=== PATIENT | male | born 1960 | race African-American/Black ===

== ENCOUNTER 2021-07-31 11:13 | Inpatient (IN) | payer MEDICARE, MEDICAID, SELFPAY ==
--- NOTE | ~2021-07-31 | XR_ITS ---
EXAMINATION: XR abdomen obstructive series DATE: 08/03/2021 18:17 INDICATION: Abdominal pain. TECHNIQUE: Upright and supine views of the abdomen on 3 radiographs were obtained. COMPARISON: None. FINDINGS: There are no dilated loops of bowel. There is a small volume of stool in the colon. No free intraperitoneal gas. IMPRESSION: 1. Normal bowel gas pattern. Reviewed, dictated and finalized at location A. ICAL TRIAL COORDINATOR
--- NOTE | ~2021-07-31 | XR_ITS ---
EXAMINATION: XR chest 1V portable DATE: 07/31/2021 13:02 INDICATION: Cough and congestion. TECHNIQUE: A single frontal view of the chest was obtained. COMPARISON: None. FINDINGS: There are mild airspace opacities in the lower lung zones. No pleural effusion or pneumotho rax. The heart size is normal. IMPRESSION: 1. Mild airspace opacities in the lower lung zones, consistent with atelectasis versus pneumonia. Reviewed, dictated and finalized at location B. RUMENT SPECIALIST
--- NOTE | ~2021-07-31 | US_ITS ---
EXAMINATION: US art doppler w harshad VELEZ EXAM DATE: 07/31/2021 18:20 INDICATION: weak pedal pulses . TECHNIQUE: Segmental pressures and plethysmographic and Doppler waveforms of the brachial and lower e xtremity arteries were obtained. There is no prior study for comparison. FINDINGS: Right and left brachial artery pressures of 128 mm Hg and 125 mm Hg, respectively, are concordant (no rmal difference <= 30 mmHg). RIGHT LEG: The ankle-brachial index (DAHLIA) is could not obtain (normal >= 0.9-1). The great toe-brachial index (TBI) is 0.59 (normal >= 0.65). The lower extremity ratios, segmental pressure gradients as follows; Dorsalis pedis: Could not obtain ( mmHg). Posterior tibial: Could not obtain ( mmHg). (Normal gradients <= 20-30 mmHg between adjacent levels on the same leg or the same levels on the two legs). Arterial waveforms are monophasic. LEFT LEG: The ankle-brachial index (DAHLIA) is could not obtain (normal >= 0.9-1). The great toe-brachial index (TBI) is 0.34 (normal >= 0.65). The lower extremity ratios, segmental pressure gradients as follows; Dorsalis pedis: Could not obtain ( mmHg). Posterior tibial: Could not obtain ( mmHg). (Normal gradients <= 20-30 mmHg between adjacent levels on the same leg or the same levels on the two legs). Arterial waveforms are monophasic. IMPRESSION: ABIs could not be obtained, could not get pressure in calf arteries. Monophasic waveform s. Mildly decreased right TBI, moderately decreased left TBI. Could be from significant arterial occl usive disease. Reviewed, dictated and finalized at location G. DOZER/LOADER/COMPACTOR/SCRAPER IMPRESSION: ABIs could not be obtained, could not get pressure in calf arterie s. Monophasic waveforms. Mildly decreased right TBI, moderately decreased left TBI. Could be from significant arterial occlusive disease.
--- NOTE | ~2021-07-31 | CT_ITS ---
EXAMINATION: CT brain wo con DATE: 07/31/2021 13:50 INDICATION: Altered mental status. TECHNIQUE: Computed tomography (CT) of the head was performed without intravenous contrast. The mA wa s adjusted according to patient size. Iterative reconstruction technique was employed. The dose-lengt h product was 908.00 mGy-cm. COMPARISON: None FINDINGS: There is motion artifact. There is no intracranial hemorrhage, acute infarction, or abnorma l intracranial mass lesion. The ventricles are normal in size. The orbits are normal. The mastoid air cells are normal. There is extensive dental disease. There is mild mucosal thickening in left maxill haven sinus. IMPRESSION: 1. Normal brain. 2. Extensive dental disease. Reviewed, dictated and finalized at location B. NET ADMIN
[2021-07-31 11:10] VITALS: BP 130/77; PULSE 107; RESP 24; TEMP 36.9; O2SAT 98
--- NOTE | 2021-07-31 11:43 | ECG_ITS ---
Measurements Intervals [place] Rate: 106 P: CO: 0 QRS: -42 QRSD: 80 T: 192 QT: 383 QTc: 510 Interpretive Statements SINUS TACHYCARDIA LEFT AXIS DEVIATION DELAYED PRECORDIAL R/S TRANSITION LEFT VENTRICULAR HYPERTROPHY AND ST-T CHANGE T WAVE ABNORMALITY IN ANTEROLATERAL LEADS- CONSIDER ISCHEMIA BASELINE ARTIFACT- I, II, III, AVR, AVL, AVF, V1-V6 ABNORMAL ECG Electronically Signed On 07-31-2021 12:46:53 ELECTROPHYSIOLOGY TECHNICIAN by Luis Mina D.O.
[2021-07-31 11:50] LABS: Basophils Percent Auto 0.4 % (0.2-1.2); Eosinophils Absolute Auto 0.3 K/mm3 (0-0.3); Eosinophils Percent Auto 4.2 % (0-4.4); Hematocrit 37.7 % (42.0-52.0); Hemoglobin 11.2 g/dL (14.0-18.0); Immature Granulocyte Absolute 0.19 K/mm3 (0.00-0.031); Immature Granulocyte Percent A 2.7 % (0-0.5); Lymphocytes Absolute Auto 1.02 K/mm3 (0.9-3.2); Lymphocytes Percent Auto 14.6 % (18.3-44.2); Mean Corpuscular HGB Conc 29.7 g/dl (32-36); Mean Corpuscular Hemoglobin 28.6 pg (26-34); Mean Corpuscular Volume 96.4 fl (80-100); Mean Platelet Volume 10.9 fl (7.4-10.4); Monocytes Absolute Auto 0.3 K/mm3 (0.1-0.6); Monocytes Percent Auto 3.7 % (2.6-8.5); Neutrophils Absolute Auto 5.2 K/mm3 (1.3-6.7); Neutrophils Percent Auto 74.4 % (45.5-73.1); Platelet Count Result 154 k/mm3 (150-375); Red Blood Count 3.91 M/mm3 (4.6-6.20); Red Cell Distribution Width 15.9 % (11.5-14.5)
[2021-07-31 12:05] LABS: Alanine Aminotransferase 27 U/L (4-50); Albumin Level 4.2 g/dL (3.5-5.1); Alkaline Phosphatase 134 U/L (38-126); Anion Gap 19 mmol/L (8-16); Aspartate Amino Transferase 68 U/L (17-59); Bilirubin,Total 1.3 mg/dL (0.2-1.3); Blood Urea Nitrogen 46 mg/dL (9-20); Calcium 9.7 mg/dL (8.4-10.2); Carbon Dioxide 26 mmol/L (22-30); Chloride 98 mmol/L (98-107); Estimated CRCL calculation 11 ml/min; Estimated Glomerular Filt Rate 6; Glucose 86 mg/dL (65-110); Potassium 4.4 mmol/L (3.4-5.0); Sodium 143 mmol/L (137-145)
[2021-07-31 12:07] LABS: Ovalocytes 1+ (NORMAL); Platelet Estimate Adequate (Adequate)
--- NOTE | 2021-07-31 12:18 | PC.NURSE ---
Pt has not been to this facility and is usually seen at [facility] for all needs. Request sent for pt records. [facility] called for demographic information and recent labwork. Pt was seen there yesterday for a fall. Had been found by unknown person lying on the floor for undetermined amount of time. Had missed approx 6 dialysis treatments. Usually goes Tuesday, Tuesday, Tuesday. Labwork yesterday at [facility] as follows from CONSULTING SALES MANAGER and readback to confirm. Pts home phone number [phone]. Cr 17.25 K 7.0 Na 147 BUN 115 Anion Gap 7.0 Troponin 0.300 BNP 4840
--- NOTE | 2021-07-31 12:19 | PC.NURSE ---
medical office secretary faxed record release form to [facility] at [phone]
--- NOTE | 2021-07-31 12:26 | ED.AMS ---
HPI - Altered Mental Status General Chief Complaint: Altered Mental Status Stated Complaint: AMS Time Seen by Provider: 07/31/21 11:50 Source: patient, RN notes reviewed and old records reviewed Mode of arrival: ambulatory Limitations: clinical condition History of Present Illness HPI narrative: 61-year-old male presents the emergency room for evaluation from dialysis. Patient had been evaluated in [place] and was discharged from the hospital and taken by cab to dialysis. At dialysis they felt the patient was still altered so the patient was sent in by ambulance to [facility]. Patient has no medical records here at [facility] so we are seeking records from [facility]. Patient denies any complaints but is very somnolent. Related Data Home Medications Medication Instructions Recorded Confirmed acetaminophen-codeine tablet 07/31/21 albuterol sulfate 2 inh INHALATION Q6H 07/31/21 07/31/21 atorvastatin 20 mg PO DAILY 07/31/21 07/31/21 baclofen 10 mg PO BID 07/31/21 07/31/21 cetirizine 10 mg PO DAILY 07/31/21 07/31/21 folic acid 1 mg PO DAILY 07/31/21 07/31/21 [id number] [Creon] 1 cap PO TID 07/31/21 07/31/21 loperamide [Imodium] 2 mg PO PRN PRN 07/31/21 07/31/21 metoprolol tartrate 50 mg PO BID 07/31/21 07/31/21 prednisone 20 mg PO DAILY 07/31/21 07/31/21 sevelamer HCl 800 mg PO TID 07/31/21 07/31/21 Allergies Allergy/AdvReac Type Severity Reaction Status Date / Time lisinopril Allergy Unknown Verified 07/31/21 16:44 Review of Systems Review of Systems: ROS unobtainable: Yes other (Patient responds and states I am listening but does not answer very many ) PMFSH Past Medical History Medical History (Updated 07/31/21 @ 16:00 by Isela Perales NP) Chronic pancreatitis End stage renal disease on dialysis Hyperlipidemia Hypertension Surgical History Surgical History (Updated 07/31/21 @ 16:00 by Isela Perales NP) H/O abdominal surgery Possible mesh to umbilical area Family History Family History (Updated 07/31/21 @ 16:04 by Isela Perales NP) Unknown Family history unknown Social History Social History (Updated 07/31/21 @ 16:05 by Isela Perales NP) Social History: The patient is unable to answer questions. I do not have a contact number where I can speak to somebody concerning the patient's history. The patient has listed his own cell phone number which I called and there was no answer. I did request for patient's records from [facility]. Exam Narrative: APPEARANCE: Well appearing, no pain in distress, well-nourished. HEAD: normocephalic, atraumatic. EYES: PERRLA/EOMI, conjunctivae clear. NOSE: Normal no drainage NECK: Supple. No adenopathy, no masses. RESPIRATORY: Airway patent, respirations nonlabored. CARDIOVASCULAR: Regular rate and rhythm without murmurs rubs or gallops. ABDOMINAL: Soft, nontender, nondistended, normal bowel sounds MUSCULOSKELETAL: Chronic wound at right lower extremity NEURO: Alert. Cranial nerves II through XII intact. SKIN: Chronic wound on her right calf PSYCHIATRIC: Normal affect/mood. Course Course Emergency Course: Patient did have dialysis today. Patient did test positive for COVID. Discussed with the hospitalist and patient is being admitted. No antibiotics since we feel this is due to viral COVID. Patient was updated on the plan for admission. All patient's labs reviewed. Patient was stable at time admission. Vital Signs Vital signs: Vital Signs Temperature 98.4 F 07/31/21 11:10 Pulse Rate 107 H 07/31/21 11:10 Respiratory Rate 24 H 07/31/21 11:10 Blood Pressure 130/77 07/31/21 11:10 Pulse Oximetry 98 07/31/21 11:10 Temperature 98.8 F 07/31/21 17:07 Pulse Rate 94 07/31/21 17:07 Respiratory Rate 19 07/31/21 17:07 Blood Pressure 128/72 07/31/21 17:07 Pulse Oximetry 100 07/31/21 17:07 MDM - Altered Mental Status Differential Diagnosis Differential diagnosis: Lik
[2021-07-31 13:19] LABS: SARS-CoV-2 RNA PCR Positive
[2021-07-31 13:28] LABS: Alveolar/Arterial O2 Gradient 38.9 mmHg; Base Excess ABG 3.9 mEq/l (+/-2.0); Fractional Inspired Oxygen 21 %; Oxygen Content ABG 14.7 %vol (16.0-22.0); Oxygen Saturation ABG 95.2 % (95.0-100.0); Oxyhemoglobin 91.6 % THb (90.0-100.0); PCO2 ABG 35.4 mmHg (35.0-45.0); PO2 ABG 68.4 mmHg (80.0-100.0); PO2 FiO2 Ratio Arterial Blood 3.26 %; Total Hemoglobin 11.4 g/dL (12.0-18.0)
[2021-07-31 13:31] LABS: Device ROOM AIR; Modified Allen's Test Pass; Site Drawn RIGHT RADIAL; pH ABG 7.501 (7.350-7.450)
[2021-07-31 13:34] LABS: INR 1.9; Prothrombin Time 21.1 Seconds (11.1-14.7)
[2021-07-31 13:35] LABS: Partial Thromboplastin Time 38.4 SECONDS (22.3-36.8)
--- NOTE | 2021-07-31 14:02 | PM.IMHP ---
H&P: HPI History of Present Illness Date/Time: 07/31/21 14:02 this is a 61-year-old male patient who came to the emergency room to be evaluated for for altered mental status changes. The patient had recently been evaluated [facility] was discharged from the hospital and take by cab to dialysis. When the patient was received at dialysis was felt that the patient was still altered and they brought him to [facility] via ambulance. We have no current records here the patient is not able to answer any questions. The 2 numbers listed in the patient's chart is the patient's cell phone and in [facility] number. I do not have any contacts listed to be able to discuss patient's past medical history and surgeries. The patient is not able to answer questions for me. Patient is just mumbling. Head CT was read as normal brain extensive dental disease. Chest x-ray was read as mild airspace opacities in the lower lung zones consistent with atelectasis versus pneumonia. Patient is found to be positive for COVID. The patient is being admitted to observation status on 07/31/2021. Chief Complaint: Confusion Review of Systems Review of Systems: All systems reviewed & are unremarkable except as noted in HPI and below Constitutional: Constitutional: Reports as per HPI and Reports no additional constitutional complaints Eyes: Eyes: Reports as per HPI and Reports no additional eye complaints ENT: Reports system reviewed and no additional complaints, except as documented and Reports Normal hearing present Cardiovascular: Cardiovascular: Reports no additional cardiovascular complaints Respiratory: Respiratory: Reports no additional respiratory complaints and Reports no additional respiratory complaints Gastrointestinal: Gastrointestinal: Reports as per HPI and Reports no additional gastrointestinal complaints Musculoskeletal: Musculoskeletal: Reports no additional musculoskeletal complaints Integumentary/Breasts: Skin/Breast: Reports system reviewed and no additional complaints, except as docu and Reports as per HPI Neurologic: Reports system reviewed and no additional complaints, except as documented, Reports as per HPI and Reports Normal hearing present Psychiatric: Psychiatric: Reports no additional psychiatric complaints and Reports as per HPI Endocrine: Endocrine: Reports no additional endocrine complaints Hematologic/Lymphatic: Hematologic/Lymphatic: Reports no additional hematologic/lymphatic complaints Allergic/Immunologic: Allergic/Immunologic: Reports no additional allergic/immunologic complaints [facility] Past Medical History Medical History (Updated 07/31/21 @ 16:00 by Isela Perales NP) Chronic pancreatitis End stage renal disease on dialysis Hyperlipidemia Hypertension Surgical History Surgical History (Updated 07/31/21 @ 16:00 by Isela Peralse NP) H/O abdominal surgery Possible mesh to umbilical area Family History Family History (Updated 07/31/21 @ 16:04 by Isela Perales NP) Unknown Family history unknown Social History Social History (Updated 07/31/21 @ 16:05 by Isela Perales NP) Social History: The patient is unable to answer questions. I do not have a contact number where I can speak to somebody concerning the patient's history. The patient has listed his own cell phone number which I called and there was no answer. I did request for patient's records from [facility]. Meds Home Medications and Allergies Home Medications Medication Instructions Recorded Confirmed Type acetaminophen-codeine tablet 07/31/21 History albuterol sulfate 2 INHALATION 07/31/21 History atorvastatin 20 mg PO DAILY 07/31/21 History baclofen 10 mg PO BID 07/31/21 History cetirizine 10 mg PO DAILY 07/31/21 History folic acid 1 mg PO DAILY 07/31/21 History [id number] [Creon] 1 cap PO TID 07/31/21 History loperamide [Imodium] 2 mg PO PRN 07/31/21 History metoprolol t
--- NOTE | 2021-07-31 15:49 | PC.NURSE ---
Pt is refusing straight cath for urine at this time. States he does not produce much.
[2021-07-31] MEDS: ALBUTEROL SULFATE (*SP) AEROSOL 1 PUFF 2 PUFF INHALATION (16:15)
--- NOTE | 2021-07-31 16:15 | PHAR ---
DIALYSIS PATIENT GFR 6 SPOKE WITH HATTIE FORBES TO USE PER BUOY TENDER
--- NOTE | 2021-07-31 16:20 | PM.CNNEP ---
Assessment and Plan Assessment and plan (1) End stage renal disease on dialysis: Code(s): N18.6 - End stage renal disease; Z99.2 - Dependence on renal dialysis Status: Chronic Assessment and Plan: plan next HD treatment on Tuesday continue // dialysis schedule follow electrolytes, volume status, and clearance (2) Altered mental status: Qualifiers: Altered mental status type: disorientation Qualified Code(s): R41.0 - Disorientation, unspecified Code(s): R41.82 - Altered mental status, unspecified Status: Acute Assessment and Plan: extent and duration unknown related to COVID-19 infection(?) head CT unrevealing further imaging needed (ie MRI)?? (3) COVID-19 virus infection: Code(s): U07.1 - COVID-19 Status: Acute Assessment and Plan: despite positivity, no hypoxic and in no respiratory distress started on remdesivir and steroids -- needed at this time? follow respiratory statis (4) Hypertension: Code(s): I10 - Essential (primary) hypertension Status: Chronic Assessment and Plan: reasonable control at this time follow trend of hemodynamics Will continue to follow. History of Present Illness Reason for Consult Consult date: 07/31/21 Reason for consult: end stage renal disease Chief Complaint Chief complaint: Covid Pneumonia History of Present Illness Narrative: Most of the information I have obtained is from review of the electronic record although even this information is quite limited but the patient is unable to provide me with much history of the events that led to his presentation to the emergency room. The patient is a 61-year-old male with a past medical history as outlined below who presented for further evaluation of altered mental status. Reportedly, the patient was evaluated at [facility] not too long ago and was subsequently sent to dialysis for his treatment today as apparently he was felt to be stable for this. The patient received his dialysis treatment today as scheduled but the nursing staff at his dialysis center felt that his mentation was still not back to baseline even after his dialysis treatment so he was sent to [facility] Emergency room for further evaluation. Evaluation in the emergency room demonstrated the patient to be hemodynamically stable with routine blood tests that were consistent with his known history of end-stage renal disease. CT scan of the head did not demonstrate any acute pathology initial S x-ray was suggestive of atelectasis versus pneumonia. Rapid COVID-19 testing was positive. Given his altered mental status and recent COVID-19 diagnosis, he was admitted the hospital for further evaluation therapy. Renal consultation was requested due to his end-stage renal disease. The patient has no records in the [facility] system but I was able to call his dialysis center to get some information. He currently receives dialysis on a Tuesday, Tuesday, Tuesday dialysis schedule at [facility] under the care of Dr. Efe Preciado. His baseline mental status is usually alert oriented x3 so his current mental status both on presentation to the dialysis center as well as to the emergency room is clearly a significant change than his baseline. As already mentioned, he did receive his full dialysis treatment today prior to his transfer to the emergency room. Currently, the patient does not appear to be in acute distress but whenever I ask him a question, he just mumbles a response that I am unable to understand. Review of Systems Review of Systems: Unable to assess. PMFSH Past Medical History Medical History (Updated 07/31/21 @ 20:22 by Skylar Pinon MD) Chronic pancreatitis End stage renal disease on dialysis Hyperlipidemia Hypertension Surgical History Surgical History (Updated 07/31/21 @ 16:00 by Isela Perales NP) H/O abd
[2021-07-31 17:07] VITALS: BP 128/72; PULSE 94; RESP 19; TEMP 37.1; O2SAT 100
[2021-07-31] MEDS: REMDESIVIR 200 MG/NS 250 ML 200 MG/250 ML BAG 250 MG IVPB (18:02)
[2021-07-31 20:00] VITALS: PULSE 94; RESP 19; O2SAT 100
[2021-07-31] MEDS: HEPARIN SODIUM 5,000 UNITS/ML VIAL 5000 UNITS SUB-Q (21:34)
[2021-07-31] MEDS: METOPROLOL TARTRATE 50 MG TAB PO (21:34)
[2021-07-31 22:00] VITALS: BP 120/71; PULSE 92; RESP 18; TEMP 36.6; O2SAT 95
--- NOTE | 2021-08-01 07:07 | ADMGEN ---
This patient, Christiano Lehman, was admitted to [facility] Surg Room 325-01. Patient/family oriented to hospital policies and general routines including ID bracelet, bed and alarms, visiting hours, pain management, procedures, bathroom and other care routines, personal items, smoking policy, room service/diet, and visiting hours. Information on how to activate the Rapid Response Team has been discussed. Patient/Family are encouraged to report perceived risks to care and to ask questions if they do not understand what they are told or what they should do.
[2021-08-01 07:22] LABS: Basophils Percent Auto 0.6 % (0.2-1.2); Eosinophils Percent Auto 0.2 % (0-4.4); Hematocrit 39.3 % (42.0-52.0); Hemoglobin 11.6 g/dL (14.0-18.0); Immature Granulocyte Absolute 0.18 K/mm3 (0.00-0.031); Immature Granulocyte Percent A 2.7 % (0-0.5); Lymphocytes Absolute Auto 0.64 K/mm3 (0.9-3.2); Lymphocytes Percent Auto 9.7 % (18.3-44.2); Mean Corpuscular HGB Conc 29.5 g/dl (32-36); Mean Corpuscular Hemoglobin 28.6 pg (26-34); Mean Corpuscular Volume 96.8 fl (80-100); Mean Platelet Volume 11.3 fl (7.4-10.4); Monocytes Absolute Auto 0.1 K/mm3 (0.1-0.6); Monocytes Percent Auto 1.8 % (2.6-8.5); Neutrophils Absolute Auto 5.6 K/mm3 (1.3-6.7); Platelet Count Result 150 k/mm3 (150-375); Red Blood Count 4.06 M/mm3 (4.6-6.20); Red Cell Distribution Width 15.3 % (11.5-14.5); White Blood Count 6.6 K/mm3 (4.5-10.0)
[2021-08-01 07:26] LABS: Lactic Acid Reflex 1.5 mmol/L (0.7-2.1)
[2021-08-01 07:34] LABS: INR 1.7; Prothrombin Time 19.5 Seconds (11.1-14.7)
[2021-08-01 08:00] VITALS: BP 128/82; PULSE 80; PULSE 97; RESP 20; TEMP 37.1; O2SAT 97
[2021-08-01 08:02] LABS: Alanine Aminotransferase 24 U/L (4-50); Albumin Level 4.2 g/dL (3.5-5.1); Alkaline Phosphatase 119 U/L (38-126); Anion Gap 23 mmol/L (8-16); Aspartate Amino Transferase 45 U/L (17-59); Blood Urea Nitrogen 63 mg/dL (9-20); CRP 13.7 mg/dL (<1.0); Calcium 9.8 mg/dL (8.4-10.2); Carbon Dioxide 23 mmol/L (22-30); Chloride 99 mmol/L (98-107); Estimated CRCL calculation 9 ml/min; Estimated Glomerular Filt Rate 6; Glucose 123 mg/dL (65-110); Lactate Dehydrogenase 660 U/L (313-618); Magnesium 2.3 mg/dL (1.6-2.3); Potassium 5.4 mmol/L (3.4-5.0); Sodium 145 mmol/L (137-145)
--- NOTE | 2021-08-01 08:25 | PC.NURSE ---
MD Pinon called this morning r.t pt labs, awaiting call back.
[2021-08-01 08:33] LABS: Thyroid Stimulating Hormone Reflex 0.383 uIU/mL (0.465-4.68)
[2021-08-01] MEDS: LORATADINE 10 MG TABLET PO (09:36)
[2021-08-01] MEDS: SEVELAMER CARBONATE 800 MG TABLET PO ×3 (09:36→16:51)
[2021-08-01 09:37] VITALS: PULSE 80
[2021-08-01] MEDS: ATORVASTATIN 20 MG TABLET PO (09:37)
[2021-08-01] MEDS: LIPASE/AMYLASE/PROTEASE 12,000 UNITS CAP 2 CAP PO ×3 (09:37→16:51)
[2021-08-01] MEDS: HEPARIN SODIUM 5,000 UNITS/ML VIAL 5000 UNITS SUB-Q ×2 (09:37→20:22)
[2021-08-01] MEDS: METOPROLOL TARTRATE 50 MG TAB PO ×2 (09:37→16:51)
[2021-08-01] MEDS: FOLIC ACID 1 MG TABLET PO (09:37)
[2021-08-01] MEDS: LOPERAMIDE HCL 2 MG CAPSULE PO (09:42)
--- NOTE | 2021-08-01 09:57 | PC.NURSE ---
Labs report to MD Steen, MD Steen to review. Pt Cr increase to 11.2 from 8.5, K increased to 5.4 from 4.4. Awaiting further instruction.
[2021-08-01 10:05] LABS: Free T4 Free Thyroxine Reflex 1.44 ng/dL (0.78-2.19)
[2021-08-01 11:12] LABS: Ferritin > 2000.00 ng/mL (11.1-264)
--- NOTE | 2021-08-01 11:12 | PC.NURSE ---
MD Steen reordering K level, will continue to monitor K level. No order to dialysis today. Md Sandy updated.
--- NOTE | 2021-08-01 11:17 | PM.PNNEP ---
Progress Note: A&P Assessment and Plan (1) End stage renal disease on dialysis: Code(s): N18.6 - End stage renal disease; Z99.2 - Dependence on renal dialysis Status: Chronic Assessment and Plan: plan next HD treatment on Tuesday volume status looks okay. Potassium slightly high. We will recheck this afternoon (2) Altered mental status: Qualifiers: Altered mental status type: disorientation Qualified Code(s): R41.0 - Disorientation, unspecified Code(s): R41.82 - Altered mental status, unspecified Status: Acute Assessment and Plan: this seems baseline right now.?? (3) COVID-19 virus infection: Code(s): U07.1 - COVID-19 Status: Acute Assessment and Plan: despite positivity, no hypoxic and in no respiratory distress started on remdesivir and steroids -- needed at this time? Hopefully he can be discharged since he is not hypoxic and he can go back to outpatient dialysis. (4) Hypertension: Code(s): I10 - Essential (primary) hypertension Status: Chronic Assessment and Plan: Systolic in the 120s Will continue to follow. Subjective Date/time seen: 08/01/21 11:17 Interval history: Patient is feeling okay today. He is surprised he has COVID. He has no cough or shortness of breath Review of Systems Cardiovascular: Cardiovascular: Reports no additional cardiovascular complaints Respiratory: Respiratory: Reports no additional respiratory complaints Gastrointestinal: Gastrointestinal: Reports no additional gastrointestinal complaints Genitourinary: Genitourinary: Reports no additional male genitourinary complaints Exam Narrative: WDWN in NAD skin no rash head ncat lungs clear cor reg no rub abd BS+ nontender and soft ext no edema. Objective Data Vital Signs Vital Signs: Vital Signs - 24 hr 07/31/21 17:07 07/31/21 20:00 07/31/21 22:00 Temperature 37.1 C 36.6 C Pulse Rate 94 94 92 Respiratory Rate 19 19 18 Blood Pressure 128/72 120/71 Pulse Oximetry 100 100 95 08/01/21 08:00 08/01/21 09:37 Temperature 37.1 C Pulse Rate 80 80 Respiratory Rate 20 Blood Pressure 128/82 Pulse Oximetry 97 Intake/Output Intake/Output: Intake & Output 07/29/21 07/30/21 07/31/21 08/01/21 23:59 23:59 23:59 23:59 Intake Total 360 Balance 360 Meds/Results Medications: Active Medications Generic Name Dose Route Start Last Admin Trade Name Daniella PRN Reason Stop Dose Admin Albuterol 2 puff 07/31/21 16:09 07/31/21 16:15 Albuterol Sulfate (*Sp) Aerosol 1 Puff INHALATION 2 puff Q6HRT PRN Administration Shortness Of Breath Lipase/Protease/Amylase 2 cap 08/01/21 09:00 08/01/21 09:37 Lipase/Amylase/Protease 12,000 Units Cap PO 2 cap TID ARIES Administration Atorvastatin Calcium 20 mg 08/01/21 09:00 08/01/21 09:37 Atorvastatin 20 Mg Tablet PO 20 mg DAILY ARIES Administration Dexamethasone Sodium Phosphate 6 mg 07/31/21 16:30 08/01/21 09:37 Dexamethasone Sod Phos Inj 10 Mg/Ml 1 Ml Vial IV PUSH 08/09/21 09:01 6 mg DAILY ARIES Administration Folic Acid 1 mg 08/01/21 09:00 08/01/21 09:37 Folic Acid 1 Mg Tablet PO 1 mg DAILY ARIES Administration Heparin Sodium (Porcine) 5,000 units 07/31/21 21:00 08/01/21 09:37 Heparin Sodium 5,000 Units/Ml Vial SUB-Q 5,000 units Q12HR ARIES Administration Hydralazine HCl 10 mg 07/31/21 15:58 Hydralazine Hcl 20 Mg/Ml Vial IV PUSH Q8H PRN Blood Pressure - High Remdesivir 100 mg in 250 mls @ 250 mls/hr 08/01/21 22:00 IVPB 08/04/21 22:59 Q24H ARIES Loperamide HCl 2 mg 07/31/21 19:51 08/01/21 09:42 Loperamide Hcl 2 Mg Capsule PO 2 mg PRN PRN Administration Diarrhea Loratadine 10 mg 08/01/21 09:00 08/01/21 09:36 Loratadine 10 Mg Tablet PO 10 mg DAILY ARIES Administration Metoprolol Tartrate 50 mg 07/31/21 20:00 08/01/21 09:37 Metoprolol Ta
--- NOTE | 2021-08-01 11:24 | PC.NURSE ---
Reported ferritin >2000 to Md Steen, NNO
--- NOTE | 2021-08-01 11:26 | PC.NURSE ---
Pt informed urine sample needed for UA with C&S, awaiting void for sample.
--- NOTE | 2021-08-01 11:30 | PM.IMPN ---
Progress Note: A&P Assessment and Plan (1) 2019 novel coronavirus-infected pneumonia (NCIP): Code(s): U07.1 - COVID-19; J12.82 - Pneumonia due to coronavirus disease 2019 Status: Acute Assessment and Plan: 08/01 Day 2 remdesivir and Decadron. Given his dramatic improvement and risk due to ESRD, the remdesivir was discontinued. (2) Altered mental status: Qualifiers: Altered mental status type: disorientation Qualified Code(s): R41.0 - Disorientation, unspecified Code(s): R41.82 - Altered mental status, unspecified Status: Acute Assessment and Plan: Possibly due to COVID-19 08/01 Resolved (3) End stage renal disease on dialysis: Code(s): N18.6 - End stage renal disease; Z99.2 - Dependence on renal dialysis Status: Chronic Assessment and Plan: HD per nephrology service (4) Hypertension: Qualifiers: Hypertension type: unspecified Qualified Code(s): I10 - Essential (primary) hypertension Code(s): I10 - Essential (primary) hypertension Status: Chronic Assessment and Plan: P.r.n. hydralazine (5) Hyperlipidemia: Qualifiers: Hyperlipidemia type: unspecified Qualified Code(s): E78.5 - Hyperlipidemia, unspecified Code(s): E78.5 - Hyperlipidemia, unspecified Status: Chronic Assessment and Plan: Continue with home medication. (6) Chronic pancreatitis: Qualifiers: Pancreatitis type: unspecified pancreatitis type Qualified Code(s): K86.1 - Other chronic pancreatitis Code(s): K86.1 - Other chronic pancreatitis Status: Chronic Assessment and Plan: Continue Creon Subjective Date/time seen: 08/01/21 11:30 Interval history: Admitted with confusion and COVID-19 pneumonia after completing 4 hour dialysis treatment on 07/31. 08/01 visit: denied shortness of breath or chest pain or nausea. Appetite good. Denied GI or changes. Denied abnormal bleeding. Review of Systems Review of Systems: All systems reviewed & are unremarkable except as noted in HPI and below Exam Narrative: HEENT: PERRL, sclerae nonicteric, pharyngeal mucosa pink and intact NECK: No JVD, adenopathy, or thyromegaly CHEST: COARSE BS. Normal effort. HEART: NL S1/S2, regular, no murmur ABDOMEN: BS+, soft, nontender, no mass, no bruits EXTREMITIES: No cyanosis, edema, or clubbing NEUROLOGIC: CN intact and symmetric to inspection. MUSCULOSKELETAL: Tone and strength symmetric. PSYCH: Alert. Oriented to person, place, and time. Objective Data Vital Signs Vital Signs: Vital Signs - 24 hr 07/31/21 17:07 07/31/21 20:00 07/31/21 22:00 Temperature 98.8 F 97.8 F Pulse Rate 94 94 92 Respiratory Rate 19 19 18 Blood Pressure 128/72 120/71 Pulse Oximetry 100 100 95 08/01/21 08:00 08/01/21 09:37 Temperature 98.7 F Pulse Rate 80 80 Respiratory Rate 20 Blood Pressure 128/82 Pulse Oximetry 97 Intake/Output Intake/Output: Intake & Output 07/29/21 07/30/21 07/31/21 08/01/21 23:59 23:59 23:59 23:59 Intake Total 360 Balance 360 Meds/Results Medications: Active Medications Generic Name Dose Route Start Last Admin Trade Name Freq PRN Reason Stop Dose Admin Albuterol 2 puff 07/31/21 16:09 07/31/21 16:15 Albuterol Sulfate (*Sp) Aerosol 1 Puff INHALATION 2 puff Q6HRT PRN Administration Shortness Of Breath Lipase/Protease/Amylase 2 cap 08/01/21 09:00 08/01/21 09:37 Lipase/Amylase/Protease 12,000 Units Cap PO 2 cap TID ARIES Administration Atorvastatin Calcium 20 mg 08/01/21 09:00 08/01/21 09:37 Atorvastatin 20 Mg Tablet PO 20 mg DAILY ARIES Administration Dexamethasone Sodium Phosphate 6 mg 07/31/21 16:30 08/01/21 09:37 Dexamethasone Sod Phos Inj 10 Mg/Ml 1 Ml Vial IV PUSH 08/09/21 09:01 6 mg DAILY ARIES Administration Folic Acid 1 mg 08/01/21 09:00 08/01/21 09:37 Folic Acid 1 Mg Tablet PO 1 mg DAILY [facility]
[2021-08-01 12:00] VITALS: BP 113/72; PULSE 92; RESP 18; TEMP 36.7; O2SAT 98
[2021-08-01 12:01] LABS: Total Triiodothyronine (T3) 0.56 NG/ML (0.97-1.69)
[2021-08-01 16:00] VITALS: BP 150/81; PULSE 77; RESP 18; TEMP 36.8; O2SAT 99
[2021-08-01 16:40] LABS: Anion Gap 19 mmol/L (8-16); Blood Urea Nitrogen 77 mg/dL (9-20); Calcium 9.8 mg/dL (8.4-10.2); Carbon Dioxide 26 mmol/L (22-30); Chloride 94 mmol/L (98-107); Estimated CRCL calculation 9 ml/min; Estimated Glomerular Filt Rate 6; Glucose 194 mg/dL (65-110); Potassium 4.9 mmol/L (3.4-5.0); Sodium 139 mmol/L (137-145)
[2021-08-01 16:51] VITALS: PULSE 74
[2021-08-01 17:12] LABS: Hepatitis B Surface Antigen Negative (Negative)
[2021-08-01 17:29] LABS: Hepatitis B Surface Anti Res Negative
--- NOTE | 2021-08-01 18:58 | PC.NURSE ---
Pt unable to urinate, pt state he is auric x 1 yr. Pt refused straight catheter to attempt UA sample. Md Sandy informed.
[2021-08-01 20:00] VITALS: BP 117/81; PULSE 58; RESP 20; TEMP 36.1; O2SAT 98
[2021-08-02] VITALS (21 sets, daily range): BP systolic 94–157; BP diastolic 43–89; PULSE 54–90; RESP 16–18; TEMP 36.2–36.9; O2SAT 94–99
[2021-08-02] MEDS: ALBUTEROL SULFATE (*SP) AEROSOL 1 PUFF 2 PUFF INHALATION (00:19)
[2021-08-02] MEDS: LORATADINE 10 MG TABLET PO (08:14)
[2021-08-02] MEDS: LOPERAMIDE HCL 2 MG CAPSULE 4 MG PO ×2 (08:14→16:02)
[2021-08-02] MEDS: LIPASE/AMYLASE/PROTEASE 12,000 UNITS CAP 2 CAP PO ×2 (08:14→16:02)
[2021-08-02] MEDS: SEVELAMER CARBONATE 800 MG TABLET PO ×2 (08:14→16:02)
[2021-08-02] MEDS: METOPROLOL TARTRATE 50 MG TAB PO ×2 (08:14→16:03)
[2021-08-02] MEDS: FOLIC ACID 1 MG TABLET PO (08:14)
[2021-08-02] MEDS: ATORVASTATIN 20 MG TABLET PO (08:14)
[2021-08-02] MEDS: HEPARIN SODIUM 5,000 UNITS/ML VIAL 5000 UNITS SUB-Q ×2 (08:15→20:24)
--- NOTE | 2021-08-02 09:46 | PM.PNNEP ---
Progress Note: A&P Assessment and Plan (1) End stage renal disease on dialysis: Code(s): N18.6 - End stage renal disease; Z99.2 - Dependence on renal dialysis Status: Chronic Assessment and Plan: plan next HD treatment today then get him back on Tuesday schedule. volume status looks okay. Potassium back to normal yesterday. (2) Altered mental status: Qualifiers: Altered mental status type: disorientation Qualified Code(s): R41.0 - Disorientation, unspecified Code(s): R41.82 - Altered mental status, unspecified Status: Acute Assessment and Plan: resolved (3) COVID-19 virus infection: Code(s): U07.1 - COVID-19 Status: Acute Assessment and Plan: despite positivity, no hypoxic and in no respiratory distress started on remdesivir and steroids will do dialysis today. Then he goes back on Tuesday to a COVID positive [facility] (4) Hypertension: Qualifiers: Hypertension type: unspecified Qualified Code(s): I10 - Essential (primary) hypertension Code(s): I10 - Essential (primary) hypertension Status: Chronic Assessment and Plan: Systolic in the 120s to 150s Will continue to follow. Subjective Date/time seen: 08/02/21 09:46 Interval history: Patient is feeling okay today. No chest pain or shortness of breath. Exam Narrative: WDWN in NAD skin no rash Or subcu nodules head ncat lungs clear cor reg no rub or gallop abd BS+ nontender and soft ext no edema. Objective Data Vital Signs Vital Signs: Vital Signs - 24 hr 08/01/21 12:00 08/01/21 16:00 08/01/21 16:51 Temperature 36.7 C 36.8 C Pulse Rate 92 77 74 Respiratory Rate 18 18 Blood Pressure 113/72 150/81 H Pulse Oximetry 98 99 08/01/21 20:00 08/02/21 00:00 08/02/21 04:00 Temperature 36.1 C L 36.2 C L 36.5 C Pulse Rate 58 L 72 77 Respiratory Rate 20 16 18 Blood Pressure 117/81 131/73 149/89 H Pulse Oximetry 98 99 97 08/02/21 08:00 08/02/21 08:14 Temperature 36.3 C L Pulse Rate 78 78 Respiratory Rate 16 Blood Pressure 157/89 H Pulse Oximetry 96 Intake/Output Intake/Output: Intake & Output 07/30/21 07/31/21 08/01/21 08/02/21 23:59 23:59 23:59 23:59 Intake Total 2080 260 Output Total 0 Balance 2080 260 Meds/Results Medications: Active Medications Generic Name Dose Route Start Last Admin Trade Name Freq PRN Reason Stop Dose Admin Albuterol 2 puff 07/31/21 16:09 08/02/21 00:19 Albuterol Sulfate (*Sp) Aerosol 1 Puff INHALATION 2 puff Q6HRT PRN Administration Shortness Of Breath Lipase/Protease/Amylase 2 cap 08/01/21 09:00 08/02/21 08:14 Lipase/Amylase/Protease 12,000 Units Cap PO 2 cap TID ARIES Administration Atorvastatin Calcium 20 mg 08/01/21 09:00 08/02/21 08:14 Atorvastatin 20 Mg Tablet PO 20 mg DAILY ARIES Administration Dexamethasone Sodium Phosphate 6 mg 07/31/21 16:30 08/02/21 08:14 Dexamethasone Sod Phos Inj 10 Mg/Ml 1 Ml Vial IV PUSH 08/09/21 09:01 6 mg DAILY ARIES Administration Folic Acid 1 mg 08/01/21 09:00 08/02/21 08:14 Folic Acid 1 Mg Tablet PO 1 mg DAILY ARIES Administration Heparin Sodium (Porcine) 5,000 units 07/31/21 21:00 08/02/21 08:15 Heparin Sodium 5,000 Units/Ml Vial SUB-Q 5,000 units Q12HR ARIES Administration Hydralazine HCl 10 mg 07/31/21 15:58 Hydralazine Hcl 20 Mg/Ml Vial IV PUSH Q8H PRN Blood Pressure - High Loperamide HCl 4 mg 08/01/21 16:58 08/02/21 08:14 Loperamide Hcl 2 Mg Capsule PO 4 mg PRN PRN Administration Diarrhea Loratadine 10 mg 08/01/21 09:00 08/02/21 08:14 Loratadine 10 Mg Tablet PO 10 mg DAILY ARIES Administration Metoprolol Tartrate 50 mg 07/31/21 20:00 08/02/21 08:14 Metoprolol Tartrate 50 Mg Tab PO 50 mg BID ARIES Administration Multi-Ingredient Lotion 1 each 08/01/21 09:00 0
--- NOTE | 2021-08-02 10:18 | PM.IMPN ---
Progress Note: A&P Assessment and Plan (1) 2019 novel coronavirus-infected pneumonia (NCIP): Code(s): U07.1 - COVID-19; J12.82 - Pneumonia due to coronavirus disease 2019 Status: Acute Assessment and Plan: Continue dexamethasone (2) Altered mental status: Qualifiers: Altered mental status type: disorientation Qualified Code(s): R41.0 - Disorientation, unspecified Code(s): R41.82 - Altered mental status, unspecified Status: Acute Assessment and Plan: Resolved (3) End stage renal disease on dialysis: Code(s): N18.6 - End stage renal disease; Z99.2 - Dependence on renal dialysis Status: Chronic Assessment and Plan: Once to go home after dialysis August 03 (4) Hypertension: Qualifiers: Hypertension type: unspecified Qualified Code(s): I10 - Essential (primary) hypertension Code(s): I10 - Essential (primary) hypertension Status: Chronic Assessment and Plan: 08/02 reviewed and controlled with current regimen (5) Hyperlipidemia: Qualifiers: Hyperlipidemia type: unspecified Qualified Code(s): E78.5 - Hyperlipidemia, unspecified Code(s): E78.5 - Hyperlipidemia, unspecified Status: Chronic Assessment and Plan: Continue with home medication. (6) Chronic pancreatitis: Qualifiers: Pancreatitis type: unspecified pancreatitis type Qualified Code(s): K86.1 - Other chronic pancreatitis Code(s): K86.1 - Other chronic pancreatitis Status: Chronic Assessment and Plan: Continue Creon for pancreatic insufficiency Subjective Date/time seen: 08/02/21 10:18 Interval history: Admitted with confusion and COVID-19 pneumonia after completing 4 hour dialysis treatment on 07/31. 08/02 visit: Denied shortness of breath or chest pain or nausea. Appetite good. Denied GI or changes. Denied abnormal bleeding. Wants to go home after dialysis 08/03. Review of Systems Review of Systems: All systems reviewed & are unremarkable except as noted in HPI and below Exam Narrative: HEENT: PERRL, sclerae nonicteric, pharyngeal mucosa pink and intact NECK: No JVD, adenopathy, or thyromegaly CHEST: COARSE BS. Normal effort. HEART: NL S1/S2, regular, no murmur ABDOMEN: BS+, soft, nontender, no mass, no bruits EXTREMITIES: No cyanosis, edema, or clubbing NEUROLOGIC: CN intact and symmetric to inspection. MUSCULOSKELETAL: Tone and strength symmetric. PSYCH: Alert. Oriented to person, place, and time. Objective Data Vital Signs Vital Signs: Vital Signs - 24 hr 08/01/21 12:00 08/01/21 16:00 08/01/21 16:51 Temperature 98.0 F 98.3 F Pulse Rate 92 77 74 Respiratory Rate 18 18 Blood Pressure 113/72 150/81 H Pulse Oximetry 98 99 08/01/21 20:00 08/02/21 00:00 08/02/21 04:00 Temperature 96.9 F L 97.2 F L 97.7 F Pulse Rate 58 L 72 77 Respiratory Rate 20 16 18 Blood Pressure 117/81 131/73 149/89 H Pulse Oximetry 98 99 97 08/02/21 08:00 08/02/21 08:14 Temperature 97.3 F L Pulse Rate 78 78 Respiratory Rate 16 Blood Pressure 157/89 H Pulse Oximetry 96 Intake/Output Intake/Output: Intake & Output 07/30/21 07/31/21 08/01/21 08/02/21 23:59 23:59 23:59 23:59 Intake Total 2080 740 Output Total 0 Balance 2080 740 Meds/Results Medications: Active Medications Generic Name Dose Route Start Last Admin Trade Name Freq PRN Reason Stop Dose Admin Albuterol 2 puff 07/31/21 16:09 08/02/21 00:19 Albuterol Sulfate (*Sp) Aerosol 1 Puff INHALATION 2 puff Q6HRT PRN Administration Shortness Of Breath Lipase/Protease/Amylase 2 cap 08/01/21 09:00 08/02/21 08:14 Lipase/Amylase/Protease 12,000 Units Cap PO 2 cap TID ARIES Administration Atorvastatin Calcium 20 mg 08/01/21 09:00 08/02/21 08:14 Atorvastatin 20 Mg Tablet PO 20 mg DAILY ARIES Administration Dexamethasone Sodium Phosphate 6 mg 07/31/21 16:30 08/02/21 08:14 De
--- NOTE | 2021-08-02 10:29 | PC.NURSE ---
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
[2021-08-02 10:45] LABS: Alanine Aminotransferase 22 U/L (4-50); Albumin Level 3.9 g/dL (3.5-5.1); Anion Gap 22 mmol/L (8-16); Blood Urea Nitrogen 90 mg/dL (9-20); Calcium 9.5 mg/dL (8.4-10.2); Carbon Dioxide 26 mmol/L (22-30); Chloride 90 mmol/L (98-107); Estimated CRCL calculation 8 ml/min; Estimated Glomerular Filt Rate 6; Glucose 187 mg/dL (65-110); Phosphorus 6.8 mg/dL (2.5-4.5); Potassium 4.3 mmol/L (3.4-5.0); Sodium 138 mmol/L (137-145)
[2021-08-02 12:06] LABS: INR 1.3; Prothrombin Time 15.9 Seconds (11.1-14.7)
--- NOTE | 2021-08-02 17:00 | PC.NURSE ---
Dialysis performed this shift, tolerated well 2 L removed.
[2021-08-02] MEDS: ACETAMINOPHEN 325 MG TABLET 650 MG PO (18:33)
[2021-08-02] MEDS: PROCHLORPERAZINE MALEATE 5 MG TABLET 10 MG PO (18:33)
[2021-08-03] VITALS (14 sets, daily range): BP systolic 116–159; BP diastolic 65–90; PULSE 67–91; RESP 16–20; TEMP 36.1–36.6; O2SAT 93–100
[2021-08-03 06:47] LABS: Hematocrit 33.1 % (42.0-52.0); Immature Platelet Fraction Pct 5.7 % (0.9-11.2); Mean Corpuscular HGB Conc 30.2 g/dl (32-36); Mean Corpuscular Hemoglobin 28.3 pg (26-34); Mean Corpuscular Volume 93.8 fl (80-100); Mean Platelet Volume 12.1 fl (7.4-10.4); Platelet Count Result 105 k/mm3 (150-375); Red Blood Count 3.53 M/mm3 (4.6-6.20); Red Cell Distribution Width 14.9 % (11.5-14.5); White Blood Count 5.7 K/mm3 (4.5-10.0)
[2021-08-03 07:02] LABS: Alanine Aminotransferase 21 U/L (4-50); Estimated CRCL calculation 11 ml/min; Estimated Glomerular Filt Rate 8
[2021-08-03 07:05] LABS: Albumin Level 3.7 g/dL (3.5-5.1); Anion Gap 18 mmol/L (8-16); Blood Urea Nitrogen 70 mg/dL (9-20); Calcium 8.9 mg/dL (8.4-10.2); Carbon Dioxide 24 mmol/L (22-30); Chloride 92 mmol/L (98-107); Estimated CRCL calculation 11 ml/min; Estimated Glomerular Filt Rate 8; Glucose 250 mg/dL (65-110); Phosphorus 6.8 mg/dL (2.5-4.5); Potassium 4.1 mmol/L (3.4-5.0); Sodium 134 mmol/L (137-145)
[2021-08-03 07:24] LABS: INR 1.2; Prothrombin Time 14.9 Seconds (11.1-14.7)
[2021-08-03] MEDS: HEPARIN SODIUM 5,000 UNITS/ML VIAL 5000 UNITS SUB-Q (09:41)
[2021-08-03] MEDS: METOPROLOL TARTRATE 50 MG TAB PO ×2 (09:42→17:47)
[2021-08-03] MEDS: LIPASE/AMYLASE/PROTEASE 12,000 UNITS CAP 2 CAP PO ×3 (09:42→17:47)
[2021-08-03] MEDS: SEVELAMER CARBONATE 800 MG TABLET PO ×3 (09:42→17:48)
[2021-08-03] MEDS: FOLIC ACID 1 MG TABLET PO (09:42)
[2021-08-03] MEDS: LORATADINE 10 MG TABLET PO (09:42)
[2021-08-03] MEDS: ATORVASTATIN 20 MG TABLET PO (09:42)
[2021-08-03] MEDS: LOPERAMIDE HCL 2 MG CAPSULE 4 MG PO (10:00)
[2021-08-03] MEDS: PROCHLORPERAZINE MALEATE 5 MG TABLET 10 MG PO ×2 (10:05→17:47)
--- NOTE | 2021-08-03 14:12 | PM.PNNEP ---
Progress Note: A&P Assessment and Plan (1) End stage renal disease on dialysis: Code(s): N18.6 - End stage renal disease; Z99.2 - Dependence on renal dialysis Status: Chronic Assessment and Plan: plan next HD treatment tomorrow whether here or at his outpatient clinic. volume status looks okay. Potassium is okay today okay for discharge whenever everybody else's ready. (2) Altered mental status: Qualifiers: Altered mental status type: disorientation Qualified Code(s): R41.0 - Disorientation, unspecified Code(s): R41.82 - Altered mental status, unspecified Status: Acute Assessment and Plan: resolved (3) COVID-19 virus infection: Code(s): U07.1 - COVID-19 Status: Acute Assessment and Plan: despite positivity, no hypoxic and in no respiratory distress started on remdesivir and steroids will do dialysis today. Then he goes back on Tuesday to a COVID positive [facility] unit (4) Hypertension: Qualifiers: Hypertension type: unspecified Qualified Code(s): I10 - Essential (primary) hypertension Code(s): I10 - Essential (primary) hypertension Status: Chronic Assessment and Plan: Systolic in the 120s to 150s Subjective Date/time seen: 08/03/21 14:12 Interval history: Patient is feeling okay today. No chest pain or shortness of breath. he has been a bit dizzy the last several days. Exam Narrative: WDWN in NAD skin no rash Or subcu nodules head ncat lungs clear bilaterally cor reg no rub or gallop abd BS+ nontender and soft ext no edema or cyanosis Objective Data Vital Signs Vital Signs: Vital Signs - 24 hr 08/02/21 16:00 08/02/21 16:03 08/02/21 18:50 Temperature 36.9 C 36.4 C Pulse Rate 90 82 77 Respiratory Rate 18 16 Blood Pressure 114/66 131/73 Pulse Oximetry 95 94 08/02/21 20:00 08/03/21 00:00 08/03/21 04:00 Temperature 36.6 C 36.3 C L Pulse Rate 77 78 73 Respiratory Rate 16 20 18 Blood Pressure 159/87 H 121/78 Pulse Oximetry 94 99 96 08/03/21 08:00 08/03/21 09:39 08/03/21 09:42 Temperature 36.1 C L Pulse Rate 67 74 78 Respiratory Rate 18 18 Blood Pressure 138/73 116/65 Pulse Oximetry 99 96 08/03/21 09:45 08/03/21 12:00 Temperature 36.5 C Pulse Rate 72 Respiratory Rate 18 18 Blood Pressure 139/83 Pulse Oximetry 96 100 Intake/Output Intake/Output: Intake & Output 07/31/21 08/01/21 08/02/21 08/03/21 23:59 23:59 23:59 23:59 Intake Total 2080 2460 690 Output Total 2200 Balance 2080 260 690 Meds/Results Medications: Active Medications Generic Name Dose Route Start Last Admin Trade Name Freq PRN Reason Stop Dose Admin Acetaminophen 650 mg 08/02/21 18:19 08/02/21 18:33 Acetaminophen 325 Mg Tablet PO 650 mg Q6H PRN Administration Mild Pain (1-3) or Fever Albuterol 2 puff 07/31/21 16:09 08/02/21 00:19 Albuterol Sulfate (*Sp) Aerosol 1 Puff INHALATION 2 puff Q6HRT PRN Administration Shortness Of Breath Lipase/Protease/Amylase 2 cap 08/01/21 09:00 08/03/21 12:24 Lipase/Amylase/Protease 12,000 Units Cap PO 2 cap TID ARIES Administration Atorvastatin Calcium 20 mg 08/01/21 09:00 08/03/21 09:42 Atorvastatin 20 Mg Tablet PO 20 mg DAILY ARIES Administration Dexamethasone Sodium Phosphate 6 mg 07/31/21 16:30 08/03/21 09:42 Dexamethasone Sod Phos Inj 10 Mg/Ml 1 Ml Vial IV PUSH 08/09/21 09:01 6 mg DAILY ARIES Administration Folic Acid 1 mg 08/01/21 09:00 08/03/21 09:42 Folic Acid 1 Mg Tablet PO 1 mg DAILY ARIES Administration Heparin Sodium (Porcine) 5,000 units 07/31/21 21:00 08/03/21 09:41 Heparin Sodium 5,000 Units/Ml Vial SUB-Q 5,000 units Q12HR ARIES Administration Hydralazine HCl 10 mg 07/31/21 15:58 Hydralazine Hcl 20 Mg/Ml Vial IV PUSH Q8H PRN Blood Pressure - High Loperamide HCl 4 mg 08/01/21 16:58
--- NOTE | 2021-08-03 15:17 | PM.DS ---
DS: Admitting Diagnosis Discharge Date 08/03/2021 Admitting Diagnosis altered mental status DS: Discharge Diagnosis Discharge Diagnosis (1) 2019 novel coronavirus-infected pneumonia (NCIP): Code(s): U07.1 - COVID-19; J12.82 - Pneumonia due to coronavirus disease 2019 Status: Acute Assessment and Plan: Positive COVID PCR test on 07/31/21. Treated with dexamethasone. Maintained adequate oxygenation on room air with no supplemental oxygen requirements (2) Altered mental status: Qualifiers: Altered mental status type: disorientation Qualified Code(s): R41.0 - Disorientation, unspecified Code(s): R41.82 - Altered mental status, unspecified Status: Acute Assessment and Plan: Resolved. [place] to be secondary to uremia vs confusion from acute illness with COVID-19. Patient was A&O x4 on my encounter (3) End stage renal disease on dialysis: Code(s): N18.6 - End stage renal disease; Z99.2 - Dependence on renal dialysis Status: Chronic Assessment and Plan: Maintained on hemodialysis schedule Tuesday, , Tuesday. he was last dialyzed at this facility on 08/02. Given his COVID positive status, he is being switched to Tuesday, Tuesday, Tuesday and his next dialysis will be 08/05/2021 (4) Hypertension: Qualifiers: Hypertension type: unspecified Qualified Code(s): I10 - Essential (primary) hypertension Code(s): I10 - Essential (primary) hypertension Status: Chronic Assessment and Plan: Blood pressures reviewed and were well controlled. Continue metoprolol tartrate (5) Hyperlipidemia: Qualifiers: Hyperlipidemia type: unspecified Qualified Code(s): E78.5 - Hyperlipidemia, unspecified Code(s): E78.5 - Hyperlipidemia, unspecified Status: Chronic Assessment and Plan: Continue atorvastatin (6) Chronic pancreatitis: Qualifiers: Pancreatitis type: unspecified pancreatitis type Qualified Code(s): K86.1 - Other chronic pancreatitis Code(s): K86.1 - Other chronic pancreatitis Status: Chronic Assessment and Plan: Continue Creon for pancreatic insufficiency (7) Elevated fasting glucose: Code(s): R73.01 - Impaired fasting glucose Status: Acute Assessment and Plan: Likely secondary to IV steroids and expect resolution with discontinuation of dexamethasone. Follow-up as an outpatient for further monitoring. DS: Summary Hospital Course Hospital Course: Date of admission: 07/31/2021 Date of discharge: 08/03/2021 Christiano Lehman is a 61-year-old male with a history of ESRD on hemodialysis, hypertension, hyperlipidemia, and chronic pancreatitis who presented to the emergency department on 07/31/2021 from dialysis due to concerns for altered mental status. On presentation to the emergency department, he was mildly tachycardic and tachypneic with additional vital signs stable, H&H slightly decreased, BUN and creatinine elevated with additional electrolytes stable, CXR showed mild airspace opacities of the lower lung zones and head CT showed normal brain. He was found to be positive for COVID-19. He was admitted to the hospitalist service for further evaluation and management and was seen in consultation by nephrology for management of dialysis. His mental status improved following dialysis on my 1st encounter with the patient he was A&O x4. He was back to his usual state of health. Given his overall improvement, he was determined to no longer require inpatient care and was felt to be stable for discharge. He was concerned about going home as he was not sure if his heat had been shut off or if he could find keys to get into his apartment. I relayed these concerns to a client care representative who spoke with the patient to assist with these concerns. Together they were able to determine that his he was still on and he did have a reliable way to g
--- NOTE | 2021-08-03 19:51 | PC.NURSE ---
spoke with Dr. Bright about this patient several times. orders for obstructive series and orthostatic BPs to further assess new onset dizziness and abdominal pain. called [facility] with results and patient was clear to DC still. Patient then stated he could not get into his home this late due to his landlord. Called Kaila to let him know and was ordered to change DC time to tomorrow morning.
[2021-08-04] VITALS: BP 136/53; PULSE 77; RESP 17; TEMP 36.4; O2SAT 100
--- NOTE | 2021-08-04 01:14 | PC.NURSE ---
Spoke with day shift nurse and patient. Patient states that he would not be able to get into his house this late at night and stated he could not be d/c at this time. Day shift nurse called day shift hospitalist to withdraw d/c orders at this time and reschedule d/c for the AM
[2021-08-04 04:00] VITALS: BP 146/80; PULSE 72; RESP 16; TEMP 36.1; O2SAT 100
[2021-08-04 07:52] LABS: Alanine Aminotransferase 19 U/L (4-50); Estimated CRCL calculation 8 ml/min; Estimated Glomerular Filt Rate 7
[2021-08-04 07:56] LABS: INR 1.2; Prothrombin Time 14.8 Seconds (11.1-14.7)
[2021-08-04 08:00] VITALS: BP 148/79; PULSE 73; RESP 18; TEMP 36.3; O2SAT 100
[2021-08-04] MEDS: FOLIC ACID 1 MG TABLET PO (09:43)
[2021-08-04] MEDS: SEVELAMER CARBONATE 800 MG TABLET PO (09:43)
[2021-08-04 09:44] VITALS: PULSE 73
[2021-08-04] MEDS: METOPROLOL TARTRATE 50 MG TAB PO (09:44)
[2021-08-04] MEDS: LORATADINE 10 MG TABLET PO (09:44)
[2021-08-04] MEDS: LIPASE/AMYLASE/PROTEASE 12,000 UNITS CAP 2 CAP PO (09:44)
[2021-08-04] MEDS: HEPARIN SODIUM 5,000 UNITS/ML VIAL 5000 UNITS SUB-Q (09:45)
[2021-08-04] MEDS: LOPERAMIDE HCL 2 MG CAPSULE 4 MG PO (09:52)
[2021-08-04 19:14] LABS: Hepatitis B Core Ab Total Nonreactive (Nonreactive)
--- NOTE | 2021-09-05 10:11 | PC.NURSE ---
Left message with patient r/t medications that were left at discharge. Left nurses station phone number to notify when ready to p/u.
== END 2021-08-04 12:00 | disposition home or self-care (01) | DRG 177 ==
LOC: ANHED 14:08 → ANH3MEDSUR 15:34
PROVIDERS: Emergency Medicine; Internal Medicine Nephrology; Nurse Practitioner; Admitting Provider Internal Medicine; Emergency Provider Emergency Medicine; PCP Family Medicine; Visit Provider Physician Assistant
DX: U07.1 COVID-19 (principal); J12.82 Pneumonia due to coronavirus disease 2019; N18.6 End stage renal disease; I12.0 Hypertensive chronic kidney disease with stage 5 chronic kidney disease or end stage renal disease; K86.1 Other chronic pancreatitis; R41.82 Altered mental status, unspecified; E78.5 Hyperlipidemia, unspecified; R73.01 Impaired fasting glucose; T38.0X5A Adverse effect of glucocorticoids and synthetic analogues, initial encounter; Z99.2 Dependence on renal dialysis
CPT/HCPCS: 36415; 36600; 70450; 71045; 74019; 80048; 80053; 80069; 82565; 82728; 82805; 83605; 83615; 83735; 84439; 84443; 84460; 84480; 85025; 85027; 85055; 85610; 85730; 86140; 86704; 86706; 87040; 87340; 93005; 93923; 94640; 96372; 96374; 96375; 96376; 99285; A9270; C9803; G0257; G0378; J1100; J1644; J7030; U0003; U0005

== ENCOUNTER 2023-07-02 07:30 | Inpatient (IN) | payer MEDICARE, MEDICAID, SELFPAY ==
[2023-07-02] VITALS (17 sets, daily range): BP systolic 89–134; BP diastolic 47–80; PULSE 65–82; RESP 13–20; TEMP 36–36.9; O2SAT 93–100; BMI 28.8
--- NOTE | ~2023-07-02 | XR_ITS ---
EXAMINATION: XR chest 1V portable DATE: 07/05/2023 19:34 INDICATION: Shortness of breath. TECHNIQUE: A single frontal view of the chest was obtained. COMPARISON: Chest single view 07/02/2023 FINDINGS: There are small pleural effusions. There is a diffuse interstitial pattern in the lungs, co nsistent with mild pulmonary edema. No pneumothorax. Cardiomegaly is noted. IMPRESSION: 1. Mild pulmonary edema. 2. Small pleural effusions. 3. Cardiomegaly. Reviewed, dictated and finalized at location E. BOLTING COAL MINER
--- NOTE | ~2023-07-02 | XR_ITS ---
XR chest 1V portable 07/02/2023 08:21 Indication: Shortness of breath Procedure: AP portable chest Comparison: 07/31/2021 Findings: Borderline heart size. Small pleural effusions. No focal pneumonia, edema, pneumothorax. No acute osseous abnormality. Impression: 1: Small pleural effusions. Reviewed, dictated and finalized at location A. OGY MANAGER Impression: 1: Small pleural effusions.
--- NOTE | ~2023-07-02 | US_ITS ---
EXAMINATION: US abdomen complete DATE: 07/03/2023 17:56 INDICATION: GIB, ? cirrhosis TECHNIQUE: Multiple grayscale and Doppler ultrasound images of the abdomen were obtained. COMPARISON: None available. FINDINGS: Pancreas not visualized. The liver is enlarged, with increased echogenicity. Suggestion of surface nodularity. Normal hepatopetal flow in the main portal vein. Multiple gallstones. Mild gallbl adder wall thickening. The common bile duct measures 6 mm. There was no sonographic Eaton sign. The visualized portions of the aorta and inferior vena cava are normal. The right kidney measures 10.2 x 4.3 x 6.0 cm. The left kidney measures 9.4 x 5.2 x 5.3 cm. The kidne ys demonstrate normal parenchymal echogenicity. Note, the left kidney visualization was somewhat limi estefania. 5.2 cm left renal cyst There is no hydronephrosis. The spleen is normal in appearance and measur es 11.9 cm. Small volume ascites. IMPRESSION: Hepatomegaly. Possible cirrhotic change. Echogenic liver, most commonly due to steatosis but also can be seen with hepatitis and fibrosis. Cholelithiasis. Gallbladder wall thickening, a nonspecific find ing in the setting of chronic liver disease. Ascites. Reviewed, dictated and finalized at location K. TEST CHECKER IMPRESSION: Hepatomegaly. Possible cirrhotic change. Echogenic liver, most commonly due to steatosis but also can be seen with hepatitis and fibrosis. Cholelithiasis. Gal lbladder wall thickening, a nonspecific finding in the setting of chronic liver disease. Ascites.
--- NOTE | 2023-07-02 07:30 | PC.NURSE ---
Patient walked to bathroom without difficulty with walker.
--- NOTE | 2023-07-02 07:42 | ECG_ITS ---
Measurements Intervals [place] Rate: 71 P: 33 IL: 242 QRS: -40 QRSD: 94 T: 26 QT: 407 QTc: 443 Interpretive Statements SINUS RHYTHM WITH FIRST DEGREE AV BLOCK WITH OCCASIONAL VENTRICULAR PREMATURE COMPLEXES MARKED LEFT AXIS DEVIATION [QRS AXIS < -30] LOW QRS VOLTAGE IN PRECORDIAL LEADS [QRS DEFLECTION < 1.0 mV IN CHEST LEADS] NONSPECIFIC T-WAVE ABNORMALITY ABNORMAL ECG COMPARED TO ECG 07/31/2021 11:56:06 HEART RATE IS REDUCED AND LATERAL T-WAVE ABNORMALITY IS IMPROVED Electronically Signed On 07-02-2023 12:40:12 SOLUTION MIXER by Puneet Gar M.D.
--- NOTE | 2023-07-02 07:45 | ED.SOB ---
HPI - SOB/Dyspnea General Chief Complaint: Shortness of Breath/Dyspnea Stated Complaint: SOB History of Present Illness HPI Narrative: 63-year-old male with history of end-stage kidney disease on dialysis on Tuesdays and Saturdays presented to the emergency department for evaluation of dizziness and SOB. Patient states when he woke up this morning he was having some dizziness so he called EMS. He was hoping EMS would take him to dialysis and he would then be evaluated for his dizziness workup after dialysis. EMS brought the patient to [facility]. Upon arrival to the emergency department patient is well-appearing and denies any chest pain or shortness of breath. Patient was able to ambulate with his walker at baseline and had no complaint of dizziness. Patient did have dialysis on patient reports he did have a fall on and did hit his head but patient was evaluated at [facility] and did have a CT head and CT abdomen pelvis Patient has a remote history of a GI bleed. Related Data Home Medications Medication Instructions Recorded Confirmed albuterol sulfate 90 mcg/actuation 2 inh inhalation Q6H 07/31/21 07/02/23 breath activated powder inhaler atorvastatin 20 mg tablet 20 mg PO DAILY 07/31/21 07/02/23 baclofen 10 mg tablet 10 mg PO BID 07/31/21 07/02/23 cetirizine 10 mg tablet 10 mg PO DAILY 07/31/21 07/02/23 kdppxw-[id number] 1 cap PO TID 07/31/21 07/02/23 24,000-76,000-120,000 unit capsule,delayed rel (Creon) loperamide 2 mg capsule 2 mg PO PRN PRN Diarrhea 07/31/21 07/02/23 metoprolol tartrate 50 mg tablet 25 mg PO BID 07/31/21 07/02/23 sevelamer HCl 800 mg tablet 800 mg PO TID 07/31/21 07/02/23 allopurinol 300 mg tablet 300 mg PO DAILY 07/02/23 07/02/23 aspirin 81 mg tablet,delayed 81 mg PO DAILY 07/02/23 07/02/23 release hydrocodone 5 mg-acetaminophen 325 1 tablet PO QID PRN pain 07/02/23 07/02/23 mg tablet Allergies Allergy/AdvReac Type Severity Reaction Status Date / Time lisinopril Allergy Unknown Verified 07/02/23 07:52 Review of Systems Review of Systems: All systems reviewed & are unremarkable except as noted in HPI and below PMFSH Past Medical History Medical History (Updated 07/02/23 @ 15:41 by Gaurav Zavala MD) Chronic anemia Chronic pancreatitis End stage renal disease on dialysis Hyperlipidemia Hypertension Surgical History Surgical History History of umbilical hernia repair Family History Family History Unknown Family history unknown Social History Social History (Updated 07/02/23 @ 13:[address] PA-C) Social History: Surrogate medical decision maker: Zurdo Lehman, christal. Code status: Full code. Smoking status: Never smoker Second hand tobacco smoke exposure: No Alcohol intake: never Substance use: never Lack of Transportation: YES Lack of Food: Sometimes True Current Housing: I Have Housing Concerned About Future Housing: YES Difficulty Paying Gas/Electric Bills: YES Difficulty Paying for Meds: YES Currently Unemployed: No Education: High School Diploma/GED Difficulty w/ Childcare or Family Care: No Spiritual care concerns: No Exam Narrative: APPEARANCE: Well appearing, no pain, no distress, well-nourished. HEAD: normocephalic, atraumatic. EYES: PERRLA/EOMI, conjunctivae clear. NOSE: Normal no drainage EARS:TMS clear with good light reflex. THROAT: Pharynx clear, no exudate. NECK: Supple. No adenopathy, no masses. RESPIRATORY: Airway patent, respirations nonlabored. Clear to auscultation bilaterally, no rales, rhonchi, wheezing. CARDIOVASCULAR: Regular rate and rhythm without murmurs rubs or gallops. ABDOMINAL: Soft, abdominal distension MUSCULOSKELETAL: Moves all extremities. Strength/ROM intact, No edema, No calf tenderness. NEURO: A
[2023-07-02 08:20] LABS: Basophils Percent Auto 0.3 % (0.2-1.2); Eosinophils Percent Auto 0.2 % (0-4.4); Hemoglobin 7.6 g/dL (14.0-18.0); Immature Granulocyte Absolute 0.01 K/mm3 (0.00-0.031); Immature Granulocyte Percent A 0.2 % (0-0.5); Lymphocytes Absolute Auto 1.69 K/mm3 (0.9-3.2); Lymphocytes Percent Auto 27.5 % (18.3-44.2); Mean Corpuscular HGB Conc 31.7 g/dl (32-36); Mean Corpuscular Hemoglobin 29.5 pg (26-34); Mean Platelet Volume 10.7 fl (7.4-10.4); Monocytes Absolute Auto 0.4 K/mm3 (0.1-0.6); Monocytes Percent Auto 6.5 % (2.6-8.5); Neutrophils Percent Auto 65.3 % (45.5-73.1); Platelet Count Result 163 k/mm3 (150-375); Red Blood Count 2.58 M/mm3 (4.6-6.20); Red Cell Distribution Width 15.4 % (11.5-14.5); White Blood Count 6.1 K/mm3 (4.5-10.0)
--- NOTE | 2023-07-02 08:25 | PC.NURSE ---
vascular access called to attain labs and iv
[2023-07-02 08:46] LABS: Influenza A QL RT-PCR Negative (Negative); Influenza B QL RT-PCR Negative (Negative); RSV RNA, RT-PCR Negative (Negative); SARS-CoV-2 RNA PCR Negative (Negative)
--- NOTE | 2023-07-02 09:37 | PC.NURSE ---
Patient refusing all other lab draws or IV sticks. Vascular access did evaluate without success.
--- NOTE | 2023-07-02 09:58 | PC.NURSE ---
Patient refusing all blood draws from staff or physican. patient declines any other assistance.
--- NOTE | 2023-07-02 09:58 | PC.NURSE ---
Patient now agrees to allow phlebotomy attempt to obtain one blood tube. patient states I just need my scheduled dialysis.
[2023-07-02 11:33] LABS: Alanine Aminotransferase 10 U/L (6-50); Albumin Level 2.3 g/dL (3.5-5.1); Alkaline Phosphatase 86 U/L (38-126); Anion Gap 7 mmol/L (8-16); Aspartate Amino Transferase 23 U/L (17-59); Bilirubin,Total 0.5 mg/dL (0.2-1.3); Blood Urea Nitrogen 39 mg/dL (9-20); Calcium 7.4 mg/dL (8.4-10.2); Carbon Dioxide 29 mmol/L (22-30); Chloride 93 mmol/L (98-107); Estimated CRCL calculation 19 ml/min; Estimated Glomerular Filt Rate 18; Glucose 74 mg/dL (65-110); Potassium 3.5 mmol/L (3.4-5.0); Sodium 129 mmol/L (137-145)
[2023-07-02] MEDS: PANTOPRAZOLE SODIUM IV 40 MG VIAL IV PUSH ×2 (11:39→20:30)
--- NOTE | 2023-07-02 13:24 | PM.IMHP ---
H&P: HPI History of Present Illness Date/Time: 07/02/23 13:25 Chief Complaint: Dizziness. Narrative: This is a 63-year-old with end-stage renal disease on hemodialysis, chronic pancreatitis, hypertension, hyperlipidemia, peripheral vascular disease, cirrhosis, and chronic pain syndrome who presented to the emergency department via EMS for evaluation of dizziness. The patient provides the following history. This morning when he got up he was feeling dizzy and a bit short of breath with exertion so he called 911. He thought perhaps his symptoms were due to the fact that he needed dialysis today and requested to be brought to his dialysis center however he was directed to the emergency department. While in the ED he started to have epigastric pain which he describes as burning and cramping in nature associated with nausea and the sudden urge to have a bowel movement. He passed 2 large, dark tarry stools which were noted to be Hemoccult positive. With further questioning he endorses a history of GERD and remote history of peptic ulcers. He goes on to say that he believes he has been diagnosed with cirrhosis though he has no known history of esophageal varices. He rarely will have a cup of coffee and denies significant caffeine and alcohol use. No NSAID use. He has not had chest pain or pleuritic pain. No syncope or near syncope. He does mention that he had a fall several days ago for which he was evaluated at [facility] where he had a negative CT of the abdomen and pelvis and brain. Hemoglobin on arrival to the ED was 7.6 and he was transfused 1 unit packed red blood cells prior to me seeing the patient. The remainder of his labs were significant for a sodium of 129, potassium 3.5, chloride 93, BUN 39, creatinine 4.20, total protein 5.0, albumin 2.3. He is being admitted in this setting for close monitoring and GI consultation. Review of Systems Review of Systems: Twelve systems were reviewed. The patient has both of his legs wrapped in Dago bandages. He adamantly refuses to allow staff to remove the bandages stating that he sees a corporate specialist once a week for a wound on his right leg. He had previously been told he had vascular disease in his legs but not significant enough to require intervention. He ambulates with a walker and denies claudication. No paresthesias, skin color, or temperature changes of the distal extremities. He reports chills but has not had a fever. No cold or flu symptoms. Endorses nausea but no vomiting. Except as documented, all other systems were reviewed and are negative. [facility] Past Medical History Medical History (Updated 07/02/23 @ 21:[address] PA-C) Chronic anemia Chronic pancreatitis End stage renal disease on dialysis Hyperlipidemia Hypertension Peripheral vascular disease Surgical History Surgical History History of umbilical hernia repair Family History Family History Unknown Family history unknown Social History Social History (Updated 07/02/23 @ 21:[address] PA-C) Social History: Surrogate medical decision maker: Zurdo Lehman (son) or Robert Nails (nephew). Code status: Full code. 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 Spiritual care concerns: No Meds Home Medications and Allergies Home Medications Medication Instructio
--- NOTE | 2023-07-02 14:39 | ADMGEN ---
This patient, Christiano Lehman, was admitted to IMU Room 204-01. Patient/family oriented to hospital policies and general routines including ID bracelet, bed and alarms, visiting hours, pain management, procedures, bathroom and other care routines, personal items, smoking policy, room service/diet, and visiting hours. Information on how to activate the Rapid Response Team has been discussed. Patient/Family are encouraged to report perceived risks to care and to ask questions if they do not understand what they are told or what they should do.
[2023-07-02] MEDS: TUBING, BLOOD PLUM PUMP TUBING 1 EACH XX (16:26)
[2023-07-02] MEDS: SODIUM CHLORIDE 0.9% IV 250 ML 30 ML IV CONT (16:41)
--- NOTE | 2023-07-02 17:23 | PC.NURSE ---
pt verbalizes he has a wound on the right lower leg that he sees a wound doctor for. Pt refusing to let staff unwrap and assess at this time, stating we don't do it right
[2023-07-02] MEDS: LIPASE/AMYLASE/PROTEASE 12,000 UNITS CAP 2 CAP PO (18:07)
[2023-07-02] MEDS: SEVELAMER CARBONATE 800 MG TABLET PO (18:07)
[2023-07-02] MEDS: HYDROcodone/acetaminophen (*CRX) 5-325 MG TABLET 1 TAB PO (18:08)
[2023-07-02 20:10] LABS: Hematocrit 29.1 % (42.0-52.0); Hemoglobin 9.2 g/dL (14.0-18.0)
[2023-07-02] MEDS: METOPROLOL TARTRATE 25 MG TABLET PO (20:29)
[2023-07-02] MEDS: HYDROmorphone HCL INJ (*CRX) 1 MG/ML SYR 0.5 MG IV PUSH (21:20)
[2023-07-03] VITALS (25 sets, daily range): BP systolic 79–118; BP diastolic 46–78; PULSE 57–93; RESP 13–20; TEMP 35.9–36.7; O2SAT 94–100
[2023-07-03 04:33] LABS: Immature Platelet Fraction Pct 4.5 % (0.9-11.2); Mean Corpuscular HGB Conc 31.2 g/dl (32-36); Mean Corpuscular Hemoglobin 28.9 pg (26-34); Mean Corpuscular Volume 92.7 fl (80-100); Mean Platelet Volume 10.8 fl (7.4-10.4); Platelet Count Result 116 k/mm3 (150-375); Red Blood Count 2.18 M/mm3 (4.6-6.20); Red Cell Distribution Width 15.9 % (11.5-14.5); White Blood Count 5.3 K/mm3 (4.5-10.0)
[2023-07-03 04:47] LABS: Hematocrit 20.2 % (42.0-52.0); Hemoglobin 6.3 g/dL (14.0-18.0)
[2023-07-03 04:49] LABS: Anion Gap 8 mmol/L (8-16); Blood Urea Nitrogen 49 mg/dL (9-20); Calcium 7.3 mg/dL (8.4-10.2); Carbon Dioxide 23 mmol/L (22-30); Chloride 96 mmol/L (98-107); Estimated CRCL calculation 16 ml/min; Estimated Glomerular Filt Rate 15; Glucose 68 mg/dL (65-110); Magnesium 1.7 mg/dL (1.6-2.3); Phosphorus 2.6 mg/dL (2.5-4.5); Potassium 3.6 mmol/L (3.4-5.0); Sodium 127 mmol/L (137-145)
[2023-07-03] MEDS: SODIUM CHLORIDE 0.9% IV 250 ML 999 ML IV CONT (05:02)
[2023-07-03] MEDS: SODIUM CHLORIDE 0.9% IV 250 ML 999 ML (05:15)
[2023-07-03] MEDS: TUBING, BLOOD PLUM PUMP TUBING 1 EACH XX ×2 (05:30→09:43)
[2023-07-03] MEDS: SODIUM CHLORIDE 0.9% IV 250 ML 30 ML IV CONT (05:30)
[2023-07-03] MEDS: PANTOPRAZOLE SODIUM IV 40 MG VIAL IV PUSH ×2 (08:22→21:00)
[2023-07-03] MEDS: SEVELAMER CARBONATE 800 MG TABLET PO ×3 (08:22→17:37)
[2023-07-03] MEDS: LIPASE/AMYLASE/PROTEASE 12,000 UNITS CAP 2 CAP PO ×3 (08:22→17:37)
[2023-07-03] MEDS: METOPROLOL TARTRATE 25 MG TABLET PO (08:30)
[2023-07-03] MEDS: LORATADINE 10 MG TABLET PO (08:30)
[2023-07-03] MEDS: ATORVASTATIN 20 MG TABLET PO (08:30)
--- NOTE | 2023-07-03 10:08 | PM.IMPN ---
Progress Note: A&P Assessment and Plan (1) Melena: Code(s): K92.1 - Melena Status: Acute Assessment and Plan: PPI, IV fluid, NPO GI consulted, pending s/p 2 units pRBC, repeat hgb pending (2) Acute on chronic anemia: Code(s): D64.9 - Anemia, unspecified Status: Acute Assessment and Plan: Appears to have acute on chronic anemia, likely due to above. Trend hemoglobin and hematocrit and transfuse if indicated. (3) Hyponatremia: Code(s): E87.1 - Hypo-osmolality and hyponatremia Status: Acute Assessment and Plan: Worsening, nephrology consulted (4) End stage renal disease on dialysis: Code(s): N18.6 - End stage renal disease; Z99.2 - Dependence on renal dialysis Status: Chronic Assessment and Plan: Dialysis days are Tuesday, , and Tuesday. Reportedly not unusual for him to miss Tuesday due to ride issues. Dr. Pinon consulted for dialysis. (5) Hypertension: Qualifiers: Hypertension type: unspecified Qualified Code(s): I10 - Essential (primary) hypertension Code(s): I10 - Essential (primary) hypertension Status: Chronic Assessment and Plan: Blood pressures were reviewed 07/03 Antihypertensives will be reviewed and resumed as appropriate. Plan DVT prophylaxis with SCDs GI prophylaxis with PPI Code status full code Subjective Date/time seen: 07/03/23 10:08 Interval history: 63-year-old with end-stage renal disease on hemodialysis, chronic pancreatitis, hypertension, hyperlipidemia, peripheral vascular disease, cirrhosis, and chronic pain syndrome who presented to the emergency department via EMS for evaluation of dizziness and being treated for GI bleed. No overnight events noted. No chest pain or shortness of breath. No nausea, vomiting or diarrhea. No fevers or chills. Review of Systems Review of Systems: 12 point review of systems was assessed and was negative except as noted in the HPI Exam Narrative: General: No acute distress, alert and oriented per baseline HEENT: Atraumatic, normocephalic, mucous membranes moist CV: Regular rate and rhythm, S1, S2 Lungs: Clear to auscultation bilaterally, no rales or crackles noted, no wheezes, good air entry Abdomen: Soft, nontender, nondistended Extremities: Normal to inspection Skin: No rashes noted, no lesions or wounds seen Psych: Euthymic, normal affect Objective Data Vital Signs Vital Signs: Vital Signs - 24 hr 07/02/23 11:03 07/02/23 13:07 07/02/23 14:06 Temperature Pulse Rate 74 70 78 Respiratory Rate 15 20 20 Blood Pressure 113/60 116/64 112/61 Pulse Oximetry 100 100 100 Oxygen Delivery 07/02/23 14:15 07/02/23 16:40 07/02/23 16:00 Temperature 98.3 F 96.8 F L Pulse Rate 74 72 65 Respiratory Rate 16 16 20 Blood Pressure 112/61 118/64 134/62 Pulse Oximetry 99 98 Oxygen Delivery 07/02/23 16:56 07/02/23 15:30 07/02/23 16:00 Temperature 97.6 F Pulse Rate 77 69 Respiratory Rate 15 Blood Pressure 130/80 Pulse Oximetry 93 95 Oxygen Delivery Room Air 07/02/23 18:00 07/02/23 17:56 07/02/23 18:56 Temperature 98.4 F 98.3 F Pulse Rate 78 74 73 Respiratory Rate 13 18 Blood Pressure 114/68 120/60 Pulse Oximetry 95 93 Oxygen Delivery 07/02/23 20:29 07/02/23 20:00 07/02/23 20:00 Temperature 96.8 F L Pulse Rate 79 72 78 Respiratory Rate 20 Blood Pressure 89/47 L Pulse Oximetry 98 Oxygen Delivery 07/03/23 00:00 07/02/23 22:00 07/03/23 00:00 Temperature 96.7 F L Pulse Rate 73 82 69 Respiratory Rate 20 Blood Pressure 106/58 L Pulse Oximetry Oxygen Delivery 07/03/23 02:00 07/03/23 04:00 07/03/23 04:00 Temperature Pulse Rate 70 60 64 Respiratory Rate 18 Blood Pressure Pulse Oximetry 98 Oxygen Delivery Room Air 07/03/23 04:00 07/03/23 05:42 07/03/23 05:47 Temperature 96.7 F L 96.8 F L
--- NOTE | 2023-07-03 11:50 | WPDGICN ---
Assessment and Plan Assessment and plan (1) Melena: Code(s): K92.1 - Melena Status: Acute Assessment and Plan: iv protonix bid getting blood transfusion EGD in am to assess if ulcer, esophagitis, portal HTN ( ? cirrhosis), etc (2) Acute on chronic blood loss anemia: Code(s): D62 - Acute posthemorrhagic anemia Status: Acute Assessment and Plan: monitor for more signs of bleeding (3) Peripheral vascular disease: Code(s): I73.9 - Peripheral vascular disease, unspecified Status: Acute (4) Hyponatremia: Code(s): E87.1 - Hypo-osmolality and hyponatremia Status: Acute Assessment and Plan: monitor (5) End stage renal disease on dialysis: Code(s): N18.6 - End stage renal disease; Z99.2 - Dependence on renal dialysis Status: Chronic Assessment and Plan: by nephrology on dialysis (6) Cirrhosis: Code(s): K74.60 - Unspecified cirrhosis of liver Status: Acute Assessment and Plan: no documentation will get liver ultrasound and also hepatitis panel more recommendations based on findings GI Consult Note Consult date/time: 07/03/23 11:50 Reason for consult: melena, acute on chronic anemia HPI: Christiano Lehman is a 63 year old male ?end-stage renal disease on hemodialysis, chronic pancreatitis, hypertension, peripheral vascular disease, cirrhosis, and chronic pain syndrome on narcotics who presented to the emergency department via EMS for evaluation of dizziness, he became lightheaded and called 911, he thought his symptoms were due to the fact that he needed dialysis and requested to be brought to his dialysis center however he was taken to the emergency department. He also had epigastric pain, burning and cramping in nature associated with nausea and then noted dark tarry stools x2 which were noted to be Hemoccult positive. He says that in his 20's had ulcer , remember having EGD but many years ago, currently not using ppi. He says that was with cirrhosis but no previous records. He had a fall several days ago for which he was evaluated at [facility] where he had a negative CT of the abdomen and pelvis and brain. Hemoglobin 7.6 then 6.3 and receiving blood transfusion. He had colonoscopy years ago.? Review of Systems Constitutional: Constitutional: Denies chills Eyes: Eyes: Denies blurry vision ENT: Reports Normal hearing present Cardiovascular: Cardiovascular: Denies chest pain Respiratory: Respiratory: Denies cough Gastrointestinal: Gastrointestinal: Reports melena Genitourinary: Comments: on dialysis Musculoskeletal: Comments: chronic pain syndrome on narcotics prn Integumentary/Breasts: Comments: chronic wound in Rt leg Neurologic: Denies confusion Psychiatric: Psychiatric: Denies behavioral changes PMFSH Past Medical History Medical History (Updated 07/03/23 @ 11:57 by Hayden Kendrick MD) Acute on chronic blood loss anemia Chronic anemia Chronic pancreatitis Cirrhosis End stage renal disease on dialysis Hyperlipidemia Hypertension Peripheral vascular disease Surgical History Surgical History History of umbilical hernia repair Family History Family History Unknown Family history unknown Social History Social History (Updated 07/02/23 @ 21:[address] PA-C) Social History: Surrogate medical decision maker: Zurdo Lehman (son) or Robert Nails (nephew). Code status: Full code. Smoking status: Never smoker Second hand tobacco smoke exposure: No Alcohol intake: never Substance use: never Lack of Transportation: YES Lack of Food: Sometimes True Current Housing: I Have Housing Concerned About Future Housing: YES Difficulty Paying Gas/Electric Bills: YES Difficulty Paying for Meds: YES Cu
[2023-07-03] MEDS: HYDROmorphone HCL INJ (*CRX) 1 MG/ML SYR 0.5 MG IV PUSH ×3 (13:18→23:06)
--- NOTE | 2023-07-03 13:18 | PM.CNNEP ---
Assessment and Plan Assessment and plan (1) End stage renal disease: Code(s): N18.6 - End stage renal disease Status: Chronic Assessment and Plan: plan next HD treatment tomorrow resume/transition back to T/T/S dialysis schedule next week follow electrolytes, volume status, and clearance (2) Melena: Code(s): K92.1 - Melena Status: Acute Assessment and Plan: as evidenced in ER IV PPI PRBC transfusion per protocol GI following noted plan for EGD tomorrow (3) Hyponatremia: Code(s): E87.1 - Hypo-osmolality and hyponatremia Status: Acute Assessment and Plan: presumably related to ESRD should correct with dialysis follow trend (4) Anemia: Code(s): D64.9 - Anemia, unspecified Status: Chronic Assessment and Plan: partly related to ESRD Epogen with HHD follow trend of H/H (5) Hypertension: Qualifiers: Hypertension type: unspecified Qualified Code(s): I10 - Essential (primary) hypertension Code(s): I10 - Essential (primary) hypertension Status: Chronic Assessment and Plan: reasonable control at this time follow trend of hemodynamics I will continue follow the patient with you while he remains hospitalized and make further recommendations as needed. Thank you for allowing me to participate in the care of this patient. History of Present Illness Reason for Consult Consult date: 07/04/23 Reason for consult: end stage renal disease Chief Complaint Chief complaint: Upper GI Bleed, Chronic Kidney Disease, Anemia History of Present Illness Narrative: A great majority of the history that I have obtained is from review of the electronic medical record as well as discussion with the physician/nurses involved in the patient's care as the patient was quite sleepy/lethargic at the time of my visit. The patient is a 63-year-old male with a past medical history as outlined below who presented to [facility] yesterday via EMS for further evaluation of dizziness. On the morning of admission, when he woke up, he felt somewhat dizzy and a bit short of breath. His shortness of breath seem to be worse with exertional activities. Due to these symptoms he called 911. Initially, he thought the symptoms were due the fact that he was due for dialysis on the day of admission and he requested to be brought to outpatient dialysis center but EMS brought here to [facility] For further assessment. Upon arrival to the emergency room, he was found to be hemodynamically stable but he had sudden onset of epigastric pain that he described as a burning/ cramping sensation associated with nausea. While he was in the emergency room, he had 2 large dark tarry bowel movements which were noted be Hemoccult positive. He gave no other symptoms other than the abdominal pain in association with the dizziness and denied chest pain, syncope, palpitations, or diarrhea. He does report that he was seen at [facility] emergency room after he sustained a fall several days ago and imaging studies which include a CT scan of his abdomen pelvis and brain were all apparently negative/within normal limits. Routine blood test in the emergency room here demonstrated hemoglobin of 7.6 and his electrolytes were consistent with his known history of end-stage renal disease with a sodium level mildly depressed at 129. He was typed and crossed and transfused with 1 unit of packed red blood cells and subsequently admitted to the hospital for further evaluation therapy of a suspected GI bleed. Since his admission, he tolerated the packed red blood cell transfusion but his labs done early this morning showed the persistence of his anemia so another packed red blood cell transfusion was ordered. As mentioned above, at the time my visit, he is somewhat sleepy and lethargic and frequently falls as
[2023-07-03] MEDS: PROMETHAZINE HCL 25 MG/ML AMPUL 12.5 MG IV PUSH (13:54)
[2023-07-03 16:26] LABS: Hematocrit 24.5 % (42.0-52.0); Hemoglobin 7.8 g/dL (14.0-18.0)
--- NOTE | 2023-07-03 18:52 | PC.NURSE ---
Pt requesting PRN IV dilaudid and PRN IV Phenergan to be given together. Discussed with pharmacy regarding the [id number] interaction of increased risk of LEAD BUSINESS ANALYST depression and increased risk of respiratory depression. Discussed with Dr. Moss who states they are ok to give together because they are both low doses.
--- NOTE | 2023-07-03 23:26 | PC.NURSE ---
patient bp 87/53 notified Maria E HERNANDEZ new order obtain hgb stat.
[2023-07-03 23:59] LABS: Hemoglobin 7.3 g/dL (14.0-18.0)
[2023-07-04] VITALS (34 sets, daily range): BP systolic 91–157; BP diastolic 47–87; PULSE 57–82; RESP 14–21; TEMP 35.7–37.1; O2SAT 96–100
[2023-07-04] MEDS: TUBING, BLOOD PLUM PUMP TUBING 1 EACH XX (01:30)
[2023-07-04] MEDS: SODIUM CHLORIDE 0.9% IV 250 ML 30 ML IV CONT (01:43)
--- NOTE | 2023-07-04 05:35 | PC.NURSE ---
This patient, Christiano Lehman, was transferred to [ [id number]] on 07/04/23 at 0535. Personal belongings sent with patient. Report given to [ Yash MENESES]. Appropriate documentation sent with patient.
[2023-07-04] MEDS: LORATADINE 10 MG TABLET PO (08:30)
[2023-07-04 08:32] LABS: Hepatitis B Surface Antigen Negative (Negative)
[2023-07-04 08:37] LABS: HAV RESULT Negative (Negative); Hepatitis B Core IgM Result Negative (Negative)
[2023-07-04 08:45] LABS: Hepatitis B Surface Antigen Negative (Negative)
[2023-07-04 08:49] LABS: Hepatitis C Virus Antibody Negative (Negative)
[2023-07-04 08:50] LABS: Basophils Percent Auto 0.6 % (0.2-1.2); Eosinophils Percent Auto 0.4 % (0-4.4); Hematocrit 25.9 % (42.0-52.0); Hemoglobin 8.7 g/dL (14.0-18.0); Immature Granulocyte Absolute 0.01 K/mm3 (0.00-0.031); Immature Granulocyte Percent A 0.2 % (0-0.5); Immature Platelet Fraction Pct 3.9 % (0.9-11.2); Lymphocytes Absolute Auto 1.28 K/mm3 (0.9-3.2); Lymphocytes Percent Auto 24.6 % (18.3-44.2); Mean Corpuscular HGB Conc 33.6 g/dl (32-36); Mean Corpuscular Hemoglobin 29.9 pg (26-34); Mean Platelet Volume 10.6 fl (7.4-10.4); Monocytes Absolute Auto 0.4 K/mm3 (0.1-0.6); Monocytes Percent Auto 7.7 % (2.6-8.5); Neutrophils Absolute Auto 3.5 K/mm3 (1.3-6.7); Neutrophils Percent Auto 66.5 % (45.5-73.1); Platelet Count Result 97 k/mm3 (150-375); Red Blood Count 2.91 M/mm3 (4.6-6.20); Red Cell Distribution Width 15.6 % (11.5-14.5); White Blood Count 5.2 K/mm3 (4.5-10.0)
[2023-07-04 08:59] LABS: Alanine Aminotransferase 11 U/L (6-50); Albumin Level 2.3 g/dL (3.5-5.1); Alkaline Phosphatase 87 U/L (38-126); Anion Gap 4 mmol/L (8-16); Aspartate Amino Transferase 22 U/L (17-59); Bilirubin,Total 0.7 mg/dL (0.2-1.3); Blood Urea Nitrogen 55 mg/dL (9-20); Calcium 7.8 mg/dL (8.4-10.2); Carbon Dioxide 26 mmol/L (22-30); Chloride 96 mmol/L (98-107); Estimated CRCL calculation 13 ml/min; Estimated Glomerular Filt Rate 12; Glucose 100 mg/dL (65-110); Potassium 3.7 mmol/L (3.4-5.0); Sodium 126 mmol/L (137-145)
[2023-07-04 09:03] LABS: Hepatitis B Surface Anti Res Negative
[2023-07-04] MEDS: HYDROmorphone HCL INJ (*CRX) 1 MG/ML SYR 0.5 MG IV PUSH ×2 (09:30→20:35)
--- NOTE | 2023-07-04 09:43 | PM.PNNEP ---
Progress Note: A&P Assessment and Plan (1) End stage renal disease: Code(s): N18.6 - End stage renal disease Status: Chronic Assessment and Plan: HD today resume/transition back to T/T/S dialysis schedule next week follow electrolytes, volume status, and clearance (2) Melena: Code(s): K92.1 - Melena Status: Acute Assessment and Plan: as evidenced in ER IV PPI PRBC transfusion per protocol GI following noted plan for EGD today (3) Hyponatremia: Code(s): E87.1 - Hypo-osmolality and hyponatremia Status: Acute Assessment and Plan: presumably related to ESRD should correct with dialysis follow trend (4) Anemia: Code(s): D64.9 - Anemia, unspecified Status: Chronic Assessment and Plan: partly related to ESRD Epogen with HHD follow trend of H/H (5) Hypertension: Qualifiers: Hypertension type: unspecified Qualified Code(s): I10 - Essential (primary) hypertension Code(s): I10 - Essential (primary) hypertension Status: Chronic Assessment and Plan: reasonable control at this time follow trend of hemodynamics Will continue to follow. Subjective Date/time seen: 07/04/23 09:43 Interval history: Follow-up for end stage renal disease on hemodialysis. Tolerating dialysis treatment at the time if my visit (seen on HD at 9:30AM); H/H stable if not improved in the last 24 hours; no apparent distress noted; no issues/events overnight or earlier this AM. Exam Narrative: General: WD/WN male in NAD Heart: normal S1 and S2; no rub Lungs: clear to auscultation Abdomen: soft, nontender, nondistended, positive bowel sounds Extremities: no cyanosis or clubbing; no edema Skin: warm and dry Objective Data Vital Signs Vital Signs: Vital Signs Temp Pulse Resp BP Pulse Ox 07/04/23 09:30 74 157/87 H 07/04/23 09:10 69 137/71 07/04/23 08:50 67 136/77 07/04/23 08:20 97.7 F 64 16 128/69 07/04/23 08:30 64 129/74 07/04/23 04:15 97.7 F 64 16 97/52 L 98 07/04/23 05:09 64 07/04/23 04:00 57 L 07/04/23 04:10 98.8 F 62 16 98/56 L 98 07/04/23 04:08 98.0 F 57 L 19 91/56 L 07/04/23 03:10 98 F 64 18 118/67 98 07/04/23 02:10 96.3 F L 59 L 18 98/51 L 98 07/04/23 02:09 96.6 F L 59 L 14 98/51 L 98 07/04/23 01:57 61 07/04/23 01:54 96.7 F L 61 16 94/54 L 99 07/03/23 23:55 58 L 07/03/23 23:34 98.0 F 58 L 17 87/53 L 100 07/03/23 22:00 58 L 07/03/23 20:00 60 07/03/23 20:32 64 07/03/23 19:32 97.5 F L 59 L 94/55 L 07/03/23 18:00 59 L 07/03/23 16:00 57 L 07/03/23 14:00 60 07/03/23 16:00 97.8 F 60 16 97/58 L 100 07/03/23 12:00 69 07/03/23 12:00 97.8 F 63 20 113/66 96 Intake/Output Intake/Output: Intake & Output 07/01/23 07/02/23 07/03/23 07/04/23 23:59 23:59 23:59 23:59 Intake Total 1250 2320 360 Output Total 0 5 0 Balance 1250 2315 360 Meds/Results Medications: Active Medications Generic Name Dose Route Start Last Admin Trade Name Freq PRN Reason Stop Dose Admin Acetaminophen 650 mg 07/02/23 14:07 Acetaminophen 325 Mg Tablet PO Q6H PRN Mild Pain (1-3) or Fever Hydrocodone Bitart/Acetaminophen 1 tab 07/02/23 17:08 07/02/23 18:08 Hydrocodone/Acetaminophen (*Crx) 5-325 Mg Tablet PO 1 tab QID PRN Administration MODERATE PAIN 4-6 Albuterol 2 puff 07/03/23 15:01 Albuterol Sulfate (*Sp) Aerosol 1 Puff INHALATION Q6H PRN Shortness Of Breath Or Wheezing Lipase/Protease/Amylase 2 cap 07/02/23 17:00 07/03/23 17:37 Lipase/Amylase/Protease 12,000 Units Cap PO 2 cap TIDWM ARIES Administration Atorvastatin Calcium 20 mg 07/03/23 09:00 07/03/23 08:30 Atorvastatin 20 Mg Tablet PO 20 mg DAILY ARIES Administration Epoetin [id number] 10,000 units 07/04
--- NOTE | 2023-07-04 10:20 | PM.IMPN ---
Progress Note: A&P Assessment and Plan (1) Melena: Code(s): K92.1 - Melena Status: Acute Assessment and Plan: PPI, IV fluid, NPO GI consulted, EGD 07/04 showed erosive gastritis, rec PPI daily s/p 2 units pRBC 07/03, repeat hgb stable at 7-9 (2) Acute on chronic anemia: Code(s): D64.9 - Anemia, unspecified Status: Acute Assessment and Plan: Appears to have acute on chronic anemia, likely due to above. Trend hemoglobin and hematocrit and transfuse if indicated, stable, monitor (3) Hyponatremia: Code(s): E87.1 - Hypo-osmolality and hyponatremia Status: Acute Assessment and Plan: Worsening, nephrology consulted (4) End stage renal disease on dialysis: Code(s): N18.6 - End stage renal disease; Z99.2 - Dependence on renal dialysis Status: Chronic Assessment and Plan: Dialysis days are Tuesday, , and Tuesday. Reportedly not unusual for him to miss Tuesday due to ride issues. Dr. Pinon consulted for dialysis. (5) Hypertension: Qualifiers: Hypertension type: unspecified Qualified Code(s): I10 - Essential (primary) hypertension Code(s): I10 - Essential (primary) hypertension Status: Chronic Assessment and Plan: Blood pressures were reviewed 07/04 Antihypertensives will be reviewed and resumed as appropriate. Plan DVT prophylaxis with SCDs GI prophylaxis with PPI Code status full code Subjective Date/time seen: 07/04/23 10:20 Interval history: 63-year-old with end-stage renal disease on hemodialysis, chronic pancreatitis, hypertension, hyperlipidemia, peripheral vascular disease, cirrhosis, and chronic pain syndrome who presented to the emergency department via EMS for evaluation of dizziness and being treated for GI bleed. No overnight events noted. No chest pain or shortness of breath. No nausea, vomiting or diarrhea. No fevers or chills. EGD and HD today. Review of Systems Review of Systems: 12 point review of systems was assessed and was negative except as noted in the HPI Exam Narrative: General: No acute distress, alert and oriented per baseline HEENT: Atraumatic, normocephalic, mucous membranes moist CV: Regular rate and rhythm, S1, S2 Lungs: Clear to auscultation bilaterally, no rales or crackles noted, no wheezes, good air entry Abdomen: Soft, nontender, nondistended Extremities: Normal to inspection Skin: No rashes noted, no lesions or wounds seen Psych: Euthymic, normal affect Objective Data Vital Signs Vital Signs: Vital Signs - 24 hr 07/03/23 11:19 07/03/23 11:00 07/03/23 12:00 Temperature 97.9 F 97.6 F 97.8 F Pulse Rate 65 78 63 Respiratory Rate 18 13 20 Blood Pressure 99/58 L 110/78 113/66 Pulse Oximetry 100 94 96 07/03/23 12:00 07/03/23 16:00 07/03/23 14:00 Temperature 97.8 F Pulse Rate 69 60 60 Respiratory Rate 16 Blood Pressure 97/58 L Pulse Oximetry 100 07/03/23 16:00 07/03/23 18:00 07/03/23 19:32 Temperature 97.5 F L Pulse Rate 57 L 59 L 59 L Respiratory Rate Blood Pressure 94/55 L Pulse Oximetry 07/03/23 20:32 07/03/23 20:00 07/03/23 22:00 Temperature Pulse Rate 64 60 58 L Respiratory Rate Blood Pressure Pulse Oximetry 07/03/23 23:34 07/03/23 23:55 07/04/23 01:54 Temperature 98.0 F 96.7 F L Pulse Rate 58 L 58 L 61 Respiratory Rate 17 16 Blood Pressure 87/53 L 94/54 L Pulse Oximetry 100 99 07/04/23 01:57 07/04/23 02:09 07/04/23 02:10 Temperature 96.6 F L 96.3 F L Pulse Rate 61 59 L 59 L Respiratory Rate 14 18 Blood Pressure 98/51 L 98/51 L Pulse Oximetry 98 98 07/04/23 03:10 07/04/23 04:08 07/04/23 04:10 Temperature 98 F 98.0 F 98.8 F Pulse Rate 64 57 L 62 Respiratory Rate 18 19 16 Blood Pressure 118/67 91/56 L 98/56 L Pulse Oximetry 98 98 07/04/23 04:00 07/04/23 05:09 07/04/23 04:15 Temperature 97.7 F Pulse Rate 57 L 64 6
[2023-07-04] MEDS: SODIUM CHLORIDE 0.9% IV 1,000 ML 999 ML IV CONT (10:47)
[2023-07-04] MEDS: EPOETIN ALFA-EPBX 10,000 UNITS/ML VIAL 10000 UNITS IV PUSH (10:47)
--- NOTE | 2023-07-04 13:58 | WPDANESEPPF ---
Anes - Initial Pre Proc Eval Procedure: Operation Date: 07/04/23 15:30 Proposed Procedures p Esophagogastroduodenoscopy - Hayden Kendrick MD Date/Time: 07/04/23 13:58 Surgeon: Cabrera Sykes MD Pre Op Diagnosis: Upper GI Bleed, Chronic Kidney Disease, Anemia Patient Data Age: 63 Gender: M Height: 1.78 m Weight: 94.5 kg Last Vital Signs Temp 36.3 C L 07/04/23 12:15 Pulse 61 07/04/23 12:15 Resp 15 07/04/23 12:15 BP 98/53 L 07/04/23 12:15 Pulse Ox 98 07/04/23 04:15 O2 Del Method Room Air 07/03/23 08:00 Allergies Allergy/AdvReac Type Severity Reaction Status Date / Time lisinopril Allergy Unknown Verified 07/02/23 07:52 Home Medications Medication Instructions Recorded Confirmed Type albuterol sulfate 90 mcg/actuation 2 inh inhalation Q6H 07/31/21 07/02/23 History breath activated powder inhaler atorvastatin 20 mg tablet 20 mg PO DAILY 07/31/21 07/02/23 History baclofen 10 mg tablet 10 mg PO BID 07/31/21 07/02/23 History cetirizine 10 mg tablet 10 mg PO DAILY 07/31/21 07/02/23 History saqpki-[id number] 1 cap PO TID 07/31/21 07/02/23 History 24,000-76,000-120,000 unit capsule,delayed rel (Creon) loperamide 2 mg capsule 2 mg PO PRN PRN Diarrhea 07/31/21 07/02/23 History metoprolol tartrate 50 mg tablet 25 mg PO BID 07/31/21 07/02/23 History sevelamer HCl 800 mg tablet 800 mg PO TID 07/31/21 07/02/23 History allopurinol 300 mg tablet 300 mg PO DAILY 07/02/23 07/02/23 History aspirin 81 mg tablet,delayed 81 mg PO DAILY 07/02/23 07/02/23 History release hydrocodone 5 mg-acetaminophen 325 1 tablet PO QID PRN pain 07/02/23 07/02/23 History mg tablet Laboratory Tests 07/02/23 07/03/23 07/03/23 11:58 03:54 03:54 WBC RBC Hgb Hct MCV MCH MCHC RDW Plt Count MPV Immature Gran % (Auto) Neut % (Auto) Lymph % (Auto) [place] % (Auto) Eos % (Auto) Baso % (Auto) Lymph # (Auto) [place] # (Auto) Eos # (Auto) Baso # (Auto) Abs Immat Gran (auto) Absolute Neuts (auto) Absolute Nucleated RBC Nucleated RBC % % Immature Plt Fraction Sodium Potassium Chloride Carbon Dioxide Anion Gap BUN Creatinine Estim Creat Clear Calc Estimated GFR Glucose Calcium Total Bilirubin AST ALT Alkaline Phosphatase Total Protein Albumin Hepatitis A IgM Ab Negative (Negative) Hep Bs Antigen Negative Negative (Negative) (Negative) Hep Bs Antibody Negative Hep B Core IgM Ab Negative (Negative) Hepatitis C Ab Screen Negative (Negative) Blood Type A Negative Antibody Screen Negative Crossmatch See Detail 07/03/23 07/03/23 07/04/23 15:30 23:43 08:42 WBC 5.2 K/mm3 (4.5-10.0) RBC 2.91 L M/mm3 (4.6-6.20) Hgb 7.8 L g/dL 7.3 L g/dL 8.7 L g/dL (14.0-18.0) (14.0-18.0) (14.0-18.0) Hct 24.5 L % 23.0 L % 25.9 L % (42.0-52.0) (42.0-52.0) (42.0-52.0) MCV 89.0 fl (80-100) MCH 29.9 pg (26-34) MCHC 33.6 g/dl (32-36) RDW 15.6 H % (11.5-14.5) Plt Count 97 L k/mm3 (150-375) MPV 10.6 H fl (7.4-10.4) Immature Gran % (Auto) 0.2 % (0-0.5) Neut % (Auto) 66.5 % (45.5-73.1) Lymph % (Auto) 24.6 % (18.3-44.2) [place] % (Auto) 7.7 % (2.6-8.5) Eos % (Auto) 0.4 % (0-4.4) Baso % (Auto) 0.6 % (0.2-1.2) Lymph # (Auto) 1
[2023-07-04] MEDS: SODIUM CHLORIDE 0.9% IV 500 ML 10 ML IV CONT (14:25)
[2023-07-04] MEDS: HYDROcodone/acetaminophen (*CRX) 5-325 MG TABLET 1 TAB PO (16:15)
[2023-07-04] MEDS: LIPASE/AMYLASE/PROTEASE 12,000 UNITS CAP 2 CAP PO (16:15)
[2023-07-04] MEDS: SEVELAMER CARBONATE 800 MG TABLET PO (16:15)
[2023-07-04 18:33] LABS: Hematocrit 29.5 % (42.0-52.0); Hemoglobin 9.9 g/dL (14.0-18.0)
[2023-07-04] MEDS: METOPROLOL TARTRATE 25 MG TABLET PO (20:33)
[2023-07-04] MEDS: BENZONATATE 100 MG CAPSULE PO (20:33)
[2023-07-04] MEDS: PANTOPRAZOLE 40 MG TABLET PO (20:33)
[2023-07-05] VITALS (23 sets, daily range): BP systolic 98–143; BP diastolic 51–86; PULSE 58–99; RESP 12–20; TEMP 36.2–37.1; O2SAT 92–100
[2023-07-05] MEDS: HYDROmorphone HCL INJ (*CRX) 1 MG/ML SYR 0.5 MG IV PUSH ×5 (01:25→21:19)
[2023-07-05 06:40] LABS: Basophils Percent Auto 1.2 % (0.2-1.2); Hematocrit 26.4 % (42.0-52.0); Hemoglobin 8.5 g/dL (14.0-18.0); Immature Granulocyte Absolute 0.01 K/mm3 (0.00-0.031); Immature Granulocyte Percent A 0.3 % (0-0.5); Immature Platelet Fraction Pct 5.4 % (0.9-11.2); Lymphocytes Percent Auto 24.5 % (18.3-44.2); Mean Corpuscular HGB Conc 32.2 g/dl (32-36); Mean Corpuscular Volume 93.3 fl (80-100); Mean Platelet Volume 11.2 fl (7.4-10.4); Monocytes Absolute Auto 0.3 K/mm3 (0.1-0.6); Monocytes Percent Auto 8.9 % (2.6-8.5); Neutrophils Absolute Auto 2.1 K/mm3 (1.3-6.7); Neutrophils Percent Auto 65.1 % (45.5-73.1); Platelet Count Result 71 k/mm3 (150-375); Red Blood Count 2.83 M/mm3 (4.6-6.20); White Blood Count 3.3 K/mm3 (4.5-10.0)
[2023-07-05 06:51] LABS: Alanine Aminotransferase 12 U/L (6-50); Albumin Level 2.3 g/dL (3.5-5.1); Alkaline Phosphatase 86 U/L (38-126); Anion Gap 7 mmol/L (8-16); Aspartate Amino Transferase 19 U/L (17-59); Bilirubin,Total 0.5 mg/dL (0.2-1.3); Blood Urea Nitrogen 31 mg/dL (9-20); Carbon Dioxide 27 mmol/L (22-30); Chloride 100 mmol/L (98-107); Estimated CRCL calculation 20 ml/min; Estimated Glomerular Filt Rate 20; Glucose 98 mg/dL (65-110); Potassium 3.7 mmol/L (3.4-5.0); Sodium 134 mmol/L (137-145)
--- NOTE | 2023-07-05 08:45 | PM.IMPN ---
Progress Note: A&P Assessment and Plan (1) Melena: Code(s): K92.1 - Melena Status: Acute Assessment and Plan: PPI, GI consulted, EGD 07/04 showed erosive gastritis, rec PPI daily s/p 2 units pRBC 07/03, repeat hgb initially 9.9, down to 8.5 today, cont to monitor Platelets dropped from 116 to 71, moderate severity, likely 2/2 transfusion and dilutional effect, monitor, LFTs stable colonoscopy planned 07/06 (2) Acute on chronic anemia: Code(s): D64.9 - Anemia, unspecified Status: Acute Assessment and Plan: Appears to have acute on chronic anemia of chronic disease, defer to nephrology for possible epogen shelter outpatient, acute management per GI, stable Trend hemoglobin and hematocrit and transfuse if indicated (3) Hyponatremia: Code(s): E87.1 - Hypo-osmolality and hyponatremia Status: Acute Assessment and Plan: almost normalized today (4) End stage renal disease on dialysis: Code(s): N18.6 - End stage renal disease; Z99.2 - Dependence on renal dialysis Status: Chronic Assessment and Plan: Dialysis days are Tuesday, , and Tuesday. Reportedly not unusual for him to miss Tuesday due to ride issues. Dr. Pinon consulted for dialysis. (5) Hypertension: Qualifiers: Hypertension type: unspecified Qualified Code(s): I10 - Essential (primary) hypertension Code(s): I10 - Essential (primary) hypertension Status: Chronic Assessment and Plan: Blood pressures were reviewed 07/05 Antihypertensives will be reviewed and resumed as appropriate. Plan DVT prophylaxis with SCDs GI prophylaxis with PPI Code status full code Subjective Date/time seen: 07/05/23 08:45 Interval history: 63-year-old with end-stage renal disease on hemodialysis, chronic pancreatitis, hypertension, hyperlipidemia, peripheral vascular disease, cirrhosis, and chronic pain syndrome who presented to the emergency department via EMS for evaluation of dizziness and being treated for GI bleed. No overnight events noted. No chest pain or shortness of breath. No nausea, vomiting or diarrhea. No fevers or chills. EGD and HD today 07/04. Colonoscopy planned 07/05. Still having BRBPR and maroon BMs mixed with melena. Review of Systems Review of Systems: 12 point review of systems was assessed and was negative except as noted in the HPI Exam Narrative: General: No acute distress, alert and oriented per baseline HEENT: Atraumatic, normocephalic, mucous membranes moist CV: Regular rate and rhythm, S1, S2 Lungs: Coarse BS throughout, no wheeze, scattered crackles and rhonchi noted Abdomen: Soft, nontender, nondistended Extremities: Normal to inspection Skin: No rashes noted, no lesions or wounds seen Psych: Euthymic, normal affect Objective Data Vital Signs Vital Signs: Vital Signs - 24 hr 07/04/23 08:50 07/04/23 09:10 07/04/23 09:30 Temperature Pulse Rate 67 69 74 Respiratory Rate Blood Pressure 136/77 137/71 157/87 H Pulse Oximetry Oxygen Delivery 07/04/23 09:50 07/04/23 10:30 07/04/23 10:10 Temperature Pulse Rate 66 64 65 Respiratory Rate Blood Pressure 134/69 106/62 100/58 L Pulse Oximetry Oxygen Delivery 07/04/23 10:50 07/04/23 11:10 07/04/23 11:30 Temperature Pulse Rate 64 61 64 Respiratory Rate Blood Pressure 102/57 L 117/57 L 103/54 L Pulse Oximetry Oxygen Delivery 07/04/23 11:50 07/04/23 12:01 07/04/23 12:15 Temperature 97.3 F L Pulse Rate 61 61 61 Respiratory Rate 15 Blood Pressure 93/47 L 93/47 L 98/53 L Pulse Oximetry Oxygen Delivery 07/04/23 12:00 07/04/23 13:45 07/04/23 15:15 Temperature 96.3 F L Pulse Rate 62 72 73 Respiratory Rate 18 20 Blood Pressure 136/68 93/48 L Pulse Oximetry 100 96 Oxygen Delivery Room Air Room Air 07/04/23 15:25 07/04/23 15:34 07/04/23 16:00 Temperature Pu
--- NOTE | 2023-07-05 09:42 | PCPTNOTE ---
Attempted PT evaluation, pt in dialysis. Will follow.
--- NOTE | 2023-07-05 10:55 | PM.PNNEP ---
Progress Note: A&P Assessment and Plan (1) End stage renal disease: Code(s): N18.6 - End stage renal disease Status: Chronic Assessment and Plan: short HD treatment today resume T/T/S dialysis schedule today follow electrolytes, volume status, and clearance (2) Melena: Code(s): K92.1 - Melena Status: Acute Assessment and Plan: as evidenced in ER IV PPI PRBC transfusion per protocol GI following s/p EGD (on 07/04) - esophagitis and erosive gastritis noted noted plans for colonoscopy later today (3) Hyponatremia: Code(s): E87.1 - Hypo-osmolality and hyponatremia Status: Acute Assessment and Plan: presumably related to ESRD better following dialysis treatment follow trend (4) Anemia: Code(s): D64.9 - Anemia, unspecified Status: Chronic Assessment and Plan: partly related to ESRD Epogen with HHD follow trend of H/H (5) Hypertension: Qualifiers: Hypertension type: unspecified Qualified Code(s): I10 - Essential (primary) hypertension Code(s): I10 - Essential (primary) hypertension Status: Chronic Assessment and Plan: reasonable control at this time follow trend of hemodynamics Will continue to follow. Subjective Date/time seen: 07/05/23 10:55 Interval history: Follow-up for end stage renal disease on hemodialysis. Tolerating dialysis treatment at the time of my visit (seen on HD at 10:45AM); no apparent distress noted; still reports BRBPR so colonoscopy planned for later today; no apparent distress. Exam Narrative: General: WD/WN male in NAD Heart: normal S1 and S2; no rub Lungs: clear to auscultation Abdomen: soft, nontender, nondistended, positive bowel sounds Extremities: no cyanosis or clubbing; no edema Skin: warm and intact Objective Data Vital Signs Vital Signs: Vital Signs Temp Pulse Resp BP Pulse Ox O2 Del Method 07/05/23 10:45 79 135/73 07/05/23 10:30 75 129/67 07/05/23 10:15 80 143/70 H 07/05/23 10:00 75 122/64 07/05/23 09:45 75 132/68 07/05/23 09:30 75 117/63 07/05/23 10:26 97.5 F L 75 18 139/63 07/05/23 06:11 97.1 F L 69 18 104/67 92 07/05/23 04:00 58 L 07/05/23 00:00 67 07/04/23 22:06 97.8 F 65 20 95/53 L 100 07/04/23 20:00 78 07/04/23 20:33 82 07/04/23 16:00 97.4 F L 82 17 116/63 100 07/04/23 16:00 72 07/04/23 15:34 73 17 133/68 100 Room Air 07/04/23 15:25 72 21 H 100/54 L 98 Room Air 07/04/23 15:15 73 20 93/48 L 96 Room Air 07/04/23 13:45 96.3 F L 72 18 136/68 100 Room Air Intake/Output Intake/Output: Intake & Output 07/02/23 07/03/23 07/04/23 07/05/23 23:59 23:59 23:59 23:59 Intake Total 1250 2320 720 450 Output Total 0 5 3000 Balance 1250 2315 -2280 450 Meds/Results Medications: Active Medications Generic Name Dose Route Start Last Admin Trade Name Freq PRN Reason Stop Dose Admin Acetaminophen 650 mg 07/02/23 14:07 Acetaminophen 325 Mg Tablet PO Q6H PRN Mild Pain (1-3) or Fever Hydrocodone Bitart/Acetaminophen 1 tab 07/02/23 17:08 07/04/23 16:15 Hydrocodone/Acetaminophen (*Crx) 5-325 Mg Tablet PO 1 tab QID PRN Administration MODERATE PAIN 4-6 Albuterol 2 puff 07/03/23 15:01 Albuterol Sulfate (*Sp) Aerosol 1 Puff INHALATION Q6H PRN Shortness Of Breath Or Wheezing Lipase/Protease/Amylase 2 cap 07/02/23 17:00 07/05/23 11:40 Lipase/Amylase/Protease 12,000 Units Cap PO Not Given TIDWM ARIES Atorvastatin Calcium 20 mg 07/03/23 09:00 07/04/23 17:46 Atorvastatin 20 Mg Tablet PO Not Given DAILY ARIES Benzonatate 100 mg 07/04/23 18:35 07/04/23 20:33 Benzonatate 100 Mg Capsule PO 100 mg Q6HR PRN Administration Cough Hydromorphone HCl 0.5 mg 07/02/23 20:04 07/05/23 09:18 Hydromorp
[2023-07-05] MEDS: METOPROLOL TARTRATE 25 MG TABLET PO ×2 (13:56→21:19)
[2023-07-05] MEDS: ATORVASTATIN 20 MG TABLET PO (13:56)
[2023-07-05] MEDS: LORATADINE 10 MG TABLET PO (13:56)
[2023-07-05] MEDS: LIPASE/AMYLASE/PROTEASE 12,000 UNITS CAP 2 CAP PO ×2 (13:56→16:53)
[2023-07-05] MEDS: SEVELAMER CARBONATE 800 MG TABLET PO ×2 (13:56→16:53)
[2023-07-05] MEDS: EUCERIN CREAM 120 GM JAR 1 APPLIC TOPICAL (13:57)
[2023-07-05] MEDS: PANTOPRAZOLE 40 MG TABLET PO ×2 (13:57→21:19)
[2023-07-05] MEDS: BENZONATATE 100 MG CAPSULE PO ×2 (14:00→21:25)
--- NOTE | 2023-07-05 14:13 | P.PNAN_ITS ---
Anes - Prog Note Post-Op Date/Time: 07/05/23 14:13 Cardiovascular status: normal Respiratory status: normal Airway patency: baseline Mental status: baseline Post-Op hydration status: normal Vital Signs: Last Vital Signs Temp 97.4 F L 07/05/23 12:17 Pulse 64 07/05/23 13:56 Resp 18 07/05/23 12:17 BP 113/57 L 07/05/23 12:17 Pulse Ox 92 07/05/23 06:11 O2 Del Method Room Air 07/04/23 15:34 Pain Score (VAS): 0/10 I/O: Intake & Output 07/04/23 07/05/23 07/05/23 23:59 07:59 15:59 Intake Total 360 450 Output Total 1000 Balance 360 450 -1000 Laboratory Tests 07/05/23 06:05 07/05/23 06:05 07/04/23 07/05/23 18:26 06:05 WBC 3.3 L RBC 2.83 L Hgb 9.9 L 8.5 L Hct 29.5 L 26.4 L MCV 93.3 MCH 30.0 MCHC 32.2 RDW 16.0 H Plt Count 71 L MPV 11.2 H Immature Gran % (Auto) 0.3 Neut % (Auto) 65.1 Lymph % (Auto) 24.5 [place] % (Auto) 8.9 H Eos % (Auto) 0.0 Baso % (Auto) 1.2 Lymph # (Auto) 0.80 L [place] # (Auto) 0.3 Eos # (Auto) 0.0 Baso # (Auto) 0.0 Abs Immat Gran (auto) 0.01 Absolute Neuts (auto) 2.1 Absolute Nucleated RBC 0.0 Nucleated RBC % 0.0 % Immature Plt Fraction 5.4 Sodium 134 L Potassium 3.7 Chloride 100 Carbon Dioxide 27 Anion Gap 7 L BUN 31 H D Creatinine 3.70 H Estim Creat Clear Calc 20 Estimated GFR 20 L Glucose 98 Calcium 8.0 L Total Bilirubin 0.5 AST 19 ALT 12 Alkaline Phosphatase 86 Total Protein 5.0 L Albumin 2.3 L Post-procedural complaints: none Patient Feedback: Patient satisfied with anesthetic care.
--- NOTE | 2023-07-05 14:52 | PCOTNOTE ---
Attempted to see pt. for occupational therapy evaluation. Pt. refused to participate at this time. Nursing aware. Following.
--- NOTE | 2023-07-05 15:27 | WPDGIPROGNO ---
Progress Note: A&P Assessment and Plan (1) Acute on chronic blood loss anemia: Code(s): D62 - Acute posthemorrhagic anemia Status: Acute Assessment and Plan: h/h stable no signs of bleeding egd c/w gastritis, no varices on ppi daily (2) Cirrhosis: Code(s): K74.60 - Unspecified cirrhosis of liver Status: Acute Assessment and Plan: hepatitis panel negative ultrasound reviewed will need liver ultrasound every 6 months for hcc screening and he can follow-up in office (3) End stage renal disease: Code(s): N18.6 - End stage renal disease Status: Chronic Assessment and Plan: on dialysis (4) Peripheral vascular disease: Code(s): I73.9 - Peripheral vascular disease, unspecified Status: Acute (5) Gastritis: Code(s): K29.70 - Gastritis, unspecified, without bleeding Status: Acute Subjective Date/time seen: 07/05/23 15:27 Interval history: egd yesterday without bleeding, had erosive gastritis, no varices. c/o diffuse pain as usual Review of Systems Review of Systems: All systems reviewed & are unremarkable except as noted in HPI and below Exam Narrative: General: Chronically ill-appearing gentleman, no acute distress HEENT: PERRL, EOMI. Sclera anicteric. Neck: Supple. Respiratory: Lungs are clear to auscultation bilaterally. Cardiovascular: Regular rate and rhythm with S1-S2. Gastrointestinal: Abdomen is soft and nondistended with positive bowel sounds. no rebound tenderness. Skin: Warm and dry. Extremities: No cyanosis or clubbing. Lower extremities +1 edema Neurological: Alert and oriented. Cranial nerves 2-12 are grossly intact. No gross focal deficits to casual conversation. Psychiatric: Appropriate mood and affect. Objective Data Vital Signs Vital Signs: Vital Signs - 24 hr 07/04/23 15:34 07/04/23 16:00 07/04/23 16:00 Temperature 97.4 F L Pulse Rate 73 72 82 Respiratory Rate 17 17 Blood Pressure 133/68 116/63 Pulse Oximetry 100 100 Oxygen Delivery Room Air 07/04/23 20:33 07/04/23 20:00 07/04/23 22:06 Temperature 97.8 F Pulse Rate 82 78 65 Respiratory Rate 20 Blood Pressure 95/53 L Pulse Oximetry 100 Oxygen Delivery 07/05/23 00:00 07/05/23 04:00 07/05/23 06:11 Temperature 97.1 F L Pulse Rate 67 58 L 69 Respiratory Rate 18 Blood Pressure 104/67 Pulse Oximetry 92 Oxygen Delivery 07/05/23 08:00 07/05/23 10:26 07/05/23 09:30 Temperature 97.5 F L Pulse Rate 59 L 75 75 Respiratory Rate 18 Blood Pressure 139/63 117/63 Pulse Oximetry Oxygen Delivery 07/05/23 09:45 07/05/23 10:00 07/05/23 10:15 Temperature Pulse Rate 75 75 80 Respiratory Rate Blood Pressure 132/68 122/64 143/70 H Pulse Oximetry Oxygen Delivery 07/05/23 10:30 07/05/23 10:45 07/05/23 12:17 Temperature 97.4 F L Pulse Rate 75 79 67 Respiratory Rate 18 Blood Pressure 129/67 135/73 113/57 L Pulse Oximetry Oxygen Delivery 07/05/23 11:00 07/05/23 11:15 07/05/23 11:30 Temperature Pulse Rate 76 73 75 Respiratory Rate Blood Pressure 128/59 L 106/51 L 119/65 Pulse Oximetry Oxygen Delivery 07/05/23 11:45 07/05/23 12:00 07/05/23 12:09 Temperature Pulse Rate 65 62 64 Respiratory Rate Blood Pressure 98/52 L 115/57 L 111/60 Pulse Oximetry Oxygen Delivery 07/05/23 13:56 Temperature Pulse Rate 64 Respiratory Rate Blood Pressure Pulse Oximetry Oxygen Delivery Intake/Output Intake/Output: Intake & Output 07/02/23 07/03/23 07/04/23 07/05/23 23:59 23:59 23:59 23:59 Intake Total 1250 2320 720 450 Output Total 0 5 3000 1000 Balance 1250 2315 -2280 -550 Meds/Results Medications: Active Medications Generic Name Dose Route Start Last Admin Trade Name Freq PRN Reason Stop Dose Admin Acetaminophen 650 mg 07/02/23 14:07 Acetaminophen 325 Mg Tablet PO Q6H PRN Mild Pain (1-3) or Fever
[2023-07-05] MEDS: BISACODYL 5 MG TABLET EC 20 MG PO (18:08)
[2023-07-05] MEDS: polyethylene glycoL 3350 238 GM BOTTLE PO (18:08)
[2023-07-05 21:53] LABS: Hematocrit 28.1 % (42.0-52.0); Hemoglobin 8.8 g/dL (14.0-18.0); Mean Corpuscular HGB Conc 31.3 g/dl (32-36); Mean Corpuscular Hemoglobin 29.8 pg (26-34); Mean Corpuscular Volume 95.3 fl (80-100); Mean Platelet Volume 10.8 fl (7.4-10.4); Platelet Count Result 73 k/mm3 (150-375); Red Blood Count 2.95 M/mm3 (4.6-6.20); Red Cell Distribution Width 16.1 % (11.5-14.5)
[2023-07-05] MEDS: ONDANSETRON INJ 4 MG/2 ML VIAL IV PUSH (23:58)
[2023-07-06] VITALS (13 sets, daily range): BP systolic 66–139; BP diastolic 38–73; PULSE 61–97; RESP 14–20; TEMP 36.2–36.6; O2SAT 95–100
--- NOTE | 2023-07-06 02:04 | PC.NURSE ---
pt encouraged frequently by this RN and the PCT to drink bowel prep. Pt told PCT the drink will make him throw up if he drinks all of it. Pt given zofran and encouraged to drink until stools are clear. Pt verbalizes understanding but displays low motivation to finish bowel prep drink.
[2023-07-06] MEDS: HYDROmorphone HCL INJ (*CRX) 1 MG/ML SYR 0.5 MG IV PUSH ×2 (02:43→09:09)
--- NOTE | 2023-07-06 02:44 | PC.NURSE ---
mag citrate administered. pt educated that if his stool is not clear the doctor will not be able to perform colonoscopy. pt states i guess I'll drink it , however pt continues to try to sleep. Pt encouraged another time to drink the mag citrate, but left the cup at bedside per patient's request
[2023-07-06] MEDS: MAGNESIUM CITRATE 300 ML BTL 150 ML PO (03:45)
[2023-07-06 06:29] LABS: Basophils Percent Auto 0.7 % (0.2-1.2); Eosinophils Percent Auto 0.2 % (0-4.4); Hematocrit 29.3 % (42.0-52.0); Hemoglobin 9.1 g/dL (14.0-18.0); Immature Granulocyte Absolute 0.01 K/mm3 (0.00-0.031); Immature Granulocyte Percent A 0.2 % (0-0.5); Immature Platelet Fraction Pct 7.5 % (0.9-11.2); Lymphocytes Absolute Auto 1.26 K/mm3 (0.9-3.2); Lymphocytes Percent Auto 27.8 % (18.3-44.2); Mean Corpuscular HGB Conc 31.1 g/dl (32-36); Mean Corpuscular Hemoglobin 29.6 pg (26-34); Mean Corpuscular Volume 95.4 fl (80-100); Mean Platelet Volume 11.6 fl (7.4-10.4); Monocytes Absolute Auto 0.4 K/mm3 (0.1-0.6); Neutrophils Absolute Auto 2.8 K/mm3 (1.3-6.7); Neutrophils Percent Auto 62.1 % (45.5-73.1); Platelet Count Result 78 k/mm3 (150-375); Red Blood Count 3.07 M/mm3 (4.6-6.20); Red Cell Distribution Width 16.1 % (11.5-14.5); White Blood Count 4.5 K/mm3 (4.5-10.0)
[2023-07-06 06:32] LABS: Alanine Aminotransferase 12 U/L (6-50); Albumin Level 2.5 g/dL (3.5-5.1); Alkaline Phosphatase 101 U/L (38-126); Anion Gap 5 mmol/L (8-16); Aspartate Amino Transferase 19 U/L (17-59); Bilirubin,Total 0.6 mg/dL (0.2-1.3); Blood Urea Nitrogen 21 mg/dL (9-20); Carbon Dioxide 31 mmol/L (22-30); Chloride 100 mmol/L (98-107); Estimated CRCL calculation 23 ml/min; Estimated Glomerular Filt Rate 24; Glucose 80 mg/dL (65-110); Potassium 4.3 mmol/L (3.4-5.0); Sodium 136 mmol/L (137-145)
[2023-07-06] MEDS: MAGNESIUM CITRATE 300 ML BTL PO (07:30)
[2023-07-06] MEDS: BENZONATATE 100 MG CAPSULE PO ×2 (09:09→19:12)
[2023-07-06] MEDS: PANTOPRAZOLE 40 MG TABLET PO ×2 (09:11→20:28)
[2023-07-06] MEDS: METOPROLOL TARTRATE 25 MG TABLET PO ×2 (09:11→20:28)
--- NOTE | 2023-07-06 13:32 | WPDANESEPPF ---
Anes - Initial Pre Proc Eval Procedure: Operation Date: 07/06/23 15:30 Proposed Procedures p Colonoscopy - Hayden Kendrick MD Date/Time: 07/06/23 13:32 Surgeon: Cabrera Sykes MD Pre Op Diagnosis: Upper GI Bleed, Chronic Kidney Disease, Anemia Patient Data Age: 63 Gender: M Height: 1.78 m Weight: 90.9 kg Last Vital Signs Temp 36.6 C 07/06/23 07:55 Pulse 76 07/06/23 07:55 Resp 14 07/06/23 07:55 BP 130/71 07/06/23 07:55 Pulse Ox 100 07/06/23 07:55 O2 Del Method Room Air 07/05/23 20:00 Allergies Allergy/AdvReac Type Severity Reaction Status Date / Time lisinopril Allergy Unknown Verified 07/04/23 14:20 Home Medications Medication Instructions Recorded Confirmed Type albuterol sulfate 90 mcg/actuation 2 inh inhalation Q6H 07/31/21 07/02/23 History breath activated powder inhaler atorvastatin 20 mg tablet 20 mg PO DAILY 07/31/21 07/02/23 History baclofen 10 mg tablet 10 mg PO BID 07/31/21 07/02/23 History cetirizine 10 mg tablet 10 mg PO DAILY 07/31/21 07/02/23 History ggjbsu-popniyur-trtqglu 1 cap PO TID 07/31/21 07/02/23 History 24,000-76,000-120,000 unit capsule,delayed rel (Creon) loperamide 2 mg capsule 2 mg PO PRN PRN Diarrhea 07/31/21 07/02/23 History metoprolol tartrate 50 mg tablet 25 mg PO BID 07/31/21 07/02/23 History sevelamer HCl 800 mg tablet 800 mg PO TID 07/31/21 07/02/23 History allopurinol 300 mg tablet 300 mg PO DAILY 07/02/23 07/02/23 History aspirin 81 mg tablet,delayed 81 mg PO DAILY 07/02/23 07/02/23 History release hydrocodone 5 mg-acetaminophen 325 1 tablet PO QID PRN pain 07/02/23 07/02/23 History mg tablet Laboratory Tests 07/05/23 07/06/23 07/06/23 21:37 05:24 05:25 WBC 4.0 L K/mm3 4.5 K/mm3 (4.5-10.0) (4.5-10.0) RBC 2.95 L M/mm3 3.07 L M/mm3 (4.6-6.20) (4.6-6.20) Hgb 8.8 L g/dL 9.1 L g/dL (14.0-18.0) (14.0-18.0) Hct 28.1 L % 29.3 L % (42.0-52.0) (42.0-52.0) MCV 95.3 fl 95.4 fl (80-100) (80-100) MCH 29.8 pg 29.6 pg (26-34) (26-34) MCHC 31.3 L g/dl 31.1 L g/dl (32-36) (32-36) RDW 16.1 H % 16.1 H % (11.5-14.5) (11.5-14.5) Plt Count 73 L k/mm3 78 L k/mm3 (150-375) (150-375) MPV 10.8 H fl 11.6 H fl (7.4-10.4) (7.4-10.4) Immature Gran % (Auto) 0.2 % (0-0.5) Neut % (Auto) 62.1 % (45.5-73.1) Lymph % (Auto) 27.8 % (18.3-44.2) [place] % (Auto) 9.0 H % (2.6-8.5) Eos % (Auto) 0.2 % (0-4.4) Baso % (Auto) 0.7 % (0.2-1.2) Lymph # (Auto) 1.26 K/mm3 (0.9-3.2) [place] # (Auto) 0.4 K/mm3 (0.1-0.6) Eos # (Auto) 0.0 K/mm3 (0-0.3) Baso # (Auto) 0.0 K/mm3 (0.0-0.1) Abs Immat Gran (auto) 0.01 K/mm3 (0.00-0.031) Absolute Neuts (auto) 2.8 K/mm3 (1.3-6.7) Absolute Nucleated RBC 0.0 K/mm3 (0.0-0.012) Nucleated RBC % 0.0 % (0.0-0.2) % Immature Plt Fraction 5.0 % 7.5 % (0.9-11.2) (0.9-11.2) Sodium 136 L mmol/L (137-145) Potassium 4.3 mmol/L (3.4-5.0) Chloride 100 mmol/L (98-107) Carbon Dioxide 31 H mmol/L (22-30) Anion Gap 5 L mmol/L (8-16) BUN 21 H D mg/dL (9-20) Creatinine 3.20 H mg/dL (0.7-1.3) Estim Creat Clear Calc 23 ml/min Estimated GFR 24 L (59 - ) Glucose 80 mg/dL (65-110) Calcium 8.0 L mg/dL (8.4-10.2) Total Bilirubin 0.6 mg/dL (0.2-1.3) AST 19 U/L (17-59) ALT 12 U/L (6-50) Alkaline Phosphatase 101 U/L (38-126) Total Protein 6.0 L g/dL (6.3-8.2) Albumin 2.5 L g/dL (3.5-5.1) Patient hx anesthesia problems: none Family hx anesthesia problems: none Results Review: All pre-operative results and documents have been reviewed as part of the pre-operat
[2023-07-06] MEDS: SODIUM CHLORIDE 0.9% IV 500 ML 10 ML IV CONT (14:15)
--- NOTE | 2023-07-06 14:40 | PM.PNNEP ---
Progress Note: A&P Assessment and Plan (1) End stage renal disease: Code(s): N18.6 - End stage renal disease Status: Chronic Assessment and Plan: HD tomorrow continue T/T/S dialysis schedule while hospitalized follow electrolytes, volume status, and clearance (2) Melena: Code(s): K92.1 - Melena Status: Acute Assessment and Plan: as evidenced in ER IV PPI PRBC transfusion per protocol GI following s/p EGD (on 07/04) - esophagitis and erosive gastritis noted s/p colonoscopy (on 07/05) - no acute findings (3) Hyponatremia: Code(s): E87.1 - Hypo-osmolality and hyponatremia Status: Acute Assessment and Plan: presumably related to ESRD better following dialysis treatment follow trend (4) Anemia: Code(s): D64.9 - Anemia, unspecified Status: Chronic Assessment and Plan: partly related to ESRD Epogen with HD follow trend of H/H (5) Hypertension: Qualifiers: Hypertension type: unspecified Qualified Code(s): I10 - Essential (primary) hypertension Code(s): I10 - Essential (primary) hypertension Status: Chronic Assessment and Plan: reasonable control at this time follow trend of hemodynamics Will continue to follow. Subjective Date/time seen: 07/06/23 14:40 Interval history: Follow-up for end stage renal disease on hemodialysis. Tolerated short dialysis treatment yesterday to get him back on his outpatient dialysis schedule; s/p colonoscopy earlier this afternoon and tolerated the procedure; no other acute complaints voiced. Exam Narrative: General: WD/WN male in NAD Heart: normal S1 and S2; no rub Lungs: clear to auscultation Abdomen: soft, nontender, nondistended, positive bowel sounds Extremities: no cyanosis or clubbing; no edema Skin: no rash Objective Data Vital Signs Vital Signs: Vital Signs Temp Pulse Resp BP Pulse Ox O2 Del Method 07/06/23 14:37 61 20 84/45 L 95 Room Air 07/06/23 14:35 63 20 66/38 L 98 Room Air 07/06/23 13:56 97.2 F L 70 20 139/73 100 Room Air 07/06/23 07:55 97.9 F 76 14 130/71 100 07/06/23 04:00 62 07/05/23 20:00 Room Air 07/05/23 20:00 71 07/06/23 00:00 64 07/05/23 21:46 97.6 F 99 20 133/86 100 07/05/23 21:19 87 Intake/Output Intake/Output: Intake & Output 07/03/23 07/04/23 07/05/23 07/06/23 23:59 23:59 23:59 23:59 Intake Total 2320 720 750 0 Output Total 5 3000 1000 Balance 2315 -2280 -250 0 Meds/Results Medications: Active Medications Generic Name Dose Route Start Last Admin Trade Name Freq PRN Reason Stop Dose Admin Acetaminophen 650 mg 07/02/23 14:07 Acetaminophen 325 Mg Tablet PO Q6H PRN Mild Pain (1-3) or Fever Hydrocodone Bitart/Acetaminophen 1 tab 07/02/23 17:08 07/06/23 16:19 Hydrocodone/Acetaminophen (*Crx) 5-325 Mg Tablet PO 1 tab QID PRN Administration MODERATE PAIN 4-6 Albuterol 2 puff 07/03/23 15:01 Albuterol Sulfate (*Sp) Aerosol 1 Puff INHALATION Q6H PRN Shortness Of Breath Or Wheezing Lipase/Protease/Amylase 2 cap 07/02/23 17:00 07/06/23 16:20 Lipase/Amylase/Protease 12,000 Units Cap PO 2 cap TIDWM ARIES Administration Atorvastatin Calcium 20 mg 07/03/23 09:00 07/06/23 16:27 Atorvastatin 20 Mg Tablet PO 20 mg DAILY ARIES Administration Benzonatate 100 mg 07/04/23 18:35 07/06/23 09:09 Benzonatate 100 Mg Capsule PO 100 mg Q6HR PRN Administration Cough Albumin Human 50 mls @ 999 mls/hr 07/04/23 06:14 Albutein IVPB 08/03/23 06:13 Q10M PRN HYPOTENSION Loratadine 10 mg 07/03/23 09:00 07/06/23 16:27 Loratadine 10 Mg Tablet PO 10 mg QAM ARIES Administration Metoprolol Tartrate 25 mg 07/02/23 21:00 07/06/23 09:11 Metoprolol Tartrate 25 Mg Tablet PO 25 mg Q12HR ARIES Administration Multi-In
[2023-07-06] MEDS: SEVELAMER CARBONATE 800 MG TABLET PO (16:18)
[2023-07-06] MEDS: HYDROcodone/acetaminophen (*CRX) 5-325 MG TABLET 1 TAB PO (16:19)
[2023-07-06] MEDS: LIPASE/AMYLASE/PROTEASE 12,000 UNITS CAP 2 CAP PO (16:20)
[2023-07-06] MEDS: ATORVASTATIN 20 MG TABLET PO (16:27)
[2023-07-06] MEDS: LORATADINE 10 MG TABLET PO (16:27)
--- NOTE | 2023-07-06 18:32 | PM.IMPN ---
Progress Note: A&P Assessment and Plan (1) Melena: Code(s): K92.1 - Melena Status: Acute Assessment and Plan: Patient passed 2 large, dark tarry stools in the ED that were hemoccult positive. PPI started. Hgb dropped to 6.6 and he has since received 4U PRBC. Last unit given in the early childhood coordinator hours of 07/04. Hgb climbed to 8-9 range and stable. GI consulted and EGD 07/04 showed mild esophagitis and moderate erosive gastritis. No ulcers Colonoscopy 07/06 was normal. Consider SB AVM or other SB lesions. Order SB series. (2) Acute on chronic anemia: Code(s): D64.9 - Anemia, unspecified Status: Acute Assessment and Plan: Appears to have acute on chronic anemia with chronic disease from ESRD As above. Defer to nephrology for possible epogen Follow HH (3) Hyponatremia: Code(s): E87.1 - Hypo-osmolality and hyponatremia Status: Acute Assessment and Plan: Na was low and dropped to 126. Na better with HD Continue to follow (4) End stage renal disease on dialysis: Code(s): N18.6 - End stage renal disease; Z99.2 - Dependence on renal dialysis Status: Chronic Assessment and Plan: Dialysis days are Tuesday, , and Tuesday. Reportedly not unusual for him to miss Tuesday due to ride issues. Dr. Pinon consulted for dialysis. Plan HD tomorrow. (5) Hypertension: Qualifiers: Hypertension type: unspecified Qualified Code(s): I10 - Essential (primary) hypertension Code(s): I10 - Essential (primary) hypertension Status: Chronic Assessment and Plan: Patient's blood pressure was reviewed on 07/06 Blood pressure dropped during the colonoscopy. Will continue to monitor Okay to stop tele Plan DVT prophylaxis with SCDs GI prophylaxis with PPI Code status full code Subjective Date/time seen: 07/06/23 18:32 Interval history: 63-year-old with end-stage renal disease on hemodialysis, chronic pancreatitis, hypertension, hyperlipidemia, peripheral vascular disease, cirrhosis, and chronic pain syndrome who presented to the emergency department via EMS for evaluation of dizziness and anemia Patient was down for his colonoscopy earlier today. He is back and toelrated the procedure well. Complains of back pain but mostly chronic. Eating normally. Due for HD tomorrow. Exam Narrative: AF 97.9 104/67 78 20 97% ra Gen - NARD Chest - bibasilar crackles o/w clear CV - RRR S1/S2. Tele showing PACs Abd - Soft, NT/ND, Positive BS Ext - No pedal edema. Thrill and bruit LUE Psych - Nml mood and affect Skin - Warm and dry. Right LE wound is VICKI wrapped. Objective Data Vital Signs Vital Signs: Vital Signs - 24 hr 07/05/23 21:19 07/05/23 21:46 07/06/23 00:00 Temperature 97.6 F Pulse Rate 87 99 64 Respiratory Rate 20 Blood Pressure 133/86 Pulse Oximetry 100 Oxygen Delivery 07/05/23 20:00 07/05/23 20:00 07/06/23 04:00 Temperature Pulse Rate 71 62 Respiratory Rate Blood Pressure Pulse Oximetry Oxygen Delivery Room Air 07/06/23 07:55 07/06/23 13:56 07/06/23 14:35 Temperature 97.9 F 97.2 F L Pulse Rate 76 70 63 Respiratory Rate 14 20 20 Blood Pressure 130/71 139/73 66/38 L Pulse Oximetry 100 100 98 Oxygen Delivery Room Air Room Air 07/06/23 14:37 07/06/23 14:45 07/06/23 14:55 Temperature Pulse Rate 61 62 62 Respiratory Rate 20 17 20 Blood Pressure 84/45 L 73/72 L 86/48 L Pulse Oximetry 95 100 100 Oxygen Delivery Room Air Room Air Room Air 07/06/23 15:01 07/06/23 08:00 07/06/23 12:00 Temperature Pulse Rate 68 75 97 Respiratory Rate 20 Blood Pressure 104/67 Pulse Oximetry 97 Oxygen Delivery Room Air 07/06/23 16:00 07/06/23 16:00 Temperature 97.9 F Pulse Rate 68 78 Respiratory Rate 20 Blood Pressure 104/67 Pulse Oximetry 97 Oxygen Delivery Intake/Output Intake/Output: Intake & Output
[2023-07-06] MEDS: oxyCODONE/ACETAMINOPHEN (*CRX) 5-325 MG TABLET 1 TABLET PO (20:28)
[2023-07-07] VITALS (20 sets, daily range): BP systolic 109–138; BP diastolic 57–70; PULSE 62–78; RESP 16–18; TEMP 36.1–37.5; O2SAT 93–100
[2023-07-07] MEDS: oxyCODONE/ACETAMINOPHEN (*CRX) 5-325 MG TABLET 1 TABLET PO (06:17)
[2023-07-07] MEDS: BENZONATATE 100 MG CAPSULE PO ×2 (06:18→13:21)
[2023-07-07 06:32] LABS: Basophils Percent Auto 0.6 % (0.2-1.2); Eosinophils Absolute Auto 0.1 K/mm3 (0-0.3); Eosinophils Percent Auto 1.4 % (0-4.4); Hematocrit 26.5 % (42.0-52.0); Hemoglobin 8.1 g/dL (14.0-18.0); Immature Granulocyte Absolute 0.01 K/mm3 (0.00-0.031); Immature Granulocyte Percent A 0.3 % (0-0.5); Immature Platelet Fraction Pct 7.3 % (0.9-11.2); Lymphocytes Absolute Auto 1.02 K/mm3 (0.9-3.2); Lymphocytes Percent Auto 29.1 % (18.3-44.2); Mean Corpuscular HGB Conc 30.6 g/dl (32-36); Mean Corpuscular Hemoglobin 30.2 pg (26-34); Mean Corpuscular Volume 98.9 fl (80-100); Mean Platelet Volume 11.3 fl (7.4-10.4); Monocytes Absolute Auto 0.5 K/mm3 (0.1-0.6); Monocytes Percent Auto 13.4 % (2.6-8.5); Neutrophils Absolute Auto 1.9 K/mm3 (1.3-6.7); Neutrophils Percent Auto 55.2 % (45.5-73.1); Platelet Count Result 70 k/mm3 (150-375); Red Blood Count 2.68 M/mm3 (4.6-6.20); Red Cell Distribution Width 15.8 % (11.5-14.5); White Blood Count 3.5 K/mm3 (4.5-10.0)
[2023-07-07 06:46] LABS: Alanine Aminotransferase 12 U/L (6-50); Albumin Level 2.3 g/dL (3.5-5.1); Alkaline Phosphatase 91 U/L (38-126); Anion Gap 8 mmol/L (8-16); Aspartate Amino Transferase 19 U/L (17-59); Bilirubin,Total 0.5 mg/dL (0.2-1.3); Blood Urea Nitrogen 25 mg/dL (9-20); Calcium 7.9 mg/dL (8.4-10.2); Carbon Dioxide 24 mmol/L (22-30); Chloride 102 mmol/L (98-107); Estimated CRCL calculation 21 ml/min; Estimated Glomerular Filt Rate 19; Glucose 104 mg/dL (65-110); Potassium 3.9 mmol/L (3.4-5.0); Sodium 134 mmol/L (137-145)
--- NOTE | 2023-07-07 07:29 | WPDANESPN ---
Anes - Prog Note Post-Op Date/Time: 07/07/23 07:29 Cardiovascular status: normal Respiratory status: normal Airway patency: baseline Mental status: baseline Post-Op hydration status: normal Vital Signs: Last Vital Signs Temp 97.0 F L 07/07/23 05:09 Pulse 68 07/07/23 05:09 Resp 16 07/07/23 05:09 BP 116/60 07/07/23 05:09 Pulse Ox 100 07/07/23 05:09 O2 Del Method Room Air 07/06/23 20:00 Pain Score (VAS): 0 I/O: Intake & Output 07/06/23 07/06/23 07/07/23 15:59 23:59 07:59 Intake Total 0 600 Output Total 0 Balance 0 600 0 Laboratory Tests 07/07/23 05:32 07/07/23 05:32 WBC Pending RBC Pending Hgb Pending Hct Pending MCV Pending MCH Pending MCHC Pending RDW Pending Plt Count Pending MPV Pending Immature Gran % (Auto) Pending Neut % (Auto) Pending Lymph % (Auto) Pending [place] % (Auto) Pending Eos % (Auto) Pending Baso % (Auto) Pending Lymph # (Auto) Pending [place] # (Auto) Pending Eos # (Auto) Pending Baso # (Auto) Pending Abs Immat Gran (auto) Pending Absolute Neuts (auto) Pending Absolute Nucleated RBC Pending Nucleated RBC % Pending Sodium 134 L Potassium 3.9 Chloride 102 Carbon Dioxide 24 Anion Gap 8 BUN 25 H Creatinine 4.00 H Estim Creat Clear Calc 21 Estimated GFR 19 L Glucose 104 Calcium 7.9 L Total Bilirubin 0.5 AST 19 ALT 12 Alkaline Phosphatase 91 Total Protein 6.0 L Albumin 2.3 L Post-procedural complaints: none Patient Feedback: Patient satisfied with anesthetic care.
[2023-07-07] MEDS: ATORVASTATIN 20 MG TABLET PO (08:35)
[2023-07-07] MEDS: LORATADINE 10 MG TABLET PO (08:35)
[2023-07-07] MEDS: PANTOPRAZOLE 40 MG TABLET PO (08:35)
[2023-07-07] MEDS: LIPASE/AMYLASE/PROTEASE 12,000 UNITS CAP 2 CAP PO ×2 (08:35→17:37)
[2023-07-07] MEDS: EUCERIN CREAM 120 GM JAR 1 APPLIC TOPICAL (08:35)
[2023-07-07] MEDS: SEVELAMER CARBONATE 800 MG TABLET PO ×2 (08:35→17:37)
[2023-07-07] MEDS: METOPROLOL TARTRATE 25 MG TABLET PO (08:35)
--- NOTE | 2023-07-07 10:39 | PCOTNOTE ---
The patient treatment was not able to be completed. Patient out of room for HD. Will plan to continue treatment per plan of care.
[2023-07-07] MEDS: EPOETIN ALFA-EPBX 10,000 UNITS/ML VIAL 10000 UNITS IV PUSH (12:32)
--- NOTE | 2023-07-07 14:03 | PM.PNNEP ---
Progress Note: A&P Assessment and Plan (1) End stage renal disease: Code(s): N18.6 - End stage renal disease Status: Chronic Assessment and Plan: HD under way hopefully the patient will allow us to finish his dialysis. continue T/T/S dialysis schedule while hospitalized Volume status looks pretty good. (2) Melena: Code(s): K92.1 - Melena Status: Acute Assessment and Plan: as evidenced in ER IV PPI PRBC transfusion per protocol GI following s/p EGD (on 07/04) - esophagitis and erosive gastritis noted s/p colonoscopy (on 07/05) - no acute findings (3) Hyponatremia: Code(s): E87.1 - Hypo-osmolality and hyponatremia Status: Acute Assessment and Plan: presumably related to ESRD , a result of water drinking. better following dialysis treatment Sodium is better today. (4) Anemia: Code(s): D64.9 - Anemia, unspecified Status: Chronic Assessment and Plan: partly related to ESRD Epogen with HD Hemoglobin 8.1. This bounces around between 8 and 9. (5) Hypertension: Qualifiers: Hypertension type: unspecified Qualified Code(s): I10 - Essential (primary) hypertension Code(s): I10 - Essential (primary) hypertension Status: Chronic Assessment and Plan: reasonable control at this time Systolic well controlled today Subjective Date/time seen: 07/07/23 14:03 Interval history: patient is on dialysis and tolerating it well. He was seen at 1:10 p.m.. He is very eager to come off dialysis early. He wants his food. He also has a cough and wants is Tessalon Perles. He only has about 30minutes left. His bed cannot get out of the room because of the neighboring bed of the patient also on dialysis. I tried to talk with the patient to see if he would allow us to just finished his treatment in get him back to his room. He is going to mold over for a little bit but is still eager to come off. Exam Narrative: General: WD/WN male in NAD Heart: normal S1 and S2; no rub or gallop Lungs: clear bilaterally Abdomen: soft, nontender, nondistended, positive bowel sounds Extremities: no cyanosis or clubbing; no edema Skin: no rash Or subcu not Objective Data Vital Signs Vital Signs: Vital Signs - 24 hr 07/06/23 14:35 07/06/23 14:37 07/06/23 14:45 Temperature Pulse Rate 63 61 62 Respiratory Rate 20 20 17 Blood Pressure 66/38 L 84/45 L 73/72 L Pulse Oximetry 98 95 100 Oxygen Delivery Room Air Room Air Room Air 07/06/23 14:55 07/06/23 15:01 07/06/23 16:00 Temperature 97.9 F Pulse Rate 62 68 68 Respiratory Rate 20 20 20 Blood Pressure 86/48 L 104/67 104/67 Pulse Oximetry 100 97 97 Oxygen Delivery Room Air Room Air 07/06/23 16:00 07/06/23 20:30 07/06/23 20:00 Temperature 97.5 F L Pulse Rate 78 64 Respiratory Rate 16 Blood Pressure 114/56 L Pulse Oximetry 97 Oxygen Delivery Room Air 07/07/23 05:09 07/07/23 08:35 07/07/23 09:59 Temperature 97.0 F L 97.9 F Pulse Rate 68 68 73 Respiratory Rate 16 16 Blood Pressure 116/60 124/64 Pulse Oximetry 100 Oxygen Delivery 07/07/23 10:11 07/07/23 08:00 07/07/23 10:17 Temperature Pulse Rate 67 69 Respiratory Rate Blood Pressure 128/67 113/57 L Pulse Oximetry Oxygen Delivery Room Air 07/07/23 10:30 07/07/23 10:45 07/07/23 11:00 Temperature Pulse Rate 65 65 64 Respiratory Rate Blood Pressure 133/57 L 112/61 122/57 L Pulse Oximetry Oxygen Delivery 07/07/23 11:15 07/07/23 11:30 07/07/23 11:45 Temperature Pulse Rate 64 63 64 Respiratory Rate Blood Pressure 115/59 L 119/65 119/62 Pulse Oximetry Oxygen Delivery 07/07/23 12:00 07/07/23 12:15 07/07/23 12:30 Temperature Pulse Rate 62 67 64 Respiratory Rate Blood Pressure 116/61 121/61 117/57 L Pulse Oximetry Oxygen Delivery 07/07/23 12:45 Temp
--- NOTE | 2023-07-07 14:34 | PM.DS ---
DS: Admitting Diagnosis Discharge Date 07/07/23 Admitting Diagnosis Dizziness DS: Discharge Diagnosis Discharge Diagnosis (1) Melena: Code(s): K92.1 - Melena Status: Acute (2) Acute on chronic anemia: Code(s): D64.9 - Anemia, unspecified Status: Acute (3) Hyponatremia: Code(s): E87.1 - Hypo-osmolality and hyponatremia Status: Acute (4) End stage renal disease on dialysis: Code(s): N18.6 - End stage renal disease; Z99.2 - Dependence on renal dialysis Status: Chronic (5) Hypertension: Qualifiers: Hypertension type: unspecified Qualified Code(s): I10 - Essential (primary) hypertension Code(s): I10 - Essential (primary) hypertension Status: Chronic DS: Summary Hospital Course Reason for hospitalization: 63-year-old with end-stage renal disease on hemodialysis, chronic pancreatitis, hypertension, hyperlipidemia, peripheral vascular disease, cirrhosis, and chronic pain syndrome who presented to the emergency department via EMS for evaluation of dizziness and anemia. Please see H&P for details. Hospital Course: Patient presents with dizziness and while in ED, passed 2 large, dark tarry stools that was hemoccult positive. PPI started. Hgb dropped to 6.6 and he has since received 4U PRBC. Last unit given in the power supply engineer hours of 07/04. Hgb climbed to 8-9 range and stable. GI was consulted and EGD 07/04 showed mild esophagitis and moderate erosive gastritis. No ulcers. Colonoscopy 07/06 was normal. Appears to have acute on chronic anemia with chronic disease from ESRD. Na was low and dropped to 126. Na better with HD. Patient has end stage renal disease on dialysis Tuesday, , and Tuesday schedule. Nephrology consulted and appreciate their input. Reportedly it is not unusual for patient to miss Tuesday due to ride issues. He had clinical improvement. He was able to be discharged to SNF on 07/07/23. Status at Discharge Cognitive/behavioral status at discharge: stable Time Spent with Patient Time attestation: Total time spent providing and/or coordinating discharge services: 35 minutes Time spent: Greater than 30 minutes Exam Narrative: AF 97.9 120/60 64 16 100% ra Gen - NARD Chest - distant, clear BS CV - RRR S1/S2 Abd - Soft, NT/ND, Positive BS Ext - No pedal edema. Thrill and bruit LUE. LUE edema noted Psych - Nml mood and affect Skin - Warm and dry. Right LE wound is VICKI wrapped. DS: Data Data Completed and Pending Completed studies during hospitalization: Pending at discharge 07/04/23 15:08 Surgical [PTH] Routine Labs on day of discharge: Labs from last 24 hours 07/07/23 05:32 WBC 3.5 L RBC 2.68 L Hgb 8.1 L Hct 26.5 L MCV 98.9 MCH 30.2 MCHC 30.6 L RDW 15.8 H Plt Count 70 L MPV 11.3 H Immature Gran % (Auto) 0.3 Neut % (Auto) 55.2 Lymph % (Auto) 29.1 [place] % (Auto) 13.4 H Eos % (Auto) 1.4 Baso % (Auto) 0.6 Lymph # (Auto) 1.02 [place] # (Auto) 0.5 Eos # (Auto) 0.1 Baso # (Auto) 0.0 Abs Immat Gran (auto) 0.01 Absolute Neuts (auto) 1.9 Absolute Nucleated RBC 0.0 Nucleated RBC % 0.0 % Immature Plt Fraction 7.3 Sodium 134 L Potassium 3.9 Chloride 102 Carbon Dioxide 24 Anion Gap 8 BUN 25 H Creatinine 4.00 H Estim Creat Clear Calc 21 Estimated GFR 19 L Glucose 104 Calcium 7.9 L Total Bilirubin 0.5 AST 19 ALT 12 Alkaline Phosphatase 91 Total Protein 6.0 L Albumin 2.3 L Discharge Plan Discharge Attending physician on discharge: Blade Bright Consulting providers: Hayden Kendrick; Skylar Pinon Discharging Clinician: Blade Bright Anticipated Discharge Date/Time: 07/07/23 14:46 Patient Disposition: SNF Activity: as tolerated Diet: renal Discharge Instructions: Please check glucose before meals and before bed. Record for the doctor's review. Check blood pressure 1 to 2 times
--- NOTE | 2023-07-07 14:46 | PCPTNOTE ---
The patient treatment was not able to be completed at this time due to patient eating lunch. Will plan to continue treatment per plan of care.
--- NOTE | 2023-07-07 16:06 | PC.NURSE ---
pt adamantly refusing bed and chair alarms. pt was educated about fall precautions and the reason why they are in place for him. pt states that he knows about the risk of falls and if he wants to fall he has the right to do so.
[2023-07-07 16:49] LABS: SARS-CoV-2 RNA PCR Negative (Negative)
== END 2023-07-07 18:36 | DRG 377 ==
LOC: ANHED 08:05 → ANHIMU 13:39 → ANH3MEDSUR 07-04 05:37
PROVIDERS: Internal Medicine; Internal Medicine Gastroenterology; Internal Medicine Nephrology; Physician Assistant; Student in an Organized Health Care Education/Training Program; Admitting Provider Hospitalist; Emergency Provider Emergency Medicine; PCP Family Medicine; Visit Provider Hospitalist
PROC: 0DJ08ZZ Inspection of Upper Intestinal Tract, Via Natural or Artificial Opening Endoscopic (ICD-10-PCS; CPT 43235; principal; 2023-07-04 15:30)
PROC: 0DJD8ZZ Inspection of Lower Intestinal Tract, Via Natural or Artificial Opening Endoscopic (ICD-10-PCS; CPT 45378; principal; 2023-07-06 15:30)
DX: K92.2 Gastrointestinal hemorrhage, unspecified (principal); N18.6 End stage renal disease; D62 Acute posthemorrhagic anemia; I12.0 Hypertensive chronic kidney disease with stage 5 chronic kidney disease or end stage renal disease; K86.1 Other chronic pancreatitis; E87.1 Hypo-osmolality and hyponatremia; K29.70 Gastritis, unspecified, without bleeding; K20.90 Esophagitis, unspecified without bleeding; K44.9 Diaphragmatic hernia without obstruction or gangrene; D63.1 Anemia in chronic kidney disease; E78.5 Hyperlipidemia, unspecified; I73.9 Peripheral vascular disease, unspecified; K74.60 Unspecified cirrhosis of liver; G89.4 Chronic pain syndrome; Z99.2 Dependence on renal dialysis; Z87.11 Personal history of peptic ulcer disease; Z20.822 Contact with and (suspected) exposure to COVID-19
CPT/HCPCS: 36415; 36430; 71045; 76700; 80048; 80053; 80074; 83735; 84100; 85014; 85018; 85025; 85027; 85055; 86706; 86850; 86900; 86901; 86923; 87340; 87635; 87637; 88305; 93005; 96361; 96374; 97161; 97165; 97530; 97535; 99285; A9270; C9113; G0257; G0378; J1170; J2371; J2405; J2550; J2704; J7030; J7040; J7050; P9016; P9047; Q5105

== ENCOUNTER 2023-07-09 14:46 | Emergency (ER) | payer MEDICARE, MEDICAID, SELFPAY ==
--- NOTE | ~2023-07-09 | XR_ITS ---
XR chest 1V portable 07/09/2023 20:47 Indication: End-stage renal disease. Procedure: AP portable chest Comparison: 07/05/2023 Findings: Cardiomegaly. Pulmonary edema. Small right pleural effusion. No pneumothorax. Impression: 1: Cardiomegaly with pulmonary edema. Reviewed, dictated and finalized at location A. FLIGHT REFUELING OPERATOR Impression: 1: Cardiomegaly with pulmonary edema.
[2023-07-09 14:49] VITALS: BP 138/71; PULSE 88; RESP 16; TEMP 37.5; O2SAT 100
[2023-07-09 20:04] VITALS: BP 126/73; PULSE 82; RESP 16; O2SAT 100
--- NOTE | 2023-07-09 20:26 | ECG_ITS ---
Measurements Intervals [place] Rate: 81 P: 39 [place]: 224 QRS: -37 QRSD: 81 T: 1 QT: 347 QTc: 405 Interpretive Statements SINUS RHYTHM WITH FIRST DEGREE AV BLOCK WITH FREQUENT ECTOPIC PREMATURE COMPLEXES MARKED LEFT AXIS DEVIATION [QRS AXIS < -30] PATTERN CONSISTENT WITH PULMONARY DISEASE COMPARED TO ECG 07/02/2023 08:03:56 NO SIGNIFICANT CHANGES Electronically Signed On 07-10-2023 17:00:42 DOCUMENTATION SPECIALIST by Danielle Rao M.D.
[2023-07-09 21:18] LABS: Hematocrit 29.4 % (42.0-52.0); Hemoglobin 9.1 g/dL (14.0-18.0); Immature Platelet Fraction Pct 4.2 % (0.9-11.2); Mean Corpuscular Hemoglobin 29.9 pg (26-34); Mean Corpuscular Volume 96.7 fl (80-100); Mean Platelet Volume 10.4 fl (7.4-10.4); Platelet Count Result 71 k/mm3 (150-375); Red Blood Count 3.04 M/mm3 (4.6-6.20); Red Cell Distribution Width 15.9 % (11.5-14.5)
[2023-07-09 21:31] LABS: Alanine Aminotransferase 12 U/L (6-50); Albumin Level 2.4 g/dL (3.5-5.1); Alkaline Phosphatase 89 U/L (38-126); Anion Gap 6 mmol/L (8-16); Aspartate Amino Transferase 20 U/L (17-59); Bilirubin,Total 0.9 mg/dL (0.2-1.3); Blood Urea Nitrogen 30 mg/dL (9-20); Calcium 8.4 mg/dL (8.4-10.2); Carbon Dioxide 26 mmol/L (22-30); Chloride 99 mmol/L (98-107); Estimated Glomerular Filt Rate 17; Glucose 83 mg/dL (65-110); Potassium 4.6 mmol/L (3.4-5.0); Sodium 131 mmol/L (137-145)
[2023-07-09 21:32] LABS: Band Neutrophils Percent 12 % (0-6); Hypochromasia 1+ (NORMAL); Lymphocytes Absolute Manual 0.65 K/mm3 (1.1-4.5); Monocytes Absolute Manual 0.39 K/mm3 (0.1-0.90); Monocytes Percent Manual 3 % (3-9); Neutrophils Absolute Manual 11.96 K/mm3 (1.3-6.7); Neutrophils Percent Manual 80 % (46-73); Platelet Estimate Decreased (Adequate); Schistocytes None Seen (NORMAL); Total Cells Counted 100
[2023-07-09 21:33] LABS: Anisocytosis 2+ (NORMAL)
--- NOTE | 2023-07-09 21:33 | ED.GENADULT ---
HPI - General Adult General Chief complaint: Unspecified Stated complaint: missed dialysis Time Seen by Provider: 07/09/23 20:26 Source: patient Mode of arrival: EMS Limitations: other (poor historian) History of Present Illness HPI narrative: This is a 63-year-old male that presents to the emergency department as he was not able to get transport to dialysis. His facility sent him here to receive dialysis. He does report a non-productive cough which has been chronic for him. Also reports some mild shortness of breath. Denies fevers or chest pain. Related Data Home Medications Medication Instructions Recorded Confirmed albuterol sulfate 90 mcg/actuation 2 inh inhalation Q6H 07/31/21 07/02/23 breath activated powder inhaler atorvastatin 20 mg tablet 20 mg PO DAILY 07/31/21 07/02/23 cetirizine 10 mg tablet 10 mg PO DAILY 07/31/21 07/02/23 [id number]-[id number] 1 cap PO TID 07/31/21 07/02/23 24,000-76,000-120,000 unit capsule,delayed rel (Creon) loperamide 2 mg capsule 2 mg PO PRN PRN Diarrhea 07/31/21 07/02/23 metoprolol tartrate 50 mg tablet 25 mg PO BID 07/31/21 07/02/23 sevelamer HCl 800 mg tablet 800 mg PO TID 07/31/21 07/02/23 allopurinol 300 mg tablet 300 mg PO DAILY 07/02/23 07/02/23 aspirin 81 mg tablet,delayed 81 mg PO DAILY 07/02/23 07/02/23 release Allergies Allergy/AdvReac Type Severity Reaction Status Date / Time lisinopril Allergy Unknown Verified 07/06/23 13:54 Review of Systems Review of Systems: CONSTITUTIONAL: Denies fever ENT: Reports rhinorrhea, congestion CARDIOVASCULAR: Denies chest pain RESPIRATORY: Reports cough and dyspnea. All systems reviewed & are unremarkable except as noted in HPI and below PMFSH Past Medical History Medical History (Updated 07/09/23 @ 23:12 by Carleen Sheriff PA-C) Acute on chronic blood loss anemia Chronic anemia Chronic pancreatitis Cirrhosis End stage renal disease on dialysis Gastritis Hyperlipidemia Hypertension Peripheral vascular disease Surgical History Surgical History History of umbilical hernia repair Family History Family History Unknown Family history unknown Social History Social History Social History: Surrogate medical decision maker: Zurdo Lehman (son) or Robert Nails (nephew). Code status: Full code. 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 Spiritual care concerns: No Exam Narrative: GENERAL: Chronically ill-appearing, well-nourished, and in no acute distress. HEAD: Normocephalic, atraumatic. EYES: EOMI. ENT: Nares clear, no rhinorrhea or epistaxis. Mucous membranes moist. Oropharynx without tonsillar hypertrophy exudate or other lesions. Bilateral TMs pearly reed non-bulging NECK: Supple. No adenopathy or masses. CHEST: No respiratory distress. Rales at the lung bases. No wheezes or rhonchi HEART: Regular rate and rhythm. No murmur heard. Normal peripheral pulses. EXTREMITIES: Normal range of motion. No edema. SKIN: Warm, dry, no rash. NEURO: No focal deficits. Alert and oriented x3. PSYCH: Normal mood and affect Course Course Emergency Course: patient updated on his workup and agrees with plan of care Consultations Consultation #1: Spoke with Dr. Steen about patient and workup. We
--- NOTE | 2023-07-09 21:54 | PC.NURSE ---
THIS RN ASSUMED CARE OF PATIENT. THIS RN TOOK PATIENT REPORT FROM GIDEON BUTLER.
[2023-07-09 23:00] VITALS: PULSE 72; PULSE 73; RESP 19
[2023-07-09 23:05] LABS: Influenza A QL RT-PCR Negative (Negative); Influenza B QL RT-PCR Negative (Negative); RSV RNA, RT-PCR Negative (Negative); SARS-CoV-2 RNA PCR Negative (Negative)
--- NOTE | 2023-07-10 00:03 | PC.NURSE ---
THIS RN ATTEMPTED X2 TO CALL [facility] TO GIVE REPORT ON PT BEING SENT BACK TO FACILITY. [facility] DID NOT ANSWER.
== END 2023-07-10 02:31 ==
PROVIDERS: Emergency Provider Physician Assistant; PCP Family Medicine
DX: I12.0 Hypertensive chronic kidney disease with stage 5 chronic kidney disease or end stage renal disease (principal); N18.6 End stage renal disease; Z99.2 Dependence on renal dialysis; E78.5 Hyperlipidemia, unspecified; D64.9 Anemia, unspecified
CPT/HCPCS: 36415; 71045; 80053; 85025; 85055; 87637; 93005; 99284

== ENCOUNTER 2023-07-10 19:53 | Inpatient (IN) | payer MEDICARE, MEDICAID, SELFPAY ==
[2023-07-10] VITALS (12 sets, daily range): BP systolic 87–105; BP diastolic 49–64; PULSE 72–82; RESP 22–33; TEMP 38.1–39.5; O2SAT 84–100
--- NOTE | ~2023-07-10 | XR_ITS ---
XR chest 1V portable 07/10/2023 21:20 Indication: Cough Procedure: AP portable chest Comparison: 07/31/2021 Findings: Cardiomegaly with interstitial edema. Small pleural effusions. No pneumothorax. No acute os seous abnormality. Impression: 1: Cardiomegaly with interstitial edema. Reviewed, dictated and finalized at location A. T BOSS Impression: 1: Cardiomegaly with interstitial edema.
--- NOTE | 2023-07-10 20:09 | ECG_ITS ---
Measurements Intervals [place] Rate: 80 P: 102 [place]: 220 QRS: -40 QRSD: 87 T: 32 QT: 327 QTc: 379 Interpretive Statements SINUS RHYTHM WITH FIRST DEGREE AV BLOCK MARKED LEFT AXIS DEVIATION [QRS AXIS < -30] NONSPECIFIC T-WAVE CHANGES COMPARED TO ECG 07/09/2023 21:07:22 NO SIGNIFICANT CHANGES Electronically Signed On 07-11-2023 13:42:02 NEWSPAPER COLUMNIST by Danielle Rao M.D.
[2023-07-10 20:25] LABS: Basophils Percent Auto 0.2 % (0.2-1.2); Hematocrit 25.1 % (42.0-52.0); Hemoglobin 7.8 g/dL (14.0-18.0); Immature Granulocyte Absolute 0.04 K/mm3 (0.00-0.031); Immature Granulocyte Percent A 0.3 % (0-0.5); Immature Platelet Fraction Pct 3.5 % (0.9-11.2); Lymphocytes Absolute Auto 0.68 K/mm3 (0.9-3.2); Lymphocytes Percent Auto 5.4 % (18.3-44.2); Mean Corpuscular HGB Conc 31.1 g/dl (32-36); Mean Corpuscular Hemoglobin 29.4 pg (26-34); Mean Corpuscular Volume 94.7 fl (80-100); Mean Platelet Volume 10.6 fl (7.4-10.4); Monocytes Absolute Auto 0.6 K/mm3 (0.1-0.6); Monocytes Percent Auto 4.4 % (2.6-8.5); Neutrophils Absolute Auto 11.3 K/mm3 (1.3-6.7); Neutrophils Percent Auto 89.7 % (45.5-73.1); Platelet Count Result 88 k/mm3 (150-375); Red Blood Count 2.65 M/mm3 (4.6-6.20); Red Cell Distribution Width 15.8 % (11.5-14.5); White Blood Count 12.7 K/mm3 (4.5-10.0)
[2023-07-10] MEDS: ALBUTEROL SULFATE NEB 2.5 MG/3 ML INH INHALATION (20:31)
[2023-07-10] MEDS: IPRATROPIUM BR 0.02% INH SOLN 0.5 MG/2.5 ML VIAL INHALATION (20:31)
[2023-07-10 20:34] LABS: Alanine Aminotransferase 13 U/L (6-50); Albumin Level 2.1 g/dL (3.5-5.1); Alkaline Phosphatase 91 U/L (38-126); Anion Gap 6 mmol/L (8-16); Aspartate Amino Transferase 17 U/L (17-59); Bilirubin,Total 0.7 mg/dL (0.2-1.3); Blood Urea Nitrogen 37 mg/dL (9-20); Calcium 8.3 mg/dL (8.4-10.2); Carbon Dioxide 29 mmol/L (22-30); Chloride 98 mmol/L (98-107); Estimated Glomerular Filt Rate 13; Glucose 94 mg/dL (65-110); Potassium 4.7 mmol/L (3.4-5.0); Sodium 133 mmol/L (137-145)
--- NOTE | 2023-07-10 20:35 | ECG_ITS ---
Measurements Intervals [place] Rate: 81 P: 59 [place]: 162 QRS: 66 QRSD: 114 T: 69 QT: 349 QTc: 407 Interpretive Statements SINUS RHYTHM MODERATE INTRAVENTRICULAR CONDUCTION DELAY [110+ ms QRS DURATION] MODERATE ST DEPRESSION [0.05+ mV ST DEPRESSION] COMPARED TO ECG 07/10/2023 20:15:10 INTRAVENTRICULAR CONDUCTION DELAY NOW PRESENT ST (T WAVE) DEVIATION NOW PRESENT Electronically Signed On 07-11-2023 13:42:15 HEALTH CLINICIAN by Danielle Rao M.D.
[2023-07-10 20:59] LABS: Influenza A QL RT-PCR Negative (Negative); Influenza B QL RT-PCR Negative (Negative); RSV RNA, RT-PCR Negative (Negative); SARS-CoV-2 RNA PCR Negative (Negative)
--- NOTE | 2023-07-10 21:00 | ED.GENADULT ---
HPI - General Adult General Chief complaint: Unspecified Stated complaint: altered mental status Time Seen by Provider: 07/10/23 20:05 History of Present Illness HPI narrative: patient is a 63-year-old male who presents ER with increased weakness from his [facility]. Patient tachypneic and febrile. Patient was seen here yesterday due to concerns for being volume overloaded and need for dialysis. Patient is awake and gives a thumbs up however he does not answer any questions. Related Data Home Medications Medication Instructions Recorded Confirmed albuterol sulfate 90 mcg/actuation 2 inh inhalation Q6H 07/31/21 07/02/23 breath activated powder inhaler atorvastatin 20 mg tablet 20 mg PO DAILY 07/31/21 07/02/23 cetirizine 10 mg tablet 10 mg PO DAILY 07/31/21 07/02/23 [id number]-[id number] 1 cap PO TID 07/31/21 07/02/23 24,000-76,000-120,000 unit capsule,delayed rel (Creon) loperamide 2 mg capsule 2 mg PO PRN PRN Diarrhea 07/31/21 07/02/23 metoprolol tartrate 50 mg tablet 25 mg PO BID 07/31/21 07/02/23 sevelamer HCl 800 mg tablet 800 mg PO TID 07/31/21 07/02/23 allopurinol 300 mg tablet 300 mg PO DAILY 07/02/23 07/02/23 aspirin 81 mg tablet,delayed 81 mg PO DAILY 07/02/23 07/02/23 release Allergies Allergy/AdvReac Type Severity Reaction Status Date / Time lisinopril Allergy Unknown Verified 07/10/23 20:18 Review of Systems Review of Systems: ROS unobtainable: Yes unobtainable due to medical condition [facility] Past Medical History Medical History (Updated 07/10/23 @ 22:25 by Fran Caal MD) Acute on chronic blood loss anemia Chronic anemia Chronic pancreatitis Cirrhosis End stage renal disease on dialysis Gastritis Hyperlipidemia Hypertension Peripheral vascular disease Surgical History Surgical History History of umbilical hernia repair Family History Family History Unknown Family history unknown Social History Social History Social History: Surrogate medical decision maker: Zurdo Lehman (son) or Robert Nails (nephew). Code status: Full code. 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 Spiritual care concerns: No Exam Narrative: GENERAL: Chronically ill-appearing, well-nourished, and in no acute distress. HEAD: Normocephalic, atraumatic. ENT: Mucous membranes moist. NECK: Supple. CHEST: Coarse rales bilaterally with increased respiratory rate. HEART: Regular rate and rhythm. Normal peripheral pulses. ABDOMEN: Soft, nontender, nondistended, normal active bowel sounds. EXTREMITIES: Normal range of motion. 2+ edema in arms and 3+ legs. SKIN: Warm, dry, no rash. NEURO: awake and alert to self. No facial droop. Moves all extremities. Course Course Emergency Course: Nephrology consulted and will see patient. Recommends Lasix 80 mg b.i.d. to help combat fluid overload. Potassium 4.7. Patient will be started on IV antibiotics due to concern for underlying pneumonia given elevated temperature. Patient hypoxic down into the mid 80s while at rest. Mainly associated with sleeping. Supplemental O2 placed. Vital Signs Vital signs: Vital Signs Temperature 103.1 F H 07/10/23 19:55 Pulse Rate 82 07/10/23 19:55 Respiratory Rate 32 H 07/10/23 1
[2023-07-10] MEDS: ACETAMINOPHEN 325 MG TABLET 650 MG PO (21:07)
[2023-07-10] MEDS: FUROSEMIDE INJ 100 MG/10 ML VIAL 80 MG IV PUSH (21:58)
--- NOTE | 2023-07-10 23:19 | PC.NURSE ---
Pt A&Ox3, follows commands, but still hesitant to answer this RNs questions.
[2023-07-10] MEDS: AZITHROMYCIN 500 MG/NS 250 ML 500 MG/250 ML BAG 250 MG IVPB (23:41)
[2023-07-11] VITALS (22 sets, daily range): BP systolic 104–126; BP diastolic 56–71; PULSE 60–88; RESP 18–25; TEMP 36.1–36.6; O2SAT 92–100; BMI 21.8
--- NOTE | 2023-07-11 00:49 | ADMGEN ---
This patient, Christiano Lehman, was admitted to IMU Room 206-02. Patient/family oriented to hospital policies and general routines including ID bracelet, bed and alarms, visiting hours, pain management, procedures, bathroom and other care routines, personal items, smoking policy, room service/diet, and visiting hours. Information on how to activate the Rapid Response Team has been discussed. Patient/Family are encouraged to report perceived risks to care and to ask questions if they do not understand what they are told or what they should do.
--- NOTE | 2023-07-11 02:51 | PCRCNOTE ---
Patient wanted to sleep, refused 0200 updraft treatment. Treatments to resume at 0800.
--- NOTE | 2023-07-11 04:51 | PM.IMHP ---
H&P: HPI History of Present Illness Date/Time: 07/11/23 02:50 Chief Complaint: Altered mental status Narrative: 63-year-old male with a past medical history of end-stage renal disease on hemodialysis, chronic pancreatitis, peripheral vascular disease, cirrhosis, gout, hyperlipidemia and essential hypertension who presented to the ER via EMS from a [facility] due to altered mental status. The patient had missed dialysis on the and when they re set up appointment for dialysis again the patient again miss dialysis on the . shelter staff noted patient is usually alert oriented x 2-3 and was only alert oriented to self. At the time my evaluation patient was alert oriented to person place and time but seemed recalcitrant to provide any information. And a initial arrival to the ER patient had a low-grade temperature but spiked fever up to 103.2 file in the ER. He denies any significant respiratory symptoms. He denies any nausea vomiting, ear pain, dysphagia, or upper respiratory symptoms. His viral panel was negative. The patient had informed nursing staff that he is having no GI symptoms. He told me that he has diarrhea nightly. He does have history of chronic pancreatitis and is on Creon. Patient has not had a bowel movement since admission the hospital. He reports that he is an uric. Blood cultures were obtained in the ER and are pending. Patient was started on empiric antibiotic therapy with Rocephin and azithromycin since he had some mild hypoxia in the ER. His white count was mildly elevated in the ER. He denies any dental abscesses or pain. No other source of infection has been identified. Review of Systems Review of Systems: Review of systems was attempted but was limited due to lack of patient cooperation. [facility] Past Medical History Medical History (Updated 07/11/23 @ 05:13 by Michelle Maddox DO) Chronic anemia Chronic pancreatitis Cirrhosis End stage renal disease on dialysis Esophagitis with gastritis (07/04/23) Gastritis Hyperlipidemia Hypertension Peripheral vascular disease Surgical History Surgical History (Updated 07/11/23 @ 05:02 by Michelle Maddox DO) History of esophagogastroduodenoscopy (EGD) 07/04/2023: Hiatal hernia, unspecified esophagitis, gastritis History of umbilical hernia repair Presence of surgically created AV shunt for hemodialysis Left upper arm Family History Family History Unknown Family history unknown Social History Social History Social History: Surrogate medical decision maker: Zurdo Lehman (son) or Robert Jaqui (nephew). Code status: Full code. 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 Spiritual care concerns: No Meds Home Medications and Allergies Home Medications Medication Instructions Recorded Confirmed Type albuterol sulfate 90 mcg/actuation 2 inh inhalation Q6H 07/31/21 07/11/23 History breath activated powder inhaler atorvastatin 20 mg tablet 20 mg PO DAILY 07/31/21 07/11/23 History cetirizine 10 mg tablet 10 mg PO DAILY 07/31/21 07/11/23 History rzozrd-dbhbwkig-wcynxml 1 cap PO TID 07/31/21 07/11/23 History 24,000-76,000-120,000 unit capsule,delayed rel (Creon) loperamide 2 mg capsule 2 mg PO PRN PRN Diarrhea 07/31/21 07/11/23 Hi
[2023-07-11 04:59] LABS: Basophils Percent Auto 0.2 % (0.2-1.2); Hematocrit 22.5 % (42.0-52.0); Immature Granulocyte Absolute 0.06 K/mm3 (0.00-0.031); Immature Granulocyte Percent A 0.5 % (0-0.5); Immature Platelet Fraction Pct 4.9 % (0.9-11.2); Lymphocytes Absolute Auto 1.46 K/mm3 (0.9-3.2); Lymphocytes Percent Auto 13.2 % (18.3-44.2); Mean Corpuscular HGB Conc 30.7 g/dl (32-36); Mean Corpuscular Hemoglobin 29.5 pg (26-34); Mean Corpuscular Volume 96.2 fl (80-100); Mean Platelet Volume 11.1 fl (7.4-10.4); Monocytes Absolute Auto 0.7 K/mm3 (0.1-0.6); Monocytes Percent Auto 6.2 % (2.6-8.5); Neutrophils Absolute Auto 8.8 K/mm3 (1.3-6.7); Neutrophils Percent Auto 79.9 % (45.5-73.1); Platelet Count Result 69 k/mm3 (150-375); Red Blood Count 2.34 M/mm3 (4.6-6.20); Red Cell Distribution Width 15.9 % (11.5-14.5); White Blood Count 11.1 K/mm3 (4.5-10.0)
[2023-07-11 05:11] LABS: Hemoglobin 6.9 g/dL (14.0-18.0)
[2023-07-11 05:15] LABS: Alanine Aminotransferase 12 U/L (6-50); Albumin Level 1.9 g/dL (3.5-5.1); Alkaline Phosphatase 79 U/L (38-126); Anion Gap 6 mmol/L (8-16); Aspartate Amino Transferase 15 U/L (17-59); Bilirubin,Total 0.4 mg/dL (0.2-1.3); Blood Urea Nitrogen 38 mg/dL (9-20); Calcium 8.2 mg/dL (8.4-10.2); Carbon Dioxide 27 mmol/L (22-30); Chloride 99 mmol/L (98-107); Estimated CRCL calculation 12 ml/min; Estimated Glomerular Filt Rate 12; Glucose 110 mg/dL (65-110); Magnesium 1.7 mg/dL (1.6-2.3); Phosphorus 3.7 mg/dL (2.5-4.5); Potassium 4.3 mmol/L (3.4-5.0); Sodium 132 mmol/L (137-145)
[2023-07-11 05:28] LABS: Anisocytosis 1+ (NORMAL); Platelet Estimate Decreased (Adequate)
[2023-07-11 05:29] LABS: Schistocytes None Seen (NORMAL)
--- NOTE | 2023-07-11 07:03 | PM.CNNEP ---
Assessment and Plan Assessment and plan (1) End stage renal disease on dialysis: Code(s): N18.6 - End stage renal disease; Z99.2 - Dependence on renal dialysis Status: Chronic Assessment and Plan: the patient has end-stage renal disease. This is most likely due to hypertension. He dialyzes at [facility] on Tuesdays and Saturdays under Dr. Preciado. he frequently misses Saturdays because of transportation issues. He did miss his dialysis on Tuesday. He looks comfortable. He is on 2L of oxygen without any shortness of breath. He still does have a cough. His potassium is okay. His blood pressure is actually on the soft side. So removing fluid might be difficult. I think we could probably hold off on dialysis unless he needs a blood transfusion. (2) Chronic anemia: Code(s): D64.9 - Anemia, unspecified Status: Acute Assessment and Plan: The patient has anemia. His hemoglobin was in the 8-9 region last admission. It was 7.8 last night and is down to 6.9 now. I will repeat the hemoglobin to see if the repeat is still below 7. I asked the night nurse to have the day nurse call me with this lab. (3) Hyperlipidemia: Qualifiers: Hyperlipidemia type: unspecified Qualified Code(s): E78.5 - Hyperlipidemia, unspecified Code(s): E78.5 - Hyperlipidemia, unspecified Status: Chronic Assessment and Plan: the patient is on atorvastatin (4) Chronic pancreatitis: Qualifiers: Pancreatitis type: unspecified pancreatitis type Qualified Code(s): K86.1 - Other chronic pancreatitis Code(s): K86.1 - Other chronic pancreatitis Status: Chronic (5) Hypertension: Qualifiers: Hypertension type: unspecified Qualified Code(s): I10 - Essential (primary) hypertension Code(s): I10 - Essential (primary) hypertension Status: Chronic Assessment and Plan: the patients blood pressure is a bit low. He is on a small dose of metoprolol. Will hold this for now. System would not let me hold it so I discontinued this. History of Present Illness Reason for Consult Consult date: 07/11/23 Chief Complaint Chief complaint: Pneumonia,CHF Exacerbation,Hypoxia,ESRD History of Present Illness Narrative: Christiano is a very pleasant 63-year-old gentleman has multiple medical problems including end-stage renal disease on dialysis 3 times a week, chronic pancreatitis, peripheral vascular disease, hypertension, hyperlipidemia, cirrhosis, chronic pancreatitis, esophagitis with gastritis, anemia of chronic kidney disease, and renal osteodystrophy. The patient was recently in the hospital with dark tarry stools. He received 4units of red cells and his hemoglobin stabilized in the 8-9 range. EGD showed mild esophagitis and moderate erosive gastritis. He received dialysis while he was here and had his last treatment on before he went home. Patient did have a cough at the time. The chest x-ray at the time did show mild pulmonary edema. Fluid was removed in dialysis although he did sign off early from dialysis on . The patient still had a cough over the weekend. The patient felt fine other than that. I asked him why he came to the emergency room and he said I did not even know I was coming . Apparently the patient seemed to be weak and he had a fever. So the retirement sent him over. Right now the patient is complains of having a cough. He is not short of breath. He has not had any black or bloody stools that he knows. Hemoglobin last night was in the highsevens and now is in the high 6s. Review of Systems Constitutional: Constitutional: Reports no additional constitutional complaints Eyes: Eyes: Reports no additional eye complaints ENT: Reports system reviewed and no additional complaints, except as documented Cardiovascular: Cardiovascular: Reports no additional cardiovascular com
[2023-07-11] MEDS: IPRATROPIUM BR 0.02% INH SOLN 0.5 MG/2.5 ML VIAL INHALATION ×3 (07:32→22:02)
[2023-07-11] MEDS: ALBUTEROL SULFATE NEB 2.5 MG/3 ML INH INHALATION ×3 (07:32→22:02)
[2023-07-11 07:39] LABS: Hematocrit 26.7 % (42.0-52.0); Hemoglobin 8.2 g/dL (14.0-18.0)
[2023-07-11] MEDS: LIPASE/AMYLASE/PROTEASE 12,000 UNITS CAP 2 CAP PO ×3 (09:31→17:55)
[2023-07-11] MEDS: ASPIRIN 81 MG ENTERIC TABLET PO (09:32)
[2023-07-11] MEDS: SEVELAMER CARBONATE 800 MG TABLET PO ×3 (09:32→17:55)
[2023-07-11] MEDS: allopurinoL 100 MG TABLET PO (09:32)
[2023-07-11] MEDS: FUROSEMIDE INJ 40 MG/4 ML VIAL 80 MG IV PUSH (09:33)
[2023-07-11] MEDS: LORATADINE 10 MG TABLET PO (09:33)
[2023-07-11] MEDS: ATORVASTATIN 20 MG TABLET PO (09:33)
[2023-07-11] MEDS: EUCERIN CREAM 120 GM JAR 1 APPLIC TOPICAL (09:34)
--- NOTE | 2023-07-11 14:23 | PM.IMPN ---
Progress Note: A&P Assessment and Plan (1) Sepsis: Qualifiers: Acute respiratory failure type: with hypoxia Sepsis acute organ dysfunction status: with acute organ dysfunction Sepsis type: sepsis due to unspecified organism Severe sepsis acute organ dysfunction type: acute respiratory failure Severe sepsis shock status: without septic shock Qualified Code(s): A41.9 - Sepsis, unspecified organism; R65.20 - Severe sepsis without septic shock; J96.01 - Acute respiratory failure with hypoxia Code(s): A41.9 - Sepsis, unspecified organism Status: Acute Assessment and Plan: Patient presents with altered mental status and found to have sepsis with fever, altered mental status, tachycardia, leukocytosis and tachypnea on presentation. CXR showing bilateral lower lung opacities but appears more consistent with fluid overload specially given the history of missed dialysis treatment and fluid overload. COVID-19, RSV and influenza PCR negative. Does not make urine so doubt urinary source. Patient with cirrhosis but only small amount of ascites on prior imaging. Source of sepsis is not quite clear but consider PNA and/or bacteremia. Blood cultures have been obtained and are pending. Patient been placed on empiric antibiotic therapy with Rocephin and azithromycin. Patient does report diarrhea but is report of symptoms is variable. If patient does have some diarrhea we could send it for testing. A (2) Pneumonia: Qualifiers: Laterality: bilateral Lung location: lower lobe of lung Pneumonia type: due to unspecified organism Qualified Code(s): J18.9 - Pneumonia, unspecified organism Code(s): J18.9 - Pneumonia, unspecified organism Status: Acute Assessment and Plan: As above (3) Hypoxia: Code(s): R09.02 - Hypoxemia Status: Acute Assessment and Plan: Patient with acute hypoxic respiratory failure likely due to volume overload however consider pneumonia. Will wean oxygen as tolerated. HD to control fluid status (4) Fluid overload: Qualifiers: Hypervolemia type: other Qualified Code(s): E87.79 - Other fluid overload Code(s): E87.70 - Fluid overload, unspecified Status: Acute Assessment and Plan: Related to missing HD. HD to control fluid status. (5) Acute on chronic anemia: Code(s): D64.9 - Anemia, unspecified Status: Acute Assessment and Plan: Appears to have acute on chronic anemia with chronic disease from ESRD Patient passed 2 large, dark tarry stools that were hemoccult positive last admission. Hgb dropped to 6.6 and he has since received 4U PRBC. GI consulted and EGD 07/04 showed mild esophagitis and moderate erosive gastritis. No ulcers. Colonoscopy 07/06 was normal. Hgb climbed to 8-9 range and stable prior to discharge Patient returns for AMS and Hgb noted to be 6.9 but 8.2 on repeat without transfusion. Could be related to dilution. Monitor and transfuse as needed. (6) End stage renal disease on dialysis: Code(s): N18.6 - End stage renal disease; Z99.2 - Dependence on renal dialysis Status: Chronic Assessment and Plan: Dialysis days are Tuesday, , and Tuesday. Reportedly not unusual for him to miss Tuesday due to ride issues. Nephrology consulted for dialysis. Plan HD tomorrow. (7) Chronic pancreatitis: Qualifiers: Pancreatitis type: unspecified pancreatitis type Qualified Code(s): K86.1 - Other chronic pancreatitis Code(s): K86.1 - Other chronic pancreatitis Status: Chronic Assessment and Plan: Stable. Continue Creon Plan DVT prophylaxis - SCDs Code status - full Subjective Date/time seen: 07/11/23 14:23 Interval history: 63-year-old with end-stage renal disease on hemodialysis, chronic pancreatitis, hypertension, hyperlipidemia, peripheral vascular disease, cirrhosis, and chronic pain s
[2023-07-11] MEDS: HYDROcodone/acetaminophen (*CRX) 5-325 MG TABLET 1 TAB PO (15:55)
[2023-07-11] MEDS: PANTOPRAZOLE 40 MG TABLET PO (21:05)
[2023-07-11] MEDS: AZITHROMYCIN 250 MG TABLET 500 MG PO (21:05)
[2023-07-11] MEDS: cefTRIAXone 1 GM VIAL IM (21:45)
[2023-07-12] VITALS (38 sets, daily range): BP systolic 105–152; BP diastolic 51–76; PULSE 49–111; RESP 2–24; TEMP 36.1–37.2; O2SAT 95–100
[2023-07-12] MEDS: ALBUTEROL SULFATE NEB 2.5 MG/3 ML INH INHALATION ×3 (03:40→19:42)
[2023-07-12] MEDS: IPRATROPIUM BR 0.02% INH SOLN 0.5 MG/2.5 ML VIAL INHALATION ×3 (03:41→19:42)
[2023-07-12 06:22] LABS: Hematocrit 26.6 % (42.0-52.0); Hemoglobin 7.9 g/dL (14.0-18.0); Immature Platelet Fraction Pct 6.9 % (0.9-11.2); Mean Corpuscular HGB Conc 29.7 g/dl (32-36); Mean Corpuscular Hemoglobin 29.6 pg (26-34); Mean Corpuscular Volume 99.6 fl (80-100); Mean Platelet Volume 11.5 fl (7.4-10.4); Platelet Count Result 66 k/mm3 (150-375); Red Blood Count 2.67 M/mm3 (4.6-6.20); Red Cell Distribution Width 15.5 % (11.5-14.5); White Blood Count 8.1 K/mm3 (4.5-10.0)
[2023-07-12 06:28] LABS: Albumin Level 2.2 g/dL (3.5-5.1); Anion Gap 6 mmol/L (8-16); Blood Urea Nitrogen 46 mg/dL (9-20); Carbon Dioxide 25 mmol/L (22-30); Chloride 99 mmol/L (98-107); Estimated CRCL calculation 10 ml/min; Estimated Glomerular Filt Rate 10; Glucose 75 mg/dL (65-110); Magnesium 1.9 mg/dL (1.6-2.3); Phosphorus 3.6 mg/dL (2.5-4.5); Potassium 4.4 mmol/L (3.4-5.0); Sodium 130 mmol/L (137-145)
[2023-07-12] MEDS: EPOETIN ALFA-EPBX 10,000 UNITS/ML VIAL 10000 UNITS IV PUSH (11:00)
[2023-07-12] MEDS: allopurinoL 100 MG TABLET PO (13:02)
[2023-07-12] MEDS: LORATADINE 10 MG TABLET PO (13:03)
[2023-07-12] MEDS: CEFDINIR 300 MG CAPSULE PO (13:03)
[2023-07-12] MEDS: ASPIRIN 81 MG ENTERIC TABLET PO (13:03)
[2023-07-12] MEDS: LIPASE/AMYLASE/PROTEASE 12,000 UNITS CAP 2 CAP PO ×2 (13:03→17:40)
[2023-07-12] MEDS: ATORVASTATIN 20 MG TABLET PO (13:03)
[2023-07-12] MEDS: SEVELAMER CARBONATE 800 MG TABLET PO ×2 (13:03→17:40)
[2023-07-12] MEDS: AZITHROMYCIN 250 MG TABLET PO (13:03)
[2023-07-12] MEDS: FUROSEMIDE 40 MG TABLET 80 MG PO ×2 (13:04→17:40)
--- NOTE | 2023-07-12 13:41 | PM.PNNEP ---
Progress Note: A&P Assessment and Plan (1) End stage renal disease on dialysis: Code(s): N18.6 - End stage renal disease; Z99.2 - Dependence on renal dialysis Status: Chronic Assessment and Plan: the patient has end-stage renal disease. This is most likely due to hypertension. He dialyzes at [facility] on Tuesdays and Saturdays under Dr. Preciado. he frequently misses Saturdays because of transportation issues. He did miss his dialysis on Tuesday. He will get dialysis later today. (2) Chronic anemia: Code(s): D64.9 - Anemia, unspecified Status: Acute Assessment and Plan: The patient has anemia. His hemoglobin was in the 8-9 region last admission. It was 7.8 on admission then dropped down to 6.9 yesterday and on repeat it was above 8. Now it is 7.9 again. No need for blood transfusions. He will get EPO with dialysis. (3) Hyperlipidemia: Qualifiers: Hyperlipidemia type: unspecified Qualified Code(s): E78.5 - Hyperlipidemia, unspecified Code(s): E78.5 - Hyperlipidemia, unspecified Status: Chronic Assessment and Plan: the patient is on atorvastatin (4) Chronic pancreatitis: Qualifiers: Pancreatitis type: unspecified pancreatitis type Qualified Code(s): K86.1 - Other chronic pancreatitis Code(s): K86.1 - Other chronic pancreatitis Status: Chronic (5) Hypertension: Qualifiers: Hypertension type: unspecified Qualified Code(s): I10 - Essential (primary) hypertension Code(s): I10 - Essential (primary) hypertension Status: Chronic Assessment and Plan: the patients blood pressure is doing well today. (6) Cough: Code(s): R05.9 - Cough, unspecified Status: Acute Assessment and Plan: The patient has some fluid on his chest x-ray. Will try to take fluid off today and see if that makes it better. Consider dry ultrafiltration tomorrow if needed. Subjective Date/time seen: 07/12/23 13:41 Interval history: Patient feels okay today. Still coughing. Review of Systems Cardiovascular: Cardiovascular: Reports no additional cardiovascular complaints Respiratory: Respiratory: Reports no additional respiratory complaints Gastrointestinal: Gastrointestinal: Reports no additional gastrointestinal complaints Genitourinary: Genitourinary: Reports no additional male genitourinary complaints Exam Narrative: WDWN in NAD skin no rash head ncat lungs clear cor reg no rub or gallop abd BS+ nontender and soft ext 1+ bilateral edema. Objective Data Vital Signs Vital Signs: Vital Signs - 24 hr 07/11/23 14:00 07/11/23 16:00 07/11/23 16:00 Temperature Pulse Rate 80 88 88 Respiratory Rate 20 Blood Pressure Pulse Oximetry 99 Oxygen Delivery Room Air Oxygen Flow Rate Fraction of Inspired Oxygen 28 07/11/23 16:00 07/11/23 20:25 07/11/23 22:05 Temperature 97 F L 97 F L Pulse Rate 80 75 73 Respiratory Rate 18 18 20 Blood Pressure 108/66 124/71 Pulse Oximetry 97 98 Oxygen Delivery Oxygen Flow Rate Fraction of Inspired Oxygen 07/11/23 22:04 07/11/23 20:00 07/11/23 20:00 Temperature Pulse Rate 67 67 Respiratory Rate 20 Blood Pressure Pulse Oximetry 98 98 Oxygen Delivery Room Air Nasal Cannula Oxygen Flow Rate 2 Fraction of Inspired Oxygen 07/11/23 22:00 07/11/23 23:38 07/12/23 00:00 Temperature 97 F L Pulse Rate 62 75 83 Respiratory Rate 18 Blood Pressure 122/68 Pulse Oximetry 98 Oxygen Delivery Oxygen Flow Rate Fraction of Inspired Oxygen 07/12/23 00:00 07/12/23 02:00 07/12/23 03:41 Temperature Pulse Rate 83 68 71 Respiratory Rate 18 20 Blood Pressure Pulse Oximetry 96 Oxygen Delivery Nasal Cannula Oxygen Flow Rate 2 Fraction of Inspired Oxygen 07/11/23 22:18 07/12/23 03:55 07/12/23 04:13 Temperature 97 F L Pulse Rat
--- NOTE | 2023-07-12 15:28 | PM.IMPN ---
Progress Note: A&P Assessment and Plan (1) Sepsis: Qualifiers: Sepsis type: sepsis due to unspecified organism Sepsis acute organ dysfunction status: with acute organ dysfunction Severe sepsis acute organ dysfunction type: acute respiratory failure Acute respiratory failure type: with hypoxia Severe sepsis shock status: without septic shock Qualified Code(s): A41.9 - Sepsis, unspecified organism; R65.20 - Severe sepsis without septic shock; J96.01 - Acute respiratory failure with hypoxia Code(s): A41.9 - Sepsis, unspecified organism Status: Acute Assessment and Plan: Patient presents with altered mental status and found to have sepsis with fever to 103.1, altered mental status, tachycardia, leukocytosis and tachypnea on presentation. CXR showing bilateral lower lung opacities but appears more consistent with fluid overload specially given the history of missed dialysis treatment and fluid overload. COVID-19, RSV and influenza PCR negative. Does not make urine so doubt urinary source. Patient with cirrhosis but only small amount of ascites on prior imaging. Source of sepsis is not quite clear but consider PNA and/or bacteremia and/or viral syndrome. BCx NGTD Patient been placed on empiric antibiotic therapy with Rocephin and azithromycin. Patient does report diarrhea but nothing documented. Continue current abx. (2) Pneumonia: Qualifiers: Laterality: bilateral Lung location: lower lobe of lung Pneumonia type: due to unspecified organism Qualified Code(s): J18.9 - Pneumonia, unspecified organism Code(s): J18.9 - Pneumonia, unspecified organism Status: Acute Assessment and Plan: As above (3) Hypoxia: Code(s): R09.02 - Hypoxemia Status: Acute Assessment and Plan: Patient with acute hypoxic respiratory failure likely due to volume overload however consider pneumonia. Will wean oxygen as tolerated. HD to control fluid status (4) Fluid overload: Qualifiers: Hypervolemia type: other Qualified Code(s): E87.79 - Other fluid overload Code(s): E87.70 - Fluid overload, unspecified Status: Acute Assessment and Plan: Related to missing HD. HD to control fluid status. Discussed with nephrology. Plan for HD again tomorrow and can be discharged after dialysis tomorrow (5) Acute on chronic anemia: Code(s): D64.9 - Anemia, unspecified Status: Acute Assessment and Plan: Appears to have acute on chronic anemia with chronic disease from ESRD Patient passed 2 large, dark tarry stools that were hemoccult positive last admission. Hgb dropped to 6.6 and he received 4U PRBC. GI consulted and EGD 07/04 showed mild esophagitis and moderate erosive gastritis. No ulcers. Colonoscopy 07/06 was normal. Hgb climbed to 8-9 range and stable prior to discharge Patient returns for AMS and Hgb noted to be 6.9 but 8.2 on repeat without transfusion. Could be related to dilution. Monitor and transfuse as needed. (6) End stage renal disease on dialysis: Code(s): N18.6 - End stage renal disease; Z99.2 - Dependence on renal dialysis Status: Chronic Assessment and Plan: Dialysis days are Tuesday, , and Tuesday. Reportedly not unusual for him to miss Tuesday due to ride issues. Nephrology consulted for dialysis. HD today with plans for extra treatment tomorrow then back on his schedule (7) Chronic pancreatitis: Qualifiers: Pancreatitis type: unspecified pancreatitis type Qualified Code(s): K86.1 - Other chronic pancreatitis Code(s): K86.1 - Other chronic pancreatitis Status: Chronic Assessment and Plan: Stable. Continue Creon Plan DVT prophylaxis - SCDs Code status - full Subjective Date/time seen: 07/12/23 15:28 Interval history: 63-year-old with ESRD on hemodialysis, chronic pancreatitis, HTN, peripheral vascular disease,
[2023-07-12] MEDS: EUCERIN CREAM 120 GM JAR 1 APPLIC TOPICAL (16:00)
[2023-07-12] MEDS: guaiFENesin 12 HR 600 MG TABCR PO ×2 (17:40→20:17)
[2023-07-12] MEDS: HYDROcodone/acetaminophen (*CRX) 5-325 MG TABLET 1 TAB PO ×2 (17:51→20:17)
--- NOTE | 2023-07-12 19:26 | ADMGEN ---
This patient, Christiano Lehman, was admitted to Medical Room 253-01. Patient/family oriented to hospital policies and general routines including ID bracelet, bed and alarms, visiting hours, pain management, procedures, bathroom and other care routines, personal items, smoking policy, room service/diet, and visiting hours. Information on how to activate the Rapid Response Team has been discussed. Patient/Family are encouraged to report perceived risks to care and to ask questions if they do not understand what they are told or what they should do.
--- NOTE | 2023-07-12 19:30 | PC.NURSE ---
Patient is noncompliant and refuses bed alarm, nursing staff notified. Patient educated on fall risk precautions.
[2023-07-12] MEDS: PANTOPRAZOLE 40 MG TABLET PO (20:18)
[2023-07-13] VITALS (27 sets, daily range): BP systolic 118–155; BP diastolic 52–83; PULSE 79–96; RESP 16–20; TEMP 36.2–37.1; O2SAT 90–100
[2023-07-13] MEDS: IPRATROPIUM BR 0.02% INH SOLN 0.5 MG/2.5 ML VIAL INHALATION ×4 (02:29→20:18)
[2023-07-13] MEDS: ALBUTEROL SULFATE NEB 2.5 MG/3 ML INH INHALATION ×4 (02:29→20:18)
--- NOTE | 2023-07-13 09:23 | PCPTNOTE ---
Attempted PT evaluation, Pt is off the unit for dialysis. Will follow
--- NOTE | 2023-07-13 09:51 | PM.PNNEP ---
Progress Note: A&P Assessment and Plan (1) End stage renal disease on dialysis: Code(s): N18.6 - End stage renal disease; Z99.2 - Dependence on renal dialysis Status: Chronic Assessment and Plan: the patient has end-stage renal disease. This is most likely due to hypertension. He dialyzes at [facility] on Tuesdays and Saturdays under Dr. Preciado. he frequently misses Saturdays because of transportation issues. He did miss his dialysis on Tuesday. He will get dialysis later today. (2) Chronic anemia: Code(s): D64.9 - Anemia, unspecified Status: Acute Assessment and Plan: The patient has anemia. His hemoglobin was in the 8-9 region last admission. It was 7.8 on admission then dropped down to 6.9 yesterday and on repeat it was above 8. Now it is 7.9 again. No need for blood transfusions. He will get EPO with dialysis. (3) Hyperlipidemia: Qualifiers: Hyperlipidemia type: unspecified Qualified Code(s): E78.5 - Hyperlipidemia, unspecified Code(s): E78.5 - Hyperlipidemia, unspecified Status: Chronic Assessment and Plan: the patient is on atorvastatin (4) Chronic pancreatitis: Qualifiers: Pancreatitis type: unspecified pancreatitis type Qualified Code(s): K86.1 - Other chronic pancreatitis Code(s): K86.1 - Other chronic pancreatitis Status: Chronic (5) Hypertension: Qualifiers: Hypertension type: unspecified Qualified Code(s): I10 - Essential (primary) hypertension Code(s): I10 - Essential (primary) hypertension Status: Chronic Assessment and Plan: the patients blood pressure is doing well today. (6) Cough: Code(s): R05.9 - Cough, unspecified Status: Acute Assessment and Plan: The patient has some fluid on his chest x-ray. Will try to take fluid off today and see if that makes it better. Consider dry ultrafiltration tomorrow if needed. Subjective Date/time seen: 07/13/23 09:51 Interval history: patient is on the machine and tolerating it well. bp is good. he doesn't want to go home. he was seen at 10am, We discussed that it would be better for the patient to be on a Tuesday schedule so he would not have problems with transportation on Saturdays. He seems reluctant to do that. I did call [facility] and talk to them about how we have removed lots of fluid and they will need to adjust his dry weight down words. In addition the patient would benefit from a Tuesday schedule. Exam Narrative: WDWN in NAD skin no rash head ncat lungs clear cor reg no rub or gallop abd BS+ nontender and soft ext 1+ bilateral edema. Objective Data Vital Signs Vital Signs: Vital Signs - 24 hr 07/12/23 10:00 07/12/23 10:15 07/12/23 10:30 Temperature Pulse Rate 79 75 75 Respiratory Rate Blood Pressure 138/71 121/68 117/65 Pulse Oximetry Oxygen Delivery Oxygen Flow Rate Fraction of Inspired Oxygen 07/12/23 11:15 07/12/23 10:45 07/12/23 11:00 Temperature Pulse Rate 75 74 75 Respiratory Rate Blood Pressure 120/68 115/59 L 125/68 Pulse Oximetry Oxygen Delivery Oxygen Flow Rate Fraction of Inspired Oxygen 07/12/23 11:30 07/12/23 11:45 07/12/23 12:00 Temperature Pulse Rate 74 81 91 Respiratory Rate Blood Pressure 114/70 123/70 121/64 Pulse Oximetry Oxygen Delivery Oxygen Flow Rate Fraction of Inspired Oxygen 07/12/23 13:50 07/12/23 12:00 07/12/23 14:09 Temperature 97.7 F Pulse Rate 70 95 75 Respiratory Rate 18 20 18 Blood Pressure 121/57 L Pulse Oximetry 100 Oxygen Delivery Oxygen Flow Rate Fraction of Inspired Oxygen 07/12/23 12:15 07/12/23 12:38 07/12/23 12:24 Temperature 98.0 F Pulse Rate 80 82 81 Respiratory Rate 16 Blood Pressure 121/60 120/65 125/64 Pulse Oximetry Oxygen Delivery
[2023-07-13 10:13] LABS: Albumin Level 2.2 g/dL (3.5-5.1); Anion Gap 5 mmol/L (8-16); Blood Urea Nitrogen 26 mg/dL (9-20); Calcium 7.8 mg/dL (8.4-10.2); Carbon Dioxide 31 mmol/L (22-30); Chloride 99 mmol/L (98-107); Estimated CRCL calculation 14 ml/min; Estimated Glomerular Filt Rate 16; Glucose 84 mg/dL (65-110); Phosphorus 2.6 mg/dL (2.5-4.5); Sodium 135 mmol/L (137-145)
[2023-07-13] MEDS: CEFDINIR 300 MG CAPSULE PO (11:16)
[2023-07-13] MEDS: ATORVASTATIN 20 MG TABLET PO (11:16)
[2023-07-13] MEDS: AZITHROMYCIN 250 MG TABLET PO (11:16)
[2023-07-13] MEDS: FUROSEMIDE 40 MG TABLET 80 MG PO ×2 (11:16→17:07)
[2023-07-13] MEDS: allopurinoL 100 MG TABLET PO (11:17)
[2023-07-13] MEDS: ASPIRIN 81 MG ENTERIC TABLET PO (11:17)
[2023-07-13] MEDS: LORATADINE 10 MG TABLET PO (11:17)
[2023-07-13] MEDS: guaiFENesin 12 HR 600 MG TABCR PO ×2 (11:17→20:42)
--- NOTE | 2023-07-13 12:12 | PM.DS ---
DS: Admitting Diagnosis Discharge Date 07/13/23 Admitting Diagnosis ams DS: Discharge Diagnosis Discharge Diagnosis (1) Sepsis: Qualifiers: Sepsis type: sepsis due to unspecified organism Sepsis acute organ dysfunction status: with acute organ dysfunction Severe sepsis acute organ dysfunction type: acute respiratory failure Acute respiratory failure type: with hypoxia Severe sepsis shock status: without septic shock Qualified Code(s): A41.9 - Sepsis, unspecified organism; R65.20 - Severe sepsis without septic shock; J96.01 - Acute respiratory failure with hypoxia Code(s): A41.9 - Sepsis, unspecified organism Status: Acute Assessment and Plan: Patient presents with altered mental status and found to have sepsis with fever to 103.1, altered mental status, tachycardia, leukocytosis and tachypnea on presentation. CXR showing bilateral lower lung opacities but appears more consistent with fluid overload specially given the history of missed dialysis treatment and fluid overload. COVID-19, RSV and influenza PCR negative. Does not make urine so doubt urinary source. Patient with cirrhosis but only small amount of ascites on prior imaging. Source of sepsis is not quite clear but consider PNA and/or bacteremia and/or viral syndrome. BCx NGTD Patient been placed on empiric antibiotic therapy with Rocephin and azithromycin. Patient does report diarrhea but nothing documented. Continue current abx. (2) Pneumonia: Qualifiers: Laterality: bilateral Lung location: lower lobe of lung Pneumonia type: due to unspecified organism Qualified Code(s): J18.9 - Pneumonia, unspecified organism Code(s): J18.9 - Pneumonia, unspecified organism Status: Acute Assessment and Plan: As above (3) Hypoxia: Code(s): R09.02 - Hypoxemia Status: Acute Assessment and Plan: Patient with acute hypoxic respiratory failure likely due to volume overload however consider pneumonia. Will wean oxygen as tolerated. HD to control fluid status (4) Fluid overload: Qualifiers: Hypervolemia type: other Qualified Code(s): E87.79 - Other fluid overload Code(s): E87.70 - Fluid overload, unspecified Status: Acute Assessment and Plan: Related to missing HD. HD to control fluid status. Discussed with nephrology. Plan for HD again tomorrow and can be discharged after dialysis tomorrow (5) Acute on chronic anemia: Code(s): D64.9 - Anemia, unspecified Status: Acute Assessment and Plan: Appears to have acute on chronic anemia with chronic disease from ESRD Patient passed 2 large, dark tarry stools that were hemoccult positive last admission. Hgb dropped to 6.6 and he received 4U PRBC. GI consulted and EGD 07/04 showed mild esophagitis and moderate erosive gastritis. No ulcers. Colonoscopy 07/06 was normal. Hgb climbed to 8-9 range and stable prior to discharge Patient returns for AMS and Hgb noted to be 6.9 but 8.2 on repeat without transfusion. Could be related to dilution. Monitor and transfuse as needed. (6) End stage renal disease on dialysis: Code(s): N18.6 - End stage renal disease; Z99.2 - Dependence on renal dialysis Status: Chronic Assessment and Plan: Dialysis days are Tuesday, , and Tuesday. Reportedly not unusual for him to miss Tuesday due to ride issues. Nephrology consulted for dialysis. HD today with plans for extra treatment tomorrow then back on his schedule (7) Chronic pancreatitis: Qualifiers: Pancreatitis type: unspecified pancreatitis type Qualified Code(s): K86.1 - Other chronic pancreatitis Code(s): K86.1 - Other chronic pancreatitis Status: Chronic Assessment and Plan: Stable. Continue Creon Plan DVT prophylaxis - SCDs Code status - full DS: Summary Hospital Course Hospital Course: 63-year-old with ESRD on hemod
[2023-07-13] MEDS: SEVELAMER CARBONATE 800 MG TABLET PO ×2 (14:04→17:08)
[2023-07-13] MEDS: LIPASE/AMYLASE/PROTEASE 12,000 UNITS CAP 2 CAP PO ×2 (14:04→17:09)
[2023-07-13] MEDS: HYDROcodone/acetaminophen (*CRX) 5-325 MG TABLET 1 TAB PO (14:11)
[2023-07-13] MEDS: EUCERIN CREAM 120 GM JAR 1 APPLIC TOPICAL (17:09)
[2023-07-13] MEDS: PANTOPRAZOLE 40 MG TABLET PO (20:42)
[2023-07-14] VITALS (21 sets, daily range): BP systolic 121–162; BP diastolic 61–84; PULSE 73–94; RESP 16–20; TEMP 36.5–37.3; O2SAT 99–100
[2023-07-14] MEDS: HYDROcodone/acetaminophen (*CRX) 5-325 MG TABLET 1 TAB PO (02:04)
[2023-07-14] MEDS: ALBUTEROL SULFATE NEB 2.5 MG/3 ML INH INHALATION ×3 (02:56→14:05)
[2023-07-14] MEDS: IPRATROPIUM BR 0.02% INH SOLN 0.5 MG/2.5 ML VIAL INHALATION ×3 (02:56→14:05)
[2023-07-14] MEDS: CEFDINIR 300 MG CAPSULE PO (08:18)
[2023-07-14] MEDS: LIPASE/AMYLASE/PROTEASE 12,000 UNITS CAP 2 CAP PO ×2 (08:18→12:23)
[2023-07-14] MEDS: SEVELAMER CARBONATE 800 MG TABLET PO ×2 (08:18→12:23)
[2023-07-14] MEDS: AZITHROMYCIN 250 MG TABLET PO (08:19)
[2023-07-14] MEDS: guaiFENesin 12 HR 600 MG TABCR PO (08:19)
[2023-07-14] MEDS: LORATADINE 10 MG TABLET PO (08:20)
[2023-07-14] MEDS: ATORVASTATIN 20 MG TABLET PO (08:20)
[2023-07-14] MEDS: allopurinoL 100 MG TABLET PO (08:21)
[2023-07-14] MEDS: EUCERIN CREAM 120 GM JAR 1 APPLIC TOPICAL (08:22)
--- NOTE | 2023-07-14 08:45 | PC.NURSE ---
To Dialysis via bed. Report called to Christiano MENESEScore winding operator RN.
[2023-07-14 09:17] LABS: Basophils Percent Auto 0.5 % (0.2-1.2); Eosinophils Absolute Auto 0.2 K/mm3 (0-0.3); Eosinophils Percent Auto 2.3 % (0-4.4); Hematocrit 25.8 % (42.0-52.0); Immature Granulocyte Absolute 0.06 K/mm3 (0.00-0.031); Immature Granulocyte Percent A 0.9 % (0-0.5); Immature Platelet Fraction Pct 4.1 % (0.9-11.2); Lymphocytes Absolute Auto 1.12 K/mm3 (0.9-3.2); Lymphocytes Percent Auto 16.8 % (18.3-44.2); Mean Corpuscular Hemoglobin 29.4 pg (26-34); Mean Corpuscular Volume 94.9 fl (80-100); Mean Platelet Volume 11.1 fl (7.4-10.4); Monocytes Absolute Auto 0.3 K/mm3 (0.1-0.6); Monocytes Percent Auto 5.1 % (2.6-8.5); Neutrophils Percent Auto 74.4 % (45.5-73.1); Platelet Count Result 81 k/mm3 (150-375); Red Blood Count 2.72 M/mm3 (4.6-6.20); Red Cell Distribution Width 14.9 % (11.5-14.5); White Blood Count 6.7 K/mm3 (4.5-10.0)
[2023-07-14 09:36] LABS: Alanine Aminotransferase 13 U/L (6-50); Albumin Level 2.2 g/dL (3.5-5.1); Alkaline Phosphatase 94 U/L (38-126); Anion Gap 8 mmol/L (8-16); Aspartate Amino Transferase 17 U/L (17-59); Bilirubin,Total 0.6 mg/dL (0.2-1.3); Blood Urea Nitrogen 21 mg/dL (9-20); Calcium 7.8 mg/dL (8.4-10.2); Carbon Dioxide 31 mmol/L (22-30); Chloride 97 mmol/L (98-107); Estimated CRCL calculation 21 ml/min; Estimated Glomerular Filt Rate 19; Glucose 87 mg/dL (65-110); Potassium 4.4 mmol/L (3.4-5.0); Sodium 136 mmol/L (137-145)
--- NOTE | 2023-07-14 09:38 | PM.PNNEP ---
Progress Note: A&P Assessment and Plan (1) End stage renal disease on dialysis: Code(s): N18.6 - End stage renal disease; Z99.2 - Dependence on renal dialysis Status: Chronic Assessment and Plan: the patient has end-stage renal disease. This is most likely due to hypertension. He dialyzes at [facility] on Tuesdays and Saturdays under Dr. Preciado. Dialysis underway. Next treatment is Tuesday He is trying to arrange for transportation on Tuesday. (2) Chronic anemia: Code(s): D64.9 - Anemia, unspecified Status: Acute Assessment and Plan: The patient has anemia. Hemoglobin 8 today. On Epogen (3) Hyperlipidemia: Qualifiers: Hyperlipidemia type: unspecified Qualified Code(s): E78.5 - Hyperlipidemia, unspecified Code(s): E78.5 - Hyperlipidemia, unspecified Status: Chronic Assessment and Plan: the patient is on atorvastatin (4) Chronic pancreatitis: Qualifiers: Pancreatitis type: unspecified pancreatitis type Qualified Code(s): K86.1 - Other chronic pancreatitis Code(s): K86.1 - Other chronic pancreatitis Status: Chronic (5) Hypertension: Qualifiers: Hypertension type: unspecified Qualified Code(s): I10 - Essential (primary) hypertension Code(s): I10 - Essential (primary) hypertension Status: Chronic Assessment and Plan: the patients blood pressure is doing well today. (6) Cough: Code(s): R05.9 - Cough, unspecified Status: Acute Assessment and Plan: He is getting antibiotic We are removing fluid Is a lifetime nonsmoker Subjective Date/time seen: 07/14/23 09:38 Interval history: Patient is on dialysis and tolerating it well Going for 4L On UF profile 2 to help with cramping. seen at 10:45am Exam Narrative: WDWN in NAD skin no rash head ncat lungs mildly coarse intermittently. Clears with coughing cor reg no rub or gallop abd BS+ nontender and soft ext 1+ bilateral edema. Objective Data Vital Signs Vital Signs: Vital Signs - 24 hr 07/13/23 09:45 07/13/23 10:00 07/13/23 10:15 Temperature Pulse Rate 92 87 90 Respiratory Rate Blood Pressure 148/82 H 140/75 149/77 H Pulse Oximetry Oxygen Delivery 07/13/23 10:30 07/13/23 10:45 07/13/23 11:00 Temperature Pulse Rate 83 86 87 Respiratory Rate Blood Pressure 132/70 155/83 H 123/67 Pulse Oximetry Oxygen Delivery 07/13/23 11:15 07/13/23 11:30 07/13/23 11:45 Temperature Pulse Rate 87 96 82 Respiratory Rate Blood Pressure 139/52 L 146/81 H 133/71 Pulse Oximetry Oxygen Delivery 07/13/23 12:00 07/13/23 12:44 07/13/23 12:15 Temperature 98.0 F Pulse Rate 80 89 83 Respiratory Rate 18 Blood Pressure 135/65 136/70 141/76 H Pulse Oximetry Oxygen Delivery 07/13/23 12:32 07/13/23 14:28 07/13/23 14:19 Temperature Pulse Rate 80 84 Respiratory Rate 20 Blood Pressure 137/69 Pulse Oximetry Oxygen Delivery Room Air 07/13/23 14:43 07/13/23 16:00 07/13/23 20:19 Temperature 97.5 F L Pulse Rate 86 88 Respiratory Rate 20 16 Blood Pressure 143/75 H Pulse Oximetry 100 95 Oxygen Delivery Room Air 07/13/23 20:19 07/13/23 20:34 07/13/23 20:44 Temperature 98.4 F Pulse Rate 85 89 87 Respiratory Rate 18 18 16 Blood Pressure 141/75 H Pulse Oximetry 100 Oxygen Delivery 07/13/23 20:00 07/14/23 03:00 07/14/23 03:08 Temperature Pulse Rate 83 81 Respiratory Rate Blood Pressure Pulse Oximetry Oxygen Delivery Room Air 07/14/23 06:19 07/14/23 08:29 07/14/23 09:04 Temperature 98.3 F Pulse Rate 90 75 Respiratory Rate 18 18 Blood Pressure 121/64 137/78 Pulse Oximetry 100 100 Oxygen Delivery Room Air 07/14/23 08:53 07/14/23 09:20 Temperature 98 F Pulse Rate 85 81 Respiratory Rate 20 Blood Pressure 162/84 H 149/79 H Puls
[2023-07-14] MEDS: EPOETIN ALFA-EPBX 10,000 UNITS/ML VIAL 10000 UNITS IV PUSH (11:01)
[2023-07-14] MEDS: ASPIRIN 81 MG ENTERIC TABLET PO (12:23)
[2023-07-14] MEDS: FUROSEMIDE 40 MG TABLET 80 MG PO (12:23)
== END 2023-07-14 16:10 | DRG 871 ==
LOC: ANHED 22:25 → ANHIMU 23:29 → ANH2MED 07-12 18:30
PROVIDERS: Internal Medicine; Internal Medicine Nephrology; Admitting Provider Internal Medicine; Emergency Provider Emergency Medicine; PCP Family Medicine; Visit Provider Student in an Organized Health Care Education/Training Program
DX: A41.9 Sepsis, unspecified organism (principal); J18.9 Pneumonia, unspecified organism; N18.6 End stage renal disease; K86.1 Other chronic pancreatitis; I12.0 Hypertensive chronic kidney disease with stage 5 chronic kidney disease or end stage renal disease; R65.20 Severe sepsis without septic shock; I73.9 Peripheral vascular disease, unspecified; D64.9 Anemia, unspecified; K74.60 Unspecified cirrhosis of liver; E78.5 Hyperlipidemia, unspecified; E87.70 Fluid overload, unspecified; Z20.822 Contact with and (suspected) exposure to COVID-19; Z99.2 Dependence on renal dialysis; Z79.82 Long term (current) use of aspirin
CPT/HCPCS: 36415; 71045; 80053; 80069; 83605; 83735; 84100; 85014; 85018; 85025; 85027; 85055; 87040; 87637; 93005; 94640; 96365; 96367; 96375; 97161; 97165; 99284; 99285; A9270; G0257; G0378; J0456; J0696; J1940; J7030; P9047; Q5105

== ENCOUNTER 2023-07-24 17:54 | Inpatient (IN) | payer MEDICARE, MEDICAID, SELFPAY ==
--- NOTE | ~2023-07-24 | XR_ITS ---
EXAMINATION: XR chest 1V portable DATE: 07/25/2023 13:52 INDICATION: Fluid overload. TECHNIQUE: A single frontal view of the chest was obtained. COMPARISON: Chest single view 07/10/2023, CT abdomen and pelvis 07/24/2023 FINDINGS: The patient is rotated to his left. There are moderate-sized right and small left pleural e ffusions. There are airspace opacities at the lung bases, likely atelectasis. No pneumothorax. The he art size is normal. IMPRESSION: 1. Moderate-sized right and small left pleural effusions. Reviewed, dictated and finalized at location A. ISION INSTRUMENT MAKER
--- NOTE | ~2023-07-24 | CT_ITS ---
EXAMINATION: CT brain wo con DATE: 07/25/2023 14:02 INDICATION: Altered mental status. TECHNIQUE: Computed tomography (CT) of the head was performed without intravenous contrast. The mA wa s adjusted according to patient size. Iterative reconstruction technique was employed. The dose-lengt h product was 681.00 mGy-cm. COMPARISON: Head CT 07/31/21 FINDINGS: There is a hypodense right temporal occipital subdural hematoma with maximum thickness of 5 mm. There is no acute ischemic infarct or abnormal mass lesion. The ventricles are normal in size. T here is mucosal thickening in the paranasal sinuses. The mastoid air cells are normal. The orbits are normal. IMPRESSION: 1. Chronic small right temporal occipital subdural hematoma. Reviewed, dictated and finalized at location A. ER THINNER
--- NOTE | ~2023-07-24 | CT_ITS ---
EXAMINATION: CT abdomen pelvis wo con DATE: 07/24/2023 19:09 INDICATION: Diffuse abdominal pain TECHNIQUE: Computed tomography (CT) of the abdomen and pelvis was performed without intravenous contr ast. The dose-length product (DLP) was 1133.86 mGy-cm. Automated exposure control and iterative recon struction technique were employed. COMPARISON: None FINDINGS: There are small pleural effusions. There are dependent airspace opacities of the lungs. 3D Technologist ecomastia is noted. Stones are present in the nondistended gallbladder. There is a 7 mm cyst of the l iver. There are punctate calcifications throughout the pancreas, consistent with chronic pancreatitis . There is a small volume of ascites. There is severe atrophy of the kidneys. There is a 4.7 cm cyst of the left kidney. No pathologically enlarged abdominal or pelvic lymph nodes are identified. There is no free intraperitoneal gas. There is mild fluid distention of the stomach. Diffuse anasarca is no estefania. There is moderate lumbar spondylosis. IMPRESSION: 1. Cholelithiasis without evidence of cholecystitis. 2. Findings consistent with chronic pancreatitis. 3. Small pleural effusions with dependent airspace opacities of the lungs, atelectasis versus pneumon ia. 4. Small volume of ascites. 5. Diffuse anasarca. Reviewed, dictated and finalized at location F. STRIAL HEALTH AND SAFETY PROFESSOR IMPRESSION: 1. Cholelithiasis without evidence of cholecystitis. 2. Findings consistent with chronic pancreatitis. 3. Small pleural effusions with dependent airspace opacities of the lungs, atel ectasis versus pneumonia. 4. Small volume of ascites. 5. Diffuse anasarca.
--- NOTE | ~2023-07-24 | US_ITS ---
EXAMINATION: US paracentesis abd w/image DATE: 07/27/2023 15:11 INDICATION: Ascites. TECHNIQUE: The procedure and its risks, benefits, and alternatives were discussed with the patient. P otential risks discussed included bleeding and infection. The skin was prepped and draped in sterile fashion. 1% lidocaine was used for local anesthesia. Under ultrasound guidance, a 5 Fr catheter with trochar was advanced into the ascites in the right abdomen. Fluid was aspirated. The catheter was rem asha, and a dressing was applied. There were no immediate complications. FINDINGS: Ultrasound images demonstrate ascites and the catheter within the fluid. IMPRESSION: 1. Successful ultrasound-guided paracentesis yielding 200 mL of yellow fluid. Reviewed, dictated and finalized at location A. OR GRAPHIC DESIGNER
[2023-07-24 17:51] VITALS: BP 123/58; PULSE 88; RESP 14; TEMP 36.7; O2SAT 100
--- NOTE | 2023-07-24 18:12 | ED.ABDPAIN ---
HPI - Abdominal Pain General Chief Complaint: Abdominal Pain Stated Complaint: abd pain Time Seen by Provider: 07/24/23 18:08 Source: patient and other ( [facility] documentation reviewed) Mode of arrival: EMS Limitations: no limitations History of Present Illness HPI narrative: this is a 63-year-old male presents with epigastric abdominal pain radiating to his back. He also had 1 episode of blood-streaked emesis. His pain started this morning. Is noted that he waited for EMS transport until 12 noon. He states he has had this pain before and feels very similar to his pancreatitis. He undergoes dialysis on Tuesday/ says Saturdays. He did undergo a full run of dialysis yesterday without complication early termination of the session. He does not make any urine. he denies any previous complications with his pancreatitis just abscess or fistula. He denies a history of a cholecystectomy. He has had subjective fevers. He has no appetite. Last oral intake was yesterday morning. He does have a Hx of GIB and has continued to have dark stools, though also takes iron supplementation. Related Data Home Medications Medication Instructions Recorded Confirmed albuterol sulfate 90 mcg/actuation 2 inh inhalation Q6H 07/31/21 07/11/23 breath activated powder inhaler atorvastatin 20 mg tablet 20 mg PO DAILY 07/31/21 07/11/23 cetirizine 10 mg tablet 10 mg PO DAILY 07/31/21 07/11/23 [id number]-[id number] 1 cap PO TID 07/31/21 07/11/23 24,000-76,000-120,000 unit capsule,delayed rel (Creon) loperamide 2 mg capsule 2 mg PO PRN PRN Diarrhea 07/31/21 07/11/23 sevelamer HCl 800 mg tablet 800 mg PO TID 07/31/21 07/11/23 aspirin 81 mg tablet,delayed 81 mg PO DAILY 07/02/23 07/11/23 release bisacodyl 10 mg rectal suppository 10 mg RECTAL DAILY PRN Constipation 07/11/23 07/11/23 hydrocodone 5 mg-acetaminophen 325 1 tablet PO QID PRN Pain (Scale 07/11/23 07/11/23 mg tablet Score 4-6) magnesium citrate (Citroma oral 200 ml PO DAILY PRN Constipation 07/11/23 07/11/23 solution) Allergies Allergy/AdvReac Type Severity Reaction Status Date / Time lisinopril Allergy Unknown Verified 07/24/23 18:57 [facility] Past Medical History Medical History (Updated 07/25/23 @ 01:22 by Lynette Dietrich MD) Chronic anemia Chronic pain syndrome Chronic pancreatitis Cirrhosis End stage renal disease on dialysis Esophagitis with gastritis (07/04/23) Gastritis Hyperlipidemia Hypertension Peptic ulcer with perforation Peripheral vascular disease Surgical History Surgical History History of esophagogastroduodenoscopy (EGD) 07/04/2023: Hiatal hernia, unspecified esophagitis, gastritis History of umbilical hernia repair Presence of surgically created AV shunt for hemodialysis Left upper arm Family History Family History Unknown Family history unknown Social History Social History (Updated 07/24/23 @ 18:21 by Lynette Dietrich MD) Social History: Surrogate medical decision maker: Zurdo Lehman (son) or Robert Nails (nephew). Code status: Full code. Smoking status: Never smoker Second hand tobacco smoke exposure: No Alcohol intake: never Substance use: never Substance use type: does not use Do You Feel Safe in your Home?: Yes Lack of Transportation: YES Lack of Food: Sometimes True Current Housing: I Do Not Have Housing Concerned About Future Housing: YES Difficulty Paying Gas/Electric Bills: YES Difficulty Paying for Meds: YES Currently Unemployed: No Education: High School Diploma/GED Difficulty w/ Childcare or Family Care: No Living arrangements: [facility] Additional living arrangements comments: Sridevi Trujillo [facility], [address], [place] since 07/14/2023 Additional occupation/education comments: 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
[2023-07-24 18:46] LABS: Basophils Percent Auto 0.4 % (0.2-1.2); Hematocrit 23.7 % (42.0-52.0); Immature Granulocyte Absolute 0.03 K/mm3 (0.00-0.031); Immature Granulocyte Percent A 0.4 % (0-0.5); Lymphocytes Absolute Auto 1.29 K/mm3 (0.9-3.2); Lymphocytes Percent Auto 15.6 % (18.3-44.2); Mean Corpuscular HGB Conc 29.5 g/dl (32-36); Mean Corpuscular Hemoglobin 28.9 pg (26-34); Mean Corpuscular Volume 97.9 fl (80-100); Mean Platelet Volume 10.7 fl (7.4-10.4); Monocytes Absolute Auto 0.4 K/mm3 (0.1-0.6); Monocytes Percent Auto 4.5 % (2.6-8.5); Neutrophils Absolute Auto 6.6 K/mm3 (1.3-6.7); Neutrophils Percent Auto 79.1 % (45.5-73.1); Platelet Count Result 134 k/mm3 (150-375); Red Blood Count 2.42 M/mm3 (4.6-6.20); Red Cell Distribution Width 14.8 % (11.5-14.5); White Blood Count 8.3 K/mm3 (4.5-10.0)
[2023-07-24 18:56] LABS: Alanine Aminotransferase 10 U/L (6-50); Albumin Level 2.1 g/dL (3.5-5.1); Alkaline Phosphatase 62 U/L (38-126); Aspartate Amino Transferase 18 U/L (17-59); Bilirubin,Total 0.7 mg/dL (0.2-1.3); Blood Urea Nitrogen 26 mg/dL (9-20); Calcium 7.6 mg/dL (8.4-10.2); Carbon Dioxide > 40 mmol/L (22-30); Chloride 92 mmol/L (98-107); Estimated CRCL calculation 22 ml/min; Estimated Glomerular Filt Rate 23; Glucose 96 mg/dL (65-110); Lipase 27 U/L (23-300); Potassium 4.7 mmol/L (3.4-5.0); Sodium 136 mmol/L (137-145)
[2023-07-24] MEDS: SODIUM CHLORIDE 0.9% IV 500 ML 999 ML IV CONT (18:58)
--- NOTE | 2023-07-24 19:04 | PC.NURSE ---
Patient's IV infiltrated. Provider aware.
[2023-07-24] MEDS: ONDANSETRON INJ 4 MG/2 ML VIAL IV PUSH (20:33)
[2023-07-24] MEDS: HYDROmorphone HCL INJ (*CRX) 1 MG/ML SYR 0.5 MG IV PUSH (20:35)
--- NOTE | 2023-07-24 21:14 | PC.NURSE ---
This Rn took over care of pt at 1900. At this time pts IV was infiltrated. Lara MENESES attempted to find new IV access with ultrasound. Pt now has 22g in right hand. Provider made aware that this RN and two other RNs attempted and were unsuccessful to get access with a 20g IV needed for blood transfusion.
[2023-07-24 21:39] VITALS: BP 94/53; PULSE 91; RESP 15; O2SAT 97
--- NOTE | 2023-07-24 22:25 | PC.NURSE ---
20g IV placed in right AC by cheryl MENESES using ultrasound. Unable to collect type and screen from IV, phlebotomy called.
[2023-07-24 22:40] VITALS: BP 96/54; PULSE 88; RESP 15; O2SAT 96
[2023-07-24 23:56] VITALS: BMI 29.7
[2023-07-25] VITALS (11 sets, daily range): BP systolic 88–125; BP diastolic 54–75; PULSE 76–114; RESP 16–21; TEMP 36.2–36.6; O2SAT 94–100
--- NOTE | 2023-07-25 00:07 | ADMGEN ---
This patient, Christiano Lehman, was admitted to Medical Room 342-01. Patient/family oriented to hospital policies and general routines including ID bracelet, bed and alarms, visiting hours, pain management, procedures, bathroom and other care routines, personal items, smoking policy, room service/diet, and visiting hours. Information on how to activate the Rapid Response Team has been discussed. Patient/Family are encouraged to report perceived risks to care and to ask questions if they do not understand what they are told or what they should do.
[2023-07-25] MEDS: SODIUM CHLORIDE 0.9% IV 250 ML 30 ML IV CONT (02:51)
--- NOTE | 2023-07-25 06:50 | PC.NURSE ---
Lead Etl Developer spoke with patient about housing. Patient currently resides at [facility]. He would like to eventually go back home so answered admission screening as having housing concerns
--- NOTE | 2023-07-25 06:53 | PC.NURSE ---
Patient has chronic diarrhea and concerns for GI bleed., not c diff
[2023-07-25] MEDS: LORazepam INJ (*CRX) 2 MG/ML VIAL IV PUSH (07:32)
[2023-07-25 08:23] LABS: Alveolar/Arterial O2 Gradient 171.1 mmHg; Base Excess ABG 10.9 mEq/l (+/-2.0); Carboxyhemoglobin 0.6 % THb (0-2.0); Fractional Inspired Oxygen 36 %; HCO3 ABG 35.8 mEq/l (22.0-26.0); Methemoglobin ABG 0.1 %THb (0-1.5); Oxygen Content ABG 5.6 %vol (16.0-22.0); PCO2 ABG 50.6 mmHg (35.0-45.0); PO2 FiO2 Ratio Arterial Blood 0.75 %; Reduced Hemoglobin 49.5 %THb (0-5.0); Total Hemoglobin 7.9 g/dL (12.0-18.0); pH ABG 7.467 (7.350-7.450)
[2023-07-25 08:24] LABS: PO2 ABG < 27.0 mmHg (80.0-100.0)
[2023-07-25 08:25] LABS: Oxygen Saturation ABG 52.7 % (95.0-100.0)
[2023-07-25 08:27] LABS: Oxyhemoglobin 49.8 % THb (90.0-100.0); Site Drawn RIGHT BRACHIAL
--- NOTE | 2023-07-25 08:29 | PCRCNOTE ---
ATTEMPTED AGBS 3 TIMES ONE LIMB AVAILABLE DO TO DIALYSIS SHUNT OBTAINED VENOUS GAS
[2023-07-25 08:53] LABS: Alveolar/Arterial O2 Gradient 68.8 mmHg; Base Excess ABG 9.5 mEq/l (+/-2.0); Fractional Inspired Oxygen 36 %; HCO3 ABG 32.4 mEq/l (22.0-26.0); Oxygen Content ABG 11.6 %vol (16.0-22.0); Oxygen Saturation ABG 99.1 % (95.0-100.0); Oxyhemoglobin 97.4 % THb (90.0-100.0); PO2 FiO2 Ratio Arterial Blood 4.03 %; Total Hemoglobin 8.2 g/dL (12.0-18.0)
[2023-07-25 08:56] LABS: Device NASAL CANNULA; Modified Allen's Test Pass; Site Drawn RIGHT RADIAL
[2023-07-25 09:01] LABS: Hematocrit 23.7 % (42.0-52.0); Hemoglobin 7.2 g/dL (14.0-18.0); Mean Corpuscular HGB Conc 30.4 g/dl (32-36); Mean Corpuscular Hemoglobin 29.3 pg (26-34); Mean Corpuscular Volume 96.3 fl (80-100); Mean Platelet Volume 10.8 fl (7.4-10.4); Platelet Count Result 125 k/mm3 (150-375); Red Blood Count 2.46 M/mm3 (4.6-6.20); Red Cell Distribution Width 14.6 % (11.5-14.5); White Blood Count 9.5 K/mm3 (4.5-10.0)
[2023-07-25 09:17] LABS: Anion Gap 5 mmol/L (8-16); Blood Urea Nitrogen 44 mg/dL (9-20); Calcium 7.6 mg/dL (8.4-10.2); Carbon Dioxide 37 mmol/L (22-30); Chloride 94 mmol/L (98-107); Estimated CRCL calculation 19 ml/min; Estimated Glomerular Filt Rate 19; Glucose 86 mg/dL (65-110); Potassium 4.1 mmol/L (3.4-5.0); Sodium 136 mmol/L (137-145)
[2023-07-25] MEDS: PANTOPRAZOLE SODIUM IV 40 MG VIAL IV PUSH ×2 (10:31→21:30)
[2023-07-25] MEDS: ONDANSETRON INJ 4 MG/2 ML VIAL IV PUSH (11:08)
[2023-07-25 11:42] LABS: IFOB Positive Control Positive; Immunochemical Fecal Occult Bl Positive (N)
--- NOTE | 2023-07-25 12:57 | PM.IMHP ---
H&P: HPI History of Present Illness Date/Time: 07/25/23 12:57 Chief Complaint: Abdominal pain Vomiting Altered mental status Narrative: 63-year-old male with complex past medical history of end-stage renal disease on dialysis, chronic pancreatitis, liver cirrhosis, presented to the ER yesterday with ongoing abdominal pain, along with vomiting. Received Ativan earlier this morning before I saw him. Unable to obtain any history from the patient. He has been having dark stools Review of Systems Review of Systems: [facility] Past Medical History Medical History Chronic anemia Chronic pain syndrome Chronic pancreatitis Cirrhosis End stage renal disease on dialysis Esophagitis with gastritis (07/04/23) Gastritis Hyperlipidemia Hypertension Peptic ulcer with perforation Peripheral vascular disease Surgical History Surgical History History of esophagogastroduodenoscopy (EGD) 07/04/2023: Hiatal hernia, unspecified esophagitis, gastritis History of umbilical hernia repair Presence of surgically created AV shunt for hemodialysis Left upper arm Family History Family History Unknown Family history unknown Social History Social History Social History: Surrogate medical decision maker: Zurdo Lehman (son) or Robert Nails (nephew). Code status: Full code. Smoking status: Never smoker Second hand tobacco smoke exposure: No Alcohol intake: never Substance use: never Substance use type: does not use Do You Feel Safe in your Home?: Yes Lack of Transportation: YES Lack of Food: Sometimes True Current Housing: I Do Not Have Housing Concerned About Future Housing: YES Difficulty Paying Gas/Electric Bills: YES Difficulty Paying for Meds: YES Currently Unemployed: No Education: High School Diploma/GED Difficulty w/ Childcare or Family Care: No Living arrangements: pen[facility]iary Additional living arrangements comments: [facility] [place], [address], [place] since 07/14/2023 Additional occupation/education comments: [employer] for 25 years, 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 Spiritual care concerns: No Meds Home Medications and Allergies Home Medications Medication Instructions Recorded Confirmed Type atorvastatin 20 mg tablet 20 mg PO DAILY 07/31/21 07/25/23 History cetirizine 10 mg tablet 10 mg PO DAILY 07/31/21 07/25/23 History loperamide 2 mg capsule 2 mg PO PRN PRN Diarrhea 07/31/21 07/25/23 History sevelamer HCl 800 mg tablet 800 mg PO TID 07/31/21 07/25/23 History aspirin 81 mg tablet,delayed 81 mg PO DAILY 07/02/23 07/25/23 History release pantoprazole 40 mg tablet,delayed 40 mg PO HS #30 tabs 07/04/23 07/25/23 Rx release (Protonix) lanolin alcohols-mineral 1 applic topical DAILY #113 grams 07/07/23 07/25/23 Rx oil-w.petrolatum-ceresin topical cream (Minerin Creme topical) bisacodyl 10 mg rectal suppository 10 mg RECTAL DAILY PRN Constipation 07/11/23 07/25/23 History hydrocodone 5 mg-acetaminophen 325 1 tablet PO QID PRN Pain (Scale 07/11/23 07/25/23 History mg tablet Score 4-6) magnesium citrate (Citroma oral 200 ml PO DAILY PRN Constipation 07/11/23 07/25/23 History solution) allopurinol 100 mg tablet 100 mg PO DAILY@0800 1 month #30 07/13/23 07/25/23 Rx tabs furosemide 40 mg tablet 80 mg PO BID 1 month #120 tabs 07/13/23 07/25/23 Rx albuterol sulfate 90 mcg/actuation 1 - 2 puff inhalation Q6H PRN 07/25/23 07/25/23 History aerosol inhaler Shortness Of Breath mwufgs-zaoagftu-bocxqts 1 cap PO TID 07/25/23 07/25/23 History 24,000-76,000-120,000 unit capsule,delayed rel (Creon) Allergies Allergy/AdvReac Type Severity Reaction Status Date / Time lisinopril Allergy Unknown Verified 07/24/23 18
[2023-07-25] MEDS: metroNIDAZOLE 500 MG/ISO 100ML 500 MG/100 ML BAG 100 MG IVPB ×2 (13:02→21:30)
[2023-07-25 13:04] LABS: Ammonia < 9 umol/L (9-30)
[2023-07-25] MEDS: HALOPERIDOL LACTATE 5 MG/ML VIAL IM (13:16)
[2023-07-25 13:18] LABS: INR 1.6; Partial Thromboplastin Time 31.5 SECONDS (22.3-36.8); Prothrombin Time 19.6 Seconds (11.1-14.7)
--- NOTE | 2023-07-25 15:00 | WPDGICN ---
Assessment and Plan Assessment and plan (1) Chronic pancreatitis: Qualifiers: Pancreatitis type: unspecified pancreatitis type Qualified Code(s): K86.1 - Other chronic pancreatitis Code(s): K86.1 - Other chronic pancreatitis Status: Chronic Assessment and Plan: here with abdominal pain but he has known chronic pain syndrome continue with pancreatic enzymes and resume diet as tolerated CT scan with anasarca and small size ascites, started on abx but I do not think he has sbp recent egd with some gastritis, continue also with ppi no need to repeat scopes (2) Chronic anemia: Code(s): D64.9 - Anemia, unspecified Status: Acute Assessment and Plan: h/h low but at baseline just completed egd and colonoscopy partially explained by esrd, cirrhosis and other comorbidities (3) Gastritis: Code(s): K29.70 - Gastritis, unspecified, without bleeding Status: Acute Assessment and Plan: on ppi (4) End stage renal disease on dialysis: Code(s): N18.6 - End stage renal disease; Z99.2 - Dependence on renal dialysis Status: Chronic Assessment and Plan: on dialysis (5) Cirrhosis: Code(s): K74.60 - Unspecified cirrhosis of liver Status: Acute Assessment and Plan: hepatitis panel negative liver and pancreatic enzymes normal CT scan reviewed (6) Fecal occult blood test positive: Code(s): R19.5 - Other fecal abnormalities Status: Acute Assessment and Plan: just had colonoscopy GI Consult Note Consult date/time: 07/25/23 15:00 Reason for consult: abdominal pain, cirrhosis, pancreatitis, chronic anemia. HPI: Christiano Lehman is a 63 year old male with history of?end-stage renal disease on hemodialysis, chronic pancreatitis, hypertension, peripheral vascular disease, cirrhosis (hepatitis negative), and chronic pain syndrome on narcotics with recent hospitalization last month when he presented with dizziness and chronic anemia, EGD showed erosive gastritis without bleeding, no varices, colonoscopy unremarkable. This time came to ER after more abdominal pain radiating to his back, report also of diarrhea but he is poor historian, noted that he had altered mental status. CT scan reviewed, ?Cholelithiasis without evidence of cholecystitis. Findings consistent with chronic pancreatitis. Small pleural effusions with dependent airspace opacities of the lungs, atelectasis versus pneumonia. Small volume of ascites. Diffuse anasarca. Review of Systems Constitutional: Constitutional: Denies chills Eyes: Eyes: Denies blurry vision ENT: Reports Normal hearing present Cardiovascular: Cardiovascular: Denies chest pain Respiratory: Respiratory: Denies cough Gastrointestinal: Gastrointestinal: Reports abdominal pain Genitourinary: Comments: on dialysis Musculoskeletal: Musculoskeletal: Denies arthralgias Integumentary/Breasts: Skin/Breast: Reports dry skin Neurologic: Denies Abnormal speech present [facility] Past Medical History Medical History Chronic anemia Chronic pain syndrome Chronic pancreatitis Cirrhosis End stage renal disease on dialysis Esophagitis with gastritis (07/04/23) Gastritis Hyperlipidemia Hypertension Peptic ulcer with perforation Peripheral vascular disease Surgical History Surgical History History of esophagogastroduodenoscopy (EGD) 07/04/2023: Hiatal hernia, unspecified esophagitis, gastritis History of umbilical hernia repair Presence of surgically created AV shunt for hemodialysis Left upper arm Family History Family History Unknown Family history unknown Social History Social History Social History: Surrogate medical decision maker: Zurdo Dominik (son) or Robert Diallo
--- NOTE | 2023-07-25 16:05 | PM.CNNEP ---
Assessment and Plan Assessment and plan (1) End stage renal disease: Code(s): N18.6 - End stage renal disease Status: Chronic Assessment and Plan: plan next HD treatment tomorrow resume/transition back to T/T/S dialysis schedule next week follow electrolytes, volume status, and clearance (2) Chronic pancreatitis: Qualifiers: Pancreatitis type: unspecified pancreatitis type Qualified Code(s): K86.1 - Other chronic pancreatitis Code(s): K86.1 - Other chronic pancreatitis Status: Chronic Assessment and Plan: admitted with abdominal pain but he has known chronic pain syndrome follow pancreatic enzymes and resume diet as tolerated CT scan with anasarca and small size ascites recent EGD with some gastritis - on PPI therapy (3) Altered mental status: Qualifiers: Altered mental status type: disorientation Qualified Code(s): R41.0 - Disorientation, unspecified Code(s): R41.82 - Altered mental status, unspecified Status: Acute Assessment and Plan: suspect to medications follow trend of mentation (4) Anemia: Code(s): D64.9 - Anemia, unspecified Status: Chronic Assessment and Plan: chronically low partly related to ESRD still guaiac positive s/p EGD and colonoscopy on last hospitalization Epogen with HD follow trend of H/H GI consulted as well (5) Hypertension: Qualifiers: Hypertension type: unspecified Qualified Code(s): I10 - Essential (primary) hypertension Code(s): I10 - Essential (primary) hypertension Status: Chronic Assessment and Plan: reasonable control at this time follow trend of hemodynamics I will continue follow the patient with you while he remains hospitalized and make further recommendations as needed. Thank you for allowing me to participate in the care of this patient. History of Present Illness Reason for Consult Consult date: 07/25/23 Reason for consult: end stage renal disease Chief Complaint Chief complaint: ESRD on Hemodialysis; Anemia Requiring Blood Trans History of Present Illness Narrative: A great majority of the history that I have obtained is from review of the electronic medical record as well as discussion with the physician/nurses involved in the patient's care and my recollection on previous admissions here at [facility] as the patient is a poor historian. The patient is a 63-year-old male with a past medical history as outlined below who presented to [facility] Emergency room with complaints of abdominal pain. The patient describes the abdominal pain is epigastric in location with radiation to his back. This was associated with an episode of blood-streaked vomiting. His pain started earlier on the morning of admission but did not seek attention for this issue until the early afternoon. He reports that this pain is similar to previous abdominal pain that he has had before that was associated with pancreatitis. With his previous bouts of pancreatitis, he reports no significant complications from it. He endorses subjective fevers and poor appetite but no chills,rigors, chest pain, shortness of breath or diarrhea. Workup and evaluation emergency room demonstrated the patient be hemodynamically stable but in mild distress secondary to his abdominal pain. Routine blood test demonstrated labs consistent with his known history of end-stage renal disease in association with chronic anemia. He was recently hospitalized here at [facility] with a upper GI bleed with subsequent GI evaluation including EGD and colonoscopy as well as packed red blood cell transfusion. His lipase was within normal limits as well. His CT scan imaging demonstrated evidence of chronic pancreatitis without any other acute intra-abdominal pathology. 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
[2023-07-25] MEDS: OLANZapine 10 MG INJ VIAL 5 MG IM (17:06)
--- NOTE | 2023-07-25 18:39 | PC.NURSE ---
Patient refusing to wear monitoring analyst, pulling off monitor and stickers, will not be compliant with staff in anyway.
[2023-07-25] MEDS: LORazepam INJ (*CRX) 2 MG/ML VIAL 1 MG IV PUSH (19:13)
[2023-07-25] MEDS: HYDROcodone/acetaminophen (*CRX) 5-325 MG TABLET 1 TAB PO (19:14)
[2023-07-25] MEDS: LIPASE/AMYLASE/PROTEASE 12,000 UNITS CAP 2 CAP PO (19:14)
[2023-07-25] MEDS: SALINE LOCK FLUSH 10 ML IV PUSH (22:31)
[2023-07-26] VITALS (29 sets, daily range): BP systolic 80–129; BP diastolic 25–76; PULSE 68–107; RESP 16–21; TEMP 36.1–37.1; O2SAT 92–100
[2023-07-26] MEDS: HYDROcodone/acetaminophen (*CRX) 5-325 MG TABLET 1 TAB PO ×2 (04:50→17:45)
[2023-07-26 05:04] LABS: Basophils Percent Auto 0.2 % (0.2-1.2); Eosinophils Percent Auto 0.1 % (0-4.4); Immature Granulocyte Absolute 0.03 K/mm3 (0.00-0.031); Immature Granulocyte Percent A 0.3 % (0-0.5); Lymphocytes Absolute Auto 2.65 K/mm3 (0.9-3.2); Lymphocytes Percent Auto 29.4 % (18.3-44.2); Mean Corpuscular HGB Conc 30.7 g/dl (32-36); Mean Corpuscular Hemoglobin 29.3 pg (26-34); Mean Corpuscular Volume 95.7 fl (80-100); Mean Platelet Volume 10.5 fl (7.4-10.4); Monocytes Absolute Auto 0.4 K/mm3 (0.1-0.6); Monocytes Percent Auto 3.9 % (2.6-8.5); Neutrophils Percent Auto 66.1 % (45.5-73.1); Platelet Count Result 114 k/mm3 (150-375); Red Blood Count 1.84 M/mm3 (4.6-6.20); Red Cell Distribution Width 14.9 % (11.5-14.5)
[2023-07-26 05:06] LABS: Hematocrit 17.6 % (42.0-52.0); Hemoglobin 5.4 g/dL (14.0-18.0)
[2023-07-26 05:13] LABS: Alanine Aminotransferase 12 U/L (6-50); Albumin Level 1.9 g/dL (3.5-5.1); Alkaline Phosphatase 64 U/L (38-126); Anion Gap 5 mmol/L (8-16); Aspartate Amino Transferase 25 U/L (17-59); Bilirubin,Total 0.5 mg/dL (0.2-1.3); Blood Urea Nitrogen 60 mg/dL (9-20); Calcium 8.1 mg/dL (8.4-10.2); Carbon Dioxide 34 mmol/L (22-30); Chloride 97 mmol/L (98-107); Estimated CRCL calculation 17 ml/min; Estimated Glomerular Filt Rate 17; Glucose 67 mg/dL (65-110); Magnesium 1.7 mg/dL (1.6-2.3); Potassium 3.7 mmol/L (3.4-5.0); Sodium 136 mmol/L (137-145)
[2023-07-26] MEDS: metroNIDAZOLE 500 MG/ISO 100ML 500 MG/100 ML BAG 100 MG IVPB ×2 (06:00→21:14)
[2023-07-26] MEDS: SALINE LOCK FLUSH 10 ML IV PUSH ×3 (06:29→21:14)
[2023-07-26] MEDS: SODIUM CHLORIDE 0.9% IV 250 ML 30 ML IV CONT (09:35)
[2023-07-26 11:19] LABS: Device NASAL CANNULA
[2023-07-26] MEDS: SEVELAMER CARBONATE 800 MG TABLET PO ×2 (12:03→17:41)
[2023-07-26] MEDS: PANTOPRAZOLE SODIUM IV 40 MG VIAL IV PUSH ×2 (12:04→21:12)
[2023-07-26] MEDS: LIPASE/AMYLASE/PROTEASE 12,000 UNITS CAP 2 CAP PO ×2 (12:04→17:41)
[2023-07-26] MEDS: ATORVASTATIN 20 MG TABLET PO (12:04)
--- NOTE | 2023-07-26 13:24 | PM.IMPN ---
Progress Note: A&P Assessment and Plan (1) Fecal occult blood test positive: Code(s): R19.5 - Other fecal abnormalities Status: Acute (2) Altered mental status: Qualifiers: Altered mental status type: disorientation Qualified Code(s): R41.0 - Disorientation, unspecified Code(s): R41.82 - Altered mental status, unspecified Status: Acute (3) End stage renal disease on dialysis: Code(s): N18.6 - End stage renal disease; Z99.2 - Dependence on renal dialysis Status: Chronic (4) Chronic anemia: Code(s): D64.9 - Anemia, unspecified Status: Acute (5) Melena: Code(s): K92.1 - Melena Status: Acute Plan 63-year-old male with complex past medical history of end-stage renal disease on dialysis, chronic pancreatitis, liver cirrhosis, presented to the ER yesterday with ongoing abdominal pain, along with vomiting. 1. Abdominal pain: Admit to telemetry medicine CT abdomen consistent with cholelithiasis without evidence of cholecystitis, chronic pancreatitis, diffuse anasarca, small amount of ascites likely pancreatitis keep npo continue iv fluids continue to monitor lipase levels 2. Altered mental status: CT abdomen 1. Cholelithiasis without evidence of cholecystitis. 2. Findings consistent with chronic pancreatitis. 3. Small pleural effusions with dependent airspace opacities of the lungs, atelectasis versus pneumonia. 4. Small volume of ascites. 5. Diffuse anasarca GI on board CT head Chronic small right temporal occipital subdural hematoma. will consult neurology 3. ESRD on hemodialysis: Renal consult for dialysis needs 4. Rectal bleeding GI consulted, pt is npo for possible scope today Transfused 2 units today and 1 unit today Subjective Date/time seen: 07/26/23 13:24 Interval history: Pt having ongoing rectal bleeding FOBT is positive hb is 5 today Pt received one unit of blood yesterday crossmatched 2 more units Review of Systems Review of Systems: Rectal bleeding, labs are abnl Exam Const: Other: Lethargic HENMT: Mouth: Yes dry mucous membranes Eyes: Other: No scleral icterus Neck: Neck: supple Resp: Other: Decreased breath sounds bilaterally, currently on nasal cannula Cardio: Rate: regular rate GI: Inspection: distended Other: Diffuse tenderness present, decreased bowel sounds Skin: General skin exam: wounds noted Wounds: wounds noted Neuro: Other: Lethargic, unable to assess Psych: Other: Lethargic Objective Data Vital Signs Vital Signs: Vital Signs - 24 hr 07/25/23 16:00 07/25/23 20:00 07/25/23 22:00 Temperature 36.4 C Pulse Rate 114 H 76 Respiratory Rate 21 H Blood Pressure 125/61 Pulse Oximetry 100 Oxygen Delivery Room Air 07/26/23 00:46 07/26/23 04:00 07/26/23 06:00 Temperature 36.1 C L Pulse Rate 92 83 97 Respiratory Rate 21 H Blood Pressure 95/67 L Pulse Oximetry 100 Oxygen Delivery 07/26/23 09:46 07/26/23 08:00 07/26/23 10:05 Temperature 36.8 C 36.7 C Pulse Rate 107 H 76 Respiratory Rate 16 17 Blood Pressure 110/76 105/33 L Pulse Oximetry 93 93 Oxygen Delivery Room Air 07/26/23 08:00 07/26/23 10:05 07/26/23 11:05 Temperature 36.7 C 36.7 C Pulse Rate 85 76 82 Respiratory Rate 16 17 Blood Pressure 95/66 L 80/54 L Pulse Oximetry 93 94 Oxygen Delivery 07/26/23 12:05 07/26/23 12:22 Temperature 36.7 C Pulse Rate 92 Respiratory Rate 18 Blood Pressure 80/33 L 94/63 L Pulse Oximetry 97 Oxygen Delivery Intake/Output Intake/Output: Intake & Output 07/23/23 07/24/23 07/25/23 07/26/23 23:59 23:59 23:59 23:59 Intake Total 500 980 0 Balance 500 980 0 Meds/Results Medications: Active Medications Generic Name Dose Route Start Last Admin Trade Name Freq PRN Reason Stop Dose Admin Acetaminophen 650 mg 07/24/23 21:49 Acetaminophen 325 Mg Tablet PO
[2023-07-26] MEDS: ALBUMIN HUMAN 25% 25 GM/100 ML 100 ML IVPB (13:33)
--- NOTE | 2023-07-26 14:29 | WPDGIPROGNO ---
Progress Note: A&P Assessment and Plan (1) Melena: Code(s): K92.1 - Melena Status: Acute Assessment and Plan: hgb dropped more and noted melena received blood transfusion had recent colonoscopy without findings, will repeat EGD (recently had erosive gastritis) (2) Acute on chronic anemia: Code(s): D64.9 - Anemia, unspecified Status: Acute Assessment and Plan: multifactorial probably ugib on iv protonix (3) End stage renal disease: Code(s): N18.6 - End stage renal disease Status: Chronic Assessment and Plan: on dialysis (4) Cirrhosis: Code(s): K74.60 - Unspecified cirrhosis of liver Status: Acute (5) Encephalopathy: Code(s): G93.40 - Encephalopathy, unspecified Status: Acute Subjective Date/time seen: 07/26/23 14:29 Interval history: he got more confused yesterday and required sitter, now alert and he is getting dialysis. Also noted dark liquid stool and he has rectal device in place Review of Systems Review of Systems: All systems reviewed & are unremarkable except as noted in HPI and below Exam Const: Other: awake, alert, chronically ill appearing now on dialysis HENMT: Mouth: Yes dry mucous membranes Eyes: Other: No scleral icterus Neck: Neck: supple Resp: Auscultation: no wheezes Other: Decreased breath sounds bilaterally Cardio: Rate: regular rate GI: GI Palp: Yes Soft to palpation Auscultation: normal bowel sounds Other: Diffuse tenderness dark stool in rectal device Skin: Wounds: wounds noted Neuro: Speech: normal speech Motor exam (neuro): 5/5 motor strength present throughout Extrem: General: normal to inspection Psych: Attitude: not belligerent Objective Data Vital Signs Vital Signs: Vital Signs - 24 hr 07/25/23 16:00 07/25/23 20:00 07/25/23 22:00 Temperature 97.6 F Pulse Rate 114 H 76 Respiratory Rate 21 H Blood Pressure 125/61 Pulse Oximetry 100 Oxygen Delivery Room Air 07/26/23 00:46 07/26/23 04:00 07/26/23 06:00 Temperature 97.0 F L Pulse Rate 92 83 97 Respiratory Rate 21 H Blood Pressure 95/67 L Pulse Oximetry 100 Oxygen Delivery 07/26/23 09:46 07/26/23 08:00 07/26/23 10:05 Temperature 98.2 F 98.1 F Pulse Rate 107 H 76 Respiratory Rate 16 17 Blood Pressure 110/76 105/33 L Pulse Oximetry 93 93 Oxygen Delivery Room Air 07/26/23 08:00 07/26/23 10:05 07/26/23 11:05 Temperature 98.1 F 98.1 F Pulse Rate 85 76 82 Respiratory Rate 16 17 Blood Pressure 95/66 L 80/54 L Pulse Oximetry 93 94 Oxygen Delivery 07/26/23 12:05 07/26/23 12:22 07/26/23 13:30 Temperature 98.1 F 97.2 F L Pulse Rate 92 89 Respiratory Rate 18 20 Blood Pressure 80/33 L 94/63 L 126/47 L Pulse Oximetry 97 Oxygen Delivery 07/26/23 13:24 07/26/23 13:11 07/26/23 14:00 Temperature 97.2 F L Pulse Rate 90 95 87 Respiratory Rate 20 Blood Pressure 124/35 L 127/43 L 103/47 L Pulse Oximetry Oxygen Delivery 07/26/23 13:30 07/26/23 13:45 07/26/23 14:15 Temperature Pulse Rate 89 93 89 Respiratory Rate Blood Pressure 126/47 L 119/51 L 108/40 L Pulse Oximetry Oxygen Delivery Intake/Output Intake/Output: Intake & Output 07/23/23 07/24/23 07/25/23 07/26/23 23:59 23:59 23:59 23:59 Intake Total 500 980 590 Balance 500 980 590 Meds/Results Medications: Active Medications Generic Name Dose Route Start Last Admin Trade Name Freq PRN Reason Stop Dose Admin Acetaminophen 650 mg 07/24/23 21:49 Acetaminophen 325 Mg Tablet PO Q4H PRN Mild Pain (1-3) or Fever Hydrocodone Bitart/Acetaminophen 1 tab 07/25/23 18:51 07/26/23 04:50 Hydrocodone/Acetaminophen (*Crx) 5-325 Mg Tablet PO 1 tab QID PRN Administration Pain (Scale Score 4-6) Albuterol 2.5 mg 07/25/23 09:37 Albuterol Sulfate Neb 2.5 Mg/3 Ml Inh INHALATION Q6HRT PRN Shortness Of
[2023-07-26 15:03] LABS: Hematocrit 21.6 % (42.0-52.0)
[2023-07-26 15:07] LABS: Hemoglobin 6.7 g/dL (14.0-18.0)
[2023-07-26] MEDS: EPOETIN ALFA 20,000 UNITS/ML VIAL 20000 UNITS IV PUSH (15:58)
--- NOTE | 2023-07-26 16:10 | PM.PNNEP ---
Progress Note: A&P Assessment and Plan (1) End stage renal disease: Code(s): N18.6 - End stage renal disease Status: Chronic Assessment and Plan: plan next HD treatment tomorrow resume/transition back to T/T/S dialysis schedule next week follow electrolytes, volume status, and clearance (2) Chronic pancreatitis: Qualifiers: Pancreatitis type: unspecified pancreatitis type Qualified Code(s): K86.1 - Other chronic pancreatitis Code(s): K86.1 - Other chronic pancreatitis Status: Chronic Assessment and Plan: admitted with abdominal pain but he has known chronic pain syndrome follow pancreatic enzymes and resume diet as tolerated CT scan with anasarca and small size ascites recent EGD with some gastritis - on PPI therapy (3) Altered mental status: Qualifiers: Altered mental status type: disorientation Qualified Code(s): R41.0 - Disorientation, unspecified Code(s): R41.82 - Altered mental status, unspecified Status: Acute Assessment and Plan: worse earlier today but better now suspect to medications(?) follow trend of mentation (4) Anemia: Code(s): D64.9 - Anemia, unspecified Status: Chronic Assessment and Plan: chronically low but worse this AM PRBC transfusion per protocol partly related to ESRD still guaiac positive s/p EGD and colonoscopy on last hospitalization Epogen with HD follow trend of H/H GI following - noted plans for repeat EGD (5) Hypertension: Qualifiers: Hypertension type: unspecified Qualified Code(s): I10 - Essential (primary) hypertension Code(s): I10 - Essential (primary) hypertension Status: Chronic Assessment and Plan: reasonable control at this time -- a bit soft follow trend of hemodynamics Will continue to follow Subjective Date/time seen: 07/26/23 16:10 Interval history: Folllow-up for end stage renal disease on hemodialysis. Tolerating dialysis treatment at the time of my visit (seen on HD at 4:00pm); requesting to end dialysis session but did not give a specific reason; PRBc transfusion earlier today as well as with dialysis due to low H/H; no apparent distress noted. Exam Narrative: General: somewhat chronic ill-appearing male in NAD Heart: normal S1 and S2; no rub Lungs: clear to auscultation Abdomen: soft, nontender, nondistended, positive bowel sounds Extremities: no cyanosis or clubbing; no edema Skin: warm and dry Objective Data Vital Signs Vital Signs: Vital Signs Temp Pulse Resp BP Pulse Ox O2 Del Method 07/26/23 16:10 91 129/48 L 07/26/23 16:00 92 117/25 L 07/26/23 15:45 68 92/49 L 07/26/23 15:49 98.1 F 91 20 108/50 L 07/26/23 15:30 94 96/32 L 07/26/23 15:24 94 117/46 L 07/26/23 15:24 98.1 F 94 20 117/46 L 07/26/23 15:15 94 123/52 L 07/26/23 15:09 93 110/39 L 07/26/23 15:00 98.5 F 92 20 90/38 L 07/26/23 15:00 92 90/38 L 07/26/23 14:45 91 101/45 L 07/26/23 14:30 83 103/37 L 07/26/23 14:00 87 103/47 L 07/26/23 13:11 97.2 F L 95 20 127/43 L 07/26/23 13:24 90 124/35 L 07/26/23 13:30 97.2 F L 89 20 126/47 L 07/26/23 12:22 94/63 L 07/26/23 12:05 98.1 F 92 18 80/33 L 97 07/26/23 11:05 98.1 F 82 17 80/54 L 94 07/26/23 10:05 98.1 F 76 16 95/66 L 93 07/26/23 08:00 85 07/26/23 10:05 98.1 F 76 17 105/33 L 93 07/26/23 08:00 Room Air 07/26/23 09:46 98.2 F 107 H 16 110/76 93 07/26/23 06:00 97.0 F L 97 21 H 95/67 L 100 07/26/23 04:00 83 Intake/Output Intake/Output: Intake & Output 07/24/23 07/25/23 07/26/23 07/27/23 23:59 23:59 23:59 23:59 Intake Total 735 009 2603 Output Total 1270 Balance 500 980 60 Meds/Results Medications: Active Medications Generic Name Dose Route
--- NOTE | 2023-07-26 16:10 | P.PNNP_ITS ---
Progress Note: A&P Assessment and Plan (1) End stage renal disease: Code(s): N18.6 - End stage renal disease Status: Chronic Assessment and Plan: * plan next HD treatment tomorrow * resume/transition back to T/T/S dialysis schedule next week * follow electrolytes, volume status, and clearance (2) Chronic pancreatitis: Qualifiers: Pancreatitis type: unspecified pancreatitis type Qualified Code(s): K86.1 - Other chronic pancreatitis Code(s): K86.1 - Other chronic pancreatitis Status: Chronic Assessment and Plan: * admitted with abdominal pain * but he has known chronic pain syndrome * follow pancreatic enzymes and resume diet as tolerated * CT scan with anasarca and small size ascites * recent EGD with some gastritis - on PPI therapy (3) Altered mental status: Qualifiers: Altered mental status type: disorientation Qualified Code(s): R41.0 - Disorientation, unspecified Code(s): R41.82 - Altered mental status, unspecified Status: Acute Assessment and Plan: * worse earlier today but better now * suspect to medications(?) * follow trend of mentation (4) Anemia: Code(s): D64.9 - Anemia, unspecified Status: Chronic Assessment and Plan: * chronically low but worse this AM * PRBC transfusion per protocol * partly related to ESRD * still guaiac positive * s/p EGD and colonoscopy on last hospitalization * Epogen with HD * follow trend of H/H * GI following - noted plans for repeat EGD (5) Hypertension: Qualifiers: Hypertension type: unspecified Qualified Code(s): I10 - Essential (primary) hypertension Code(s): I10 - Essential (primary) hypertension Status: Chronic Assessment and Plan: * reasonable control at this time -- a bit soft * follow trend of hemodynamics Will continue to follow Subjective Date/time seen: 07/26/23 16:10 Interval history: Folllow-up for end stage renal disease on hemodialysis. Tolerating dialysis treatment at the time of my visit (seen on HD at 4:00pm); requesting to end dialysis session but did not give a specific reason; PRBc transfusion earlier today as well as with dialysis due to low H/H; no apparent distress noted. Exam Narrative: General: somewhat chronic ill-appearing male in NAD Heart: normal S1 and S2; no rub Lungs: clear to auscultation Abdomen: soft, nontender, nondistended, positive bowel sounds Extremities: no cyanosis or clubbing; no edema Skin: warm and dry Objective Data Vital Signs Vital Signs: Vital Signs Temp Pulse Resp BP Pulse Ox O2 Del Method 07/26/23 16:10 91 129/48 L 07/26/23 16:00 92 117/25 L 07/26/23 15:45 68 92/49 L 07/26/23 15:49 98.1 F 91 20 108/50 L 07/26/23 15:30 94 96/32 L 07/26/23 15:24 94 117/46 L 07/26/23 15:24 98.1 F 94 20 117/46 L 07/26/23 15:15 94 123/52 L 07/26/23 15:09 93 110/39 L 07/26/23 15:00 98.5 F 92 20 90/38 L 07/26/23 15:00 92 90/38 L 07/26/23 14:45 91 101/45 L 07/26/23 14:30 83 103/37 L 07/26/23 14:00 87 103/47 L 07/26/23 13:11 97.2 F L 95 20 127/43 L 07/26/23 13:24 90 124/35 L 07/26/23 13:30 97.2 F
[2023-07-27] VITALS (12 sets, daily range): BP systolic 90–144; BP diastolic 42–92; PULSE 61–88; RESP 16–24; TEMP 36.2–36.6; O2SAT 90–100
[2023-07-27] MEDS: HYDROcodone/acetaminophen (*CRX) 5-325 MG TABLET 1 TAB PO ×2 (04:22→18:03)
[2023-07-27] MEDS: metroNIDAZOLE 500 MG/ISO 100ML 500 MG/100 ML BAG 100 MG IVPB ×3 (05:40→22:37)
[2023-07-27] MEDS: SALINE LOCK FLUSH 10 ML IV PUSH ×3 (05:40→21:37)
[2023-07-27 05:46] LABS: Basophils Percent Auto 0.8 % (0.2-1.2); Eosinophils Absolute Auto 0.1 K/mm3 (0-0.3); Eosinophils Percent Auto 1.8 % (0-4.4); Immature Granulocyte Absolute 0.02 K/mm3 (0.00-0.031); Immature Granulocyte Percent A 0.4 % (0-0.5); Immature Platelet Fraction Pct 3.1 % (0.9-11.2); Lymphocytes Absolute Auto 1.57 K/mm3 (0.9-3.2); Lymphocytes Percent Auto 31.2 % (18.3-44.2); Mean Corpuscular HGB Conc 31.3 g/dl (32-36); Mean Corpuscular Hemoglobin 28.6 pg (26-34); Mean Corpuscular Volume 91.2 fl (80-100); Mean Platelet Volume 10.5 fl (7.4-10.4); Monocytes Absolute Auto 0.3 K/mm3 (0.1-0.6); Monocytes Percent Auto 6.8 % (2.6-8.5); Platelet Count Result 80 k/mm3 (150-375); Red Blood Count 2.17 M/mm3 (4.6-6.20); Red Cell Distribution Width 17.6 % (11.5-14.5)
[2023-07-27 06:15] LABS: Alanine Aminotransferase 10 U/L (6-50); Albumin Level 1.9 g/dL (3.5-5.1); Alkaline Phosphatase 62 U/L (38-126); Anion Gap 2 mmol/L (8-16); Aspartate Amino Transferase 22 U/L (17-59); Bilirubin,Total 0.5 mg/dL (0.2-1.3); Blood Urea Nitrogen 29 mg/dL (9-20); Calcium 7.9 mg/dL (8.4-10.2); Carbon Dioxide 33 mmol/L (22-30); Chloride 103 mmol/L (98-107); Estimated CRCL calculation 22 ml/min; Estimated Glomerular Filt Rate 23; Glucose 72 mg/dL (65-110); Potassium 3.3 mmol/L (3.4-5.0); Sodium 138 mmol/L (137-145)
[2023-07-27 06:21] LABS: Hematocrit 19.8 % (42.0-52.0); Hemoglobin 6.2 g/dL (14.0-18.0); Platelet Estimate Decreased (Adequate)
[2023-07-27 06:22] LABS: Anisocytosis 1+ (NORMAL); Schistocytes None Seen (NORMAL)
[2023-07-27] MEDS: SODIUM CHLORIDE 0.9% IV 500 ML 10 ML IV CONT (07:41)
--- NOTE | 2023-07-27 08:14 | WPDANESEPPF ---
Anes - Initial Pre Proc Eval Procedure: Operation Date: 07/27/23 08:30 Proposed Procedures p Esophagogastroduodenoscopy - Hayden Kendrick MD Date/Time: 07/27/23 08:14 Surgeon: Michelle Maddox DO Pre Op Diagnosis: ESRD on Hemodialysis; Anemia Requiring Blood Trans Patient Data Age: 63 Gender: M Height: 1.7 m Weight: 86.2 kg Last Vital Signs Temp 97.8 F 07/27/23 07:43 Pulse 86 07/27/23 07:43 Resp 18 07/27/23 07:43 BP 117/58 L 07/27/23 07:43 Pulse Ox 99 07/27/23 07:43 O2 Del Method Room Air 07/27/23 07:43 O2 Flow Rate 2 07/25/23 09:35 Allergies Allergy/AdvReac Type Severity Reaction Status Date / Time lisinopril Allergy Unknown Verified 07/27/23 07:42 Home Medications Medication Instructions Recorded Confirmed Type atorvastatin 20 mg tablet 20 mg PO DAILY 07/31/21 07/25/23 History cetirizine 10 mg tablet 10 mg PO DAILY 07/31/21 07/25/23 History loperamide 2 mg capsule 2 mg PO PRN PRN Diarrhea 07/31/21 07/25/23 History sevelamer HCl 800 mg tablet 800 mg PO TID 07/31/21 07/25/23 History aspirin 81 mg tablet,delayed 81 mg PO DAILY 07/02/23 07/25/23 History release pantoprazole 40 mg tablet,delayed 40 mg PO HS #30 tabs 07/04/23 07/25/23 Rx release (Protonix) lanolin alcohols-mineral 1 applic topical DAILY #113 grams 07/07/23 07/25/23 Rx oil-w.petrolatum-ceresin topical cream (Minerin Creme topical) bisacodyl 10 mg rectal suppository 10 mg RECTAL DAILY PRN Constipation 07/11/23 07/25/23 History hydrocodone 5 mg-acetaminophen 325 1 tablet PO QID PRN Pain (Scale 07/11/23 07/25/23 History mg tablet Score 4-6) magnesium citrate (Citroma oral 200 ml PO DAILY PRN Constipation 07/11/23 07/25/23 History solution) allopurinol 100 mg tablet 100 mg PO DAILY@0800 1 month #30 12/27/23 01/08/24 Rx tabs furosemide 40 mg tablet 80 mg PO BID 1 month #120 tabs 07/13/23 07/25/23 Rx albuterol sulfate 90 mcg/actuation 1 - 2 puff inhalation Q6H PRN 07/25/23 07/25/23 History aerosol inhaler Shortness Of Breath ogirvq-oqobejxe-gumorkw 1 cap PO TID 07/25/23 07/25/23 History 24,000-76,000-120,000 unit capsule,delayed rel (Creon) Laboratory Tests 07/25/23 07/25/23 07/26/23 01:00 08:13 13:43 WBC RBC Hgb 6.7 L* g/dL (14.0-18.0) Hct 21.6 L % (42.0-52.0) MCV MCH MCHC RDW Plt Count MPV Immature Gran % (Auto) Neut % (Auto) Lymph % (Auto) [place] % (Auto) Eos % (Auto) Baso % (Auto) Lymph # (Auto) [place] # (Auto) Eos # (Auto) Baso # (Auto) Abs Immat Gran (auto) Absolute Neuts (auto) Absolute Nucleated RBC Nucleated RBC % Platelet Estimate % Immature Plt Fraction Anisocytosis Schistocytes O2 Delivery Device Nasal cannula O2 Liters/Min 4.0 LPM Sodium Potassium Chloride Carbon Dioxide Anion Gap BUN Creatinine Estim Creat Clear Calc Estimated GFR Glucose Calcium Total Bilirubin AST ALT Alkaline Phosphatase Total Protein Albumin Blood Type A Negative Antibody Screen Negative Crossmatch See Detail 07/27/23 05:39 WBC 5.0 K/mm3 (4.5-10.0) RBC 2.17 L M/mm3 (4.6-6.20) Hgb 6.2 L* g/dL (14.0-18.0) Hct 19.8 L* % (42.0-52.0) MCV 91.2 fl (80-100) MCH 28.6 pg (26-34) MCHC 31.3 L g/dl (32-36) RDW 17.6 H % (11.5-14.5) Plt Count 80 L k/mm3 (150-375) MPV 10.5 H fl (7.4-10.4) Immature Gran % (Auto) 0.4 %
[2023-07-27] MEDS: BENZOCAINE (*SP) 60 ML SPRAY CAN (HURRICAINE) 1 SPRAY MUCOUS MEM (08:50)
--- NOTE | 2023-07-27 09:54 | PCPTNOTE ---
Attempted to see for therapy initial evaluation, pt refused d/t fecal tube placement. Will continue to follow.
[2023-07-27] MEDS: PANTOPRAZOLE SODIUM IV 40 MG VIAL IV PUSH ×2 (10:04→21:37)
[2023-07-27] MEDS: LIPASE/AMYLASE/PROTEASE 12,000 UNITS CAP 2 CAP PO ×3 (10:04→17:42)
[2023-07-27] MEDS: ATORVASTATIN 20 MG TABLET PO (10:04)
[2023-07-27] MEDS: SEVELAMER CARBONATE 800 MG TABLET PO ×3 (10:04→17:42)
[2023-07-27] MEDS: SODIUM CHLORIDE 0.9% IV 250 ML 30 ML IV CONT (10:09)
[2023-07-27] MEDS: SUCRALFATE SUSP 100 MG/ML 10 ML UDC 1000 MG PO ×3 (12:42→21:37)
--- NOTE | 2023-07-27 12:56 | PM.PNNEP ---
Progress Note: A&P Assessment and Plan (1) End stage renal disease: Code(s): N18.6 - End stage renal disease Status: Chronic Assessment and Plan: HD tomorrow continue T/T/S dialysis schedule follow electrolytes, volume status, and clearance (2) Anemia: Code(s): D64.9 - Anemia, unspecified Status: Chronic Assessment and Plan: chronically low but worse in the last few days PRBC transfusion per protocol partly related to ESRD still guaiac positive s/p EGD and colonoscopy on last hospitalization s/p repeat EGD earlier today - noted reflux esophagitis and gastric/duodenal ulcers but no active bleeding Epogen with HD follow trend of H/H GI following (3) Encephalopathy: Code(s): G93.40 - Encephalopathy, unspecified Status: Acute Assessment and Plan: resolved mentation seems back to baseline (4) Abdominal pain: Code(s): R10.9 - Unspecified abdominal pain Status: Acute Assessment and Plan: doing better due to chronic pancreatitis(?) however, EGD finding partly to blame as well (5) Chronic pancreatitis: Qualifiers: Pancreatitis type: unspecified pancreatitis type Qualified Code(s): K86.1 - Other chronic pancreatitis Code(s): K86.1 - Other chronic pancreatitis Status: Chronic Assessment and Plan: admitted with abdominal pain but he has known chronic pain syndrome follow pancreatic enzymes and resume diet as tolerated CT scan with anasarca and small size ascites (6) Hyponatremia: Code(s): E87.1 - Hypo-osmolality and hyponatremia Status: Acute Assessment and Plan: resolving presumably related to ESRD better following dialysis treatment follow trend (7) Hypertension: Qualifiers: Hypertension type: unspecified Qualified Code(s): I10 - Essential (primary) hypertension Code(s): I10 - Essential (primary) hypertension Status: Chronic Assessment and Plan: reasonable control at this time -- a bit soft follow trend of hemodynamics Will continue to follow Subjective Date/time seen: 07/27/23 12:56 Interval history: Folllow-up for end stage renal disease on hemodialysis. Tolerated dialysis treatment yesterday without issue or problems; s/p EGD earlier today with findings noted; no apparent distress voiced at the time of my visit. Exam Narrative: General: somewhat chronic ill-appearing male in NAD Heart: normal S1 and S2; no rub Lungs: clear to auscultation Abdomen: soft, nontender, nondistended, positive bowel sounds Extremities: no cyanosis or clubbing; no edema Skin: warm and intact Objective Data Vital Signs Vital Signs: Vital Signs Temp Pulse Resp BP Pulse Ox O2 Del Method 07/27/23 12:55 97.4 F L 66 17 144/72 H 92 07/27/23 11:55 97.2 F L 71 16 118/42 L 91 07/27/23 10:55 97.5 F L 64 17 130/77 91 07/27/23 10:38 97.4 F L 61 18 136/42 L 90 07/27/23 09:24 81 20 113/57 L 100 Room Air 07/27/23 09:14 82 24 H 136/80 100 Room Air 07/27/23 09:04 81 22 H 111/92 H 100 Room Air 07/27/23 06:00 97.2 F L 81 16 117/80 95 07/27/23 07:43 97.8 F 86 18 117/58 L 99 Room Air 07/26/23 20:00 Room Air 07/26/23 21:03 98.1 F 91 20 102/54 L 98 07/26/23 15:49 91 108/50 L 07/26/23 16:16 98.1 F 95 20 127/38 L 07/26/23 16:11 91 129/48 L 07/26/23 16:00 92 117/25 L 07/26/23 15:45 68 92/49 L 07/26/23 15:49 98.1 F 91 20 108/50 L 07/26/23 15:30 94 96/32 L 07/26/23 15:24 94 117/46 L 07/26/23 15:24 98.1 F 94 20 117/46 L 07/26/23 15:15 94 123/52 L 07/26/23 15:09 93 110/39 L 07/26/23 15:00 98.5 F 92 20 90/38 L 07/26/23 15:00 92 90/38 L 07/26/23 14:45 91 101/45 L Intake/Output Intake/Output: Intake & Output 07/24/23 07/25/23 07/26/23
--- NOTE | 2023-07-27 12:56 | P.PNNP_ITS ---
Progress Note: A&P Assessment and Plan (1) End stage renal disease: Code(s): N18.6 - End stage renal disease Status: Chronic Assessment and Plan: * HD tomorrow * continue T/T/S dialysis schedule * follow electrolytes, volume status, and clearance (2) Anemia: Code(s): D64.9 - Anemia, unspecified Status: Chronic Assessment and Plan: * chronically low but worse in the last few days * PRBC transfusion per protocol * partly related to ESRD * still guaiac positive * s/p EGD and colonoscopy on last hospitalization * s/p repeat EGD earlier today - noted reflux esophagitis and gastric/duodenal ulcers but no active bleeding * Epogen with HD * follow trend of H/H * GI following (3) Encephalopathy: Code(s): G93.40 - Encephalopathy, unspecified Status: Acute Assessment and Plan: * resolved * mentation seems back to baseline (4) Abdominal pain: Code(s): R10.9 - Unspecified abdominal pain Status: Acute Assessment and Plan: * doing better * due to chronic pancreatitis(?) * however, EGD finding partly to blame as well (5) Chronic pancreatitis: Qualifiers: Pancreatitis type: unspecified pancreatitis type Qualified Code(s): K86.1 - Other chronic pancreatitis Code(s): K86.1 - Other chronic pancreatitis Status: Chronic Assessment and Plan: * admitted with abdominal pain * but he has known chronic pain syndrome * follow pancreatic enzymes and resume diet as tolerated * CT scan with anasarca and small size ascites (6) Hyponatremia: Code(s): E87.1 - Hypo-osmolality and hyponatremia Status: Acute Assessment and Plan: * resolving * presumably related to ESRD * better following dialysis treatment * follow trend (7) Hypertension: Qualifiers: Hypertension type: unspecified Qualified Code(s): I10 - Essential (primary) hypertension Code(s): I10 - Essential (primary) hypertension Status: Chronic Assessment and Plan: * reasonable control at this time -- a bit soft * follow trend of hemodynamics Will continue to follow Subjective Date/time seen: 07/27/23 12:56 Interval history: Folllow-up for end stage renal disease on hemodialysis. Tolerated dialysis treatment yesterday without issue or problems; s/p EGD earlier today with findings noted; no apparent distress voiced at the time of my visit. Exam Narrative: General: somewhat chronic ill-appearing male in NAD Heart: normal S1 and S2; no rub Lungs: clear to auscultation Abdomen: soft, nontender, nondistended, positive bowel sounds Extremities: no cyanosis or clubbing; no edema Skin: warm and intact Objective Data Vital Signs Vital Signs: Vital Signs Temp Pulse Resp BP Pulse Ox O2 Del Method 07/27/23 12:55 97.4 F L 66 17 144/72 H 92 07/27/23 11:55 97.2 F L 71 16 118/42 L 91 07/27/23 10:55 97.5 F L 64 17 130/77 91 07/27/23 10:38 97.4 F L 61 18 136/42 L 90 07/27/23 09:24 81 20 113/57 L 100 Room Air 07/27/23 09:14 82 24 H 136/80 100 Room Air 07/27/23 09:04 81 22 H 111/92 H 100 Room Air 07/27/23 06:00 97.2 F L 81 16 117/80 95 07/27/23 07:43 97.8 F 86 18 117/58 L 99 Room Air
--- NOTE | 2023-07-27 14:42 | PM.IMPN ---
Progress Note: A&P Assessment and Plan (1) Fecal occult blood test positive: Code(s): R19.5 - Other fecal abnormalities Status: Acute (2) Altered mental status: Qualifiers: Altered mental status type: disorientation Qualified Code(s): R41.0 - Disorientation, unspecified Code(s): R41.82 - Altered mental status, unspecified Status: Acute (3) End stage renal disease on dialysis: Code(s): N18.6 - End stage renal disease; Z99.2 - Dependence on renal dialysis Status: Chronic (4) Chronic anemia: Code(s): D64.9 - Anemia, unspecified Status: Acute (5) Melena: Code(s): K92.1 - Melena Status: Acute Plan 63-year-old male with complex past medical history of end-stage renal disease on dialysis, chronic pancreatitis, liver cirrhosis, presented to the ER yesterday with ongoing abdominal pain, along with vomiting. 1. Abdominal pain: Admit to telemetry medicine CT abdomen consistent with cholelithiasis without evidence of cholecystitis, chronic pancreatitis, diffuse anasarca, small amount of ascites likely pancreatitis keep npo continue iv fluids continue to monitor lipase levels 2. Altered mental status: CT abdomen 1. Cholelithiasis without evidence of cholecystitis. 2. Findings consistent with chronic pancreatitis. 3. Small pleural effusions with dependent airspace opacities of the lungs, atelectasis versus pneumonia. 4. Small volume of ascites. 5. Diffuse anasarca GI on board CT head Chronic small right temporal occipital subdural hematoma. will consult neurology 3. ESRD on hemodialysis: Renal consult for dialysis needs watch creat levels 4. Rectal bleeding GI consulted, pt is npo for possible scope today Transfused 2 units today and 1 unit today further transfusion today await post tranfusion hb/ hct SP EGD showing ulcers and gastritis 5. Ascites Sp paracentesis continue to watch in hospital Subjective Date/time seen: 07/27/23 14:42 Interval history: Pt having ongoing rectal bleeding FOBT is positive hb is 6 today Pt received total of 3 units Pt needing further blood transfusion today Sp EGD found ulcers Sp paracentesis Continue to monitor in hospital Review of Systems Review of Systems: Unwell tired Exam Const: Other: Lethargic HENMT: Mouth: Yes dry mucous membranes Eyes: Other: No scleral icterus Neck: Neck: supple Resp: Other: Decreased breath sounds bilaterally, currently on nasal cannula Cardio: Rate: regular rate GI: Inspection: distended Other: Diffuse tenderness present, decreased bowel sounds Skin: General skin exam: wounds noted Wounds: wounds noted Neuro: Other: Lethargic, unable to assess Psych: Other: Lethargic Objective Data Vital Signs Vital Signs: Vital Signs - 24 hr 07/26/23 14:45 07/26/23 15:00 07/26/23 15:00 Temperature 36.9 C Pulse Rate 91 92 92 Respiratory Rate 20 Blood Pressure 101/45 L 90/38 L 90/38 L Pulse Oximetry Oxygen Delivery 07/26/23 15:09 07/26/23 15:15 07/26/23 15:24 Temperature 36.7 C Pulse Rate 93 94 94 Respiratory Rate 20 Blood Pressure 110/39 L 123/52 L 117/46 L Pulse Oximetry Oxygen Delivery 07/26/23 15:24 07/26/23 15:30 07/26/23 15:49 Temperature 36.7 C Pulse Rate 94 94 91 Respiratory Rate 20 Blood Pressure 117/46 L 96/32 L 108/50 L Pulse Oximetry Oxygen Delivery 07/26/23 15:45 07/26/23 16:00 07/26/23 16:11 Temperature Pulse Rate 68 92 91 Respiratory Rate Blood Pressure 92/49 L 117/25 L 129/48 L Pulse Oximetry Oxygen Delivery 07/26/23 16:16 07/26/23 15:49 07/26/23 21:03 Temperature 36.7 C 36.7 C Pulse Rate 95 91 91 Respiratory Rate 20 20 Blood Pressure 127/38 L 108/50 L 102/54 L Pulse Oximetry 98 Oxygen Delivery 07/26/23 20:00 07/27/23 07:43 07/27/23 06:00 Temperature 36.6 C 36.2 C L Pulse Rate 86 81 Respi
[2023-07-27] MEDS: POTASSIUM CHLORIDE 20 MEQ PACKET (FOR LIQUID) PO (17:42)
[2023-07-27 18:02] LABS: Hematocrit 27.5 % (42.0-52.0); Hemoglobin 8.5 g/dL (14.0-18.0)
[2023-07-27] MEDS: BENZONATATE 100 MG CAPSULE PO (18:03)
--- NOTE | 2023-07-27 18:05 | PC.NURSE ---
Pt refusing dressing change. States that it is only changed every other day. Says it can be changed in the morning.
[2023-07-28] VITALS (21 sets, daily range): BP systolic 92–141; BP diastolic 44–74; PULSE 61–85; RESP 16–21; TEMP 36.4–37.6; O2SAT 100
[2023-07-28] MEDS: ALBUTEROL SULFATE NEB 2.5 MG/3 ML INH INHALATION (04:48)
[2023-07-28] MEDS: SUCRALFATE SUSP 100 MG/ML 10 ML UDC 1000 MG PO ×3 (05:41→20:35)
[2023-07-28] MEDS: HYDROcodone/acetaminophen (*CRX) 5-325 MG TABLET 1 TAB PO ×3 (05:41→20:35)
[2023-07-28] MEDS: metroNIDAZOLE 500 MG/ISO 100ML 500 MG/100 ML BAG 100 MG IVPB (05:42)
[2023-07-28] MEDS: SALINE LOCK FLUSH 10 ML IV PUSH ×2 (05:42→16:38)
[2023-07-28 05:56] LABS: Basophils Percent Auto 0.9 % (0.2-1.2); Eosinophils Percent Auto 0.9 % (0-4.4); Hematocrit 27.7 % (42.0-52.0); Hemoglobin 8.5 g/dL (14.0-18.0); Immature Granulocyte Absolute 0.01 K/mm3 (0.00-0.031); Immature Granulocyte Percent A 0.2 % (0-0.5); Lymphocytes Absolute Auto 1.41 K/mm3 (0.9-3.2); Lymphocytes Percent Auto 31.1 % (18.3-44.2); Mean Corpuscular HGB Conc 30.7 g/dl (32-36); Mean Corpuscular Hemoglobin 28.1 pg (26-34); Mean Corpuscular Volume 91.7 fl (80-100); Mean Platelet Volume 10.1 fl (7.4-10.4); Monocytes Absolute Auto 0.3 K/mm3 (0.1-0.6); Monocytes Percent Auto 6.2 % (2.6-8.5); Neutrophils Absolute Auto 2.8 K/mm3 (1.3-6.7); Neutrophils Percent Auto 60.7 % (45.5-73.1); Platelet Count Result 76 k/mm3 (150-375); Red Blood Count 3.02 M/mm3 (4.6-6.20); Red Cell Distribution Width 16.6 % (11.5-14.5); White Blood Count 4.5 K/mm3 (4.5-10.0)
[2023-07-28 06:04] LABS: Alanine Aminotransferase 12 U/L (6-50); Albumin Level 2.4 g/dL (3.5-5.1); Alkaline Phosphatase 79 U/L (38-126); Anion Gap 4 mmol/L (8-16); Aspartate Amino Transferase 23 U/L (17-59); Bilirubin,Total 0.7 mg/dL (0.2-1.3); Blood Urea Nitrogen 30 mg/dL (9-20); Calcium 8.2 mg/dL (8.4-10.2); Carbon Dioxide 31 mmol/L (22-30); Chloride 101 mmol/L (98-107); Estimated CRCL calculation 18 ml/min; Estimated Glomerular Filt Rate 18; Glucose 107 mg/dL (65-110); Potassium 3.6 mmol/L (3.4-5.0); Sodium 136 mmol/L (137-145)
[2023-07-28] MEDS: LIPASE/AMYLASE/PROTEASE 12,000 UNITS CAP 2 CAP PO ×3 (08:05→17:40)
[2023-07-28] MEDS: PANTOPRAZOLE SODIUM IV 40 MG VIAL IV PUSH (08:05)
[2023-07-28] MEDS: ATORVASTATIN 20 MG TABLET PO (08:06)
[2023-07-28] MEDS: SEVELAMER CARBONATE 800 MG TABLET PO ×3 (08:06→17:40)
[2023-07-28] MEDS: POTASSIUM CHLORIDE 20 MEQ PACKET (FOR LIQUID) PO ×2 (08:06→17:42)
--- NOTE | 2023-07-28 08:51 | PCPTNOTE ---
Attempted PT evaluation, pt in dialysis. Will follow.
[2023-07-28] MEDS: ALBUMIN HUMAN 25% 12.5 GM/50ML 50 ML 999 GM (10:01)
[2023-07-28] MEDS: ALBUMIN HUMAN 25% 12.5 GM/50ML 50 ML IVPB (10:22)
[2023-07-28] MEDS: EPOETIN ALFA-EPBX 10,000 UNITS/ML VIAL 10000 UNITS IV PUSH (10:25)
--- NOTE | 2023-07-28 11:45 | PM.DS ---
DS: Admitting Diagnosis Discharge Date 07/28/2022 Admitting Diagnosis Abdominal pain Vomiting Altered mental status DS: Discharge Diagnosis Discharge Diagnosis (1) Fecal occult blood test positive: Code(s): R19.5 - Other fecal abnormalities Status: Acute (2) Altered mental status: Qualifiers: Altered mental status type: disorientation Qualified Code(s): R41.0 - Disorientation, unspecified Code(s): R41.82 - Altered mental status, unspecified Status: Acute (3) End stage renal disease on dialysis: Code(s): N18.6 - End stage renal disease; Z99.2 - Dependence on renal dialysis Status: Chronic (4) Chronic anemia: Code(s): D64.9 - Anemia, unspecified Status: Acute (5) Melena: Code(s): K92.1 - Melena Status: Acute Plan 63-year-old male with complex past medical history of end-stage renal disease on dialysis, chronic pancreatitis, liver cirrhosis, presented to the ER yesterday with ongoing abdominal pain, along with vomiting. 1. Abdominal pain: Admit to telemetry medicine CT abdomen consistent with cholelithiasis without evidence of cholecystitis, chronic pancreatitis, diffuse anasarca, small amount of ascites likely pancreatitis continue to monitor lipase levels pt tolerating diet ok to dc 2. Altered mental status: CT abdomen 1. Cholelithiasis without evidence of cholecystitis. 2. Findings consistent with chronic pancreatitis. 3. Small pleural effusions with dependent airspace opacities of the lungs, atelectasis versus pneumonia. 4. Small volume of ascites. 5. Diffuse anasarca GI on board CT head Chronic small right temporal occipital subdural hematoma. chronic problems pt can follow outpatient neurology pt appears more lucid today after blood tranfusions 3. ESRD on hemodialysis: Renal consult for dialysis needs watch creat levels pt had dialysis ok for DC 4. Rectal bleeding GI consulted, pt is npo for possible scope today Transfused 2 units today and 1 unit today further transfusion today await post tranfusion hb/ hct SP EGD showing ulcers and gastritis Pt to dc with sucfralte and protonix BID hb is stable 5. Ascites Sp paracentesis continue to watch in hospital stable after paracentesis DS: Summary Hospital Course Hospital Course: Pt having ongoing rectal bleeding FOBT is positive hb is 6 today Pt received total of 3 units Pt needing further blood transfusion today Sp EGD found ulcers Sp paracentesis Continue to monitor in hospital Hb is stable pt had dialysis ok to DC today See full details above Time Spent with Patient Time attestation: Total time spent providing and/or coordinating discharge services:38 minutes on day of DC Exam Const: Other: Lethargic HENMT: Mouth: Yes dry mucous membranes Eyes: Other: No scleral icterus Neck: Neck: supple Resp: Other: Decreased breath sounds bilaterally, currently on nasal cannula Cardio: Rate: regular rate GI: Inspection: distended Other: Diffuse tenderness present, decreased bowel sounds Skin: General skin exam: wounds noted Wounds: wounds noted Neuro: Other: Lethargic, unable to assess Psych: Other: Lethargic DS: Data Data Completed and Pending Labs on day of discharge: Labs from last 24 hours 07/28/23 07/27/23 07/25/23 05:49 17:53 01:00 WBC 4.5 RBC 3.02 L Hgb 8.5 L 8.5 L Hct 27.7 L 27.5 L MCV 91.7 MCH 28.1 MCHC 30.7 L RDW 16.6 H Plt Count 76 L MPV 10.1 Immature Gran % (Auto) 0.2 Neut % (Auto) 60.7 Lymph % (Auto) 31.1 [place] % (Auto) 6.2 Eos % (Auto) 0.9 Baso % (Auto) 0.9 Lymph # (Auto) 1.41 [place] # (Auto) 0.3 Eos # (Auto) 0.0 Baso # (Auto) 0.0 Abs Immat Gran (auto) 0.01 Absolute Neuts (auto) 2.8 Absolute Nucleated RBC 0.0 Nucleated RBC % 0.0 % Immature Plt Fraction 4.0 Sodium 136 L Potassium 3.6 C
--- NOTE | 2023-07-28 12:24 | P.PNNP_ITS ---
Progress Note: A&P Assessment and Plan (1) End stage renal disease: Code(s): N18.6 - End stage renal disease Status: Chronic Assessment and Plan: * HD today * continue T/T/S dialysis schedule while hospitalized * follow electrolytes, volume status, and clearance (2) Anemia: Code(s): D64.9 - Anemia, unspecified Status: Chronic Assessment and Plan: * partly related to ESRD * Epogen with HD * follow trend of H/H * PRBC transfusion per protocol * GI following * s/p EGD (on 07/04) - esophagitis and erosive gastritis noted * s/p colonoscopy (on 07/05) - no acute findings * s/p EGD (07/27): noted reflux esophagitis, ulcerative gastritis + duodenitis (3) Encephalopathy: Code(s): G93.40 - Encephalopathy, unspecified Status: Acute Assessment and Plan: * resolved * mentation seems back to baseline (4) Abdominal pain: Code(s): R10.9 - Unspecified abdominal pain Status: Acute Assessment and Plan: * doing better * due to chronic pancreatitis(?) * however, EGD finding partly to blame as well (5) Hyponatremia: Code(s): E87.1 - Hypo-osmolality and hyponatremia Status: Acute Assessment and Plan: * presumably related to ESRD * better following dialysis treatment * follow trend (6) Hypertension: Qualifiers: Hypertension type: unspecified Qualified Code(s): I10 - Essential (primary) hypertension Code(s): I10 - Essential (primary) hypertension Status: Chronic Assessment and Plan: * reasonable control at this time * follow trend of hemodynamics Not opposed to discharge from renal perspective if otherwise medically stable. Will continue to follow. Subjective Date/time seen: 07/28/23 12:24 Interval history: Follow-up for end stage renal disease on hemodialysis. Tolerating dialysis treatment at the time of my visit (seen on HD at 12:14PM); no apparent issues or problems noted; appears H/H appears stable at this time; no distress noted; no issues overnight or earlier this AM, Exam Narrative: General: somewhat chronic ill-appearing male in NAD Heart: normal S1 and S2; no rub Lungs: clear to auscultation Abdomen: soft, nontender, nondistended, positive bowel sounds Extremities: no cyanosis or clubbing; no edema Skin: warm and dry Objective Data Vital Signs Vital Signs: Vital Signs Temp Pulse Resp BP Pulse Ox O2 Del Method 07/28/23 08:35 97.9 F 76 16 123/68 07/28/23 06:00 97.6 F 83 21 H 131/61 100 07/28/23 08:00 Room Air 07/27/23 21:13 97.9 F 74 21 H 110/62 100 07/27/23 20:00 Room Air 07/27/23 17:00 97.7 F 88 18 126/48 L 98 07/27/23 14:05 Room Air 07/27/23 14:17 97.9 F 62 17 90/73 L 91 07/27/23 12:55 97.4 F L 66 17 144/72 H 92 Intake/Output Intake/Output: Intake & Output 07/25/23 07/26/23 07/27/23 07/28/23 23:59 23:59 23:59 23:59 Intake Total 980 1330 1730 580 Output Total 1270 200 Balance 022 51 8162 580 Meds/Results Medications: Active Medications Generic Name Dose Route Start Last Admin Trade N
--- NOTE | 2023-07-28 12:24 | PM.PNNEP ---
Progress Note: A&P Assessment and Plan (1) End stage renal disease: Code(s): N18.6 - End stage renal disease Status: Chronic Assessment and Plan: HD today continue T/T/S dialysis schedule while hospitalized follow electrolytes, volume status, and clearance (2) Anemia: Code(s): D64.9 - Anemia, unspecified Status: Chronic Assessment and Plan: partly related to ESRD Epogen with HD follow trend of H/H PRBC transfusion per protocol GI following s/p EGD (on 07/04) - esophagitis and erosive gastritis noted s/p colonoscopy (on 07/05) - no acute findings s/p EGD (07/27): noted reflux esophagitis, ulcerative gastritis + duodenitis (3) Encephalopathy: Code(s): G93.40 - Encephalopathy, unspecified Status: Acute Assessment and Plan: resolved mentation seems back to baseline (4) Abdominal pain: Code(s): R10.9 - Unspecified abdominal pain Status: Acute Assessment and Plan: doing better due to chronic pancreatitis(?) however, EGD finding partly to blame as well (5) Hyponatremia: Code(s): E87.1 - Hypo-osmolality and hyponatremia Status: Acute Assessment and Plan: presumably related to ESRD better following dialysis treatment follow trend (6) Hypertension: Qualifiers: Hypertension type: unspecified Qualified Code(s): I10 - Essential (primary) hypertension Code(s): I10 - Essential (primary) hypertension Status: Chronic Assessment and Plan: reasonable control at this time follow trend of hemodynamics Not opposed to discharge from renal perspective if otherwise medically stable. Will continue to follow. Subjective Date/time seen: 07/28/23 12:24 Interval history: Follow-up for end stage renal disease on hemodialysis. Tolerating dialysis treatment at the time of my visit (seen on HD at 12:14PM); no apparent issues or problems noted; appears H/H appears stable at this time; no distress noted; no issues overnight or earlier this AM, Exam Narrative: General: somewhat chronic ill-appearing male in NAD Heart: normal S1 and S2; no rub Lungs: clear to auscultation Abdomen: soft, nontender, nondistended, positive bowel sounds Extremities: no cyanosis or clubbing; no edema Skin: warm and dry Objective Data Vital Signs Vital Signs: Vital Signs Temp Pulse Resp BP Pulse Ox O2 Del Method 07/28/23 08:35 97.9 F 76 16 123/68 07/28/23 06:00 97.6 F 83 21 H 131/61 100 07/28/23 08:00 Room Air 07/27/23 21:13 97.9 F 74 21 H 110/62 100 07/27/23 20:00 Room Air 07/27/23 17:00 97.7 F 88 18 126/48 L 98 07/27/23 14:05 Room Air 07/27/23 14:17 97.9 F 62 17 90/73 L 91 07/27/23 12:55 97.4 F L 66 17 144/72 H 92 Intake/Output Intake/Output: Intake & Output 07/25/23 07/26/23 07/27/23 07/28/23 23:59 23:59 23:59 23:59 Intake Total 980 1330 1730 580 Output Total 1270 200 Balance 625 81 2327 580 Meds/Results Medications: Active Medications Generic Name Dose Route Start Last Admin Trade Name Freq PRN Reason Stop Dose Admin Acetaminophen 650 mg 07/24/23 21:49 Acetaminophen 325 Mg Tablet PO Q4H PRN Mild Pain (1-3) or Fever Hydrocodone Bitart/Acetaminophen 1 tab 07/25/23 18:51 07/28/23 05:41 Hydrocodone/Acetaminophen (*Crx) 5-325 Mg Tablet PO 1 tab QID PRN Administration Pain (Scale Score 4-6) Albuterol 2.5 mg 07/25/23 09:37 07/28/23 04:48 Albuterol Sulfate Neb 2.5 Mg/3 Ml Inh INHALATION 2.5 mg Q6HRT PRN Administration Shortness Of Breath Lipase/Protease/Amylase 2 cap 07/25/23 09:55 07/28/23 08:05 Lipase/Amylase/Protease 12,000 Units Cap PO 2 cap TID ARIES Administration Atorvastatin Calcium 20 mg 07/25/23 09:55 07/28/23 08:06 Atorvastatin 20 Mg Tablet PO 20 mg DAILY ARIES Administration Benzonatate 100 mg 01
[2023-07-28] MEDS: BENZONATATE 100 MG CAPSULE PO ×2 (14:05→20:35)
--- NOTE | 2023-07-28 14:49 | WPDGIPROGNO ---
Progress Note: A&P Assessment and Plan (1) Peptic ulcer disease: Code(s): K27.9 - Peptic ulcer, site unspecified, unspecified as acute or chronic, without hemorrhage or perforation Status: Acute Assessment and Plan: non bleeding and small ulcers continue with protonix bid also carafate with meals h/h stable after transfusion discharge soon (2) Acute upper GI bleed: Code(s): K92.2 - Gastrointestinal hemorrhage, unspecified Status: Acute Assessment and Plan: resolved (3) Melena: Code(s): K92.1 - Melena Status: Acute (4) Acute on chronic anemia: Code(s): D64.9 - Anemia, unspecified Status: Acute (5) Fecal occult blood test positive: Code(s): R19.5 - Other fecal abnormalities Status: Acute (6) End stage renal disease on dialysis: Code(s): N18.6 - End stage renal disease; Z99.2 - Dependence on renal dialysis Status: Chronic Assessment and Plan: per nephrology Subjective Date/time seen: 07/28/23 14:49 Interval history: egd yesterday with small non-bleeding ulcers in stomach and duodenum he is feeling ok, comfortable, no more melena. Review of Systems Review of Systems: All systems reviewed & are unremarkable except as noted in HPI and below Exam Const: Other: awake, alert, chronically ill appearing, comfortable HENMT: Face/Nose/Sinus: Normal nares present Eyes: Other: No scleral icterus Neck: Neck: supple Resp: Auscultation: clear to auscultation bilaterally and no wheezes Cardio: Rate: regular rate GI: GI Palp: Yes Soft to palpation and No Guarding due to palpation present (GI) Auscultation: normal bowel sounds Skin: General skin exam: no erythema Neuro: Speech: normal speech Motor exam (neuro): 5/5 motor strength present throughout Extrem: General: normal to inspection Psych: Affect: normal affect Objective Data Vital Signs Vital Signs: Vital Signs - 24 hr 07/27/23 17:00 07/27/23 20:00 07/27/23 21:13 Temperature 97.7 F 97.9 F Pulse Rate 88 74 Respiratory Rate 18 21 H Blood Pressure 126/48 L 110/62 Pulse Oximetry 98 100 Oxygen Delivery Room Air 07/28/23 08:00 07/28/23 06:00 07/28/23 08:35 Temperature 97.6 F 97.9 F Pulse Rate 83 76 Respiratory Rate 21 H 16 Blood Pressure 131/61 123/68 Pulse Oximetry 100 Oxygen Delivery Room Air 07/28/23 13:16 Temperature Pulse Rate Respiratory Rate Blood Pressure Pulse Oximetry Oxygen Delivery Room Air Intake/Output Intake/Output: Intake & Output 07/25/23 07/26/23 07/27/23 07/28/23 23:59 23:59 23:59 23:59 Intake Total 980 1330 1730 940 Output Total 1270 200 Balance 602 65 4562 940 Meds/Results Medications: Active Medications Generic Name Dose Route Start Last Admin Trade Name Freq PRN Reason Stop Dose Admin Acetaminophen 650 mg 07/24/23 21:49 Acetaminophen 325 Mg Tablet PO Q4H PRN Mild Pain (1-3) or Fever Hydrocodone Bitart/Acetaminophen 1 tab 07/25/23 18:51 07/28/23 14:05 Hydrocodone/Acetaminophen (*Crx) 5-325 Mg Tablet PO 1 tab QID PRN Administration Pain (Scale Score 4-6) Albuterol 2.5 mg 07/25/23 09:37 07/28/23 04:48 Albuterol Sulfate Neb 2.5 Mg/3 Ml Inh INHALATION 2.5 mg Q6HRT PRN Administration Shortness Of Breath Lipase/Protease/Amylase 2 cap 07/25/23 09:55 07/28/23 13:56 Lipase/Amylase/Protease 12,000 Units Cap PO 2 cap TID ARIES Administration Atorvastatin Calcium 20 mg 07/25/23 09:55 07/28/23 08:06 Atorvastatin 20 Mg Tablet PO 20 mg DAILY ARIES Administration Benzonatate 100 mg 07/27/23 17:50 07/28/23 14:05 Benzonatate 100 Mg Capsule PO 100 mg TID PRN Administration Cough Epoetin Luís-epbx 10,000 units 07/28/23 20:11 07/28/23 10:25 Epoetin Luís-Epbx 10,000 Units/Ml Vial IV PUSH 07/28/23 20:12 10,000 units ONCE ONE Administration Haloperidol Lactate 5 mg 07/25/23 12:39
[2023-07-28] MEDS: NEOMYCIN/POLYMYXIN/BACITRACIN OINTMENT PACKET 1 PACKET (16:39)
--- NOTE | 2023-07-28 20:20 | PC.NURSE ---
Patient Midline was pulled at the patient was being D/C to assisted. D/C was held and is expected to happen tomorrow. MDs were made aware at this time during the day. Spoke to patient and explained what medications he has tonight and if we could attempt to place another IV. Patient refused at this time.
[2023-07-29] MEDS: LOPERAMIDE HCL 2 MG CAPSULE 4 MG PO (02:56)
[2023-07-29 04:51] VITALS: BP 115/60; PULSE 73; RESP 18; TEMP 36.5; O2SAT 100
[2023-07-29] MEDS: SUCRALFATE SUSP 100 MG/ML 10 ML UDC 1000 MG PO (05:52)
[2023-07-29 07:53] VITALS: PULSE 75; RESP 14; O2SAT 100
[2023-07-29] MEDS: ALBUTEROL SULFATE NEB 2.5 MG/3 ML INH INHALATION (07:53)
[2023-07-29 08:15] VITALS: PULSE 79; RESP 14
[2023-07-29] MEDS: LIPASE/AMYLASE/PROTEASE 12,000 UNITS CAP 2 CAP PO (08:16)
[2023-07-29] MEDS: ATORVASTATIN 20 MG TABLET PO (08:16)
[2023-07-29] MEDS: POTASSIUM CHLORIDE 20 MEQ PACKET (FOR LIQUID) PO (08:16)
[2023-07-29] MEDS: SEVELAMER CARBONATE 800 MG TABLET PO (08:16)
[2023-07-29] MEDS: PSYLLIUM POWDER PACKET 1 PACKET PO (08:16)
[2023-07-29] MEDS: BENZONATATE 100 MG CAPSULE PO (08:21)
== END 2023-07-29 08:30 | DRG 438 ==
LOC: ANHED 19:16 → ANH3MED 22:18
PROVIDERS: Internal Medicine; Internal Medicine Gastroenterology; Internal Medicine Nephrology; Nurse Practitioner; Admitting Provider Internal Medicine; Emergency Provider Student in an Organized Health Care Education/Training Program; PCP Internal Medicine; Visit Provider Family Medicine
PROC: 0DJ08ZZ Inspection of Upper Intestinal Tract, Via Natural or Artificial Opening Endoscopic (ICD-10-PCS; CPT 43235; principal; 2023-07-27 08:30)
DX: K86.1 Other chronic pancreatitis (principal); N18.6 End stage renal disease; I12.0 Hypertensive chronic kidney disease with stage 5 chronic kidney disease or end stage renal disease; R18.8 Other ascites; K92.1 Melena; K27.9 Peptic ulcer, site unspecified, unspecified as acute or chronic, without hemorrhage or perforation; K29.70 Gastritis, unspecified, without bleeding; K80.20 Calculus of gallbladder without cholecystitis without obstruction; K21.00 Gastro-esophageal reflux disease with esophagitis, without bleeding; K44.9 Diaphragmatic hernia without obstruction or gangrene; K29.80 Duodenitis without bleeding; K74.60 Unspecified cirrhosis of liver; Z99.2 Dependence on renal dialysis; D63.1 Anemia in chronic kidney disease; E78.5 Hyperlipidemia, unspecified; G89.4 Chronic pain syndrome; I73.9 Peripheral vascular disease, unspecified; R41.0 Disorientation, unspecified; Z79.82 Long term (current) use of aspirin
CPT/HCPCS: 36415; 36430; 36569; 36600; 49083; 70450; 71045; 74176; 80048; 80053; 82140; 82274; 82375; 82805; 83050; 83690; 83735; 85014; 85018; 85025; 85027; 85055; 85610; 85730; 86850; 86900; 86901; 86923; 87040; 87070; 87075; 87205; 94640; 96361; 96365; 96366; 96367; 96372; 96374; 96375; 96376; 97161; 97165; 99285; A9270; C9113; G0257; G0378; J0696; J1170; J1630; J1836; J2060; J2359; J2405; J2704; J7030; J7040; J7050; P9016; P9047; Q4081; Q5105

== ENCOUNTER 2023-08-04 18:57 | Inpatient (IN) | payer MEDICARE, MEDICAID, SELFPAY ==
--- NOTE | ~2023-08-04 | XR_ITS ---
EXAM: XR small bowel follow through DATE: 08/07/2023 15:59 HISTORY: gib, negative colonoscopy . COMPARISON: CT CAP 08/05/2023. FINDINGS: Retained contrast in the distal esophagus following initial ingestion. Normal-appearing st omach. Mildly dilated jejunal and ileal loops noted during contrast passage. Contrast did not reach t he large bowel until the 6.5 hour image. Flocculation of contrast material in the small bowel. IMPRESSION: Delayed transit time. Mildly dilated small bowel loops. Findings may represent small deonna l ileus in the appropriate context. Reviewed, dictated and finalized at location K. TER'S HELPER IMPRESSION: Delayed transit time. Mildly dilated small bowel loops. Findings ma y represent small bowel ileus in the appropriate context.
--- NOTE | ~2023-08-04 | US_ITS ---
EXAMINATION: US venous doppler UE DATE: 08/07/2023 14:16 INDICATION: edema . TECHNIQUE: Grayscale ultrasound images without and with compression and Doppler ultrasound images of the upper extremity veins were obtained. COMPARISON: None. FINDINGS: The right axillary vein is partially compressible and contains intraluminal nonocclusive echogenic ma terial. The bilateral cephalic veins were not visualized due to edema. The bilateral radial and ulnar veins were not evaluated. The visualized portions of the bilateral internal jugular veins, bilateral subclavian veins, left axi llary vein, bilateral brachial veins, and bilateral basilic veins are patent. IMPRESSION: Partially compressible nonocclusive intraluminal thrombus in the right axillary vein, possibly repres enting subacute DVT. Bilateral cephalic veins not visualized due to edema. The bilateral radial and ulnar veins were not evaluated. Reviewed, dictated and finalized at location K. ICATION PACKAGER IMPRESSION: Partially compressible nonocclusive intraluminal thrombus in the right axillary vein, possibly representing subacute DVT. Bilateral cephalic veins not visualized due to edema. The bilateral radial and ulnar veins were not evaluated.
--- NOTE | ~2023-08-04 | XR_ITS ---
EXAMINATION: XR ankle RT min 3V DATE: 08/05/2023 02:54 INDICATION: Posterior right ankle ulcer. TECHNIQUE: 4 views of right ankle were obtained. COMPARISON: None. FINDINGS: Bone alignment is normal. No fracture. There is diffuse osteopenia. There is periosteal juan ction of the distal fibula. There is mild midfoot osteoarthritis. There is skin irregularity of the p osterior lower leg. There is widespread soft tissue swelling. IMPRESSION: 1. Periosteal reaction of the distal fibula, likely secondary to venous stasis. Reviewed, dictated and finalized at location E. NG CUTTER
--- NOTE | ~2023-08-04 | NM_ITS ---
NM GI bleeding DATE: 08/06/2023 15:13 INDICATION: Gastrointestinal bleeding TECHNIQUE: Serial images up to 60 minutes after intravenous injection of 20.1 mCi 99m technetium Ultr aTag. COMPARISON: None FINDINGS: No active gastrointestinal bleeding is detected. IMPRESSION: No active gastrointestinal bleeding Reviewed, dictated and finalized at Location A. Reviewed, dictated and finalized at location A. [employer]
--- NOTE | ~2023-08-04 | XR_ITS ---
EXAMINATION: XR chest 1V portable DATE: 08/05/2023 03:30 INDICATION: Hypotension. TECHNIQUE: A single frontal view of the chest was obtained. COMPARISON: Chest single view 07/25/2023, chest CT 08/05/2023 FINDINGS: There are moderate-sized pleural effusions. There is atelectasis at the lung bases. No pneu mothorax. Cardiomegaly is noted. IMPRESSION: 1. Moderate-sized pleural effusions. 2. Cardiomegaly. Reviewed, dictated and finalized at location E. ESS RIGGER
--- NOTE | ~2023-08-04 | CT_ITS ---
EXAMINATION: CT chest abdomen pelvis wo con DATE: 08/05/2023 05:38 INDICATION: Hypotension. Blood in stool. TECHNIQUE: Computed tomography (CT) of the chest, abdomen, and pelvis was performed without intraveno us contrast. Automated exposure control and iterative reconstruction technique were employed. The dos e-length product was 1549.45 mGy-cm. COMPARISON: CT 07/24/23 FINDINGS: CHEST CT: There are moderate-sized pleural effusions. There is dependent atelectasis bilaterally. Calcified pul monary nodules and calcified mediastinal lymph nodes are consistent with old granulomatous disease. T here is left atrial enlargement of the heart. There are coronary artery calcifications. No pericardia l effusion. There are calcifications of the aortic valve. The central pulmonary arteries are enlarged , consistent with pulmonary arterial hypertension. Body wall edema is noted. ABDOMEN/PELVIS CT: The liver demonstrates surface nodularity, consistent with cirrhosis. There is a 7 mm cyst in the bernardino er. There are gallstones in the gallbladder, which is normal in size. Calcifications in the spleen ar e consistent with old granulomatous disease. There are calcifications in the pancreas, consistent wit h chronic pancreatitis. The adrenal glands are normal. There are cysts in the kidneys measuring up to 4.4 cm on the left. There is moderate atrophy of the kidneys. There is wall thickening of the rectos igmoid. The appendix is normal. There is edema of the intra-abdominal fat. Body wall edema is noted. There are widespread arterial calcifications. There is a small volume of perihepatic ascites. There a re no pathologically enlarged lymph nodes. IMPRESSION: 1. Anasarca including moderate-sized pleural effusions and small volume of ascites. 2. Cirrhosis of the liver. 3. Wall thickening of the rectosigmoid, which may be interstitial edema or colitis. Reviewed, dictated and finalized at location E. PUMPER IMPRESSION: 1. Anasarca including moderate-sized pleural effusions and small volume of asci roxi. 2. Cirrhosis of the liver. 3. Wall thickening of the rectosigmoid, which may be interstitial edema or coli tis.
[2023-08-04 19:08] VITALS: BP 90/55; PULSE 79; RESP 16; TEMP 36.6; O2SAT 94
[2023-08-04 21:20] VITALS: BP 94/59
--- NOTE | 2023-08-04 21:20 | PC.NURSE ---
Pt states he still feels fine and is wanting to go home. Updated pt on plan of care. Agreeable with plan.
[2023-08-04 22:51] VITALS: BP 105/62; PULSE 78; RESP 18; O2SAT 96
--- NOTE | 2023-08-04 22:52 | PC.NURSE ---
pt states they have chronic low bp and did not want to come to the ED but the facility insisted. current bp 105/62
--- NOTE | 2023-08-04 23:02 | PC.NURSE ---
care and report given to GIDEON Wei. all questions answered
[2023-08-05] VITALS (24 sets, daily range): BP systolic 91–148; BP diastolic 53–81; PULSE 69–93; RESP 11–24; TEMP 36.1–36.8; O2SAT 92–100; BMI 27.5
--- NOTE | 2023-08-05 02:28 | ED.RECABL ---
HPI - Recheck/Abnormal Lab/Rx General Chief Complaint: Recheck/Abnormal Lab/Rx <Jaye Ramos PA-C - Last Filed: 08/05/23 04:37> Stated Complaint: hypotensive, HD today <Jaye Ramos PA-C - Last Filed: 08/05/23 04:37> Time Seen by Provider: 08/04/23 22:38 <Jaye Ramos PA-C - Last Filed: 08/05/23 04:37> History of Present Illness HPI narrative: 63 y/o M with a hx of ESRD on hemodialysis schedule, peptic ulcer disease, liver cirrhosis, hypertension, hyperlipidemia, chronic pancreatitis, anemia requiring blood transfusions reports for evaluation from his rehab facility to evaluate for hypotension and upper extremity swelling. Pt states she went to his dialysis today and when he returned to his rehab facility, his blood pressure was low so they sent him to the ER. Pt states he has new BUE edema x1 week, worse on the L which his his port site. He was recently admitted earlier this month for rectal bleeding, pancreatitis and abdominal pain. States he had rectal bleeding 2 days ago that has since resolved. He denies lightheadedness, dizziness, CP, dyspnea, fever, abdominal pain, nausea, vomiting, diarrhea, melena. He has a chronic wound to his RLE which is being managed by outpatient wound care.? He reports a cough which is unchanged from his baseline. Patient states he feels ?fine?. Chart review performed from patient's prior admission on 07/24/2023. Upon admission, patient began having melena was started on IV Protonix. He also developed encephalopathy which improved after 3 blood transfusions. Patient had the EGD performed while inpatient which showed ulcers and gastritis. Colonoscopy showed no acute findings. He was discharged home with sucralfate and Protonix b.i.d.. He also had a paracentesis performed yielding 200mLs of fluid with no growth. Anemia likely secondary to CKD and GI. <Jaye Ramos PA-C - Last Filed: 08/05/23 04:37> Related Data Home Medications: Home Medications Medication Instructions Recorded Confirmed atorvastatin 20 mg tablet 20 mg PO DAILY 07/31/21 07/25/23 cetirizine 10 mg tablet 10 mg PO DAILY 07/31/21 07/25/23 loperamide 2 mg capsule 2 mg PO PRN PRN Diarrhea 07/31/21 07/25/23 sevelamer HCl 800 mg tablet 800 mg PO TID 07/31/21 07/25/23 aspirin 81 mg tablet,delayed 81 mg PO DAILY 07/02/23 07/25/23 release bisacodyl 10 mg rectal suppository 10 mg RECTAL DAILY PRN Constipation 07/11/23 07/25/23 hydrocodone 5 mg-acetaminophen 325 1 tablet PO QID PRN Pain (Scale 07/11/23 07/25/23 mg tablet Score 4-6) magnesium citrate (Citroma oral 200 ml PO DAILY PRN Constipation 07/11/23 07/25/23 solution) albuterol sulfate 90 mcg/actuation 1 - 2 puff inhalation Q6H PRN 07/25/23 07/25/23 aerosol inhaler Shortness Of Breath [id number] 1 cap PO TID 07/25/23 07/25/23 24,000-76,000-120,000 unit capsule,delayed rel (Creon) <Jaye Ramos PA-C - Last Filed: 08/05/23 04:37> Allergies/Adverse Reactions: Allergies Allergy/AdvReac Type Severity Reaction Status Date / Time lisinopril Allergy Unknown Verified 07/27/23 07:42 <Jaye Ramos PA-C - Last Filed: 08/05/23 04:37> Review of Systems Review of Systems: CONSTITUTIONAL: Denies fever, chills, or sweats. EYES: Denies visual changes, redness, or discharge. ENT: Denies rhinorrhea, congestion, sore throat, or otalgia. CARDIOVASCULAR: See HPI RESPIRATORY: Denies cough or dyspnea. GASTROINTESTINAL: Denies abdominal pain, nausea, vomiting, or diarrhea. GENITOURINARY: Denies dysuria or hematuria. SKIN: Denies rash or itching. MUSCULOSKELETAL: Denies back pain, joint pain, or myalgia. NEUROLOGIC: Denies headache, numbness, or weakness. PSYCHIATRIC: Denies anxiety or depression. <Jaye Ramos PA-C - Last Filed: 08/05/23 04:37> PMFSH Past Medical History Medical History: Medical History Chronic anemia Chronic
--- NOTE | 2023-08-05 02:54 | ECG_ITS ---
Measurements Intervals [place] Rate: 74 P: 57 NV: 221 QRS: -20 QRSD: 89 T: 30 QT: 392 QTc: 436 Interpretive Statements SINUS RHYTHM BORDERLINE AV CONDUCTION DELAY DELAYED PRECORDIAL R/S TRANSITION NONSPECIFIC T-WAVE ABNORMALITY- DIFFUSE LEADS BASELINE ARTIFACT- I, II, V1-V3 BORDERLINE ECG COMPARED TO ECG 07/10/2023 20:35:06 T-WAVE ABNORMALITY NOW PRESENT Electronically Signed On 08-05-2023 6:34:27 PET WALKER by Luis Mina D.O.
[2023-08-05 03:39] LABS: D Dimer 0.65 ug/mL (<0.48)
[2023-08-05 03:40] LABS: Alanine Aminotransferase 11 U/L (6-50); Albumin Level 1.9 g/dL (3.5-5.1); Alkaline Phosphatase 57 U/L (38-126); Anion Gap 1 mmol/L (8-16); Aspartate Amino Transferase 20 U/L (17-59); Bilirubin,Total 0.5 mg/dL (0.2-1.3); Blood Urea Nitrogen 7 mg/dL (9-20); Calcium 7.2 mg/dL (8.4-10.2); Carbon Dioxide 36 mmol/L (22-30); Chloride 98 mmol/L (98-107); Estimated Glomerular Filt Rate 32; Glucose 70 mg/dL (65-110); Magnesium 1.9 mg/dL (1.6-2.3); Phosphorus 2.5 mg/dL (2.5-4.5); Potassium 4.3 mmol/L (3.4-5.0); Sodium 135 mmol/L (137-145)
[2023-08-05 03:48] LABS: NT Pro B Type Natriuretic Pept 24200 pg/mL (19.9-100)
[2023-08-05 05:06] LABS: Basophils Percent Auto 0.5 % (0.2-1.2); Eosinophils Absolute Auto 0.2 K/mm3 (0-0.3); Eosinophils Percent Auto 2.9 % (0-4.4); Immature Granulocyte Absolute 0.02 K/mm3 (0.00-0.031); Immature Granulocyte Percent A 0.3 % (0-0.5); Lymphocytes Absolute Auto 2.55 K/mm3 (0.9-3.2); Lymphocytes Percent Auto 41.6 % (18.3-44.2); Mean Corpuscular HGB Conc 29.3 g/dl (32-36); Mean Corpuscular Hemoglobin 28.4 pg (26-34); Monocytes Absolute Auto 0.4 K/mm3 (0.1-0.6); Monocytes Percent Auto 6.9 % (2.6-8.5); Neutrophils Absolute Auto 2.9 K/mm3 (1.3-6.7); Neutrophils Percent Auto 47.8 % (45.5-73.1); Platelet Count Result 145 k/mm3 (150-375); Red Blood Count 1.69 M/mm3 (4.6-6.20); Red Cell Distribution Width 17.1 % (11.5-14.5); White Blood Count 6.1 K/mm3 (4.5-10.0)
[2023-08-05 05:09] LABS: Hematocrit 16.4 % (42.0-52.0); Hemoglobin 4.8 g/dL (14.0-18.0)
[2023-08-05] MEDS: PANTOPRAZOLE SODIUM IV 40 MG VIAL 80 MG IV PUSH (05:10)
[2023-08-05 05:14] LABS: Anisocytosis 1+ (NORMAL); Hypochromasia 1+ (NORMAL); Ovalocytes 1+ (NORMAL); Poikilocytosis 1+ (NORMAL); Schistocytes None Seen (NORMAL)
[2023-08-05 05:15] LABS: Lipase 20 U/L (23-300)
[2023-08-05 05:17] LABS: INR 1.4; Prothrombin Time 18.2 Seconds (11.1-14.7)
[2023-08-05 05:18] LABS: Partial Thromboplastin Time 35.4 SECONDS (22.3-36.8)
[2023-08-05] MEDS: SODIUM CHLORIDE 0.9% IV 250 ML 30 ML IV CONT (06:26)
[2023-08-05] MEDS: TUBING, BLOOD PLUM PUMP TUBING 1 EACH XX (06:26)
[2023-08-05 07:08] LABS: Influenza A QL RT-PCR Negative (Negative); Influenza B QL RT-PCR Negative (Negative); RSV RNA, RT-PCR Negative (Negative); SARS-CoV-2 RNA PCR Negative (Negative)
--- NOTE | 2023-08-05 07:17 | ADMGEN ---
This patient, Christiano Lehman, was admitted to IMU Room 200-01. Patient/family oriented to hospital policies and general routines including ID bracelet, bed and alarms, visiting hours, pain management, procedures, bathroom and other care routines, personal items, smoking policy, room service/diet, and visiting hours. Information on how to activate the Rapid Response Team has been discussed. Patient/Family are encouraged to report perceived risks to care and to ask questions if they do not understand what they are told or what they should do.
[2023-08-05] MEDS: SODIUM CHLORIDE 0.9% IV 250 ML 30 ML (08:00)
[2023-08-05 09:22] LABS: IFOB Positive Control Positive; Immunochemical Fecal Occult Bl Positive (N)
--- NOTE | 2023-08-05 10:59 | PM.IMHP ---
H&P: HPI History of Present Illness Date/Time: 08/05/23 10:59 Chief Complaint: hypotension Narrative: This is a 63-year-old male with a past medical history of end-stage renal disease on hemodialysis, chronic pancreatitis, peripheral vascular disease, cirrhosis, gout, hyperlipidemia and essential hypertension who presented to the ER on 08/05/2023 due to hypotensive episode as well as upper extremity swelling. Patient states that he has had bilateral swelling in his upper extremities for 2-3 weeks and is unsure why his arms are swollen. Patient did present with a systolic BP in the 90s but upon looking back patient does have a slightly low blood pressure history. Patient was also found to have a hemoglobin of 4.8 upon arrival to the ED. he was recently hospitalized on 07/25/2023 through 07/28/2023 for anemia requiring 3 blood transfusions. EGD and colonoscopy had been recently performed with an EGD showing gastric ulcers and esophagitis. Colonoscopy did not show any acute findings. Patient had been taking sucralfate and Protonix for his gastric ulcers. Patient does have history of cirrhosis and CKD which could be contributing to his anemia but also evidence of acute GI bleed is present. Occult stool was positive. GI was consulted on the case. Patient was started on IV Protonix b.i.d. as well as sucralfate continued. Nephrology also consulted to help manage patient's end-stage renal disease with dialysis on Tuesday. [facility] Past Medical History Medical History Chronic anemia Chronic pain syndrome Chronic pancreatitis Cirrhosis Encephalopathy End stage renal disease on dialysis Esophagitis with gastritis (07/04/23) Gastritis Hyperlipidemia Hypertension Peptic ulcer disease Peptic ulcer with perforation Peripheral vascular disease Surgical History Surgical History History of esophagogastroduodenoscopy (EGD) 07/04/2023: Hiatal hernia, unspecified esophagitis, gastritis History of umbilical hernia repair Presence of surgically created AV shunt for hemodialysis Left upper arm Family History Family History Unknown Family history unknown Social History Social History Social History: Surrogate medical decision maker: Zurdo Lehman (son) or Robert Nails (nephew). Code status: Full code. Smoking status: Never smoker Second hand tobacco smoke exposure: No Alcohol intake: never Substance use: never Substance use type: does not use Do You Feel Safe in your Home?: Yes Lack of Transportation: YES Lack of Food: Sometimes True Current Housing: I Do Not Have Housing Concerned About Future Housing: YES Difficulty Paying Gas/Electric Bills: YES Difficulty Paying for Meds: YES Currently Unemployed: No Education: High School Diploma/GED Difficulty w/ Childcare or Family Care: No Living arrangements: long-term Additional living arrangements comments: [facility] Tru[facility], [address] [place] [address], [place], [place] since 07/14/2023 Additional occupation/education comments: [employer] for 25 years, 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 Spiritual care concerns: No Meds Home Medications and Allergies Home Medications Medication Instructions Recorded Confirmed Type atorvastatin 20 mg tablet 20 mg PO DAILY 07/31/21 08/05/23 History cetirizine 10 mg tablet 10 mg PO DAILY 07/31/21 08/05/23 History loperamide 2 mg capsule 2 mg PO Q6H PRN Diarrhea 07/31/21 08/05/23 History sevelamer HCl 800 mg tablet 800 mg PO TID 07/31/21 08/05/23 History aspirin 81 mg tablet,delayed 81 mg PO DAILY 07/02/23 08/05/23 History release lanolin alcohols-mineral 1 applic topical DAILY #113 grams 07/07/23 08/05/23 Rx oil-w.petrolatum-ceresin topical cream (Minerin Creme
--- NOTE | 2023-08-05 11:40 | PM.CNNEP ---
Assessment and Plan Assessment and plan (1) End stage renal disease: Code(s): N18.6 - End stage renal disease Status: Chronic Assessment and Plan: plan next HD treatment tomorrow continue T/T/S dialysis schedule next week follow electrolytes, volume status, and clearance (2) Anemia: Code(s): D64.9 - Anemia, unspecified Status: Chronic Assessment and Plan: chronically low partly related to ESRD still guaiac positive s/p EGD and colonoscopy on last hospitalization Epogen with HD follow trend of H/H GI consulted as well (3) Hypotension: Qualifiers: Hypotension type: unspecified hypotension type Qualified Code(s): I95.9 - Hypotension, unspecified Code(s): I95.9 - Hypotension, unspecified Status: Acute Assessment and Plan: soemwhat of a chronic issue follow hemodynamics consider trial midodrine(?) follow trend of hemodynamics (4) Anasarca: Code(s): R60.1 - Generalized edema Status: Acute Assessment and Plan: by clinical exam probably partly related to ineffetive fluid removal due to hypotension and low albumin push fluid removal/ultrafiltration with HD as tolerated by hemodynamics I will continue follow the patient with you while he remains hospitalized and make further recommendations as needed. Thank you for allowing me to participate in the care of this patient. History of Present Illness Reason for Consult Consult date: 08/05/23 Reason for consult: end stage renal disease Chief Complaint Chief complaint: GI Bleed History of Present Illness Narrative: The patient is a 63-year-old male with with a significant past medical history as outlined below who presented to [facility] Emergency room with complaints of hypotension and worsening upper extremity swelling. The patient reports that he has noted bilateral upper extremity swelling for last two or three weeks without a clear etiology. Furthermore, he reports his blood pressure is running a bit lower than normal although from review of his records, does tend to run on the lower side when it comes to his systolic BP. Given these concerns /issues, he presented to the ER for further assessment. Workup and evaluation in the emergency room did show the patient to be running in the 90 systolic but he did not appear to be symptomatic from it. He did have notable upper extremity swelling /edema as well but did not seem to be any distress from it. Routine blood test demonstrated labs consistent with his known history of end-stage renal disease but his CBC demonstrated severe /significant anemia with a hemoglobin of 4.8. It should be noted that the patient was recently hospitalized here [facility] earlier this month for issues related to anemia requiring packed red blood cell transfusions as well as a GI workup with an EGD and colonoscopy that demonstrated gastric ulcers and esophagitis. Since that hospitalization, he has been on sulcal fate as well as Protonix and reports compliance with these medications. He was noted be guaiac-positive in the ER and GI was consulted given his anemia. He was started on IV Protonix and he was subsequently admitted to the hospital for further evaluation and therapy. Renal consultation was requested due to his end-stage renal disease. He currently receives dialysis on a Tuesday, , and Tuesday schedule at [facility] under the care of Dr. Efe Preciado. I am not entirely sure when his last dialysis treatment was but presumably it was yesterday prior to his presentation to the ER. His volume status appear stable and he has no critical electrolyte abnormalities so would appear that he does not require urgent renal replacement therapy/dialysis at this time. He is next due for dialysis tomorrow. Currently, the patient does not appear to be in acute distress. Review of Systems Review
[2023-08-05] MEDS: HYDROcodone/acetaminophen (*CRX) 5-325 MG TABLET 1 TAB PO ×2 (13:34→21:37)
--- NOTE | 2023-08-05 15:00 | WPDGICN ---
Assessment and Plan Assessment and plan (1) Acute on chronic blood loss anemia: Code(s): D62 - Acute posthemorrhagic anemia Status: Acute Assessment and Plan: he has recurrent anemia that probably is multifactorial from esrd, cirrhosis, other chronic medical conditions, also had peptic ulcer disease with recent EGD last week without active bleeding though- he will need fci ppi twice daily colonoscopy last month was normal will ask hematology to see patient monitor for signs of bleeding (noted CT scan with possible wall thickening rectosigmoid but I do not favor endoscopic evaluation unless obvious bleeding- just had full colonoscopy) (2) Cirrhosis of liver: Qualifiers: Ascites presence: with ascites Hepatic cirrhosis type: unspecified hepatic cirrhosis Qualified Code(s): K74.60 - Unspecified cirrhosis of liver; R18.8 - Other ascites Code(s): K74.60 - Unspecified cirrhosis of liver Status: Acute (3) ESRD (end stage renal disease) on dialysis: Code(s): N18.6 - End stage renal disease; Z99.2 - Dependence on renal dialysis Status: Acute Assessment and Plan: by nephrology (4) Anasarca: Code(s): R60.1 - Generalized edema Status: Acute Assessment and Plan: by clinical exam and imaging (5) Hypotension: Qualifiers: Hypotension type: unspecified hypotension type Qualified Code(s): I95.9 - Hypotension, unspecified Code(s): I95.9 - Hypotension, unspecified Status: Acute Assessment and Plan: monitor and medical treatment (6) Chronic pancreatitis: Qualifiers: Pancreatitis type: unspecified pancreatitis type Qualified Code(s): K86.1 - Other chronic pancreatitis Code(s): K86.1 - Other chronic pancreatitis Status: Chronic (7) Peptic ulcer disease: Code(s): K27.9 - Peptic ulcer, site unspecified, unspecified as acute or chronic, without hemorrhage or perforation Status: Acute Assessment and Plan: continue 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 Then about 9 days ago with recurrent anemia and melena, EGD showed ulcerative gastritis/duodenitis but no need of endoscopic intervention. Hgb normally 7-9, this time found to have hypotension at the rehabilitation center after he had dialysis, blood work showed hgb 4.8 and admitted, patient had brown stool but also noted blood-streaked mucus in stool, no melena. He is getting blood transfusion. Also found to have diffuse swelling in arms. CT scan reviewed, Anasarca including moderate-sized pleural effusions and small volume of ascites.. Cirrhosis of the liver.. Wall thickening of the rectosigmoid, which may be interstitial edema or colitis. Review of Systems Constitutional: Constitutional: Reports fatigue Eyes: Eyes: Denies blurry vision ENT: Reports Normal hearing present Cardiovascular: Cardiovascular: Reports leg edema Respiratory: Respiratory: Reports cough Gastrointestinal: Gastrointestinal: Denies abdominal pain Genitourinary: Comments: on dialysis Musculoskeletal: Musculoskeletal: Denies neck pain Integumentary/Breasts: Skin/Breast: Denies rash Neurologic: Denies confusion Psychiatric: Psychiatric: Denies behavioral changes [facility] Past Medical History Medical History Chronic anemia Chronic pain syndrome Chronic pancreatitis Cirrh
[2023-08-05 15:07] LABS: MRSA (PCR) NOT DETECTED (NOT DETECTE)
--- NOTE | 2023-08-05 17:07 | PDONCCN ---
HPI - Date of Consult Date/Time: 08/05/23 17:07 Requesting Physician: Mercy Tellez MD Primary Care Provider: Misha Mckay, - Consult Narrative Reason for consult: Profound anemia Narrative: Christiano Lehman is a 63 year old male with history of end-stage renal disease on hemodialysis along with history of liver cirrhosis, peripheral vascular disease and hypertension came into the ER due to hypotensive episode and bilateral upper and lower extremity swelling. He has been complaining of bright red blood in the stool along with some dark stools. He has been complaining of tiredness and fatigue. Labs showed hemoglobin of 4.8. Patient was hospitalized in the hospital on July 25 and received 3 units of blood transfusion. EGD and colonoscopy performed recently showed gastric ulcers and esophagitis. Colonoscopy showed no acute findings. Patient is on PPI for gastric ulcers. Patient is not sure about getting Procrit injection with dialysis. CT scan abdomen chest and pelvis done on August 04 showed anasarca with moderate right-sided pleural effusion and small volume of ascites with liver cirrhosis and thickening of the rectosigmoid area related to colitis. Denies any other complaints. Review of Systems - Review of Systems All systems reviewed & are unremarkable except as noted in HPI and bel - Neurologic Reports hearing normal, Denies behavioral changes, Denies confusion PMFSH Medical History: Medical History (Last Reviewed 08/05/23 @ 11:10 by Zelda Farrell PA-C) Chronic anemia Chronic pain syndrome Chronic pancreatitis Cirrhosis Encephalopathy End stage renal disease on dialysis Esophagitis with gastritis Onset Date: 07/04/23 Gastritis Hyperlipidemia Hypertension Peptic ulcer disease Peptic ulcer with perforation Peripheral vascular disease Surgical History: Surgical History (Last Reviewed 08/05/23 @ 11:10 by Zelda Farrell PA-C) History of esophagogastroduodenoscopy (EGD) 07/04/2023: Hiatal hernia, unspecified esophagitis, gastritis History of umbilical hernia repair Presence of surgically created AV shunt for hemodialysis Left upper arm Family History: Family History (Last Reviewed 08/05/23 @ 11:10 by Zelda Farrell PA-C) Unknown Family history unknown - Social History Social History: Social History (Last Reviewed 08/05/23 @ 11:10 by Zelda Farrell PA-C) Alcohol Use: Alcohol intake: former Substance Use: Substance use: never Substance use type: does not use Others: Spiritual care concerns: No Living Arrangements: Living arrangements: custodial Smoking Status: Smoking status: Never smoker Second hand tobacco smoke exposure: No Social Determinants of Health: Do You Feel Safe in your Home?: Yes Has the Lack of Transportation Kept You From Medical Appointments or From Getting Medications?: Yes Within the Past 12 Months, Were You Worried Whether Your Food Would Run Out Before You Got Money to Buy More?: Often True What is Your Housing Situation Today?: I Have Housing Are You Worried That in the Next 2 Months, You May Not Have Your Own Housing to Live In?: No Do You Have Trouble Paying Your Heating Or Electricity Bill?: Yes Do You Have Trouble Paying For Medicines?: Yes Are You Currently Unemployed and Looking for Work?: No Highest Level of Education Completed: High School Diploma/GED Do You Have Trouble With Childcare or the Care of a Family Member?: No Exam - Vital Signs Vital Signs - 24 hr 08/04/23 19:08 08/04/23 21:20 08/04/23 22:51 Temperature 36.6 C Pulse Rate 79 78 Respiratory Rate 16 18 Blood Pressure 90/55 L 94/59 L 105/62 Pulse Oximetry 94 96 Oxygen Delivery Room Air 08/05/23 04:59 08/05/23 03:30 08/05/23 02:45 Temperature Pulse Rate 76 71 79 Respiratory Rate 15 15 15 Blood Pressure 99/53 L 99/61 L 91/53 L Pulse Oximetry 96 Oxygen
[2023-08-05] MEDS: FUROSEMIDE 40 MG TABLET 80 MG PO (17:19)
[2023-08-05] MEDS: SUCRALFATE SUSP 100 MG/ML 10 ML UDC 1000 MG PO ×2 (17:19→21:34)
[2023-08-05] MEDS: SEVELAMER CARBONATE 800 MG TABLET PO (17:19)
[2023-08-05] MEDS: LIPASE/AMYLASE/PROTEASE 12,000 UNITS CAP 2 CAP PO (17:45)
[2023-08-05] MEDS: EPOETIN ALFA-EPBX 20,000 UNITS/ML VIAL 20000 UNITS SUB-Q (19:15)
[2023-08-05] MEDS: MORPHINE SULFATE (*CRX) 2 MG/ML INJ IV PUSH ×2 (19:17→23:37)
[2023-08-05 19:18] LABS: Hematocrit 27.9 % (42.0-52.0); Hemoglobin 8.5 g/dL (14.0-18.0)
--- NOTE | 2023-08-05 20:30 | PM.EVENT ---
Event Note Event Note Event Note: Cross Coverage: 20:30 - BP remains soft despite 3 units. Initial hgb 4.8, Calcium 7.2, and albumin 1.9. Baseline hgb 7-9. Per bedside RN - 2 large volume BMs today black with bright red clots. Started on 80 IVP of Protonix and now 40 Q12H. H/H pending. Adding CMP, will likely need calcium repleted. Albumin 25G Q6H x4 ordered. Has developed diffuse crackles throughout the day. Consider repeat CXR if worsens. Consider octreotide gtt if H/H not improving. Repeat H&H 7.9 and 26.
[2023-08-05] MEDS: metroNIDAZOLE 250 MG TABLET PO (21:33)
[2023-08-05] MEDS: PANTOPRAZOLE SODIUM IV 40 MG VIAL IV PUSH (21:34)
[2023-08-05 21:58] LABS: Hemoglobin 7.9 g/dL (14.0-18.0); Immature Platelet Fraction Pct 6.8 % (0.9-11.2); Mean Corpuscular HGB Conc 30.4 g/dl (32-36); Mean Corpuscular Hemoglobin 27.7 pg (26-34); Mean Corpuscular Volume 91.2 fl (80-100); Mean Platelet Volume 11.2 fl (7.4-10.4); Platelet Count Result 85 k/mm3 (150-375); Red Blood Count 2.85 M/mm3 (4.6-6.20); Red Cell Distribution Width 16.4 % (11.5-14.5); White Blood Count 6.4 K/mm3 (4.5-10.0)
[2023-08-05 22:07] LABS: Anion Gap 1 mmol/L (8-16); Blood Urea Nitrogen 9 mg/dL (9-20); Calcium 7.3 mg/dL (8.4-10.2); Carbon Dioxide 35 mmol/L (22-30); Chloride 99 mmol/L (98-107); Estimated CRCL calculation 24 ml/min; Estimated Glomerular Filt Rate 26; Glucose 102 mg/dL (65-110); Potassium 4.6 mmol/L (3.4-5.0); Sodium 135 mmol/L (137-145)
[2023-08-05] MEDS: ALBUMIN HUMAN 25% 25 GM/100 ML 100 ML IVPB (23:37)
[2023-08-06] VITALS (33 sets, daily range): BP systolic 83–137; BP diastolic 32–82; PULSE 60–112; RESP 12–18; TEMP 36.1–37; O2SAT 92–100
[2023-08-06] MEDS: HYDROcodone/acetaminophen (*CRX) 5-325 MG TABLET 1 TAB PO ×3 (03:40→16:56)
[2023-08-06] MEDS: LOPERAMIDE HCL 2 MG CAPSULE PO ×3 (03:41→16:56)
[2023-08-06 04:57] LABS: Hematocrit 23.6 % (42.0-52.0); Hemoglobin 7.3 g/dL (14.0-18.0); Immature Platelet Fraction Pct 4.9 % (0.9-11.2); Mean Corpuscular HGB Conc 30.9 g/dl (32-36); Mean Corpuscular Hemoglobin 28.2 pg (26-34); Mean Corpuscular Volume 91.1 fl (80-100); Mean Platelet Volume 11.7 fl (7.4-10.4); Platelet Count Result 89 k/mm3 (150-375); Red Blood Count 2.59 M/mm3 (4.6-6.20); Red Cell Distribution Width 16.5 % (11.5-14.5)
[2023-08-06 05:14] LABS: Immature Reticulocyte Fraction 14.4 % (3.0-15.9); Reticulocyte Hemoglobin Conten 27.7 pg (28.2-35.7); Reticulocyte Percent 3.73 % (0.7-4.3)
[2023-08-06 05:23] LABS: Anion Gap 0 mmol/L (8-16); Blood Urea Nitrogen 11 mg/dL (9-20); Calcium 7.7 mg/dL (8.4-10.2); Carbon Dioxide 38 mmol/L (22-30); Chloride 96 mmol/L (98-107); Estimated CRCL calculation 23 ml/min; Estimated Glomerular Filt Rate 25; Glucose 72 mg/dL (65-110); Magnesium 1.8 mg/dL (1.6-2.3); Potassium 4.8 mmol/L (3.4-5.0); Sodium 134 mmol/L (137-145)
[2023-08-06 05:33] LABS: Lactate Dehydrogenase 210 U/L (120-246)
[2023-08-06] MEDS: SUCRALFATE SUSP 100 MG/ML 10 ML UDC 1000 MG PO ×2 (05:57→20:53)
[2023-08-06] MEDS: MORPHINE SULFATE (*CRX) 2 MG/ML INJ IV PUSH ×2 (05:58→18:14)
[2023-08-06] MEDS: ALBUMIN HUMAN 25% 25 GM/100 ML 100 ML IVPB ×2 (05:58→17:00)
[2023-08-06 06:34] LABS: Folic Acid 8.1 ng/mL (2.76->20)
[2023-08-06] MEDS: LORATADINE 10 MG TABLET PO (08:18)
[2023-08-06] MEDS: LIPASE/AMYLASE/PROTEASE 12,000 UNITS CAP 2 CAP PO ×2 (08:18→16:43)
[2023-08-06] MEDS: metroNIDAZOLE 250 MG TABLET PO ×2 (08:18→20:53)
[2023-08-06] MEDS: SEVELAMER CARBONATE 800 MG TABLET PO ×2 (08:18→16:43)
[2023-08-06] MEDS: PANTOPRAZOLE SODIUM IV 40 MG VIAL IV PUSH ×2 (08:19→20:53)
[2023-08-06] MEDS: FERROUS SULFATE DRIED 142 MG TABCR PO ×2 (08:24→16:43)
--- NOTE | 2023-08-06 09:00 | WPDGIPROGNO ---
Progress Note: A&P Assessment and Plan (1) Acute GI bleeding: Code(s): K92.2 - Gastrointestinal hemorrhage, unspecified Status: Acute Assessment and Plan: recent egd showed non bleeding small ulcers in duodenum and gastric, colonoscopy was normal given rectal bleeding will get GI bleeding scan and SBFT ? etiology SB, of course he also has other reasons for chronic anemia- hematology on board await on results, consider EGD with push enteroscopy +/- sigmoidoscopy or even capsule endoscopy monitor clinical course (2) ESRD (end stage renal disease) on dialysis: Code(s): N18.6 - End stage renal disease; Z99.2 - Dependence on renal dialysis Status: Acute Assessment and Plan: on dialysis (3) Acute on chronic anemia: Code(s): D64.9 - Anemia, unspecified Status: Acute Assessment and Plan: s/p blood transfusion (4) Anasarca: Code(s): R60.1 - Generalized edema Status: Acute (5) Hypotension: Qualifiers: Hypotension type: unspecified hypotension type Qualified Code(s): I95.9 - Hypotension, unspecified Code(s): I95.9 - Hypotension, unspecified Status: Acute (6) Cirrhosis of liver: Qualifiers: Ascites presence: with ascites Hepatic cirrhosis type: unspecified hepatic cirrhosis Qualified Code(s): K74.60 - Unspecified cirrhosis of liver; R18.8 - Other ascites Code(s): K74.60 - Unspecified cirrhosis of liver Status: Acute (7) Peptic ulcer disease: Code(s): K27.9 - Peptic ulcer, site unspecified, unspecified as acute or chronic, without hemorrhage or perforation Status: Acute Subjective Date/time seen: 08/06/23 09:00 Interval history: had 2 more episodes of brbpr with some darkness, currently stable and he is on dialysis Review of Systems Review of Systems: All systems reviewed & are unremarkable except as noted in HPI and below Exam Const: General: no acute distress Other: chronically ill HENMT: Face/Nose/Sinus: Normal nares present Eyes: General: appearance normal, both eyes and all related structures Neck: Neck: supple Resp: Auscultation: clear to auscultation bilaterally Cardio: Rate: regular rate GI: GI Palp: Yes Soft to palpation and No Guarding due to palpation present (GI) Auscultation: normal bowel sounds Neuro: Speech: normal speech Motor exam (neuro): 5/5 motor strength present throughout Extrem: General: edema (arms and legs) Psych: Mental Status: mental status grossly normal Objective Data Vital Signs Vital Signs: Vital Signs - 24 hr 08/05/23 10:59 08/05/23 11:29 08/05/23 11:45 Temperature 97.9 F 97.9 F 98.1 F Pulse Rate 77 83 84 Respiratory Rate 20 20 16 Blood Pressure 103/63 103/63 93/64 L Pulse Oximetry 92 92 93 08/05/23 12:45 08/05/23 12:00 08/05/23 13:45 Temperature 97.6 F 97.5 F L 97.9 F Pulse Rate 75 86 89 Respiratory Rate 24 H 20 20 Blood Pressure 148/57 H 121/81 144/80 H Pulse Oximetry 95 94 99 08/05/23 14:30 08/05/23 14:30 08/05/23 14:30 Temperature 97.3 F L 98.1 F 98.1 F Pulse Rate 74 76 78 Respiratory Rate 16 20 20 Blood Pressure 99/60 L 99/60 L 99/60 L Pulse Oximetry 100 99 99 08/05/23 15:08 08/05/23 16:00 08/05/23 16:00 Temperature 98.1 F 98.0 F 98 F Pulse Rate 74 82 85 Respiratory Rate 16 20 20 Blood Pressure 99/60 L 124/72 124/72 Pulse Oximetry 100 100 100 08/05/23 17:57 08/05/23 10:00 08/05/23 12:00 Temperature 98.0 F Pulse Rate 87 93 88 Respiratory Rate 18 Blood Pressure 101/59 L Pulse Oximetry 93 08/05/23 14:00 08/05/23 16:00 08/05/23 18:00 Temperature Pulse Rate 91 71 84 Respiratory Rate Blood Pressure Pulse Oximetry 08/05/23 20:00 08/05/23 23:46 08/05/23 20:00 Temperature 97.1 F L 97 F L Pulse Rate 75 69 72 Respiratory Rate 16 16 Blood Pressure 99/59 L 94/75 L Pulse Oximetry 100 99 08/05/23 22:00 08/06/23 00:00 08/06/23 04:00 Temperature Pulse R
[2023-08-06] MEDS: SODIUM CHLORIDE 0.9% IV 250 ML 30 ML IV CONT ×2 (10:15→17:00)
[2023-08-06] MEDS: TUBING, BLOOD PLUM PUMP TUBING 1 EACH XX ×2 (10:16→17:00)
[2023-08-06] MEDS: SODIUM CHLORIDE 0.9% IV 1,000 ML 30 ML (10:16)
[2023-08-06 10:43] LABS: Iron 55 ug/dL (49-181)
[2023-08-06 10:53] LABS: Percent Iron Saturation 74 % (20-50)
[2023-08-06 11:15] LABS: Hepatitis B Surface Antigen Negative (Negative)
[2023-08-06 11:33] LABS: Hepatitis B Surface Anti Res Negative
[2023-08-06 11:44] LABS: Hematocrit 21.8 % (42.0-52.0)
[2023-08-06] MEDS: EPOETIN ALFA 20,000 UNITS/ML VIAL 20000 UNITS IV PUSH (11:52)
[2023-08-06 11:55] LABS: Hemoglobin 6.6 g/dL (14.0-18.0)
--- NOTE | 2023-08-06 12:10 | PM.PNNEP ---
Progress Note: A&P Assessment and Plan (1) End stage renal disease: Code(s): N18.6 - End stage renal disease Status: Chronic Assessment and Plan: HD today continue T/T/S dialysis schedule next week follow electrolytes, volume status, and clearance (2) Acute GI bleeding: Code(s): K92.2 - Gastrointestinal hemorrhage, unspecified Status: Acute Assessment and Plan: recent EGD with non bleeding small ulcers in duodenum and gastrtis recent colonoscopy was normal GI recommendations noted tagged RBC scan ordered possible SBFT considering repeat EGD with push enteroscopy +/- sigmoidoscopy or even capsule endoscopy PRBC transfusion per protocol (3) Anemia: Code(s): D64.9 - Anemia, unspecified Status: Chronic Assessment and Plan: see #2 chronically low partly related to ESRD still guaiac positive s/p EGD and colonoscopy on last hospitalization Epogen with HD follow trend of H/H GI consulted as well (4) Hypotension: Qualifiers: Hypotension type: unspecified hypotension type Qualified Code(s): I95.9 - Hypotension, unspecified Code(s): I95.9 - Hypotension, unspecified Status: Acute Assessment and Plan: soemwhat of a chronic issue follow hemodynamics consider trial midodrine(?) follow trend of hemodynamics (5) Anasarca: Code(s): R60.1 - Generalized edema Status: Acute Assessment and Plan: by clinical exam probably partly related to ineffetive fluid removal due to hypotension and low albumin push fluid removal/ultrafiltration with HD as tolerated by hemodynamics Will continue to follow Subjective Date/time seen: 08/06/23 12:10 Interval history: Follow-up for end stage renal disease on hemodialysis. Tolerating dialysis treatment at the time of my visit (seen on HD at 12:00PM); fluid removal with dialysis somewhat limited by soft BP/hemodynamics; s/p 3 units of PRBCs since admission with intial improvement in H/H but repeat H/H down again as noted by labs with dialysis -- planning further PRBC transfusion today Exam Narrative: General: somewhat chronic ill-appearing male in NAD Heart: normal S1 and S2; no rub Lungs: clear to auscultation Abdomen: soft, nontender, nondistended, positive bowel sounds Extremities: no cyanosis or clubbing; upper extremity edema noted Skin: warm and dry Objective Data Vital Signs Vital Signs: Vital Signs Temp Pulse Resp BP Pulse Ox 08/06/23 12:00 87 91/56 L 08/06/23 11:20 74 86/45 L 08/06/23 11:00 86 83/32 L 08/06/23 13:09 97.5 F L 106 H 16 112/67 08/06/23 11:40 81 104/46 L 08/06/23 10:40 87 102/34 L 08/06/23 11:08 97.5 F L 103 H 16 104/47 L 08/06/23 10:20 111 H 92/41 L 08/06/23 10:20 97.5 F L 111 H 16 92/41 L 08/06/23 10:00 107 H 90/47 L 08/06/23 09:40 107 H 102/64 08/06/23 10:05 97.5 F L 107 H 18 90/47 L 99 08/06/23 09:30 98 107/65 08/06/23 09:11 97.5 F L 103 H 18 100/63 08/06/23 07:41 98.2 F 90 17 112/72 95 08/06/23 04:00 97.3 F L 78 16 107/66 97 08/06/23 04:00 97 08/06/23 00:00 78 08/05/23 22:00 80 08/05/23 20:00 72 08/05/23 23:46 97 F L 69 16 94/75 L 99 08/05/23 20:00 97.1 F L 75 16 99/59 L 100 08/05/23 18:00 84 08/05/23 17:57 98.0 F 87 18 101/59 L 93 Intake/Output Intake/Output: Intake & Output 08/03/23 08/04/23 08/05/23 08/06/23 23:59 23:59 23:59 23:59 Intake Total 1150 1534 Output Total 2000 Balance 1150 -466 Meds/Results Medications: Active Medications Generic Name Dose Route Start Last Admin Trade Name Freq PRN Reason Stop Dose Admin Acetaminophen 650 mg 08/05/23 08:47 Acetaminophen 325 Mg Tablet PO Q6H PRN Mild Pain (1-3) or Fever Hydrocodone Bitart/Acetaminophen 1 tab 08/05/23 12:04 08/06/23 16:56 [place]
--- NOTE | 2023-08-06 12:10 | P.PNNP_ITS ---
Progress Note: A&P Assessment and Plan (1) End stage renal disease: Code(s): N18.6 - End stage renal disease Status: Chronic Assessment and Plan: * HD today * continue T/T/S dialysis schedule next week * follow electrolytes, volume status, and clearance (2) Acute GI bleeding: Code(s): K92.2 - Gastrointestinal hemorrhage, unspecified Status: Acute Assessment and Plan: * recent EGD with non bleeding small ulcers in duodenum and gastrtis * recent colonoscopy was normal * GI recommendations noted * tagged RBC scan ordered * possible SBFT * considering repeat EGD with push enteroscopy +/- sigmoidoscopy or even capsule endoscopy * PRBC transfusion per protocol (3) Anemia: Code(s): D64.9 - Anemia, unspecified Status: Chronic Assessment and Plan: * see #2 * chronically low * partly related to ESRD * still guaiac positive * s/p EGD and colonoscopy on last hospitalization * Epogen with HD * follow trend of H/H * GI consulted as well (4) Hypotension: Qualifiers: Hypotension type: unspecified hypotension type Qualified Code(s): I95.9 - Hypotension, unspecified Code(s): I95.9 - Hypotension, unspecified Status: Acute Assessment and Plan: * soemwhat of a chronic issue * follow hemodynamics * consider trial midodrine(?) * follow trend of hemodynamics (5) Anasarca: Code(s): R60.1 - Generalized edema Status: Acute Assessment and Plan: * by clinical exam * probably partly related to ineffetive fluid removal due to hypotension and low albumin * push fluid removal/ultrafiltration with HD as tolerated by hemodynamics Will continue to follow Subjective Date/time seen: 08/06/23 12:10 Interval history: Follow-up for end stage renal disease on hemodialysis. Tolerating dialysis treatment at the time of my visit (seen on HD at 12:00PM); fluid removal with dialysis somewhat limited by soft BP/hemodynamics; s/p 3 units of PRBCs since admission with intial improvement in H/H but repeat H/H down again as noted by labs with dialysis -- planning further PRBC transfusion today Exam Narrative: General: somewhat chronic ill-appearing male in NAD Heart: normal S1 and S2; no rub Lungs: clear to auscultation Abdomen: soft, nontender, nondistended, positive bowel sounds Extremities: no cyanosis or clubbing; upper extremity edema noted Skin: warm and dry Objective Data Vital Signs Vital Signs: Vital Signs Temp Pulse Resp BP Pulse Ox 08/06/23 12:00 87 91/56 L 08/06/23 11:20 74 86/45 L 08/06/23 11:00 86 83/32 L 08/06/23 13:09 97.5 F L 106 H 16 112/67 08/06/23 11:40 81 104/46 L 08/06/23 10:40 87 102/34 L 08/06/23 11:08 97.5 F L 103 H 16 104/47 L 08/06/23 10:20 111 H 92/41 L 08/06/23 10:20 97.5 F L 111 H 16 92/41 L 08/06/23 10:00 107 H 90/47 L 08/06/23 09:40 107 H 102/64 08/06/23 10:05 97.5 F L 107 H 18 90/47 L 99 08/06/23 09:30 98 107/65 08/06/23 09:11 97.5 F L 103 H 18 100/63 08/06/23 07:41 98.2 F 90 17 112/72 95 08/06/23 04:00 97.3 F L 78 16 107/66 97 08/06/23 04:00 97 08/06/23 00:00 78 08/05/23 22:00 8
--- NOTE | 2023-08-06 14:34 | PM.IMPN ---
Progress Note: A&P Assessment and Plan (1) Acute GI bleeding: Code(s): K92.2 - Gastrointestinal hemorrhage, unspecified Status: Acute Assessment and Plan: Patient having dark stools and bright red blood in his stools. Patient found to have a hemoglobin of 4.8. GI consulted. Patient received 3 units of PRBCs with repeat hemoglobin of 8.5. H&H q.6 hours 08/06 serial hemoglobin showing 6.6. 2 units of PRBCs ordered. GI does not believe patient needs a EGD or colonoscopy at this time GI recommending a GI bleeding scan and small-bowel follow-through. (2) Anemia: Qualifiers: Anemia type: unspecified type Qualified Code(s): D64.9 - Anemia, unspecified Code(s): D64.9 - Anemia, unspecified Status: Acute Assessment and Plan: Patient with history of anemia and has had multiple transfusions in the past. 08/05 Patient got 3 units of PRBCs. 08/06 Patient got 2 units PRBCs Continue to monitor serial H&Hs Hematology consulted. Anemia likely from an acute bleed as well as chronic kidney disease and cirrhosis (3) Anasarca: Code(s): R60.1 - Generalized edema Status: Acute Assessment and Plan: Likely due to CKD and cirrhosis. Bilateral upper extremity edema pronounced. Will get venous Dopplers. Patient found to have a albumin of 1.9. Albumin ordered. Continue to monitor (4) Hypotension: Qualifiers: Hypotension type: unspecified hypotension type Qualified Code(s): I95.9 - Hypotension, unspecified Code(s): I95.9 - Hypotension, unspecified Status: Acute Assessment and Plan: Likely due to multiple things including anemia, dialysis, etc. Albumin ordered in hopes to help with hypotension. Continue to monitor (5) ESRD (end stage renal disease) on dialysis: Code(s): N18.6 - End stage renal disease; Z99.2 - Dependence on renal dialysis Status: Acute Assessment and Plan: Nephrology consulted for dialysis. Dialysis schedule on Tuesday. Subjective Date/time seen: 08/06/23 14:34 Interval history: Patient states that he is somewhat lightheaded and dizzy today. He is planned to have a small-bowel follow-through and GI bleeding scan at some point. Continue to monitor his H&H. He denies shortness of breath and chest pain. He continues to have blood in his stools. States that he has had a dark bowel movement with bright red clots in it. GI following the case. Exam Narrative: GENERAL: Comfortable, no acute distress HENMT: moist mucous membranes EYES: EOM intact b/l NECK: no lymphadenopathy RESPIRATORY: clear to auscultation CARDIO: RRR GI: soft, nontender, bowel sounds present SKIN/EXTREMITIES: Bilateral upper extremity edema +2, right lower extremity edema +2, right lower extremity posterior upper ankle wound that is chronic. Objective Data Vital Signs Vital Signs: Vital Signs - 24 hr 08/05/23 15:08 08/05/23 16:00 08/05/23 16:00 Temperature 98.1 F 98.0 F 98 F Pulse Rate 74 82 85 Respiratory Rate 16 20 20 Blood Pressure 99/60 L 124/72 124/72 Pulse Oximetry 100 100 100 08/05/23 17:57 08/05/23 16:00 08/05/23 18:00 Temperature 98.0 F Pulse Rate 87 71 84 Respiratory Rate 18 Blood Pressure 101/59 L Pulse Oximetry 93 08/05/23 20:00 08/05/23 23:46 08/05/23 20:00 Temperature 97.1 F L 97 F L Pulse Rate 75 69 72 Respiratory Rate 16 16 Blood Pressure 99/59 L 94/75 L Pulse Oximetry 100 99 08/05/23 22:00 08/06/23 00:00 08/06/23 04:00 Temperature Pulse Rate 80 78 97 Respiratory Rate Blood Pressure Pulse Oximetry 08/06/23 04:00 08/06/23 07:41 08/06/23 09:11 Temperature 97.3 F L 98.2 F 97.5 F L Pulse Rate 78 90 103 H Respiratory Rate 16 17 18 Blood Pressure 107/66 112/72 100/63 Pulse Oximetry 97 95 08/06/23 09:30 08/06/23 10:05 08/06/23 09:40 Temperature 97.5 F L Pulse Rate 9
[2023-08-06] MEDS: FUROSEMIDE 40 MG TABLET 80 MG PO (16:42)
[2023-08-06] MEDS: EUCERIN CREAM 120 GM JAR 1 APPLIC TOPICAL (16:44)
[2023-08-06] MEDS: SILVER SULFADIAZINE 1% CR 50 GM JAR (*BKC) 1 APPLIC TOPICAL (16:44)
[2023-08-06] MEDS: ATORVASTATIN 20 MG TABLET PO (16:44)
[2023-08-06 20:58] LABS: Hematocrit 28.2 % (42.0-52.0); Hemoglobin 8.8 g/dL (14.0-18.0)
[2023-08-07] VITALS (13 sets, daily range): BP systolic 115–126; BP diastolic 72–102; PULSE 73–93; RESP 16–19; TEMP 36.3–36.6; O2SAT 99–100
[2023-08-07] MEDS: ALBUMIN HUMAN 25% 25 GM/100 ML 100 ML IVPB (00:20)
[2023-08-07] MEDS: SUCRALFATE SUSP 100 MG/ML 10 ML UDC 1000 MG PO ×3 (05:57→20:56)
[2023-08-07] MEDS: MORPHINE SULFATE (*CRX) 2 MG/ML INJ IV PUSH ×3 (05:58→18:20)
[2023-08-07 06:10] LABS: Hematocrit 26.6 % (42.0-52.0); Hemoglobin 8.2 g/dL (14.0-18.0); Immature Platelet Fraction Pct 4.6 % (0.9-11.2); Mean Corpuscular HGB Conc 30.8 g/dl (32-36); Mean Corpuscular Hemoglobin 28.3 pg (26-34); Mean Corpuscular Volume 91.7 fl (80-100); Mean Platelet Volume 11.4 fl (7.4-10.4); Platelet Count Result 63 k/mm3 (150-375); Red Cell Distribution Width 16.1 % (11.5-14.5); White Blood Count 3.3 K/mm3 (4.5-10.0)
[2023-08-07 06:40] LABS: Alanine Aminotransferase 10 U/L (6-50); Albumin Level 2.6 g/dL (3.5-5.1); Alkaline Phosphatase 49 U/L (38-126); Anion Gap 5 mmol/L (8-16); Aspartate Amino Transferase 15 U/L (17-59); Bilirubin,Total 0.6 mg/dL (0.2-1.3); Blood Urea Nitrogen 8 mg/dL (9-20); Calcium 8.3 mg/dL (8.4-10.2); Carbon Dioxide 32 mmol/L (22-30); Chloride 103 mmol/L (98-107); Estimated CRCL calculation 27 ml/min; Estimated Glomerular Filt Rate 29; Glucose 81 mg/dL (65-110); Potassium 3.7 mmol/L (3.4-5.0); Sodium 140 mmol/L (137-145)
--- NOTE | 2023-08-07 09:30 | PC.NURSE ---
Patient off floor to Xray.
--- NOTE | 2023-08-07 10:32 | PCPTNOTE ---
1032: Pt out of room. Will return later to attempt evaluation
--- NOTE | 2023-08-07 10:40 | PC.NURSE ---
Patient c/o generalized pain.
[2023-08-07] MEDS: ALBUTEROL SULFATE (*SP) AEROSOL 1 PUFF 2 PUFF INHALATION (10:50)
--- NOTE | 2023-08-07 13:39 | P.PNIM_ITS ---
Progress Note: A&P Assessment and Plan (1) Acute GI bleeding: Code(s): K92.2 - Gastrointestinal hemorrhage, unspecified Status: Acute Assessment and Plan: Patient having dark stools and bright red blood in his stools. Patient found to have a hemoglobin of 4.8. * GI consulted. * Patient received 3 units of PRBCs with repeat hemoglobin of 8.5. * H&H q.6 hours. * 08/06 serial hemoglobin showing 6.6. 2 units of PRBCs ordered. * GI does not believe patient needs a EGD or colonoscopy at this time. * GI recommending a GI bleeding scan and small-bowel follow-through. * GI bleeding scan did not show any evidence of a bleed. * Small-bowel follow-through pending. (2) Anemia: Qualifiers: Anemia type: unspecified type Qualified Code(s): D64.9 - Anemia, unspecified Code(s): D64.9 - Anemia, unspecified Status: Acute Assessment and Plan: Patient with history of anemia and has had multiple transfusions in the past. * 08/05 Patient got 3 units of PRBCs. * 08/06 Patient got 2 units PRBCs. * Continue to monitor serial H&Hs * Hematology consulted. * Anemia likely from an acute bleed as well as chronic kidney disease and cirrhosis. (3) Anasarca: Code(s): R60.1 - Generalized edema Status: Acute Assessment and Plan: Likely due to CKD and cirrhosis. * Bilateral upper extremity edema pronounced. Will get venous Dopplers. * Patient found to have a albumin of 1.9. Albumin ordered. * Continue to monitor. (4) Hypotension: Qualifiers: Hypotension type: unspecified hypotension type Qualified Code(s): I95.9 - Hypotension, unspecified Code(s): I95.9 - Hypotension, unspecified Status: Acute Assessment and Plan: * Likely due to multiple things including anemia, dialysis, etc. * Albumin ordered in hopes to help with hypotension. * Continue to monitor (5) ESRD (end stage renal disease) on dialysis: Code(s): N18.6 - End stage renal disease; Z99.2 - Dependence on renal dialysis Status: Acute Assessment and Plan: Nephrology consulted for dialysis. Dialysis schedule on Tuesday. Subjective Date/time seen: 01/21/24 13:39 Interval history: Patient's bilateral extremity edema is improving. He states he continues to have dark/ maroon / bright red stools. Patient is getting small-bowel follow- through today. Continue to monitor H&H. He denies any abdominal pain. Exam Narrative: GENERAL: Comfortable, no acute distress HENMT: moist mucous membranes EYES: EOM intact b/l NECK: no lymphadenopathy RESPIRATORY: clear to auscultation CARDIO: RRR GI: soft, nontender, bowel sounds present SKIN/EXTREMITIES: Bilateral upper extremity edema +2, right lower extremity edema +2, right lower extremity posterior upper ankle wound that is chronic. Objective Data Vital Signs Vital Signs: Vital Signs - 24 hr 08/06/23 15:39 08/06/23 16:00 08/06/23 17:09 Temperature 97.9 F 97.5 F L Pulse Rate 103 H 112 H 73 Respiratory Rate 16 12 Blood Pressure 137/82 104/62 Pulse Oximetry 96 92 Oxygen Delivery 08/06/23 17:30 08/06/23 18:00 08/06/23 19:49 Temperature 97.7 F 97 F L Pulse Rate 88 84 84 Respiratory Rate 14 16 Blood Pressure 101/62 117/63
--- NOTE | 2023-08-07 13:39 | PM.IMPN ---
Progress Note: A&P Assessment and Plan (1) Acute GI bleeding: Code(s): K92.2 - Gastrointestinal hemorrhage, unspecified Status: Acute Assessment and Plan: Patient having dark stools and bright red blood in his stools. Patient found to have a hemoglobin of 4.8. GI consulted. Patient received 3 units of PRBCs with repeat hemoglobin of 8.5. H&H q.6 hours. 08/06 serial hemoglobin showing 6.6. 2 units of PRBCs ordered. GI does not believe patient needs a EGD or colonoscopy at this time. GI recommending a GI bleeding scan and small-bowel follow-through. GI bleeding scan did not show any evidence of a bleed. Small-bowel follow-through pending. (2) Anemia: Qualifiers: Anemia type: unspecified type Qualified Code(s): D64.9 - Anemia, unspecified Code(s): D64.9 - Anemia, unspecified Status: Acute Assessment and Plan: Patient with history of anemia and has had multiple transfusions in the past. 08/05 Patient got 3 units of PRBCs. 08/06 Patient got 2 units PRBCs. Continue to monitor serial H&Hs Hematology consulted. Anemia likely from an acute bleed as well as chronic kidney disease and cirrhosis. (3) Anasarca: Code(s): R60.1 - Generalized edema Status: Acute Assessment and Plan: Likely due to CKD and cirrhosis. Bilateral upper extremity edema pronounced. Will get venous Dopplers. Patient found to have a albumin of 1.9. Albumin ordered. Continue to monitor. (4) Hypotension: Qualifiers: Hypotension type: unspecified hypotension type Qualified Code(s): I95.9 - Hypotension, unspecified Code(s): I95.9 - Hypotension, unspecified Status: Acute Assessment and Plan: Likely due to multiple things including anemia, dialysis, etc. Albumin ordered in hopes to help with hypotension. Continue to monitor (5) ESRD (end stage renal disease) on dialysis: Code(s): N18.6 - End stage renal disease; Z99.2 - Dependence on renal dialysis Status: Acute Assessment and Plan: Nephrology consulted for dialysis. Dialysis schedule on Tuesday. Subjective Date/time seen: 08/07/23 13:39 Interval history: Patient's bilateral extremity edema is improving. He states he continues to have dark/ maroon / bright red stools. Patient is getting small-bowel follow-through today. Continue to monitor H&H. He denies any abdominal pain. Exam Narrative: GENERAL: Comfortable, no acute distress HENMT: moist mucous membranes EYES: EOM intact b/l NECK: no lymphadenopathy RESPIRATORY: clear to auscultation CARDIO: RRR GI: soft, nontender, bowel sounds present SKIN/EXTREMITIES: Bilateral upper extremity edema +2, right lower extremity edema +2, right lower extremity posterior upper ankle wound that is chronic. Objective Data Vital Signs Vital Signs: Vital Signs - 24 hr 08/06/23 15:39 08/06/23 16:00 08/06/23 17:09 Temperature 97.9 F 97.5 F L Pulse Rate 103 H 112 H 73 Respiratory Rate 16 12 Blood Pressure 137/82 104/62 Pulse Oximetry 96 92 Oxygen Delivery 08/06/23 17:30 08/06/23 18:00 08/06/23 19:49 Temperature 97.7 F 97 F L Pulse Rate 88 84 84 Respiratory Rate 14 16 Blood Pressure 101/62 117/63 Pulse Oximetry 100 100 Oxygen Delivery 08/06/23 18:30 08/06/23 19:30 08/06/23 23:36 Temperature 97.7 F 97.0 F L 97.6 F Pulse Rate 83 83 79 Respiratory Rate 14 16 18 Blood Pressure 116/64 117/63 115/74 Pulse Oximetry 99 100 100 Oxygen Delivery 08/06/23 20:00 08/06/23 20:00 08/06/23 22:00 Temperature Pulse Rate 82 83 Respiratory Rate Blood Pressure Pulse Oximetry 100 Oxygen Delivery Room Air 08/07/23 00:00 08/07/23 00:00 08/07/23 02:00 Temperature Pulse Rate 77 76 Respiratory Rate Blood Pressure Pulse Oximetry 100 Oxygen Delivery Room Air 08/07/23 04:00 08/07/23 04:00 08/07/23
--- NOTE | 2023-08-07 14:23 | WPDGIPROGNO ---
Progress Note: A&P Assessment and Plan (1) Acute GI bleeding: Code(s): K92.2 - Gastrointestinal hemorrhage, unspecified Status: Acute Assessment and Plan: recent egd showed non bleeding small ulcers in duodenum and gastric, colonoscopy was normal GI bleeding scan negative and SBFT pending ? etiology SB, of course he also has other reasons for chronic anemia- hematology on board will do EGD with push enteroscopy (reach jejunum if possible to look for avm) and sigmoidoscopy if negative then capsule endoscopy that can be performed as outpatient monitor clinical course (2) ESRD (end stage renal disease) on dialysis: Code(s): N18.6 - End stage renal disease; Z99.2 - Dependence on renal dialysis Status: Acute Assessment and Plan: on dialysis this is also causing anemia (3) Acute on chronic anemia: Code(s): D64.9 - Anemia, unspecified Status: Acute Assessment and Plan: s/p blood transfusion stable (4) Anasarca: Code(s): R60.1 - Generalized edema Status: Acute (5) Hypotension: Qualifiers: Hypotension type: unspecified hypotension type Qualified Code(s): I95.9 - Hypotension, unspecified Code(s): I95.9 - Hypotension, unspecified Status: Acute (6) Cirrhosis of liver: Qualifiers: Ascites presence: with ascites Hepatic cirrhosis type: unspecified hepatic cirrhosis Qualified Code(s): K74.60 - Unspecified cirrhosis of liver; R18.8 - Other ascites Code(s): K74.60 - Unspecified cirrhosis of liver Status: Acute (7) Peptic ulcer disease: Code(s): K27.9 - Peptic ulcer, site unspecified, unspecified as acute or chronic, without hemorrhage or perforation Status: Acute Subjective Date/time seen: 08/07/23 14:23 Interval history: stable, last BM with streak of blood he is comfortable Review of Systems Review of Systems: All systems reviewed & are unremarkable except as noted in HPI and below Exam Const: General: no acute distress Other: chronically ill HENMT: Face/Nose/Sinus: Normal nares present Eyes: General: appearance normal, both eyes and all related structures Neck: Neck: supple Resp: Auscultation: clear to auscultation bilaterally Cardio: Rate: regular rate GI: GI Palp: Yes Soft to palpation and No Guarding due to palpation present (GI) Auscultation: normal bowel sounds Neuro: Speech: normal speech Motor exam (neuro): 5/5 motor strength present throughout Extrem: General: edema (arms and legs) Psych: Mental Status: mental status grossly normal Objective Data Vital Signs Vital Signs: Vital Signs - 24 hr 08/06/23 15:39 08/06/23 16:00 08/06/23 17:09 Temperature 97.9 F 97.5 F L Pulse Rate 103 H 112 H 73 Respiratory Rate 16 12 Blood Pressure 137/82 104/62 Pulse Oximetry 96 92 Oxygen Delivery 08/06/23 17:30 08/06/23 18:00 08/06/23 19:49 Temperature 97.7 F 97 F L Pulse Rate 88 84 84 Respiratory Rate 14 16 Blood Pressure 101/62 117/63 Pulse Oximetry 100 100 Oxygen Delivery 08/06/23 18:30 08/06/23 19:30 08/06/23 23:36 Temperature 97.7 F 97.0 F L 97.6 F Pulse Rate 83 83 79 Respiratory Rate 14 16 18 Blood Pressure 116/64 117/63 115/74 Pulse Oximetry 99 100 100 Oxygen Delivery 08/06/23 20:00 08/06/23 20:00 08/06/23 22:00 Temperature Pulse Rate 82 83 Respiratory Rate Blood Pressure Pulse Oximetry 100 Oxygen Delivery Room Air 08/07/23 00:00 08/07/23 00:00 08/07/23 02:00 Temperature Pulse Rate 77 76 Respiratory Rate Blood Pressure Pulse Oximetry 100 Oxygen Delivery Room Air 08/07/23 04:00 08/07/23 04:00 08/07/23 04:00 Temperature 97.3 F L Pulse Rate 78 80 Respiratory Rate 16 Blood Pressure 115/72 Pulse Oximetry 100 100 Oxygen Delivery Room Air 08/07/23 06:00 08/07/23 08:26 08/07/23 08:00 Temperature Pulse Rate 73 Respiratory Rate Blood Pressure Pulse Ox
[2023-08-07] MEDS: LIPASE/AMYLASE/PROTEASE 12,000 UNITS CAP 2 CAP PO ×2 (14:54→18:06)
[2023-08-07] MEDS: FUROSEMIDE 40 MG TABLET 80 MG PO ×2 (14:54→18:06)
[2023-08-07] MEDS: PANTOPRAZOLE SODIUM IV 40 MG VIAL IV PUSH ×2 (14:54→20:56)
[2023-08-07] MEDS: FERROUS SULFATE DRIED 142 MG TABCR PO ×2 (14:54→18:06)
[2023-08-07] MEDS: ATORVASTATIN 20 MG TABLET PO (14:54)
[2023-08-07] MEDS: metroNIDAZOLE 250 MG TABLET PO ×2 (14:55→20:56)
[2023-08-07] MEDS: LORATADINE 10 MG TABLET PO (14:55)
[2023-08-07] MEDS: SEVELAMER CARBONATE 800 MG TABLET PO ×2 (14:55→18:07)
[2023-08-07] MEDS: EUCERIN CREAM 120 GM JAR 1 APPLIC TOPICAL (14:56)
[2023-08-07] MEDS: SILVER SULFADIAZINE 1% CR 50 GM JAR (*BKC) 1 APPLIC TOPICAL (14:56)
[2023-08-07 15:01] LABS: Hemoglobin 9.5 g/dL (14.0-18.0)
--- NOTE | 2023-08-07 15:01 | PCPTNOTE ---
Attempted at 1430 to see patient, he was just returning from testing and sitting to eat. Returned at 1502 pt declines to particpate in therapy at this time due to continuing to be eating. Will attempt to see patient tomorrow.
[2023-08-07] MEDS: HYDROcodone/acetaminophen (*CRX) 5-325 MG TABLET 1 TAB PO (15:12)
--- NOTE | 2023-08-07 15:16 | P.PNNP_ITS ---
Progress Note: A&P Assessment and Plan (1) End stage renal disease: Code(s): N18.6 - End stage renal disease Status: Chronic Assessment and Plan: * HD yesterday * continue T/T/S dialysis schedule next week * follow electrolytes, volume status, and clearance (2) Acute GI bleeding: Code(s): K92.2 - Gastrointestinal hemorrhage, unspecified Status: Acute Assessment and Plan: * recent EGD with non bleeding small ulcers in duodenum and gastrtis * recent colonoscopy was normal * GI recommendations noted * tagged RBC negative * SBFT pending * plan repeat EGD with push enteroscopy (reach jejunum if possible to look for avm) and sigmoidoscopy * PRBC transfusion per protocol (3) Anemia: Code(s): D64.9 - Anemia, unspecified Status: Chronic Assessment and Plan: * see #2 * chronically low * partly related to ESRD * still guaiac positive * s/p EGD and colonoscopy on last hospitalization * Epogen with HD * follow trend of H/H * GI consulted as well (4) Hypotension: Qualifiers: Hypotension type: unspecified hypotension type Qualified Code(s): I95.9 - Hypotension, unspecified Code(s): I95.9 - Hypotension, unspecified Status: Acute Assessment and Plan: * somewhat of a chronic issue * follow hemodynamics * consider trial midodrine(?) * follow trend of hemodynamics (5) Anasarca: Code(s): R60.1 - Generalized edema Status: Acute Assessment and Plan: * by clinical exam * probably partly related to ineffetive fluid removal due to hypotension and low albumin * push fluid removal/ultrafiltration with HD as tolerated by hemodynamics Will continue to follow. Subjective Date/time seen: 08/07/23 11:31 Interval history: Follow-up for end stage renal disease on hemodialysis. Tolerated dialysis treatment yesterday along with PRBC transfusion as well; no apparent distress noted; no issues/events overnight or earlier this morning. Exam Narrative: General: somewhat chronic ill-appearing male in NAD Heart: normal S1 and S2; no rub Lungs: clear to auscultation Abdomen: soft, nontender, nondistended, positive bowel sounds Extremities: no cyanosis or clubbing; upper extremity edema noted Skin: warm and intact Objective Data Vital Signs Vital Signs: Vital Signs Temp Pulse Resp BP Pulse Ox O2 Del Method 08/07/23 10:00 84 08/07/23 08:00 85 08/07/23 08:00 100 Room Air 08/07/23 08:26 Room Air 08/07/23 06:00 73 08/07/23 04:00 97.3 F L 80 16 115/72 100 08/07/23 04:00 100 Room Air 08/07/23 04:00 78 08/07/23 02:00 76 08/07/23 00:00 100 Room Air 08/07/23 00:00 77 08/06/23 22:00 83 08/06/23 20:00 100 Room Air 08/06/23 20:00 82 08/06/23 23:36 97.6 F 79 18 115/74 100 08/06/23 19:30 97.0 F L 83 16 117/63 100 08/06/23 18:30 97.7 F 83 14 116/64 99 08/06/23 19:49 97 F L 84 16 117/63 100 08/06/23 18:00 84 08/06/23 17:30 97.7 F 88 14 101/62 100 08/06/23 17:09 97.5 F L 73 12 104/62 92 08/06/23 16:00 112 H 08/06/23 15:39 97.9 F 103 H
--- NOTE | 2023-08-07 15:16 | PM.PNNEP ---
Progress Note: A&P Assessment and Plan (1) End stage renal disease: Code(s): N18.6 - End stage renal disease Status: Chronic Assessment and Plan: HD yesterday continue T/T/S dialysis schedule next week follow electrolytes, volume status, and clearance (2) Acute GI bleeding: Code(s): K92.2 - Gastrointestinal hemorrhage, unspecified Status: Acute Assessment and Plan: recent EGD with non bleeding small ulcers in duodenum and gastrtis recent colonoscopy was normal GI recommendations noted tagged RBC negative SBFT pending plan repeat EGD with push enteroscopy (reach jejunum if possible to look for avm) and sigmoidoscopy PRBC transfusion per protocol (3) Anemia: Code(s): D64.9 - Anemia, unspecified Status: Chronic Assessment and Plan: see #2 chronically low partly related to ESRD still guaiac positive s/p EGD and colonoscopy on last hospitalization Epogen with HD follow trend of H/H GI consulted as well (4) Hypotension: Qualifiers: Hypotension type: unspecified hypotension type Qualified Code(s): I95.9 - Hypotension, unspecified Code(s): I95.9 - Hypotension, unspecified Status: Acute Assessment and Plan: somewhat of a chronic issue follow hemodynamics consider trial midodrine(?) follow trend of hemodynamics (5) Anasarca: Code(s): R60.1 - Generalized edema Status: Acute Assessment and Plan: by clinical exam probably partly related to ineffetive fluid removal due to hypotension and low albumin push fluid removal/ultrafiltration with HD as tolerated by hemodynamics Will continue to follow. Subjective Date/time seen: 08/07/23 11:31 Interval history: Follow-up for end stage renal disease on hemodialysis. Tolerated dialysis treatment yesterday along with PRBC transfusion as well; no apparent distress noted; no issues/events overnight or earlier this morning. Exam Narrative: General: somewhat chronic ill-appearing male in NAD Heart: normal S1 and S2; no rub Lungs: clear to auscultation Abdomen: soft, nontender, nondistended, positive bowel sounds Extremities: no cyanosis or clubbing; upper extremity edema noted Skin: warm and intact Objective Data Vital Signs Vital Signs: Vital Signs Temp Pulse Resp BP Pulse Ox O2 Del Method 08/07/23 10:00 84 08/07/23 08:00 85 01/21/24 08:00 100 Room Air 08/07/23 08:26 Room Air 08/07/23 06:00 73 08/07/23 04:00 97.3 F L 80 16 115/72 100 08/07/23 04:00 100 Room Air 08/07/23 04:00 78 08/07/23 02:00 76 08/07/23 00:00 100 Room Air 08/07/23 00:00 77 08/06/23 22:00 83 08/06/23 20:00 100 Room Air 08/06/23 20:00 82 08/06/23 23:36 97.6 F 79 18 115/74 100 08/06/23 19:30 97.0 F L 83 16 117/63 100 08/06/23 18:30 97.7 F 83 14 116/64 99 08/06/23 19:49 97 F L 84 16 117/63 100 08/06/23 18:00 84 08/06/23 17:30 97.7 F 88 14 101/62 100 08/06/23 17:09 97.5 F L 73 12 104/62 92 08/06/23 16:00 112 H 08/06/23 15:39 97.9 F 103 H 16 137/82 96 Intake/Output Intake/Output: Intake & Output 08/04/23 08/05/23 08/06/23 08/07/23 23:59 23:59 23:59 23:59 Intake Total 1150 2284 500 Output Total 1999 Balance 1150 284 500 Meds/Results Medications: Active Medications Generic Name Dose Route Start Last Admin Trade Name Freq PRN Reason Stop Dose Admin Acetaminophen 650 mg 08/05/23 08:47 Acetaminophen 325 Mg Tablet PO Q6H PRN Mild Pain (1-3) or Fever Hydrocodone Bitart/Acetaminophen 1 tab 08/05/23 12:04 08/07/23 15:12 Hydrocodone/Acetaminophen (*Crx) 5-325 Mg Tablet PO 1 tab Q6H PRN Administration Pain (Scale Score 4-6) Albuterol 2 puff 08/05/23 12:04 08/07/23 10:50 Albuterol Sulfate (*Sp) Aerosol 1 Puff INHALAT
[2023-08-07] MEDS: polyethylene glycoL 3350 238 GM BOTTLE PO (18:20)
[2023-08-07 21:26] LABS: Hematocrit 30.2 % (42.0-52.0); Hemoglobin 9.3 g/dL (14.0-18.0)
[2023-08-08] VITALS (21 sets, daily range): BP systolic 103–148; BP diastolic 61–84; PULSE 71–118; RESP 14–18; TEMP 36.5–37; O2SAT 95–100
[2023-08-08] MEDS: SUCRALFATE SUSP 100 MG/ML 10 ML UDC 1000 MG PO ×4 (06:14→20:52)
--- NOTE | 2023-08-08 06:32 | PC.NURSE ---
Patient was able to drink one bottle of Gatorade with half of the Miralax. Refuses to finish the prep. States stools are still brown but loose.
[2023-08-08 06:57] LABS: Hematocrit 34.7 % (42.0-52.0); Hemoglobin 10.4 g/dL (14.0-18.0); Immature Platelet Fraction Pct 4.8 % (0.9-11.2); Mean Corpuscular Hemoglobin 27.9 pg (26-34); Mean Platelet Volume 10.2 fl (7.4-10.4); Platelet Count Result 69 k/mm3 (150-375); Red Blood Count 3.73 M/mm3 (4.6-6.20); White Blood Count 4.8 K/mm3 (4.5-10.0)
[2023-08-08 07:09] LABS: Alanine Aminotransferase 9 U/L (6-50); Albumin Level 2.9 g/dL (3.5-5.1); Alkaline Phosphatase 68 U/L (38-126); Anion Gap 5 mmol/L (8-16); Aspartate Amino Transferase 16 U/L (17-59); Bilirubin,Total 0.8 mg/dL (0.2-1.3); Blood Urea Nitrogen 10 mg/dL (9-20); Calcium 8.9 mg/dL (8.4-10.2); Carbon Dioxide 30 mmol/L (22-30); Chloride 103 mmol/L (98-107); Estimated CRCL calculation 20 ml/min; Estimated Glomerular Filt Rate 21; Glucose 69 mg/dL (65-110); Potassium 3.9 mmol/L (3.4-5.0); Sodium 138 mmol/L (137-145)
[2023-08-08] MEDS: SILVER SULFADIAZINE 1% CR 50 GM JAR (*BKC) 1 APPLIC TOPICAL (08:17)
[2023-08-08] MEDS: PANTOPRAZOLE SODIUM IV 40 MG VIAL IV PUSH ×2 (08:17→20:52)
[2023-08-08] MEDS: metroNIDAZOLE 250 MG TABLET PO ×2 (08:17→20:52)
[2023-08-08] MEDS: EUCERIN CREAM 120 GM JAR 1 APPLIC TOPICAL (08:17)
[2023-08-08] MEDS: FUROSEMIDE 40 MG TABLET 80 MG PO ×2 (08:18→17:04)
[2023-08-08] MEDS: FERROUS SULFATE DRIED 142 MG TABCR PO ×2 (08:25→17:03)
[2023-08-08] MEDS: ATORVASTATIN 20 MG TABLET PO (08:25)
[2023-08-08] MEDS: LORATADINE 10 MG TABLET PO (08:25)
--- NOTE | 2023-08-08 10:57 | P.PNIM_ITS ---
Progress Note: A&P Assessment and Plan (1) Acute GI bleeding: Code(s): K92.2 - Gastrointestinal hemorrhage, unspecified Status: Acute Assessment and Plan: Patient having dark stools and bright red blood in his stools. Patient found to have a hemoglobin of 4.8. * GI consulted. * Patient received 3 units of PRBCs with repeat hemoglobin of 8.5. * H&H q.6 hours. * 08/06 serial hemoglobin showing 6.6. 2 units of PRBCs ordered. * GI recommending a GI bleeding scan and small-bowel follow-through. * GI bleeding scan did not show any evidence of a bleed. * Small-bowel follow-through did not show any evidence of an acute bleed. * Plan for EGD and sigmoidoscopy later today. * H&H has remained stable the past 24 hours. (2) Anemia: Qualifiers: Anemia type: unspecified type Qualified Code(s): D64.9 - Anemia, unspecified Code(s): D64.9 - Anemia, unspecified Status: Acute Assessment and Plan: Patient with history of anemia and has had multiple transfusions in the past. * 08/05 Patient got 3 units of PRBCs. * 08/06 Patient got 2 units PRBCs. * Continue to monitor serial H&Hs * Hematology consulted. * Anemia likely from an acute bleed as well as chronic kidney disease and cirrhosis. (3) Anasarca: Code(s): R60.1 - Generalized edema Status: Acute Assessment and Plan: Likely due to CKD and cirrhosis. * Bilateral upper extremity edema pronounced. Will get venous Dopplers. * Patient found to have a albumin of 1.9. Albumin given. * Continue to monitor. (4) Hypotension: Qualifiers: Hypotension type: unspecified hypotension type Qualified Code(s): I95.9 - Hypotension, unspecified Code(s): I95.9 - Hypotension, unspecified Status: Acute Assessment and Plan: * Likely due to multiple things including anemia, dialysis, etc. * Albumin ordered in hopes to help with hypotension. * Continue to monitor (5) ESRD (end stage renal disease) on dialysis: Code(s): N18.6 - End stage renal disease; Z99.2 - Dependence on renal dialysis Status: Acute Assessment and Plan: Nephrology consulted for dialysis. Dialysis schedule on Tuesday. Subjective Date/time seen: 08/08/23 10:57 Interval history: Patient plans to have EGD and sigmoidoscopy later today. He denies any shortness a breath lightheadedness or dizziness. He had colon prep last night and states that he is no longer seeing any blood in his bowel movements but he did yesterday. Continue to monitor while awaiting further recommendations from GI. Exam Narrative: GENERAL: Comfortable, no acute distress HENMT: moist mucous membranes EYES: EOM intact b/l NECK: no lymphadenopathy RESPIRATORY: clear to auscultation CARDIO: RRR GI: soft, nontender, bowel sounds present SKIN/EXTREMITIES: Bilateral upper extremity edema +2, right lower extremity edema +1, right lower extremity posterior upper ankle wound that is chronic. Objective Data Vital Signs Vital Signs: Vital Signs - 24 hr 08/07/23 12:00 08/07/23 14:00 08/07/23 16:47 Temperature 97.8 F Pulse Rate 75 80 93 Respiratory Rate 19 Blood Pressure 122/102 H Pulse Oximetry 99 Oxygen Delivery 08/07/23 16:00 08/07/23 18:00 08/07/23 16:00 Temperat
--- NOTE | 2023-08-08 10:57 | PM.IMPN ---
Progress Note: A&P Assessment and Plan (1) Acute GI bleeding: Code(s): K92.2 - Gastrointestinal hemorrhage, unspecified Status: Acute Assessment and Plan: Patient having dark stools and bright red blood in his stools. Patient found to have a hemoglobin of 4.8. GI consulted. Patient received 3 units of PRBCs with repeat hemoglobin of 8.5. H&H q.6 hours. 08/06 serial hemoglobin showing 6.6. 2 units of PRBCs ordered. GI recommending a GI bleeding scan and small-bowel follow-through. GI bleeding scan did not show any evidence of a bleed. Small-bowel follow-through did not show any evidence of an acute bleed. Plan for EGD and sigmoidoscopy later today. H&H has remained stable the past 24 hours. (2) Anemia: Qualifiers: Anemia type: unspecified type Qualified Code(s): D64.9 - Anemia, unspecified Code(s): D64.9 - Anemia, unspecified Status: Acute Assessment and Plan: Patient with history of anemia and has had multiple transfusions in the past. 08/05 Patient got 3 units of PRBCs. 08/06 Patient got 2 units PRBCs. Continue to monitor serial H&Hs Hematology consulted. Anemia likely from an acute bleed as well as chronic kidney disease and cirrhosis. (3) Anasarca: Code(s): R60.1 - Generalized edema Status: Acute Assessment and Plan: Likely due to CKD and cirrhosis. Bilateral upper extremity edema pronounced. Will get venous Dopplers. Patient found to have a albumin of 1.9. Albumin given. Continue to monitor. (4) Hypotension: Qualifiers: Hypotension type: unspecified hypotension type Qualified Code(s): I95.9 - Hypotension, unspecified Code(s): I95.9 - Hypotension, unspecified Status: Acute Assessment and Plan: Likely due to multiple things including anemia, dialysis, etc. Albumin ordered in hopes to help with hypotension. Continue to monitor (5) ESRD (end stage renal disease) on dialysis: Code(s): N18.6 - End stage renal disease; Z99.2 - Dependence on renal dialysis Status: Acute Assessment and Plan: Nephrology consulted for dialysis. Dialysis schedule on Tuesday. Subjective Date/time seen: 08/08/23 10:57 Interval history: Patient plans to have EGD and sigmoidoscopy later today. He denies any shortness a breath lightheadedness or dizziness. He had colon prep last night and states that he is no longer seeing any blood in his bowel movements but he did yesterday. Continue to monitor while awaiting further recommendations from GI. Exam Narrative: GENERAL: Comfortable, no acute distress HENMT: moist mucous membranes EYES: EOM intact b/l NECK: no lymphadenopathy RESPIRATORY: clear to auscultation CARDIO: RRR GI: soft, nontender, bowel sounds present SKIN/EXTREMITIES: Bilateral upper extremity edema +2, right lower extremity edema +1, right lower extremity posterior upper ankle wound that is chronic. Objective Data Vital Signs Vital Signs: Vital Signs - 24 hr 08/07/23 12:00 08/07/23 14:00 08/07/23 16:47 Temperature 97.8 F Pulse Rate 75 80 93 Respiratory Rate 19 Blood Pressure 122/102 H Pulse Oximetry 99 Oxygen Delivery 08/07/23 16:00 08/07/23 18:00 08/07/23 16:00 Temperature Pulse Rate 93 76 Respiratory Rate Blood Pressure Pulse Oximetry 100 Oxygen Delivery Room Air 08/07/23 19:21 08/08/23 00:09 08/07/23 20:00 Temperature 97.6 F 97.9 F Pulse Rate 78 76 80 Respiratory Rate 18 18 Blood Pressure 126/73 140/74 Pulse Oximetry 99 100 Oxygen Delivery 08/08/23 00:00 08/07/23 20:00 08/08/23 00:00 Temperature Pulse Rate 80 76 76 Respiratory Rate 18 18 Blood Pressure Pulse Oximetry 99 100 Oxygen Delivery Room Air Room Air 08/08/23 02:00 08/08/23 04:00 08/08/23 04:00 Temperature Pulse Rate 79 73 73 Respiratory Rate 18 Blood Pressu
--- NOTE | 2023-08-08 11:00 | PC.NURSE ---
Off floor to GI lab.
[2023-08-08] MEDS: fentaNYL CITRATE INJ (*CRX) 100 MCG/2 ML VIAL 50 MCG IV PUSH (11:11)
[2023-08-08] MEDS: SODIUM CHLORIDE 0.9% IV 500 ML 10 ML IV CONT (11:11)
--- NOTE | 2023-08-08 11:22 | WPDANESEPPF ---
Anes - Initial Pre Proc Eval Procedure: Operation Date: 08/08/23 12:30 Proposed Procedures p Esophagogastroduodenoscopy & Colonoscopy - Hayden Kendrick MD Date/Time: 08/08/23 11:22 Surgeon: Mercy Tellez MD Pre Op Diagnosis: GI Bleed Patient Data Age: 63 Gender: M Height: 1.78 m Weight: 93.9 kg Last Vital Signs Temp 98.3 F 08/08/23 10:45 Pulse 95 08/08/23 10:45 Resp 18 08/08/23 10:45 BP 148/82 H 08/08/23 10:45 Pulse Ox 95 08/08/23 10:45 O2 Del Method Room Air 08/08/23 10:45 Allergies Allergy/AdvReac Type Severity Reaction Status Date / Time lisinopril Allergy Unknown Verified 08/08/23 11:02 Home Medications Medication Instructions Recorded Confirmed Type atorvastatin 20 mg tablet 20 mg PO DAILY 07/31/21 08/05/23 History cetirizine 10 mg tablet 10 mg PO DAILY 07/31/21 08/05/23 History loperamide 2 mg capsule 2 mg PO Q6H PRN Diarrhea 07/31/21 08/05/23 History sevelamer HCl 800 mg tablet 800 mg PO TID 07/31/21 08/05/23 History aspirin 81 mg tablet,delayed 81 mg PO DAILY 07/02/23 08/05/23 History release lanolin alcohols-mineral 1 applic topical DAILY #113 grams 07/07/23 08/05/23 Rx oil-w.petrolatum-ceresin topical cream (Minerin Creme topical) bisacodyl 10 mg rectal suppository 10 mg RECTAL DAILY PRN Constipation 07/11/23 08/05/23 History hydrocodone 5 mg-acetaminophen 325 1 tablet PO Q6H PRN Pain (Scale 07/11/23 08/05/23 History mg tablet Score 4-6) magnesium citrate (Citroma oral 296 ml PO DAILY PRN Constipation 07/11/23 08/05/23 History solution) allopurinol 100 mg tablet 100 mg PO DAILY@0800 1 month #30 07/13/23 08/05/23 Rx tabs furosemide 40 mg tablet 80 mg PO BID 1 month #120 tabs 07/13/23 08/05/23 Rx albuterol sulfate 90 mcg/actuation 2 puff inhalation Q6H PRN 07/25/23 08/05/23 History aerosol inhaler Shortness Of Breath cxayvt-cccfijry-eyhufae 1 cap PO TID 07/25/23 08/05/23 History 24,000-76,000-120,000 unit capsule,delayed rel (Creon) metronidazole 375 mg capsule 375 mg PO Q12H #20 caps 07/28/23 08/05/23 Rx (Flagyl) pantoprazole 40 mg tablet,delayed 40 mg PO BID #60 tabs 07/28/23 08/05/23 Rx release (Protonix) benzonatate 100 mg capsule 200 mg PO Q8H PRN Cough 08/05/23 08/05/23 History magnesium hydroxide 400 mg/5 mL 30 ml PO HS PRN Constipation 08/05/23 08/05/23 History oral suspension (Milk of Magnesia) silver sulfadiazine 1 % topical See Rx Instructions .Route .COMPLEX 08/05/23 08/05/23 History cream (Silvadene) sodium phosphates 19 gram-7 118 ml RECTAL DAILY PRN 08/05/23 08/05/23 History gram/118 mL enema (Fleet Enema) Constipation sucralfate 1 gram tablet 1 g PO QID 08/05/23 08/05/23 History Laboratory Tests 08/07/23 08/07/23 08/08/23 14:55 21:15 06:48 WBC 4.8 K/mm3 (4.5-10.0) RBC 3.73 L M/mm3 (4.6-6.20) Hgb 9.5 L g/dL 9.3 L g/dL 10.4 L g/dL (14.0-18.0) (14.0-18.0) (14.0-18.0) Hct 31.0 L % 30.2 L % 34.7 L % (42.0-52.0) (42.0-52.0) (42.0-52.0) MCV 93.0 fl (80-100) MCH 27.9 pg (26-34) MCHC 30.0 L g/dl (32-36) RDW 16.0 H % (11.5-14.5) Plt Count 69 L k/mm3 (150-375) MPV 10.2 fl (7.4-10.4) % Immature Plt Fraction 4.8 % (0.9-11.2) Sodium 138 mmol/L (137-145) Potassium 3.9 mmol/L (3.4-5.0) Chloride 103 mmol/L (98-107) Carbon Dioxide 30 mmol/L (22-30) Anion Gap 5 L mmol/L (8-16) BUN 10 mg/dL (9-20) Creatinine 3.60 H mg/dL (0.7-1.3) Estim Creat Clear Calc 20 ml/min Estimated GFR 21 L (59 - ) Glucose 69 mg/dL (65-110) Calcium 8.9 mg/dL (8.4-10.2) Total Bilirubin 0.8 mg/dL (0.2-1.3) AST 16 L U/L (17-59) ALT 9 U/L (6-50) Alkaline Phosphatase 68 U/L (38-126) Total Protein 6.0 L g/dL (6.3-8.2)
--- NOTE | 2023-08-08 11:44 | SUR.OPER ---
EGD start 1143 end 1148, Colonoscopy start 1153
--- NOTE | 2023-08-08 12:08 | PC.NURSE ---
Received report from Pallavi Galvez.
--- NOTE | 2023-08-08 12:43 | PC.NURSE ---
Patient back to room without issue.
--- NOTE | 2023-08-08 12:50 | P.PNNP_ITS ---
Progress Note: A&P Assessment and Plan (1) End stage renal disease: Code(s): N18.6 - End stage renal disease Status: Chronic Assessment and Plan: * HD tomorrow * continue T/T/S dialysis schedule next week * follow electrolytes, volume status, and clearance (2) Acute GI bleeding: Code(s): K92.2 - Gastrointestinal hemorrhage, unspecified Status: Acute Assessment and Plan: * recent EGD with non bleeding small ulcers in duodenum and gastrtis * recent colonoscopy was normal * GI recommendations noted * tagged RBC negative * SBFT noted * s/p repeat EGD and sigmoidoscopy today with results noted as well * PRBC transfusion per protocol (3) Anemia: Code(s): D64.9 - Anemia, unspecified Status: Chronic Assessment and Plan: * see #2 * chronically low * partly related to ESRD * still guaiac positive * s/p EGD and colonoscopy on last hospitalization * Epogen with HD * follow trend of H/H * GI consulted as well (4) Hypotension: Qualifiers: Hypotension type: unspecified hypotension type Qualified Code(s): I95.9 - Hypotension, unspecified Code(s): I95.9 - Hypotension, unspecified Status: Acute Assessment and Plan: * somewhat of a chronic issue * follow hemodynamics * consider trial midodrine(?) * follow trend of hemodynamics (5) Anasarca: Code(s): R60.1 - Generalized edema Status: Acute Assessment and Plan: * by clinical exam * probably partly related to ineffetive fluid removal due to hypotension and low albumin * push fluid removal/ultrafiltration with HD as tolerated by hemodynamics Will continue to follow. Subjective Date/time seen: 08/08/23 12:50 Interval history: Follow-up for end stage renal disease on hemodialysis. S/P EGD/sigmoidoscopy earlier today with results noted; otherwise, no apparent distress noted; feels reasonably well; no other issues/events overnight or earlier this AM. Exam Narrative: General: somewhat chronic ill-appearing male in NAD Heart: normal S1 and S2; no rub Lungs: clear to auscultation Abdomen: soft, nontender, nondistended, positive bowel sounds Extremities: no cyanosis or clubbing; upper extremity edema noted Skin: warm and intact Objective Data Vital Signs Vital Signs: Vital Signs Temp Pulse Resp BP Pulse Ox O2 Del Method 08/08/23 12:32 75 18 118/71 100 Room Air 08/08/23 12:28 71 18 103/61 100 Room Air 08/08/23 12:18 71 18 103/61 99 Room Air 08/08/23 12:08 72 14 106/61 95 Room Air 08/08/23 10:45 98.3 F 95 18 148/82 H 95 Room Air 08/08/23 10:00 81 08/08/23 08:00 85 08/08/23 08:54 Room Air 08/08/23 08:00 98.6 F 85 18 140/75 100 08/08/23 08:00 100 Room Air 08/08/23 06:00 80 08/08/23 04:28 97.8 F 100 18 131/75 100 08/08/23 04:00 73 18 100 Room Air 08/08/23 04:00 73 08/08/23 02:00 79 08/08/23 00:00 76 18 100 Room Air 08/07/23 20:00 76 18 99 Room Air 08/08/23 00:00 80 08/07/23 20:00 80 08/08/23 00:09 97.9 F 76 18 140/74 100 08/07/23 19:21 97.6 F 78 18 126/73 99 08/07/23 18:00 76
--- NOTE | 2023-08-08 12:50 | PM.PNNEP ---
Progress Note: A&P Assessment and Plan (1) End stage renal disease: Code(s): N18.6 - End stage renal disease Status: Chronic Assessment and Plan: HD tomorrow continue T/T/S dialysis schedule next week follow electrolytes, volume status, and clearance (2) Acute GI bleeding: Code(s): K92.2 - Gastrointestinal hemorrhage, unspecified Status: Acute Assessment and Plan: recent EGD with non bleeding small ulcers in duodenum and gastrtis recent colonoscopy was normal GI recommendations noted tagged RBC negative SBFT noted s/p repeat EGD and sigmoidoscopy today with results noted as well PRBC transfusion per protocol (3) Anemia: Code(s): D64.9 - Anemia, unspecified Status: Chronic Assessment and Plan: see #2 chronically low partly related to ESRD still guaiac positive s/p EGD and colonoscopy on last hospitalization Epogen with HD follow trend of H/H GI consulted as well (4) Hypotension: Qualifiers: Hypotension type: unspecified hypotension type Qualified Code(s): I95.9 - Hypotension, unspecified Code(s): I95.9 - Hypotension, unspecified Status: Acute Assessment and Plan: somewhat of a chronic issue follow hemodynamics consider trial midodrine(?) follow trend of hemodynamics (5) Anasarca: Code(s): R60.1 - Generalized edema Status: Acute Assessment and Plan: by clinical exam probably partly related to ineffetive fluid removal due to hypotension and low albumin push fluid removal/ultrafiltration with HD as tolerated by hemodynamics Will continue to follow. Subjective Date/time seen: 08/08/23 12:50 Interval history: Follow-up for end stage renal disease on hemodialysis. S/P EGD/sigmoidoscopy earlier today with results noted; otherwise, no apparent distress noted; feels reasonably well; no other issues/events overnight or earlier this AM. Exam Narrative: General: somewhat chronic ill-appearing male in NAD Heart: normal S1 and S2; no rub Lungs: clear to auscultation Abdomen: soft, nontender, nondistended, positive bowel sounds Extremities: no cyanosis or clubbing; upper extremity edema noted Skin: warm and intact Objective Data Vital Signs Vital Signs: Vital Signs Temp Pulse Resp BP Pulse Ox O2 Del Method 08/08/23 12:32 75 18 118/71 100 Room Air 08/08/23 12:28 71 18 103/61 100 Room Air 08/08/23 12:18 71 18 103/61 99 Room Air 08/08/23 12:08 72 14 106/61 95 Room Air 08/08/23 10:45 98.3 F 95 18 148/82 H 95 Room Air 08/08/23 10:00 81 08/08/23 08:00 85 08/08/23 08:54 Room Air 08/08/23 08:00 98.6 F 85 18 140/75 100 08/08/23 08:00 100 Room Air 08/08/23 06:00 80 08/08/23 04:28 97.8 F 100 18 131/75 100 08/08/23 04:00 73 18 100 Room Air 08/08/23 04:00 73 08/08/23 02:00 79 08/08/23 00:00 76 18 100 Room Air 08/07/23 20:00 76 18 99 Room Air 08/08/23 00:00 80 08/07/23 20:00 80 08/08/23 00:09 97.9 F 76 18 140/74 100 08/07/23 19:21 97.6 F 78 18 126/73 99 08/07/23 18:00 76 Intake/Output Intake/Output: Intake & Output 08/05/23 08/06/23 08/07/23 08/08/23 23:59 23:59 23:59 23:59 Intake Total 1150 2284 740 1010 Output Total 2000 0 Balance 1150 895 799 8305 Meds/Results Medications: Active Medications Generic Name Dose Route Start Last Admin Trade Name Daniella PRN Reason Stop Dose Admin Acetaminophen 650 mg 08/05/23 08:47 Acetaminophen 325 Mg Tablet PO Q6H PRN Mild Pain (1-3) or Fever Hydrocodone Bitart/Acetaminophen 1 tab 08/05/23 12:04 08/07/23 15:12 Hydrocodone/Acetaminophen (*Crx) 5-325 Mg Tablet PO 1 tab Q6H PRN Administration Pain (Scale Score 4-6) Albuterol 2 puff 08/05/23 12:04 08/07/23 10:50 Albuterol Sulfate (*Sp) Aerosol 1 Puff IN
[2023-08-08] MEDS: LIPASE/AMYLASE/PROTEASE 12,000 UNITS CAP 2 CAP PO ×2 (12:55→17:04)
[2023-08-08] MEDS: SEVELAMER CARBONATE 800 MG TABLET PO ×2 (12:55→17:05)
[2023-08-08] MEDS: BENZONATATE 100 MG CAPSULE 200 MG PO (20:52)
[2023-08-08] MEDS: MORPHINE SULFATE (*CRX) 2 MG/ML INJ IV PUSH (20:54)
[2023-08-09] VITALS (27 sets, daily range): BP systolic 96–148; BP diastolic 47–85; PULSE 60–114; RESP 16–19; TEMP 36.2–37; O2SAT 96–100
[2023-08-09] MEDS: SUCRALFATE SUSP 100 MG/ML 10 ML UDC 1000 MG PO ×3 (06:58→16:20)
[2023-08-09] MEDS: LORATADINE 10 MG TABLET PO (08:14)
[2023-08-09] MEDS: SEVELAMER CARBONATE 800 MG TABLET PO ×3 (08:14→16:20)
[2023-08-09] MEDS: FERROUS SULFATE DRIED 142 MG TABCR PO ×2 (08:14→16:20)
[2023-08-09] MEDS: metroNIDAZOLE 250 MG TABLET PO (08:14)
[2023-08-09] MEDS: LIPASE/AMYLASE/PROTEASE 12,000 UNITS CAP 2 CAP PO ×3 (08:14→16:20)
[2023-08-09] MEDS: ATORVASTATIN 20 MG TABLET PO (08:14)
[2023-08-09] MEDS: HYDROcodone/acetaminophen (*CRX) 5-325 MG TABLET 1 TAB PO ×3 (08:15→16:23)
[2023-08-09] MEDS: BENZONATATE 100 MG CAPSULE 200 MG PO (08:18)
[2023-08-09] MEDS: LOPERAMIDE HCL 2 MG CAPSULE PO (08:19)
[2023-08-09] MEDS: LIDOCAINE/PRILOCAINE CREAM 2.5-2.5% TUBE 1 EACH TOPICAL (08:23)
--- NOTE | 2023-08-09 08:24 | PC.NURSE ---
Pt to dialysis via bed
--- NOTE | 2023-08-09 08:38 | WPDANESPN ---
Anes - Prog Note Post-Op Date/Time: 08/09/23 08:38 Cardiovascular status: normal Respiratory status: normal Airway patency: baseline Mental status: baseline Post-Op hydration status: normal Vital Signs: Last Vital Signs Temp 36.7 C 08/09/23 07:25 Pulse 77 08/09/23 07:25 Resp 16 08/09/23 07:25 BP 109/65 08/09/23 07:25 Pulse Ox 100 08/09/23 07:25 O2 Del Method Room Air 08/09/23 04:00 Pain Score (VAS): 2/10 I/O: Intake & Output 08/08/23 08/09/23 08/09/23 23:59 07:59 15:59 Intake Total 240 550 Output Total 2 Balance 240 548 Laboratory Tests 08/08/23 06:48 08/08/23 06:48 Post-procedural complaints: none Patient Feedback: Patient satisfied with anesthetic care.
[2023-08-09] MEDS: ALBUTEROL SULFATE (*SP) AEROSOL 1 PUFF 2 PUFF INHALATION (09:21)
[2023-08-09 09:35] LABS: Basophils Percent Auto 0.6 % (0.2-1.2); Eosinophils Absolute Auto 0.2 K/mm3 (0-0.3); Hematocrit 30.4 % (42.0-52.0); Hemoglobin 9.3 g/dL (14.0-18.0); Immature Granulocyte Absolute 0.02 K/mm3 (0.00-0.031); Immature Granulocyte Percent A 0.4 % (0-0.5); Immature Platelet Fraction Pct 5.3 % (0.9-11.2); Lymphocytes Absolute Auto 1.16 K/mm3 (0.9-3.2); Lymphocytes Percent Auto 23.2 % (18.3-44.2); Mean Corpuscular HGB Conc 30.6 g/dl (32-36); Mean Corpuscular Hemoglobin 28.3 pg (26-34); Mean Corpuscular Volume 92.4 fl (80-100); Mean Platelet Volume 11.5 fl (7.4-10.4); Monocytes Absolute Auto 0.3 K/mm3 (0.1-0.6); Monocytes Percent Auto 6.4 % (2.6-8.5); Neutrophils Absolute Auto 3.3 K/mm3 (1.3-6.7); Neutrophils Percent Auto 66.4 % (45.5-73.1); Platelet Count Result 68 k/mm3 (150-375); Red Blood Count 3.29 M/mm3 (4.6-6.20); Red Cell Distribution Width 15.8 % (11.5-14.5)
[2023-08-09 09:43] LABS: Haptoglobin 23 mg/dL (43-212)
[2023-08-09 09:44] LABS: Alanine Aminotransferase 10 U/L (6-50); Albumin Level 2.3 g/dL (3.5-5.1); Alkaline Phosphatase 58 U/L (38-126); Anion Gap 5 mmol/L (8-16); Aspartate Amino Transferase 13 U/L (17-59); Bilirubin,Total 0.5 mg/dL (0.2-1.3); Blood Urea Nitrogen 11 mg/dL (9-20); Calcium 8.4 mg/dL (8.4-10.2); Carbon Dioxide 28 mmol/L (22-30); Chloride 104 mmol/L (98-107); Estimated CRCL calculation 17 ml/min; Estimated Glomerular Filt Rate 17; Glucose 111 mg/dL (65-110); Potassium 3.6 mmol/L (3.4-5.0); Sodium 137 mmol/L (137-145)
--- NOTE | 2023-08-09 10:16 | P.PNNP_ITS ---
Progress Note: A&P Assessment and Plan (1) End stage renal disease: Code(s): N18.6 - End stage renal disease Status: Chronic Assessment and Plan: * HD today * continue T/T/S dialysis schedule next week * follow electrolytes, volume status, and clearance (2) Acute GI bleeding: Code(s): K92.2 - Gastrointestinal hemorrhage, unspecified Status: Acute Assessment and Plan: * recent EGD with non bleeding small ulcers in duodenum and gastrtis * recent colonoscopy was normal * GI recommendations noted * tagged RBC negative * SBFT noted * s/p repeat EGD and sigmoidoscopy (on 08/08) with results noted as well * PRBC transfusion per protocol (3) Anemia: Code(s): D64.9 - Anemia, unspecified Status: Chronic Assessment and Plan: * see #2 * chronically low * partly related to ESRD * still guaiac positive * s/p EGD and colonoscopy on last hospitalization * Epogen with HD * follow trend of H/H * GI consulted as well (4) Hypotension: Qualifiers: Hypotension type: unspecified hypotension type Qualified Code(s): I95.9 - Hypotension, unspecified Code(s): I95.9 - Hypotension, unspecified Status: Acute Assessment and Plan: * somewhat of a chronic issue * follow hemodynamics * consider trial midodrine(?) * follow trend of hemodynamics (5) Anasarca: Code(s): R60.1 - Generalized edema Status: Acute Assessment and Plan: * by clinical exam * probably partly related to ineffetive fluid removal due to hypotension and low albumin * push fluid removal/ultrafiltration with HD as tolerated by hemodynamics Will continue to follow. Subjective Date/time seen: 08/09/23 10:16 Interval history: Follow-up for end stage renal disease on hemodialysis. Tolerating hemodialysis treatment at the time of my visit (seen on HD at 10:06AM); H/H remains relatively stable at this time; no apparent distress noted; no other issues/events voiced. Exam Narrative: General: somewhat chronic ill-appearing male in NAD Heart: normal S1 and S2; no rub Lungs: clear to auscultation Abdomen: soft, nontender, nondistended, positive bowel sounds Extremities: no cyanosis or clubbing; upper extremity edema noted Skin: no rash or nodules Objective Data Vital Signs Vital Signs: Vital Signs Temp Pulse Resp BP Pulse Ox O2 Del Method 08/09/23 10:15 69 121/70 08/09/23 10:00 66 127/73 08/09/23 09:45 69 134/77 08/09/23 09:30 75 148/72 H 08/09/23 09:15 64 122/64 08/09/23 09:00 62 128/70 08/09/23 08:35 98.0 F 83 18 08/09/23 10:00 74 08/09/23 08:00 69 08/09/23 09:21 96 Room Air 08/09/23 08:00 100 Room Air 08/09/23 07:25 98.1 F 77 16 109/65 100 08/09/23 06:00 73 08/09/23 04:00 94 08/09/23 02:00 84 08/09/23 00:00 96 08/08/23 22:00 85 08/08/23 20:00 107 H 08/09/23 04:00 95 18 98 Room Air 08/09/23 04:40 97.1 F L 95 18 127/78 98 08/09/23 00:00 114 H 18 100 Room Air 08/09/23 00:06 97.8 F 114 H 18 130/85 100 08/08/23 20:00 94 18 98 Room Air 08/08/23 1
--- NOTE | 2023-08-09 10:16 | PM.PNNEP ---
Progress Note: A&P Assessment and Plan (1) End stage renal disease: Code(s): N18.6 - End stage renal disease Status: Chronic Assessment and Plan: HD today continue T/T/S dialysis schedule next week follow electrolytes, volume status, and clearance (2) Acute GI bleeding: Code(s): K92.2 - Gastrointestinal hemorrhage, unspecified Status: Acute Assessment and Plan: recent EGD with non bleeding small ulcers in duodenum and gastrtis recent colonoscopy was normal GI recommendations noted tagged RBC negative SBFT noted s/p repeat EGD and sigmoidoscopy (on 08/08) with results noted as well PRBC transfusion per protocol (3) Anemia: Code(s): D64.9 - Anemia, unspecified Status: Chronic Assessment and Plan: see #2 chronically low partly related to ESRD still guaiac positive s/p EGD and colonoscopy on last hospitalization Epogen with HD follow trend of H/H GI consulted as well (4) Hypotension: Qualifiers: Hypotension type: unspecified hypotension type Qualified Code(s): I95.9 - Hypotension, unspecified Code(s): I95.9 - Hypotension, unspecified Status: Acute Assessment and Plan: somewhat of a chronic issue follow hemodynamics consider trial midodrine(?) follow trend of hemodynamics (5) Anasarca: Code(s): R60.1 - Generalized edema Status: Acute Assessment and Plan: by clinical exam probably partly related to ineffetive fluid removal due to hypotension and low albumin push fluid removal/ultrafiltration with HD as tolerated by hemodynamics Will continue to follow. Subjective Date/time seen: 08/09/23 10:16 Interval history: Follow-up for end stage renal disease on hemodialysis. Tolerating hemodialysis treatment at the time of my visit (seen on HD at 10:06AM); H/H remains relatively stable at this time; no apparent distress noted; no other issues/events voiced. Exam Narrative: General: somewhat chronic ill-appearing male in NAD Heart: normal S1 and S2; no rub Lungs: clear to auscultation Abdomen: soft, nontender, nondistended, positive bowel sounds Extremities: no cyanosis or clubbing; upper extremity edema noted Skin: no rash or nodules Objective Data Vital Signs Vital Signs: Vital Signs Temp Pulse Resp BP Pulse Ox O2 Del Method 08/09/23 10:15 69 121/70 08/09/23 10:00 66 127/73 08/09/23 09:45 69 134/77 08/09/23 09:30 75 148/72 H 08/09/23 09:15 64 122/64 08/09/23 09:00 62 128/70 08/09/23 08:35 98.0 F 83 18 08/09/23 10:00 74 08/09/23 08:00 69 08/09/23 09:21 96 Room Air 08/09/23 08:00 100 Room Air 08/09/23 07:25 98.1 F 77 16 109/65 100 08/09/23 06:00 73 08/09/23 04:00 94 08/09/23 02:00 84 08/09/23 00:00 96 08/08/23 22:00 85 08/08/23 20:00 107 H 08/09/23 04:00 95 18 98 Room Air 08/09/23 04:40 97.1 F L 95 18 127/78 98 08/09/23 00:00 114 H 18 100 Room Air 08/09/23 00:06 97.8 F 114 H 18 130/85 100 08/08/23 20:00 94 18 98 Room Air 08/08/23 19:35 97.7 F 94 18 134/83 98 08/08/23 18:00 95 08/08/23 16:00 100 Room Air 08/08/23 16:00 102 H 08/08/23 16:00 98 F 78 18 122/71 100 08/08/23 14:00 118 H 08/08/23 13:00 110 H 08/08/23 13:00 100 Room Air 08/08/23 12:32 75 18 118/71 100 Room Air 08/08/23 12:28 71 18 103/61 100 Room Air Intake/Output Intake/Output: Intake & Output 08/06/23 08/07/23 08/08/23 08/09/23 23:59 23:59 23:59 23:59 Intake Total 2284 740 1250 790 Output Total 2000 0 2 Balance 027 473 8907 788 Meds/Results Medications: Active Medications Generic Name Dose Route Start Last Admin Trade Name Freq PRN Reason Stop Dose Admin Acetaminophen 650 mg 08/05/23 08:47 Acetaminophen 325 Mg Table
[2023-08-09] MEDS: EPOETIN ALFA-EPBX 10,000 UNITS/ML VIAL 10000 UNITS IV PUSH (10:56)
[2023-08-09] MEDS: ALBUMIN HUMAN 25% 12.5 GM/50ML 50 ML IVPB (11:08)
--- NOTE | 2023-08-09 11:29 | PM.DS ---
DS: Admitting Diagnosis Discharge Date 08/09/23 Admitting Diagnosis Anemia, GI bleed DS: Discharge Diagnosis Discharge Diagnosis (1) Acute GI bleeding: Code(s): K92.2 - Gastrointestinal hemorrhage, unspecified Status: Acute Assessment and Plan: Patient having dark stools and bright red blood in his stools. Patient found to have a hemoglobin of 4.8. GI consulted. Patient received 3 units of PRBCs with repeat hemoglobin of 8.5. 08/06 serial hemoglobin showing 6.6. 2 units of PRBCs ordered. GI recommending a GI bleeding scan and small-bowel follow-through. GI bleeding scan did not show any evidence of a bleed. Small-bowel follow-through did not show any evidence of an acute bleed. Plan for EGD and sigmoidoscopy no signs of acute bleed. H&H has remained stable. GI recommending outpatient capsule endoscopy. (2) Anemia: Qualifiers: Anemia type: unspecified type Qualified Code(s): D64.9 - Anemia, unspecified Code(s): D64.9 - Anemia, unspecified Status: Acute Assessment and Plan: Patient with history of anemia and has had multiple transfusions in the past. 08/05 Patient got 3 units of PRBCs. 08/06 Patient got 2 units PRBCs. Continue to monitor serial H&Hs Hematology consulted. Anemia likely from an acute bleed as well as chronic kidney disease and cirrhosis. Patient started on Procrit (3) Anasarca: Code(s): R60.1 - Generalized edema Status: Acute Assessment and Plan: Likely due to CKD and cirrhosis. Bilateral upper extremity edema pronounced. Will get venous Dopplers. Patient found to have a albumin of 1.9. Albumin given. Continue to monitor. (4) Hypotension: Qualifiers: Hypotension type: unspecified hypotension type Qualified Code(s): I95.9 - Hypotension, unspecified Code(s): I95.9 - Hypotension, unspecified Status: Acute Assessment and Plan: Likely due to multiple things including anemia, dialysis, etc. Albumin ordered in hopes to help with hypotension. Continue to monitor (5) ESRD (end stage renal disease) on dialysis: Code(s): N18.6 - End stage renal disease; Z99.2 - Dependence on renal dialysis Status: Acute Assessment and Plan: Nephrology consulted for dialysis. Dialysis schedule on Tuesday. DS: Summary Hospital Course Hospital Course: This is a 63-year-old male with a past medical history of end-stage renal disease on hemodialysis, chronic pancreatitis, peripheral vascular disease, cirrhosis, gout, hyperlipidemia and essential hypertension who presented to the ER on 08/05/2023 due to hypotensive episode as well as upper extremity swelling.? Patient states that he has had bilateral swelling in his upper extremities for 2-3 weeks and is unsure why his arms are swollen.? Patient did present with a systolic BP in the 90s but upon looking back patient does have a slightly low blood pressure history.? Patient was also found to have a hemoglobin of 4.8 upon arrival to the ED. he was recently hospitalized on? 07/25/2023 through 07/28/2023 for anemia requiring 3 blood transfusions.? EGD and colonoscopy had been recently performed with an EGD showing gastric ulcers and esophagitis.? Colonoscopy did not show any acute findings.? Patient had been taking sucralfate and Protonix for his gastric ulcers.?Patient does have history of cirrhosis and CKD which could be contributing to his anemia but also evidence of acute GI bleed is present.? Occult stool was positive.? GI was consulted on the case.? Patient was started on IV Protonix b.i.d. as well as sucralfate continued.? Nephrology also consulted to help manage patient's end-stage renal disease with dialysis on Tuesday. patient received 3 units of PRBCs on 08/05/2023. Repeat H&H is did show hemoglobin above 7 but serial H&Hs revealed hemoglobin dropped back below 7-6.6
--- NOTE | 2023-08-09 12:50 | PC.NURSE ---
Pt returned from dialysis via bed. No issues noted
[2023-08-09] MEDS: PANTOPRAZOLE 40 MG TABLET PO (12:56)
[2023-08-09] MEDS: EUCERIN CREAM 120 GM JAR 1 APPLIC TOPICAL (12:56)
[2023-08-09] MEDS: SILVER SULFADIAZINE 1% CR 50 GM JAR (*BKC) 1 APPLIC TOPICAL (15:41)
[2023-08-09] MEDS: FUROSEMIDE 40 MG TABLET 80 MG PO (16:20)
--- NOTE | 2023-08-09 16:26 | PC.NURSE ---
Pt received one [place] 5/325 PO 27 minutes earlier then next available time, due to being discharged and needing coverage for transfer. This was cleared by the PA
[2023-08-13 11:56] LABS: Soluble Transferrin Receptor 0.48 mg/L (0.76-1.76)
== END 2023-08-09 16:29 | DRG 811 ==
LOC: ANHED 08-05 06:57 → ANHIMU 08-05 07:02
PROVIDERS: Internal Medicine Gastroenterology; Internal Medicine Hematology & Oncology; Internal Medicine Nephrology; Physician Assistant; Student in an Organized Health Care Education/Training Program; Admitting Provider Internal Medicine; Emergency Provider Student in an Organized Health Care Education/Training Program; PCP Internal Medicine; Visit Provider Internal Medicine Critical Care Medicine
PROC: 0DJ08ZZ Inspection of Upper Intestinal Tract, Via Natural or Artificial Opening Endoscopic (ICD-10-PCS; CPT 43235; principal; 2023-08-08 12:30)
DX: D62 Acute posthemorrhagic anemia (principal); K21.01 Gastro-esophageal reflux disease with esophagitis, with bleeding; N18.6 End stage renal disease; I12.0 Hypertensive chronic kidney disease with stage 5 chronic kidney disease or end stage renal disease; K86.1 Other chronic pancreatitis; K92.2 Gastrointestinal hemorrhage, unspecified; R18.8 Other ascites; K63.5 Polyp of colon; K74.60 Unspecified cirrhosis of liver; K44.9 Diaphragmatic hernia without obstruction or gangrene; K64.8 Other hemorrhoids; E78.5 Hyperlipidemia, unspecified; G89.4 Chronic pain syndrome; I73.9 Peripheral vascular disease, unspecified; I95.9 Hypotension, unspecified; M10.9 Gout, unspecified; Z20.822 Contact with and (suspected) exposure to COVID-19; Z99.2 Dependence on renal dialysis
CPT/HCPCS: 36415; 36430; 71045; 71250; 73610; 74176; 74250; 78278; 80048; 80053; 82274; 82607; 82728; 82746; 83010; 83540; 83550; 83615; 83690; 83735; 83880; 84100; 84238; 85014; 85018; 85025; 85027; 85046; 85055; 85380; 85610; 85730; 86706; 86850; 86900; 86901; 86923; 87040; 87340; 87637; 87641; 88305; 93005; 93970; 94640; 96374; 97161; 97165; 99285; A9270; A9560; C9113; G0257; J2270; J2371; J2704; J3010; J7030; J7040; J7050; P9016; P9047; Q4081; Q5105; Q5106

== ENCOUNTER 2023-10-12 06:40 | Emergency (ER) | payer MEDICARE, MEDICAID, SELFPAY ==
--- NOTE | ~2023-10-12 | CT_ITS ---
EXAMINATION: CT cervical spine wo con DATE: 10/12/2023 07:17 INDICATION: Fall. TECHNIQUE: Computed tomography (CT) of the cervical spine was performed without intravenous contrast. Automated exposure control and iterative reconstruction technique were employed. The dose-length pro duct was 285.33 mGy-cm. COMPARISON: Chest CT 08/05/2023 FINDINGS: There are pleural effusions, right worse than left. Bone alignment is normal. Vertebral bod y heights are normal. There is severely decreased disc height at C2-C3, mildly decreased disc height at C4-C5 and C5-C6, severely decreased disc height at C6-C7, and moderately decreased disc height at C7-T1. There are bulky anterior osteophytes in the cervical spine. The following disc levels are spec ifically discussed: C2-C3: There is severe bilateral uncovertebral joint osteoarthritis. There is moderate right and josé luis re left facet joint osteoarthritis. There is mild left neural foraminal stenosis. There is no central canal stenosis. C3-C4: There is mild bilateral uncovertebral joint osteoarthritis. There is severe right and moderate left facet joint osteoarthritis. There is no neural foraminal stenosis. There is no central canal st enosis. C4-C5: There is mild left uncovertebral joint osteoarthritis. There is severe bilateral facet joint o steoarthritis. There is mild left neural foraminal stenosis. There is no central canal stenosis. C5-C6: There is mild bilateral uncovertebral joint osteoarthritis. There is mild right and moderate l eft facet joint osteoarthritis. There is no neural foraminal stenosis. There is mild central canal st enosis. C6-C7: There is moderate bilateral uncovertebral joint osteoarthritis. There is moderate right and se norris left facet joint osteoarthritis. There is mild left neural foraminal stenosis. There is mild dirk tral canal stenosis. C7-T1: There is no uncovertebral joint osteoarthritis. There is severe bilateral facet joint osteoart hritis. There is mild left neural foraminal stenosis. There is no central canal stenosis. IMPRESSION: 1. No fracture. 2. Severe cervical spondylosis. 3. Bilateral pleural effusions. Reviewed, dictated and finalized at location A.
--- NOTE | ~2023-10-12 | CT_ITS ---
EXAMINATION: CT brain wo con DATE: 10/12/2023 07:17 INDICATION: Fall. TECHNIQUE: Computed tomography (CT) of the head was performed without intravenous contrast. The mA wa s adjusted according to patient size. Iterative reconstruction technique was employed. The dose-lengt h product was 681.00 mGy-cm. COMPARISON: Head CT 07/25/2023 FINDINGS: There is no intracranial hemorrhage, acute infarction, or abnormal intracranial mass lesion . The ventricles are normal in size. The orbits are normal. There is mild mucosal thickening in the p aranasal sinuses. The mastoid air cells are normal. IMPRESSION: 1. Normal brain. Reviewed, dictated and finalized at location A. IMPRESSION: 1. Normal brain.
[2023-10-12 06:37] VITALS: BP 120/83; PULSE 100; RESP 20; TEMP 36.6; O2SAT 100
--- NOTE | 2023-10-12 07:15 | PC.NURSE ---
Pt to CT scan via stretcher at this time.
[2023-10-12 07:35] VITALS: BP 103/62; PULSE 107; RESP 18; O2SAT 98
--- NOTE | 2023-10-12 07:39 | ED.FALL ---
HPI - Fall General Chief Complaint: Fall Stated Complaint: rolled out of bed Time Seen by Provider: 10/12/23 07:14 History of Present Illness HPI Narrative: Pt rolled out of bed at local care facility striking head. Pt denies LOC. Pt has chronic low back pain and says he has some mild discomfort to his low back like usual but no different. Pt denies neck or hip pain. Related Data Home Medications Medication Instructions Recorded Confirmed atorvastatin 20 mg tablet 20 mg PO DAILY 07/31/21 08/05/23 cetirizine 10 mg tablet 10 mg PO DAILY 07/31/21 08/05/23 loperamide 2 mg capsule 2 mg PO Q6H PRN Diarrhea 07/31/21 08/05/23 sevelamer HCl 800 mg tablet 800 mg PO TID 07/31/21 08/05/23 aspirin 81 mg tablet,delayed 81 mg PO DAILY 07/02/23 08/05/23 release bisacodyl 10 mg rectal suppository 10 mg RECTAL DAILY PRN Constipation 07/11/23 08/05/23 hydrocodone 5 mg-acetaminophen 325 1 tablet PO Q6H PRN Pain (Scale 07/11/23 08/05/23 mg tablet Score 4-6) magnesium citrate (Citroma oral 296 ml PO DAILY PRN Constipation 07/11/23 08/05/23 solution) albuterol sulfate 90 mcg/actuation 2 puff inhalation Q6H PRN 07/25/23 08/05/23 aerosol inhaler Shortness Of Breath [id number] 1 cap PO TID 07/25/23 08/05/23 24,000-76,000-120,000 unit capsule,delayed rel (Creon) benzonatate 100 mg capsule 200 mg PO Q8H PRN Cough 08/05/23 08/05/23 magnesium hydroxide 400 mg/5 mL 30 ml PO HS PRN Constipation 08/05/23 08/05/23 oral suspension (Milk of Magnesia) silver sulfadiazine 1 % topical See Rx Instructions .Route .COMPLEX 08/05/23 08/05/23 cream (Silvadene) sodium phosphates 19 gram-7 118 ml RECTAL DAILY PRN 08/05/23 08/05/23 gram/118 mL enema (Fleet Enema) Constipation sucralfate 1 gram tablet 1 g PO QID 08/05/23 08/05/23 Allergies Allergy/AdvReac Type Severity Reaction Status Date / Time lisinopril Allergy Unknown Verified 08/08/23 11:02 Review of Systems Review of Systems: All systems reviewed & are unremarkable except as noted in HPI and below PMFSH Past Medical History Medical History Chronic anemia Chronic pain syndrome Chronic pancreatitis Cirrhosis Encephalopathy End stage renal disease on dialysis Esophagitis with gastritis (07/04/23) Gastritis Hyperlipidemia Hypertension Peptic ulcer disease Peptic ulcer with perforation Peripheral vascular disease Surgical History Surgical History History of esophagogastroduodenoscopy (EGD) 07/04/2023: Hiatal hernia, unspecified esophagitis, gastritis History of umbilical hernia repair Presence of surgically created AV shunt for hemodialysis Left upper arm Family History Family History Unknown Family history unknown Social History Social History Social History: Surrogate medical decision maker: Zurdo Lehman (son) or Robert Nails (nephew). Code status: Full code. Smoking status: Never smoker Second hand tobacco smoke exposure: No Alcohol intake: former Substance use: never Substance use type: does not use Do You Feel Safe in your Home?: Yes Lack of Transportation: YES Lack of Food: Often True Current Housing: I Have Housing Concerned About Future Housing: No Difficulty Paying Gas/Electric Bills: YES Difficulty Paying for Meds: YES Currently Unemployed: No Education: High School Diploma/GED Difficulty w/ Childcare or Family Care: No Living arrangements: long-term Additional living arrangements comments: [facility], [address] [place] [address], [place], [place] since 07/14/2023 Additional occupation/education comments: 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 Spiritual care concerns: No Exam Const: General: healthy appearing and no acute distress Nutritional
[2023-10-12] MEDS: ACETAMINOPHEN 500 MG TABLET 1000 MG PO (07:58)
--- NOTE | 2023-10-12 08:10 | PC.NURSE ---
this RN attempted to Call [facility] for nurse to nurse report with no answer
== END 2023-10-12 08:42 ==
LOC: ANHED 07:58
PROVIDERS: Emergency Provider Emergency Medicine; PCP Internal Medicine
DX: S09.90XA Unspecified injury of head, initial encounter (principal); I12.0 Hypertensive chronic kidney disease with stage 5 chronic kidney disease or end stage renal disease; N18.6 End stage renal disease; I73.9 Peripheral vascular disease, unspecified; D64.9 Anemia, unspecified; G89.4 Chronic pain syndrome; K86.1 Other chronic pancreatitis; K74.60 Unspecified cirrhosis of liver; Z99.2 Dependence on renal dialysis; Z87.11 Personal history of peptic ulcer disease; Z79.82 Long term (current) use of aspirin; W06.XXXA Fall from bed, initial encounter
CPT/HCPCS: 70450; 72125; 99284; A9270

== ENCOUNTER 2023-11-21 14:31 | Emergency (ER) | payer MEDICARE, MEDICAID, SELFPAY ==
--- NOTE | ~2023-11-21 | CT_ITS ---
EXAMINATION: CT brain wo con DATE: 11/21/2023 18:47 INDICATION: AMS . TECHNIQUE: Computed tomography (CT) of the head was performed without intravenous contrast. The mA wa s adjusted according to patient size. Iterative reconstruction technique was employed. The dose-lengt h product was 681.00 mGy-cm. COMPARISON: None. FINDINGS: No acute intracranial hemorrhage or extra-axial fluid collection. No hydrocephalus, mass, or herniation. No acute ischemic infarct. Unremarkable dural venous sinus attenuation. No acute osseous abnormality. The aerated spaces are clear. Mild atrophy. Mild prominence of the extra-axial spaces, a chronic finding. Atherosclerotic intracran ial calcification. Tiny old right thalamic lacunar infarct. IMPRESSION: No acute intracranial process. Reviewed, dictated and finalized at location K.
--- NOTE | ~2023-11-21 | XR_ITS ---
EXAMINATION: XR chest 1V portable Exam Date/Time: 11/21/2023 18:56 CDT HISTORY: AMS, BEST OBTAINABLE PIC Comparison: 08/05/2023. RESULT: Lines, tubes, and devices: Vascular stent over the left upper arm. Lungs and pleura: Graded opacification of the mid lungs. Moderate bilateral costophrenic angle blunt ing. Cardiomediastinal silhouette: Stable. Other: No acute osseous or upper abdominal finding. IMPRESSION: Moderate bilateral pleural effusions with adjacent atelectasis. Infection is not excluded. Reviewed, dictated and finalized at location K. IMPRESSION: Moderate bilateral pleural effusions with adjacent atelectasis. Infection is no t excluded.
[2023-11-21 14:31] VITALS: BP 129/71; PULSE 77; RESP 18; TEMP 36.4; O2SAT 98
[2023-11-21 14:42] VITALS: O2SAT 98
--- NOTE | 2023-11-21 14:47 | ECG_ITS ---
SEE SCANNED COPY FOR CONFIRMED REPORT. MTDD
--- NOTE | 2023-11-21 15:14 | PC.NURSE ---
Vascular access called
--- NOTE | 2023-11-21 16:50 | PC.NURSE ---
Patient unable to provide urine sample, states he does not produce urine anymore.
[2023-11-21 16:51] VITALS: BP 129/69; PULSE 76; RESP 14; O2SAT 97
[2023-11-21 17:51] LABS: Eosinophils Absolute Auto 0.1 K/mm3 (0-0.3); Eosinophils Percent Auto 1.7 % (0-4.4); Hemoglobin 9.8 g/dL (14.0-18.0); Immature Platelet Fraction Pct 1.8 % (0.9-11.2); Lymphocytes Absolute Auto 1.73 K/mm3 (0.9-3.2); Lymphocytes Percent Auto 43.1 % (18.3-44.2); Mean Corpuscular HGB Conc 31.6 g/dl (32-36); Mean Corpuscular Hemoglobin 28.2 pg (26-34); Mean Corpuscular Volume 89.3 fl (80-100); Mean Platelet Volume 10.7 fl (7.4-10.4); Monocytes Absolute Auto 0.4 K/mm3 (0.1-0.6); Monocytes Percent Auto 9.2 % (2.6-8.5); Neutrophils Absolute Auto 1.8 K/mm3 (1.3-6.7); Platelet Count Result 115 k/mm3 (150-375); Red Blood Count 3.47 M/mm3 (4.6-6.20); Red Cell Distribution Width 18.1 % (11.5-14.5)
[2023-11-21 17:55] VITALS: BP 140/88; PULSE 74; RESP 14; O2SAT 97
--- NOTE | 2023-11-21 18:27 | ED.AMS ---
HPI - Altered Mental Status General Chief Complaint: Altered Mental Status <Gaurav Zavala MD - Last Filed: 11/22/23 19:12> Stated Complaint: ALOC <Gaurav Zavala MD - Last Filed: 11/22/23 19:12> Time Seen by Provider: 11/21/23 15:53 <Gaurav Zavala MD - Last Filed: 11/22/23 19:12> History of Present Illness HPI narrative: 63-year-old male presented to the ED from local shelter for evaluation for being more lethargic than his typical baseline. Patient does have a prior history of anemia and GI bleed. Patient does have history of chronic kidney disease and cirrhosis. Patient also has a long-standing wound on his lower extremity and is being followed by wound care. Patient is a dialysis patient on Tuesdays and Saturdays. <Gaurav Zavala MD - Last Filed: 11/22/23 19:12> Related Data Home Medications: Home Medications Medication Instructions Recorded Confirmed atorvastatin 20 mg tablet 20 mg PO DAILY 07/31/21 08/05/23 cetirizine 10 mg tablet 10 mg PO DAILY 07/31/21 08/05/23 loperamide 2 mg capsule 2 mg PO Q6H PRN Diarrhea 07/31/21 08/05/23 sevelamer HCl 800 mg tablet 800 mg PO TID 07/31/21 08/05/23 aspirin 81 mg tablet,delayed 81 mg PO DAILY 07/02/23 08/05/23 release bisacodyl 10 mg rectal suppository 10 mg RECTAL DAILY PRN Constipation 07/11/23 08/05/23 hydrocodone 5 mg-acetaminophen 325 1 tablet PO Q6H PRN Pain (Scale 07/11/23 08/05/23 mg tablet Score 4-6) magnesium citrate (Citroma oral 296 ml PO DAILY PRN Constipation 07/11/23 08/05/23 solution) albuterol sulfate 90 mcg/actuation 2 puff inhalation Q6H PRN 07/25/23 08/05/23 aerosol inhaler Shortness Of Breath [id number] 1 cap PO TID 07/25/23 08/05/23 24,000-76,000-120,000 unit capsule,delayed rel (Creon) benzonatate 100 mg capsule 200 mg PO Q8H PRN Cough 08/05/23 08/05/23 magnesium hydroxide 400 mg/5 mL 30 ml PO HS PRN Constipation 08/05/23 08/05/23 oral suspension (Milk of Magnesia) silver sulfadiazine 1 % topical See Rx Instructions .Route .COMPLEX 08/05/23 08/05/23 cream (Silvadene) sodium phosphates 19 gram-7 118 ml RECTAL DAILY PRN 08/05/23 08/05/23 gram/118 mL enema (Fleet Enema) Constipation sucralfate 1 gram tablet 1 g PO QID 08/05/23 08/05/23 <Gaurav Zavala MD - Last Filed: 11/22/23 19:12> Allergies/Adverse Reactions: Allergies Allergy/AdvReac Type Severity Reaction Status Date / Time lisinopril Allergy Unknown Verified 08/08/23 11:02 <Gaurav Zavala MD - Last Filed: 11/22/23 19:12> Review of Systems Review of Systems: A 10 system review of systems was completed on the patient and is negative except for what is stated in the HPI. Nursing and ancillary documentation was reviewed. <Blade Hurtado MD - Last Filed: 11/21/23 23:48> All systems reviewed & are unremarkable except as noted in HPI and below <Gaurav Zavala MD - Last Filed: 11/22/23 19:12> FOR[facility]LY [facility], [facility] Past Medical History Medical History: Medical History Chronic anemia Chronic pain syndrome Chronic pancreatitis Cirrhosis Encephalopathy End stage renal disease on dialysis Esophagitis with gastritis (07/04/23) Gastritis Hyperlipidemia Hypertension Peptic ulcer disease Peptic ulcer with perforation Peripheral vascular disease <Gaurav Zavala MD - Last Filed: 11/22/23 19:12> Surgical History Surgical History: Surgical History History of esophagogastroduodenoscopy (EGD) 07/04/2023: Hiatal hernia, unspecified esophagitis, gastritis History of umbilical hernia repair Presence of surgically created AV shunt for hemodialysis Left upper arm <Gaurav Zavala MD - Last Filed: 11/22/23 19:12> Family History Family History: Family History Unknown Family history unknown
[2023-11-21 18:52] LABS: INR 1.3; Prothrombin Time 16.6 Seconds (11.1-14.7)
[2023-11-21 18:53] LABS: Partial Thromboplastin Time 45.2 Seconds (22.3-36.8)
[2023-11-21 19:05] VITALS: BP 131/66; PULSE 74; RESP 14
--- NOTE | 2023-11-21 19:14 | PC.NURSE ---
Phlebotomy called for blood cultures
--- NOTE | 2023-11-21 20:29 | PC.NURSE ---
phlebotomy at bedside
[2023-11-21 21:29] LABS: Procalcitonin 1.1 ng/mL
[2023-11-21 22:00] VITALS: PULSE 71; RESP 12; O2SAT 97
[2023-11-21 22:17] LABS: Alanine Aminotransferase 10 U/L (6-50); Albumin Level 2.1 g/dL (3.5-5.1); Alkaline Phosphatase 156 U/L (38-126); Anion Gap 3 mmol/L (4-12); Aspartate Amino Transferase 21 U/L (17-59); Bilirubin,Total 0.6 mg/dL (0.2-1.3); Blood Urea Nitrogen 25 mg/dL (9-20); Calcium 8.6 mg/dL (8.4-10.2); Carbon Dioxide 31 mmol/L (22-30); Chloride 98 mmol/L (98-107); Estimated CRCL calculation 11 ml/min; Estimated Glomerular Filt Rate 11; Glucose 73 mg/dL (65-110); Lactic Acid Reflex 0.7 mmol/L (0.7-2.0); Potassium 3.3 mmol/L (3.4-5.0); Sodium 132 mmol/L (137-145)
[2023-11-21 22:29] LABS: Troponin I 0.014 ng/mL (0.000-0.034)
--- NOTE | 2023-11-21 23:15 | PC.NURSE ---
Assumed care of pt from Tosin MENESES at this time. Pt and linen changed. Pt resting in bed.
[2023-11-22 00:31] VITALS: BP 123/74; PULSE 70; RESP 16; O2SAT 98
== END 2023-11-22 00:33 ==
PROVIDERS: Emergency Medicine; Emergency Provider Emergency Medicine; PCP Internal Medicine
DX: R53.1 Weakness (principal); D64.9 Anemia, unspecified; I12.0 Hypertensive chronic kidney disease with stage 5 chronic kidney disease or end stage renal disease; N18.6 End stage renal disease; Z99.2 Dependence on renal dialysis; E78.5 Hyperlipidemia, unspecified
CPT/HCPCS: 36415; 70450; 71045; 80053; 83605; 84145; 84484; 85025; 85055; 85610; 85730; 87040; 93005; 99284

== ENCOUNTER 2023-12-05 10:40 | Emergency (ER) | payer MEDICARE, MEDICAID, SELFPAY ==
--- NOTE | ~2023-12-05 | CT_ITS ---
EXAMINATION: CT brain wo con DATE: 12/05/2023 13:43 INDICATION: Facial swelling TECHNIQUE: Computed tomography (CT) of the head was performed without intravenous contrast. The mA wa s adjusted according to patient size. Iterative reconstruction technique was employed. Exam dose: 75 6.67 mGy-cm total exam DLP. COMPARISON: November 21, 2023 CT brain FINDINGS: Bilateral vertebral artery calcification and bilateral carotid siphon internal carotid daisy ry calcification. There is nonspecific diminished attenuation of the cerebral white matter, likely due to chronic small vessel ischemic change. There is cerebellar and cerebral cortical atrophy. Cavum septum pellucidum. No intracranial mass lesion or hemorrhage, midline shift or mass effect. No subdural or epidural kolton yann is detected. There are bilateral periapical upper tooth abscesses. The paranasal sinuses and mastoid air cells are normally developed and aerated. No skull fracture or bone destruction is detected. There is nonspecific left facial soft tissue swelling and subcutaneous adipose tissue infiltration. IMPRESSION: Nonspecific left facial soft tissue swelling Cerebral atherosclerosis and chronic small vessel ischemic change of the cerebral white matter No acute intracranial finding Reviewed, dictated and finalized at [facility]. Reviewed, dictated and finalized at [facility]. IMPRESSION: Nonspecific left facial soft tissue swelling Cerebral atherosclerosis and chronic small vessel ischemic change of the cerebr al white matter No acute intracranial finding
--- NOTE | ~2023-12-05 | XR_ITS ---
EXAMINATION: XR chest 1V DATE: 12/05/2023 13:48 INDICATION: Removal of midline. TECHNIQUE: A single frontal view of the chest was obtained. COMPARISON: Chest view 11/21/2023 FINDINGS: There are moderate-sized pleural effusions. There are airspace opacities at the lung bases. No pneumothorax. The heart size is obscured. There is a vascular stent in left upper limb. IMPRESSION: 1. Stable moderate-sized pleural effusions. 2. Stable airspace opacities at the lung bases, consistent with atelectasis versus pneumonia. Reviewed, dictated and finalized at location [facility]. IMPRESSION: 1. Stable moderate-sized pleural effusions. 2. Stable airspace opacities at the lung bases, consistent with atelectasis marilia diaz pneumonia.
[2023-12-05 11:00] VITALS: BP 100/63; PULSE 89; RESP 17; TEMP 36.5; O2SAT 98
[2023-12-05 11:54] LABS: Glucose Point of Care 403 mg/dl (65-105)
--- NOTE | 2023-12-05 13:41 | PC.NURSE ---
when calling report back to facility they requested to speak with provider about what has been done in the ED. additional orders placed by EDNeda Torres before pt returning to facility.
[2023-12-05 14:55] LABS: Hematocrit 30.3 % (42.0-52.0); Hemoglobin 9.5 g/dL (14.0-18.0); Immature Platelet Fraction Pct 5.5 % (0.9-11.2); Mean Corpuscular HGB Conc 31.4 g/dl (32-36); Mean Corpuscular Hemoglobin 26.8 pg (26-34); Mean Corpuscular Volume 85.4 fl (80-100); Mean Platelet Volume 10.4 fl (7.4-10.4); Platelet Count Result 57 k/mm3 (150-375); Red Blood Count 3.55 M/mm3 (4.6-6.20); Red Cell Distribution Width 18.6 % (11.5-14.5); White Blood Count 4.7 K/mm3 (4.5-10.0)
[2023-12-05 15:09] LABS: Anion Gap 2 mmol/L (4-12); Blood Urea Nitrogen 13 mg/dL (9-20); Calcium 8.2 mg/dL (8.4-10.2); Carbon Dioxide 34 mmol/L (22-30); Chloride 98 mmol/L (98-107); Estimated CRCL calculation 18 ml/min; Estimated Glomerular Filt Rate 20; Glucose 89 mg/dL (65-110); Potassium 2.9 mmol/L (3.4-5.0); Sodium 134 mmol/L (137-145)
--- NOTE | 2023-12-05 15:19 | ED.GENADULT ---
HPI - General Adult General Chief complaint: Unspecified Stated complaint: facial edema x 1 day, hypoglycemic Time Seen by Provider: 12/05/23 11:28 History of Present Illness HPI narrative: Patient was at detention and detention was concerned that he may have had some swelling to his face, and seems sleepier than usual. When I talked to the patient he denies any complaints, he denies any pain anywhere. Denies that his face is swollen, denies any pain in his teeth Related Data Home Medications Medication Instructions Recorded Confirmed atorvastatin 20 mg tablet 20 mg PO DAILY 07/31/21 08/05/23 cetirizine 10 mg tablet 10 mg PO DAILY 07/31/21 08/05/23 loperamide 2 mg capsule 2 mg PO Q6H PRN Diarrhea 07/31/21 08/05/23 sevelamer HCl 800 mg tablet 800 mg PO TID 07/31/21 08/05/23 aspirin 81 mg tablet,delayed 81 mg PO DAILY 07/02/23 08/05/23 release bisacodyl 10 mg rectal suppository 10 mg RECTAL DAILY PRN Constipation 07/11/23 08/05/23 hydrocodone 5 mg-acetaminophen 325 1 tablet PO Q6H PRN Pain (Scale 07/11/23 08/05/23 mg tablet Score 4-6) magnesium citrate (Citroma oral 296 ml PO DAILY PRN Constipation 07/11/23 08/05/23 solution) albuterol sulfate 90 mcg/actuation 2 puff inhalation Q6H PRN 07/25/23 08/05/23 aerosol inhaler Shortness Of Breath [id number]-[id number]-dcocrsh 1 cap PO TID 07/25/23 08/05/23 24,000-76,000-120,000 unit capsule,delayed rel (Creon) benzonatate 100 mg capsule 200 mg PO Q8H PRN Cough 08/05/23 08/05/23 magnesium hydroxide 400 mg/5 mL 30 ml PO HS PRN Constipation 08/05/23 08/05/23 oral suspension (Milk of Magnesia) silver sulfadiazine 1 % topical See Rx Instructions .Route .COMPLEX 08/05/23 08/05/23 cream (Silvadene) sodium phosphates 19 gram-7 118 ml RECTAL DAILY PRN 08/05/23 08/05/23 gram/118 mL enema (Fleet Enema) Constipation sucralfate 1 gram tablet 1 g PO QID 08/05/23 08/05/23 Allergies Allergy/AdvReac Type Severity Reaction Status Date / Time lisinopril Allergy Unknown Verified 08/08/23 11:02 Review of Systems Review of Systems: All systems reviewed & are unremarkable except as noted in HPI and below PMFSH Past Medical History Medical History Chronic anemia Chronic pain syndrome Chronic pancreatitis Cirrhosis Encephalopathy End stage renal disease on dialysis Esophagitis with gastritis (07/04/23) Gastritis Hyperlipidemia Hypertension Peptic ulcer disease Peptic ulcer with perforation Peripheral vascular disease Surgical History Surgical History History of esophagogastroduodenoscopy (EGD) 07/04/2023: Hiatal hernia, unspecified esophagitis, gastritis History of umbilical hernia repair Presence of surgically created AV shunt for hemodialysis Left upper arm Family History Family History Unknown Family history unknown Social History Social History Social History: Surrogate medical decision maker: Zurdo Lehman (son) or Robert Nails (nephew). Code status: Full code. Smoking status: Never smoker Second hand tobacco smoke exposure: No Alcohol intake: former Substance use: never Substance use type: does not use Do You Feel Safe in your Home?: Yes Lack of Transportation: YES Lack of Food: Often True Current Housing: I Have Housing Concerned About Future Housing: No Difficulty Paying Gas/Electric Bills: YES Difficulty Paying for Meds: YES Currently Unemployed: No Education: High School Diploma/GED Difficulty w/ Childcare or Family Care: No Living arrangements: detention Additional living arrangements comments: [facility] of [place], [address] [place] [address] since 07/14/2023 Additional occupation/education comments: 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
[2023-12-05 15:42] VITALS: BP 106/67; PULSE 78; RESP 15; O2SAT 97
[2023-12-05] MEDS: POTASSIUM CHLORIDE 20 MEQ PACKET (FOR LIQUID) 40 MEQ PO (15:42)
[2023-12-05 15:54] LABS: Anisocytosis 2+; Basophils Absolute Manual 0.04 K/mm3 (0.0-0.1); Basophils Percent Manual 1 % (0-1); Eosinophils Absolute Manual 0.47 K/mm3 (0.02-0.50); Eosinophils Percent Manual 10 % (0-4); Hypochromasia 1+; Lymphocytes Absolute Manual 1.83 K/mm3 (1.1-4.5); Monocytes Absolute Manual 0.14 K/mm3 (0.1-0.90); Monocytes Percent Manual 3 % (3-9); Neutrophils Percent Manual 47 % (46-73); Platelet Estimate Decreased (Adequate); Schistocytes None Seen; Total Cells Counted 100
--- NOTE | 2023-12-05 17:29 | PC.NURSE ---
attempted to call report back to [facility] and no answer. left a voicemail with a callback number for any questions.
== END 2023-12-05 18:10 ==
PROVIDERS: Emergency Provider Emergency Medicine; PCP Internal Medicine
DX: I12.0 Hypertensive chronic kidney disease with stage 5 chronic kidney disease or end stage renal disease (principal); E11.22 Type 2 diabetes mellitus with diabetic chronic kidney disease; N18.6 End stage renal disease; E11.65 Type 2 diabetes mellitus with hyperglycemia; E87.6 Hypokalemia; E11.51 Type 2 diabetes mellitus with diabetic peripheral angiopathy without gangrene; I73.9 Peripheral vascular disease, unspecified; E78.5 Hyperlipidemia, unspecified; K74.60 Unspecified cirrhosis of liver; K86.1 Other chronic pancreatitis; D64.9 Anemia, unspecified; G89.4 Chronic pain syndrome; Z99.2 Dependence on renal dialysis; Z87.11 Personal history of peptic ulcer disease; Z79.82 Long term (current) use of aspirin; Z79.899 Other long term (current) drug therapy
CPT/HCPCS: 36415; 70450; 71045; 80048; 82948; 85025; 85055; 99284; A9270

== ENCOUNTER 2023-12-16 10:41 | Inpatient (IN) | payer MEDICARE, MEDICAID, SELFPAY ==
[2023-12-16] VITALS (17 sets, daily range): BP systolic 108–127; BP diastolic 52–93; PULSE 78–92; RESP 12–22; TEMP 36.1–36.6; O2SAT 85–99; BMI 26.6
--- NOTE | ~2023-12-16 | XR_ITS ---
Portable chest x-ray Comparison: 12/20/2023 Clinical History: Intubated Findings: Endotracheal tube, NG tube, and right IJ line are unchanged. Moderate pleural effusion wit h moderate pulmonary edema pattern and bibasilar atelectasis is unchanged. Cardiomediastinal silhoue tte is stable. Bones and soft tissues are unremarkable. Impression: No interval change. Stable support tubes. Moderate bilateral pleural effusions with moderate pulmonary edema pattern and bibasilar atelectasis. Reviewed, dictated and finalized at location . Impression: No interval change. Stable support tubes. Moderate bilateral pleural effusions with moderate pulmonary edema pattern and bibasilar atelectasis.
--- NOTE | ~2023-12-16 | XR_ITS ---
Portable chest x-ray Comparison: 12/19/2023 Clinical History: Intermittent Findings: Endotracheal tube, NG tube, and right IJ line are in place. There are moderate bilateral p leural effusions with moderate pulmonary edema pattern and bibasilar atelectasis. Cardiomediastinal silhouette is stable. Bones and soft tissues are unremarkable. Impression: Moderate pleural effusions with moderate pulmonary edema pattern and bibasilar atelectasis. Support tubes, as above. Reviewed, dictated and finalized at location M. Impression: Moderate pleural effusions with moderate pulmonary edema pattern and bibasilar atelectasis. Support tubes, as above.
--- NOTE | ~2023-12-16 | XR_ITS ---
XR chest 1V portable 12/18/2023 05:48 Indication: Respiratory distress. Intubation. Procedure: AP portable chest Comparison: 12/17/2023 and 12/16/2023 Findings: Endotracheal tube tip 6.2 cm above the shravan. Moderate pulmonary edema. Small pleural effu sions. No pneumothorax. No acute osseous abnormality. NG tube tip in the stomach. Impression: 1: Moderate pulmonary edema with pleural effusions. No significant change. Reviewed, dictated and finalized at location B. Impression: 1: Moderate pulmonary edema with pleural effusions. No significant change.
--- NOTE | ~2023-12-16 | XR_ITS ---
Portable chest x-ray Comparison: 12/21/2023 Clinical History: Respiratory failure Findings: Endotracheal tube, NG tube, and right IJ line are in place. There are moderate bilateral p leural effusions. There is severe pulmonary edema pattern with bibasilar atelectasis. Cardiomediasti nal silhouette is stable. Bones and soft tissues are unremarkable. Impression: Severe pulmonary edema pattern with moderate pleural effusions and bibasilar atelectasis. Support tubes, as above. Reviewed, dictated and finalized at location M. Impression: Severe pulmonary edema pattern with moderate pleural effusions and bibasilar at electasis. Support tubes, as above.
--- NOTE | ~2023-12-16 | XR_ITS ---
EXAMINATION: XR chest ET placement DATE: 12/17/2023 17:53 INDICATION: Intubation. TECHNIQUE: A single frontal view of the chest was obtained. COMPARISON: Chest view 12/16/2023 FINDINGS: There are moderate-sized pleural effusions. There are airspace opacities in the perihilar r egions and at the lung bases. No pneumothorax. Cardiomegaly is noted. The endotracheal tube tip is 4. 7 cm above the shravan. The nasogastric tube tip is beyond the inferior margin of the radiograph, but at least to the stomach. A right internal jugular central venous catheter is seen with tip at the sup erior cavoatrial junction. IMPRESSION: 1. Stable moderate-sized pleural effusions. 2. Several airspace opacities in the perihilar regions and at the lung bases, likely a combination of pulmonary edema and atelectasis. 3. Cardiomegaly. Reviewed, dictated and finalized at location E. IMPRESSION: 1. Stable moderate-sized pleural effusions. 2. Several airspace opacities in the perihilar regions and at the lung bases, l ikely a combination of pulmonary edema and atelectasis. 3. Cardiomegaly.
--- NOTE | ~2023-12-16 | XR_ITS ---
Portable chest x-ray Comparison: 12/18/2023 Clinical History: Intubated Findings: Endotracheal tube, NG tube, and right IJ line remain in place. Moderate bilateral pleural effusions are present with moderate pulmonary edema and bibasilar atelectasis. Cardiomediastinal [place] is stable. Bones and soft tissues are unremarkable. Impression: Moderate pleural effusions with moderate pulmonary edema pattern and bibasilar atelectasis. Support tubes, as above. Reviewed, dictated and finalized at location . Impression: Moderate pleural effusions with moderate pulmonary edema pattern and bibasilar atelectasis. Support tubes, as above.
--- NOTE | ~2023-12-16 | XR_ITS ---
EXAMINATION: XR chest port-a-cath/central DATE: 12/16/2023 11:49 INDICATION: Central line placement. TECHNIQUE: A single frontal view of the chest was obtained. COMPARISON: Chest view 12/05/2023, chest CT 08/05/2023 FINDINGS: The patient is rotated to his left. There are moderate-sized pleural effusions. There are a irspace opacities in the perihilar regions and at the lung bases. No pneumothorax. The heart size is obscured. There is a vascular stent in left upper limb. A right internal jugular central venous dilip ter is seen with tip at the superior cavoatrial junction. IMPRESSION: 1. Central line tip at superior cavoatrial junction. 2. Stable moderate-sized pleural effusions. 3. Airspace opacities in the perihilar regions and at the lung bases, likely a combination of atelect asis and pulmonary edema. Reviewed, dictated and finalized at location A. IMPRESSION: 1. Central line tip at superior cavoatrial junction. 2. Stable moderate-sized pleural effusions. 3. Airspace opacities in the perihilar regions and at the lung bases, likely a combination of atelectasis and pulmonary edema.
--- NOTE | ~2023-12-16 | XR_ITS ---
XR chest 1V portable DATE: 12/24/2023 05:41 INDICATION: Respiratory failure TECHNIQUE: Portable AP chest on 12/24/2023 at 0518 hours COMPARISON: 12/23/2023 portable AP chest at 0511 hours FINDINGS: ET tube in satisfactory position 3.9 cm above shravan. NG tube in stomach. Right internal jugular central venous catheter tip overlies the upper right atrium. No pneumothorax i s evident. There is pulmonary vessel congestion and redistribution. There are bilateral pulmonary Treitz which a re more prominent centrally and in the lower lung zones, with suggestion of mild improvement since 12/23/2023. There are bilateral mild/moderate pleural effusions. Osteopenia. IMPRESSION: Congestive changes, probable pulmonary edema; pneumonia or aspiration are not excluded Mild to moderate pleural effusions Mild improvement of bilateral infiltrates since 12/23/2023 Reviewed, dictated and finalized at location A. IMPRESSION: Congestive changes, probable pulmonary edema; pneumonia or aspirati on are not excluded Mild to moderate pleural effusions Mild improvement of bilateral infiltrates since 12/23/2023
--- NOTE | ~2023-12-16 | XR_ITS ---
EXAMINATION: XR fl Dobhoff insert/rad w img DATE: 12/23/2023 10:53 INDICATION: Respiratory failure. TECHNIQUE: I attempted to insert a nasoenteric tube under fluoroscopic guidance. The fluoroscopy expo sure time was 5.3 minutes. The total number of images was 1. COMPARISON: None. FINDINGS: I was unable to pass the tube into the esophagus. IMPRESSION: 1. Unsuccessful nasoenteric tube placement. Reviewed, dictated and finalized at location A.
--- NOTE | ~2023-12-16 | XR_ITS ---
EXAMINATION: XR abdomen gastric tube insert DATE: 12/17/2023 17:53 INDICATION: Nasogastric tube placement. TECHNIQUE: A supine view of the abdomen was obtained. COMPARISON: None. FINDINGS: The lower abdomen is excluded. The nasogastric tube tip is in the stomach. IMPRESSION: 1. Nasogastric tube tip in the stomach. Reviewed, dictated and finalized at location E.
--- NOTE | ~2023-12-16 | CT_ITS ---
EXAMINATION: CT abdomen pelvis wo con DATE: 12/16/2023 16:05 INDICATION: Lower abdominal swelling. TECHNIQUE: Computed tomography (CT) of the abdomen and pelvis was performed without intravenous contr ast. Automated exposure control and iterative reconstruction technique were employed. The dose-length product was 1069.45 mGy-cm. COMPARISON: CT abdomen pelvis 08/05/2023 FINDINGS: The visualized portions of the lung bases demonstrate moderate-sized pleural effusions and dependent atelectasis. Calcified pulmonary nodules are consistent with old granulomatous disease. Car diomegaly is noted. There are coronary artery calcifications. No pericardial effusion. The liver demo nstrates hypertrophy of left lateral segment, consistent with cirrhosis. Calcifications in the spleen are consistent with old granulomatous disease. There is mild splenomegaly. There are gallstones in t he gallbladder, which is normal in size. There are calcifications in the pancreas, consistent with ch ronic pancreatitis. The adrenal glands are normal. There is moderate atrophy of the kidneys. There ar e cysts in the kidneys measuring up to 5.6 cm on the left. There are widespread arterial calcificatio ns. There are no dilated loops of bowel. There is diffuse wall thickening of the colon. The appendix is not visualized. There are no pathologically enlarged lymph nodes. There is widespread edema of the intra-abdominal fat and body wall fat. There is a large volume of ascites. There is moderate lumbar spondylosis. IMPRESSION: 1. Anasarca including moderate-sized pleural effusions and large volume of ascites. 2. Cirrhosis of the liver with portal venous hypertension. 3. Diffuse wall thickening of the colon, which may be interstitial edema or colitis. Reviewed, dictated and finalized at location A. IMPRESSION: 1. Anasarca including moderate-sized pleural effusions and large volume of asci roxi. 2. Cirrhosis of the liver with portal venous hypertension. 3. Diffuse wall thickening of the colon, which may be interstitial edema or col itis.
--- NOTE | ~2023-12-16 | US_ITS ---
EXAMINATION: US paracentesis abd w/image DATE: 12/23/2023 15:52 INDICATION: Ascites. TECHNIQUE: The skin was prepped and draped in sterile fashion. 1% lidocaine was used for local anesth esia. Under ultrasound guidance, a 5 Fr catheter with trochar was advanced into the ascites in the [facility] lower quadrant. Fluid was aspirated. The catheter was removed, and a dressing was applied. There were no immediate complications. FINDINGS: Ultrasound images demonstrate ascites and the catheter within the fluid. IMPRESSION: 1. Successful ultrasound-guided paracentesis yielding 2000 mL of rodriguez-colored fluid. Reviewed, dictated and finalized at location A.
--- NOTE | ~2023-12-16 | XR_ITS ---
XR chest 1V portable 12/25/2023 05:50 Indication: Respiratory failure Procedure: AP portable chest Comparison: Comparison to multiple prior studies sequentially, with oldest reviewed study dated 10/2023. Findings: Endotracheal tube tip 5.3 cm above the shravan. Right IJ central line tip near the cavoatria l junction. NG tube is tip in the stomach. Cardiomegaly. There is interstitial edema. Small pleural e ffusions. No pneumothorax. No acute osseous abnormality. Impression: 1: Cardiomegaly with persistent pulmonary edema. 2: Small pleural effusions. Reviewed, dictated and finalized at location B. Impression: 1: Cardiomegaly with persistent pulmonary edema. 2: Small pleural effusions.
--- NOTE | ~2023-12-16 | CT_ITS ---
EXAMINATION: CT brain wo con DATE: 12/17/2023 19:18 INDICATION: Unresponsive. TECHNIQUE: Computed tomography (CT) of the head was performed without intravenous contrast. The mA wa s adjusted according to patient size. Iterative reconstruction technique was employed. The dose-lengt h product was 681.00 mGy-cm. COMPARISON: Head CT 12/05/2023 FINDINGS: There is no intracranial hemorrhage, acute infarction, or abnormal intracranial mass lesion . The ventricles are normal in size. There is cavum septum callosum. The orbits are normal. Partially visualized is extensive dental disease. There is mild mucosal thickening in the paranasal sinuses. T here is a small right mastoid effusion. IMPRESSION: 1. Normal brain. Reviewed, dictated and finalized at location E. IMPRESSION: 1. Normal brain.
--- NOTE | 2023-12-16 10:49 | ECG_ITS ---
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 Measurements Intervals [place] Rate: 84 P: 63 SD: 235 QRS: -49 QRSD: 93 T: -60 QT: 384 QTc: 455 Interpretive Statements SINUS RHYTHM WITH FIRST DEGREE AV BLOCK VENTRICULAR PREMATURE COMPLEX LOW QRS VOLTAGE IN PRECORDIAL LEADS CANNOT R/O SEPTAL INFARCT, AGE INDETERMINATE BORDERLINE ST-T WAVE ABNORMALITY- DIFFUSE LEADS BASELINE ARTIFACT- I, II, III, AVR, AVL, AVF, V1-V6 ABNORMAL ECG No previous ECG available for comparison Electronically Signed On 12-16-2023 14:50:01 CDT by Luis Mina D.O.
--- NOTE | 2023-12-16 11:45 | PC.NURSE ---
Pt arrived to ED w/ EJ in place but no longer intact. EJ removed.
--- NOTE | 2023-12-16 11:55 | WPDPROCEDUR ---
Procedures Central Line Placement Right IJ: Central Line Date: 12/16/23 Central Line Time: 11:25 Consent: I have discussed with the patient and/or surrogate, the non-emergent placement of a central venous catheter, including its clinical necessity/indication and associated potential risks and complications. The patient and/or surrogate understand(s) and acknowledge(s) the need to proceed with central venous catheter insertion as an important element of the patient's clinical management. Time Out Performed: Yes Patient Position: supine Patient placed on monitor/pulse ox: Yes Provider Prep: mask, sterile gown, sterile gloves, Max. sterile barrier precautions, cap and hand hygiene with conventional soap/water or alcohol based hand rub Central line prep: 2% Chlorhexidine scrub and sterile full body sheet applied Local anesthesia used: lidocaine 1% Amount of anesthesia used (ml): 4 Sterile US Technique with sterile gel/sterile probe covers: Yes Central line lumen inserted: triple Micronesian: 7 Length (cm): 16 Depth of Insertion (cm): 16 Post Procedure: sutured in place, good blood return, all ports aspirated, flushed, capped, transparent dressing, hemostatic product, antimicrobial product, securement product and aseptic technique maintained throughout procedure Post procedure x-ray: tip of catheter in good position and no pneumothorax seen Patient tolerated procedure: well Complications: none
[2023-12-16] MEDS: DEXTROSE 5%/0.9% SOD CHL 1,000 ML 75 ML IV CONT (12:07)
[2023-12-16] MEDS: DEXTROSE 50% 25 GM/50 ML SYRINGE IV PUSH ×2 (12:07→21:40)
[2023-12-16 12:29] LABS: Basophils Percent Auto 0.4 % (0.2-1.2); Eosinophils Absolute Auto 0.1 K/mm3 (0-0.3); Eosinophils Percent Auto 2.5 % (0-4.4); Hematocrit 25.9 % (42.0-52.0); Hemoglobin 8.3 g/dL (14.0-18.0); Immature Granulocyte Absolute 0.01 K/mm3 (0.00-0.031); Immature Granulocyte Percent A 0.4 % (0-0.5); Immature Platelet Fraction Pct 3.4 % (0.9-11.2); Lymphocytes Absolute Auto 0.53 K/mm3 (0.9-3.2); Lymphocytes Percent Auto 22.1 % (18.3-44.2); Mean Corpuscular Hemoglobin 26.6 pg (26-34); Mean Platelet Volume 11.2 fl (7.4-10.4); Monocytes Absolute Auto 0.2 K/mm3 (0.1-0.6); Monocytes Percent Auto 7.5 % (2.6-8.5); Neutrophils Absolute Auto 1.6 K/mm3 (1.3-6.7); Neutrophils Percent Auto 67.1 % (45.5-73.1); Platelet Count Result 54 k/mm3 (150-375); Red Blood Count 3.12 M/mm3 (4.6-6.20); Red Cell Distribution Width 19.7 % (11.5-14.5); White Blood Count 2.4 K/mm3 (4.5-10.0)
[2023-12-16 12:35] LABS: Glucose Point of Care 148 mg/dl (65-105)
[2023-12-16 12:36] LABS: Lactic Acid Reflex 1.8 mmol/L (0.7-2.0)
[2023-12-16 12:39] LABS: Alanine Aminotransferase 9 U/L (6-50); Albumin Level 1.7 g/dL (3.5-5.1); Alkaline Phosphatase 149 U/L (38-126); Anion Gap -1 mmol/L (4-12); Aspartate Amino Transferase 36 U/L (17-59); Blood Urea Nitrogen 6 mg/dL (9-20); Calcium 8.3 mg/dL (8.4-10.2); Carbon Dioxide 38 mmol/L (22-30); Chloride 97 mmol/L (98-107); Estimated Glomerular Filt Rate 33; Glucose 293 mg/dL (65-110); INR 2.3; Potassium 2.4 mmol/L (3.4-5.0); Prothrombin Time 27.3 Seconds (11.1-14.7); Sodium 134 mmol/L (137-145)
[2023-12-16 12:40] LABS: Partial Thromboplastin Time 59.2 Seconds (22.3-36.8)
--- NOTE | 2023-12-16 12:58 | ED.AMS ---
HPI - Altered Mental Status General Chief Complaint: Altered Mental Status Stated Complaint: unresponsive Time Seen by Provider: 12/16/23 10:51 Source: EMS Mode of arrival: EMS Limitations: altered mental status History of Present Illness HPI narrative: 63-year-old with a history of ESRD on hemodialysis, encephalopathy, cirrhosis liver was brought in from retirement with low blood sugar. He was found to have blood sugar of 30 this morning no history of food nausea vomiting or abdominal pain. As per the retirement staff he had his dialysis yesterday. MD complaint: altered mental status Associated symptoms: denies other symptoms Related Data Home Medications Medication Instructions Recorded Confirmed atorvastatin 20 mg tablet 20 mg PO DAILY 07/31/21 08/05/23 cetirizine 10 mg tablet 10 mg PO DAILY 07/31/21 08/05/23 loperamide 2 mg capsule 2 mg PO Q6H PRN Diarrhea 07/31/21 08/05/23 sevelamer HCl 800 mg tablet 800 mg PO TID 07/31/21 08/05/23 aspirin 81 mg tablet,delayed 81 mg PO DAILY 07/02/23 08/05/23 release bisacodyl 10 mg rectal suppository 10 mg RECTAL DAILY PRN Constipation 07/11/23 08/05/23 hydrocodone 5 mg-acetaminophen 325 1 tablet PO Q6H PRN Pain (Scale 07/11/23 08/05/23 mg tablet Score 4-6) magnesium citrate (Citroma oral 296 ml PO DAILY PRN Constipation 07/11/23 08/05/23 solution) albuterol sulfate 90 mcg/actuation 2 puff inhalation Q6H PRN 07/25/23 08/05/23 aerosol inhaler Shortness Of Breath [id number]-[id number] 1 cap PO TID 07/25/23 08/05/23 24,000-76,000-120,000 unit capsule,delayed rel (Creon) benzonatate 100 mg capsule 200 mg PO Q8H PRN Cough 08/05/23 08/05/23 magnesium hydroxide 400 mg/5 mL 30 ml PO HS PRN Constipation 08/05/23 08/05/23 oral suspension (Milk of Magnesia) silver sulfadiazine 1 % topical See Rx Instructions .Route .COMPLEX 08/05/23 08/05/23 cream (Silvadene) sodium phosphates 19 gram-7 118 ml RECTAL DAILY PRN 08/05/23 08/05/23 gram/118 mL enema (Fleet Enema) Constipation sucralfate 1 gram tablet 1 g PO QID 08/05/23 08/05/23 Allergies Allergy/AdvReac Type Severity Reaction Status Date / Time lisinopril Allergy Unknown Verified 08/08/23 11:02 Review of Systems Review of Systems: ROS unobtainable: Yes unobtainable due to medical condition PMFSH Past Medical History Medical History Chronic anemia Chronic pain syndrome Chronic pancreatitis Cirrhosis Encephalopathy End stage renal disease on dialysis Esophagitis with gastritis (07/04/23) Gastritis Hyperlipidemia Hypertension Peptic ulcer disease Peptic ulcer with perforation Peripheral vascular disease Surgical History Surgical History History of esophagogastroduodenoscopy (EGD) 07/04/2023: Hiatal hernia, unspecified esophagitis, gastritis History of umbilical hernia repair Presence of surgically created AV shunt for hemodialysis Left upper arm Family History Family History Unknown Family history unknown Social History Social History Social History: Surrogate medical decision maker: Zurdo Lehman (son) or Robert Nails (nephew). Code status: Full code. Smoking status: Never smoker Second hand tobacco smoke exposure: No Alcohol intake: former Substance use: never Substance use type: does not use Do You Feel Safe in your Home?: Yes Lack of Transportation: YES Lack of Food: Often True Current Housing: I Have Housing Concerned About Future Housing: No Difficulty Paying Gas/Electric Bills: YES Difficulty Paying for Meds: YES Currently Unemployed: No Education: High School Diploma/GED Difficulty w/ Childcare or Family Care: No Living arrangements: retirement Additional living arrangements comments: [facility], [address]
[2023-12-16 12:59] LABS: Platelet Estimate Decreased (Adequate)
[2023-12-16 13:00] LABS: Anisocytosis 1+; Schistocytes None Seen
[2023-12-16] MEDS: IPRATROPIUM 0.5 MG/ALBUTEROL SULFATE 2.5 MG AMPUL.NEB 3 ML INHALATION (13:30)
--- NOTE | 2023-12-16 13:56 | PC.NURSE ---
Dr. Solis stated to cancel UA. pt is dialysis pt and does not make urine.
--- NOTE | 2023-12-16 15:08 | PM.IMHP ---
H&P: HPI History of Present Illness Date/Time: 12/16/23 15:08 Chief Complaint: Altered mental status Narrative: This is a 63-year-old male patient past history of end-stage renal disease on hemodialysis, encephalopathy, liver cirrhosis was found to have low blood sugar at the skilled nursing he resides at was sent to the emergency department. In the emergency department workup revealed pancytopenia with white blood cell count of 2.4, hemoglobin 8.3 and platelets of 54, all of these values are below patient's baseline. Additionally INR is elevated at 2.3 and PTT of 59.2. Patient does not take any anticoagulation. Potassium was also found to be critically low at 2.4 and patient received 40 mEq IV potassium. Albumin was found to be significantly low at 1.7 which is also below patient's baseline. Review of Systems Review of Systems: ROS unobtainable: Yes unobtainable due to medical condition and unobtainable due to mental status PMFSH Past Medical History Medical History Chronic anemia Chronic pain syndrome Chronic pancreatitis Cirrhosis Encephalopathy End stage renal disease on dialysis Esophagitis with gastritis (07/04/23) Gastritis Hyperlipidemia Hypertension Peptic ulcer disease Peptic ulcer with perforation Peripheral vascular disease Surgical History Surgical History History of esophagogastroduodenoscopy (EGD) 07/04/2023: Hiatal hernia, unspecified esophagitis, gastritis History of umbilical hernia repair Presence of surgically created AV shunt for hemodialysis Left upper arm Family History Family History Unknown Family history unknown Social History Social History Social History: Surrogate medical decision maker: Zurdo Lehman (son) or Robert Nails (nephew). Code status: Full code. Smoking status: Never smoker Second hand tobacco smoke exposure: No Alcohol intake: former Substance use: never Substance use type: does not use Do You Feel Safe in your Home?: Yes Lack of Transportation: YES Lack of Food: Often True Current Housing: I Have Housing Concerned About Future Housing: No Difficulty Paying Gas/Electric Bills: YES Difficulty Paying for Meds: YES Currently Unemployed: No Education: High School Diploma/GED Difficulty w/ Childcare or Family Care: No Living arrangements: skilled nursing Additional living arrangements comments: [facility] of [place], [address] [place] [address], [place], [place] since 07/14/2023 Additional occupation/education comments: 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 Spiritual care concerns: No Meds Home Medications and Allergies Home Medications Medication Instructions Recorded Confirmed Type atorvastatin 20 mg tablet 20 mg PO DAILY 07/31/21 12/16/23 History cetirizine 10 mg tablet 10 mg PO DAILY 07/31/21 12/16/23 History loperamide 2 mg capsule 2 mg PO Q6H PRN Diarrhea 07/31/21 12/16/23 History sevelamer HCl 800 mg tablet 800 mg PO TID 07/31/21 12/16/23 History aspirin 81 mg tablet,delayed 81 mg PO DAILY 07/02/23 12/16/23 History release lanolin alcohols-mineral 1 applic topical DAILY #113 grams 07/07/23 12/16/23 Rx oil-w.petrolatum-ceresin topical cream (Minerin Creme topical) bisacodyl 10 mg rectal suppository 10 mg RECTAL DAILY PRN Constipation 07/11/23 12/16/23 History magnesium citrate (Citroma oral 296 ml PO DAILY PRN Constipation 07/11/23 12/16/23 History solution) allopurinol 100 mg tablet 100 mg PO DAILY@0800 1 month #30 07/13/23 12/16/23 Rx tabs furosemide 40 mg tablet 80 mg PO BID 1 month #120 tabs 07/13/23 12/16/23 Rx albuterol sulfate 90 mcg/actuation 2 puff inhalation Q6H PRN 07/25/23 12/16/23 History aerosol inhaler Shortness Of Breath [id number]-[id number]
[2023-12-16] MEDS: CENTRAL LINE FLUSH 10 ML IV PUSH ×2 (15:10→21:42)
[2023-12-16] MEDS: KCL 40 MEQ/WATER 100 ML 100 ML 25 ML IVPB ×2 (15:10→23:17)
--- NOTE | 2023-12-16 15:10 | ADMGEN ---
This patient, Christiano Lehman, was admitted to IMU Room 206-01. Patient/family oriented to hospital policies and general routines including ID bracelet, bed and alarms, visiting hours, pain management, procedures, bathroom and other care routines, personal items, smoking policy, room service/diet, and visiting hours. Information on how to activate the Rapid Response Team has been discussed. Patient/Family are encouraged to report perceived risks to care and to ask questions if they do not understand what they are told or what they should do.
[2023-12-16] MEDS: SODIUM CHLORIDE 0.9% IV 1,000 ML 999 ML IV CONT (16:35)
[2023-12-16] MEDS: ALBUMIN HUMAN 5% 25 GM/500 ML BTL IV CONT (16:41)
--- NOTE | 2023-12-16 16:55 | PM.CNNEP ---
Assessment and Plan Assessment and plan (1) End stage renal disease: Code(s): N18.6 - End stage renal disease Status: Chronic Assessment and Plan: plan next HD treatment tomorrow continue T/T/S dialysis schedule while hospitalized follow electrolytes, volume status, and clearance (2) Hypoglycemia: Code(s): E16.2 - Hypoglycemia, unspecified Status: Acute Assessment and Plan: etiology?? -- due to liver disease +/- poor nutrition?? per report, blood sugar less than 30 at [facility] prior to transfer improved with treatment but then dropped again an hour later started on D5-NS at 75 mL/hr but dropped again (glucose down to 20) requiring an amp of D50 IVFs changed to D10 to compensate (3) Hypokalemia: Code(s): E87.6 - Hypokalemia Status: Acute Assessment and Plan: suspect related to poor oral intake, liver disease, and dialysis replete PRN will adjust dialysis bath tomorrow to compensate (4) Altered mental status: Qualifiers: Altered mental status type: unspecified Qualified Code(s): R41.82 - Altered mental status, unspecified Code(s): R41.82 - Altered mental status, unspecified Status: Acute Assessment and Plan: presumably due to hypoglycemia cannot discount underlying liver disease playing a role if no improvement, check head CT (5) Pancytopenia: Code(s): D61.818 - Other pancytopenia Status: Acute Assessment and Plan: as noted by CBC on admission related to liver disease(?) anemia partly related to ESRD status as well follow trend of parameters (6) Anasarca: Code(s): R60.1 - Generalized edema Status: Acute Assessment and Plan: somewhat of a chronic issues related to liver disease/cirrhosis, hypoalbuminemia, and likely inability for aggressive ultrafiltration with outpatient dialysis treatments may benefit from large volume paracentesis attempt to push fluid removal with HD as tolerated (7) Cirrhosis: Code(s): K74.60 - Unspecified cirrhosis of liver Status: Acute Assessment and Plan: known issue/finding appears clinically worse -- ascites, coagulopathy, pancytopenia, worsening ansarca... continue supportive therapy I will continue follow the patient with you while he remains hospitalized and make further recommendations as deemed necessary. Thank you for allowing me to participate in the care this patient. History of Present Illness Reason for Consult Consult date: 12/16/23 Reason for consult: end stage renal disease Chief Complaint Chief complaint: AMS/Recurrent Hypoglycemia/ESRD History of Present Illness Narrative: A great deal of the information that I have obtained is from review of the electronic medical record as well as discussion with the physician/ nurses involved in the patient's care as is difficult to get a full and complete history from the patient due to his fluctuating mentation/altered mental status. The patient is a 63-year-old male with a past medical history as outlined below who presented to [facility] Emergency room for further evaluation of hypoglycemia. The patient apparently was at his nursing facility when nursing staff noted his issues/problems with hypoglycemia. Apparently, despite efforts to get his blood sugar up, he continued to have ongoing problems with hypoglycemia which prompted the transfer to the emergency room for further assessment. Workup and evaluation emergency room confirmed as hypoglycemia and routine blood tests were significant for pancytopenia, elevated INR and other coagulation studies despite not being on any anticoagulation, and a chemistry that was consistent with his known history of end-stage renal disease but with severe hypokalemia with a potassium level of 2.4. He subsequently received IV potassium repletion as it was felt that he may not be able to take oral
--- NOTE | 2023-12-16 16:55 | P.CONNP_ITS ---
Assessment and Plan Assessment and plan (1) End stage renal disease: Code(s): N18.6 - End stage renal disease Status: Chronic Assessment and Plan: * plan next HD treatment tomorrow * continue T/T/S dialysis schedule while hospitalized * follow electrolytes, volume status, and clearance (2) Hypoglycemia: Code(s): E16.2 - Hypoglycemia, unspecified Status: Acute Assessment and Plan: * etiology?? -- due to liver disease +/- poor nutrition?? * per report, blood sugar less than 30 at shelter prior to transfer * improved with treatment but then dropped again an hour later * started on D5-NS at 75 mL/hr but dropped again (glucose down to 20) requiring an amp of D50 * IVFs changed to D10 to compensate (3) Hypokalemia: Code(s): E87.6 - Hypokalemia Status: Acute Assessment and Plan: * suspect related to poor oral intake, liver disease, and dialysis * replete PRN * will adjust dialysis bath tomorrow to compensate (4) Altered mental status: Qualifiers: Altered mental status type: unspecified Qualified Code(s): R41.82 - Altered mental status, unspecified Code(s): R41.82 - Altered mental status, unspecified Status: Acute Assessment and Plan: * presumably due to hypoglycemia * cannot discount underlying liver disease playing a role * if no improvement, check head CT (5) Pancytopenia: Code(s): D61.818 - Other pancytopenia Status: Acute Assessment and Plan: * as noted by CBC on admission * related to liver disease(?) * anemia partly related to ESRD status as well * follow trend of parameters (6) Anasarca: Code(s): R60.1 - Generalized edema Status: Acute Assessment and Plan: * somewhat of a chronic issues * related to liver disease/cirrhosis, hypoalbuminemia, and likely inability for aggressive ultrafiltration with outpatient dialysis treatments * may benefit from large volume paracentesis * attempt to push fluid removal with HD as tolerated (7) Cirrhosis: Code(s): K74.60 - Unspecified cirrhosis of liver Status: Acute Assessment and Plan: * known issue/finding * appears clinically worse -- ascites, coagulopathy, pancytopenia, worsening ansarca... * continue supportive therapy I will continue follow the patient with you while he remains hospitalized and make further recommendations as deemed necessary. Thank you for allowing me to participate in the care this patient. History of Present Illness Reason for Consult Consult date: 12/16/23 Reason for consult: end stage renal disease Chief Complaint Chief complaint: AMS/Recurrent Hypoglycemia/ESRD History of Present Illness Narrative: A great deal of the information that I have obtained is from review of the electronic medical record as well as discussion with the physician/ nurses involved in the patient's care as is difficult to get a full and complete history from the patient due to his fluctuating mentation/altered mental status. The patient is a 63-year-old male with a past medical history as outlined below who presented to [facility] Emergency room for further evaluation of hypoglycemia. The patient apparently was at his nursing facility when nursing staff noted his issues/problems with hypoglycemia. Apparently, despite efforts to get his blood sugar up, he continued to have ongoing problems with hypoglycemia which prompted the transfer to the emergency room for further assessment. Workup and evaluation e
[2023-12-16 19:01] LABS: Magnesium 1.7 mg/dL (1.6-2.3)
[2023-12-16 19:04] LABS: Hemoglobin A1C < 4.0 % (<5.7)
[2023-12-16 21:36] LABS: Glucose Point of Care < 20 mg/dl (65-105)
[2023-12-16] MEDS: PANTOPRAZOLE SODIUM IV 40 MG VIAL IV PUSH (21:41)
[2023-12-16 22:14] LABS: Glucose Point of Care 139 mg/dl (65-105)
[2023-12-16 22:34] LABS: Albumin Level 1.8 g/dL (3.5-5.1); Anion Gap 4 mmol/L (4-12); Blood Urea Nitrogen 6 mg/dL (9-20); Calcium 8.7 mg/dL (8.4-10.2); Carbon Dioxide 33 mmol/L (22-30); Chloride 100 mmol/L (98-107); Estimated CRCL calculation 26 ml/min; Estimated Glomerular Filt Rate 32; Glucose 132 mg/dL (65-110); Phosphorus 1.9 mg/dL (2.5-4.5); Potassium 2.5 mmol/L (3.4-5.0); Sodium 137 mmol/L (137-145)
[2023-12-16] MEDS: MAGNESIUM SULF 2 GM/WATER 50ML 2 GM/50 ML BAG IVPB (23:13)
[2023-12-16] MEDS: DEXTROSE 10% 1,000 ML 50 ML IV CONT (23:20)
[2023-12-16] MEDS: ALBUMIN HUMAN 25% 25 GM/100 ML 100 ML IVPB (23:43)
[2023-12-17] VITALS (50 sets, daily range): BP systolic 71–176; BP diastolic 47–104; PULSE 65–143; RESP 16–32; TEMP 35.4–37; O2SAT 91–100
[2023-12-17 00:01] LABS: Glucose Point of Care 89 mg/dl (65-105)
[2023-12-17 02:15] LABS: Glucose Point of Care 77 mg/dl (65-105)
[2023-12-17 04:10] LABS: Glucose Point of Care 74 mg/dl (65-105)
[2023-12-17] MEDS: CENTRAL LINE FLUSH 20 ML IV PUSH (05:37)
[2023-12-17] MEDS: ALBUMIN HUMAN 25% 25 GM/100 ML 100 ML IVPB ×3 (05:37→19:36)
[2023-12-17] MEDS: CENTRAL LINE FLUSH 10 ML IV PUSH ×3 (05:37→21:48)
[2023-12-17] MEDS: DEXTROSE 5%/0.9% SOD CHL 1,000 ML 50 ML IV CONT (05:38)
[2023-12-17 06:20] LABS: Iron 44 ug/dL (49-181)
[2023-12-17 06:21] LABS: Hematocrit 23.7 % (42.0-52.0); Hemoglobin 7.5 g/dL (14.0-18.0); Immature Platelet Fraction Pct 4.9 % (0.9-11.2); Mean Corpuscular HGB Conc 31.6 g/dl (32-36); Mean Corpuscular Hemoglobin 26.2 pg (26-34); Mean Corpuscular Volume 82.9 fl (80-100); Mean Platelet Volume 12.2 fl (7.4-10.4); Platelet Count Result 49 k/mm3 (150-375); Red Blood Count 2.86 M/mm3 (4.6-6.20); Red Cell Distribution Width 19.8 % (11.5-14.5); White Blood Count 2.2 K/mm3 (4.5-10.0)
[2023-12-17 06:30] LABS: Percent Iron Saturation 69 % (20-50)
[2023-12-17 06:39] LABS: INR 3.4; Prothrombin Time 34.7 Seconds (11.1-14.7)
[2023-12-17 07:23] LABS: Folic Acid 5.2 ng/mL (2.76->20); Vitamin B12 > 1000.0 pg/mL (239-931)
[2023-12-17] MEDS: IPRATROPIUM 0.5 MG/ALBUTEROL SULFATE 2.5 MG AMPUL.NEB 3 ML INHALATION ×3 (07:33→20:11)
[2023-12-17 07:42] LABS: Band Neutrophils Percent 33 % (0-6); Eosinophils Absolute Manual 0.11 K/mm3 (0.02-0.50); Eosinophils Percent Manual 5 % (0-4); Lymphocytes Percent Manual 14 % (18-44); Monocytes Absolute Manual 0.11 K/mm3 (0.1-0.90); Monocytes Percent Manual 5 % (3-9); Neutrophils Absolute Manual 1.01 K/mm3 (1.3-6.7); Neutrophils Percent Manual 13 % (46-73); Platelet Estimate Decreased (Adequate); Total Cells Counted 100
[2023-12-17 07:44] LABS: Hypochromasia 1+; Poikilocytosis 1+; Schistocytes None Seen; Target Cells 2+
[2023-12-17 07:52] LABS: Alanine Aminotransferase 10 U/L (6-50); Albumin Level 2.1 g/dL (3.5-5.1); Alkaline Phosphatase 118 U/L (38-126); Anion Gap 6 mmol/L (4-12); Aspartate Amino Transferase 48 U/L (17-59); Bilirubin,Total 1.6 mg/dL (0.2-1.3); Blood Urea Nitrogen 7 mg/dL (9-20); Carbon Dioxide 31 mmol/L (22-30); Chloride 102 mmol/L (98-107); Estimated CRCL calculation 24 ml/min; Estimated Glomerular Filt Rate 29; Glucose 66 mg/dL (65-110); Phosphorus 2.1 mg/dL (2.5-4.5); Potassium 2.9 mmol/L (3.4-5.0); Sodium 139 mmol/L (137-145)
[2023-12-17 08:14] LABS: Glucose Point of Care 40 mg/dl (65-105)
[2023-12-17] MEDS: GLUCAGON FOR INJ 1 MG VIAL IM ×3 (08:24→13:20)
[2023-12-17] MEDS: KCL 20 MEQ/SW 100 ML 100 ML 50 MEQ IVPB (08:29)
[2023-12-17] MEDS: PANTOPRAZOLE SODIUM IV 40 MG VIAL IV PUSH ×2 (08:33→21:47)
[2023-12-17 08:42] LABS: Hepatitis B Surface Antigen Negative (Negative)
[2023-12-17] MEDS: DEXTROSE 50% 25 GM/50 ML SYRINGE IV PUSH ×4 (08:50→18:45)
[2023-12-17 08:51] LABS: Glucose Point of Care 69 mg/dl (65-105)
[2023-12-17 09:00] LABS: Hepatitis B Surface Anti Res Negative
--- NOTE | 2023-12-17 09:02 | PC.NURSE ---
Dialysis room called for to transfer for treatment. I spoke with the dialysis nurse and explained that patients blood sugar is 40 and we are treating it and getting blood sugar to a stable lab value for treatment. Dialysis nurse told me to not send patient up until their blood sugar is stable. 900 spoke with dialysis nurse and re checked sugar and bringing patient to treatment room at this time. Blood sugar 92 at 903
[2023-12-17 09:06] LABS: Glucose Point of Care 92 mg/dl (65-105)
[2023-12-17] MEDS: ALBUMIN HUMAN 25% 12.5 GM/50ML 100 ML 50 GM (09:25)
[2023-12-17] MEDS: ALBUMIN HUMAN 25% 12.5 GM/50ML 50 ML IVPB (09:26)
--- NOTE | 2023-12-17 09:43 | PM.IMPN ---
Progress Note: A&P Assessment and Plan (1) Hypoglycemia: Code(s): E16.2 - Hypoglycemia, unspecified Status: Acute (2) Altered mental status: Qualifiers: Altered mental status type: unspecified Qualified Code(s): R41.82 - Altered mental status, unspecified Code(s): R41.82 - Altered mental status, unspecified Status: Acute (3) ESRD (end stage renal disease) on dialysis: Code(s): N18.6 - End stage renal disease; Z99.2 - Dependence on renal dialysis Status: Acute (4) Pancytopenia: Code(s): D61.818 - Other pancytopenia Status: Acute (5) Hypoalbuminemia: Code(s): E88.09 - Other disorders of plasma-protein metabolism, not elsewhere classified Status: Acute (6) Anasarca: Code(s): R60.1 - Generalized edema Status: Acute (7) Cirrhosis: Code(s): K74.60 - Unspecified cirrhosis of liver Status: Acute (8) Hypokalemia: Code(s): E87.6 - Hypokalemia Status: Acute Plan 63-year-old male with history of end-stage renal disease on hemodialysis cirrhosis of liver brought in from the shelter facility with low blood sugar. Patient was found to have blood sugar of 30 this morning. He had dialysis yesterday. No nausea vomiting abdominal pain reported. Patient was also reported to be confused. Vitals were stable on arrival to the ED. laboratory workup revealed severe hypokalemia of 2.4 INR 2.3 creatinine of 2.4 blood sugar repeat here was less than 20. Lactic acid was normal at 1.8. Calcium 8.3 AST 36 ALT 9 alkaline phosphatase is 149 albumin is 1.7. WBC of 2.4 hemoglobin of 8.3 with platelets of 54 which are below patient's baseline level. Patient not on any anticoagulation. He received 40 IV potassium. Patient is not on any hypoglycemic agents at home. Chest x-ray revealed stable moderate size pleural effusions airspace opacities in perihilar regions and at lung bases likely a combination of atelectasis and pulmonary edema. Central line was placed in the ER. CT abdomen pelvis without contrast was performed which showed anasarca including moderate-sized pleural effusion and large volume ascites. Cirrhosis of liver with portal venous hypertension. Diffuse wall thickening of the colon which may be interstitial edema or colitis. Findings of chronic pancreatitis noted with calcification in the pancreas. Ferritin level 1490 TIBC low iron low% saturation high vitamin B12 more than 1000 folate normal phosphorus is low. Hypoglycemia etiology unknown however suspect worsening liver disease liver failure underlying sepsis/infection. Will check ammonia level. Will stop D10 normal saline due to underlying end-stage renal disease. Will cover with broad-spectrum antibiotics and get blood cultures x2 Patient was treated with D50 with improvement in blood sugar however recurrent hypoglycemia noted and has been placed on D10. Will continue on D10. Glucagon will be given as well. Persistent hypoglycemia related underlying liver disease to rule out underlying infection. Panculture and broad-spectrum antibiotics start. Possible colitis in CT will cover with Flagyl for anaerobic along with cefepime Altered mental status likely due to hypoglycemia. End-stage renal disease on hemodialysis nephrology consulted Pancytopenia heme Onc consulted. No splenomegaly or hepatomegaly noted on CT. No anticoagulation. Hypoalbuminemia likely due to cirrhosis of liver Anasarca will start albumin infusion. Oral meds on hold Cirrhosis of liver known large volume ascites noted along with pancytopenia and coagulopathy. Hypokalemia replace and monitor DVT prophylaxis SCDs Code status full code Subjective Date/time seen: 12/17/23 09:43 Interval history: Chart reviewed. Discussed with nursing staff. Labs reviewed. Patient Agitated and thrashing around on the bed. On restraints Review of Systems Review of Systems: ROS unobtainable: Yes unobtainable due to
--- NOTE | 2023-12-17 10:08 | P.PNNP_ITS ---
Progress Note: A&P Assessment and Plan (1) End stage renal disease: Code(s): N18.6 - End stage renal disease Status: Chronic Assessment and Plan: * HD today * continue T/T/S dialysis schedule while hospitalized * follow electrolytes, volume status, and clearance (2) Hypoglycemia: Code(s): E16.2 - Hypoglycemia, unspecified Status: Acute Assessment and Plan: * etiology?? -- due to liver disease +/- poor nutrition?? * per report, blood sugar less than 30 at intermediate prior to transfer * improved with treatment in ER but then dropped again an hour later * on D10 IVFs along with D50 and glucagon PRN * follow blood sugars (3) Hypokalemia: Code(s): E87.6 - Hypokalemia Status: Acute Assessment and Plan: * suspect related to poor oral intake, liver disease, and dialysis * replete PRN * will adjust dialysis bath today to compensate (4) Altered mental status: Qualifiers: Altered mental status type: unspecified Qualified Code(s): R41.82 - Altered mental status, unspecified Code(s): R41.82 - Altered mental status, unspecified Status: Acute Assessment and Plan: * presumably due to hypoglycemia * cannot discount underlying liver disease playing a role -- ammonia elevated * if no improvement, check head CT (5) Pancytopenia: Code(s): D61.818 - Other pancytopenia Status: Acute Assessment and Plan: * as noted by CBC on admission * related to liver disease(?) * anemia partly related to ESRD status as well * follow trend of parameters (6) Anasarca: Code(s): R60.1 - Generalized edema Status: Acute Assessment and Plan: * somewhat of a chronic issue * related to liver disease/cirrhosis, hypoalbuminemia, and likely inability for aggressive ultrafiltration with outpatient dialysis treatments * may benefit from large volume paracentesis * attempt to push fluid removal with HD as tolerated (7) Cirrhosis: Code(s): K74.60 - Unspecified cirrhosis of liver Status: Acute Assessment and Plan: * known issue/finding * appears clinically worse -- ascites, coagulopathy, pancytopenia, worsening ansarca... * continue supportive therapy Will continue to follow. Subjective Date/time seen: 12/17/23 10:08 Interval history: Follow-up for end stage renal disease on hemodialysis. Tolerating dialysis treatment at the time of my visit (seen on HD at 10:00AM); appears quite lethargic and confused at this time (mumbling incomprehensibly) with sitter at bedside; persistent issues with hypoglycemia overnight and earlier this morning as well despite dextrose IVFs. Exam Narrative: General: somewhat chronic ill-appearing male laying in bed confused Heart: normal S1 and S2; no rub Lungs: clear anteriorly Abdomen: firm with distension noted; positive bowel sounds Extremities: no cyanosis or clubbing; 2+ edema Skin: dry but with LE wounds noted Objective Data Vital Signs Vital Signs: Vital Signs Temp Pulse Resp BP Pulse Ox O2 Del Method O2 Flow Rate 12/17/23 10:00 92 108/75 12/17/23 09:45 98 127/75 12/17/23 09:36 97 132/76 12/17/23 09:26 97.9 F 93 18 119/77 98 12/17/23 09:26 2 12/17/23 08:00 97.2 F L 67 20 125/84 95 12/17/23 0
--- NOTE | 2023-12-17 10:08 | PM.PNNEP ---
Progress Note: A&P Assessment and Plan (1) End stage renal disease: Code(s): N18.6 - End stage renal disease Status: Chronic Assessment and Plan: HD today continue T/T/S dialysis schedule while hospitalized follow electrolytes, volume status, and clearance (2) Hypoglycemia: Code(s): E16.2 - Hypoglycemia, unspecified Status: Acute Assessment and Plan: etiology?? -- due to liver disease +/- poor nutrition?? per report, blood sugar less than 30 at [facility] prior to transfer improved with treatment in ER but then dropped again an hour later on D10 IVFs along with D50 and glucagon PRN follow blood sugars (3) Hypokalemia: Code(s): E87.6 - Hypokalemia Status: Acute Assessment and Plan: suspect related to poor oral intake, liver disease, and dialysis replete PRN will adjust dialysis bath today to compensate (4) Altered mental status: Qualifiers: Altered mental status type: unspecified Qualified Code(s): R41.82 - Altered mental status, unspecified Code(s): R41.82 - Altered mental status, unspecified Status: Acute Assessment and Plan: presumably due to hypoglycemia cannot discount underlying liver disease playing a role -- ammonia elevated if no improvement, check head CT (5) Pancytopenia: Code(s): D61.818 - Other pancytopenia Status: Acute Assessment and Plan: as noted by CBC on admission related to liver disease(?) anemia partly related to ESRD status as well follow trend of parameters (6) Anasarca: Code(s): R60.1 - Generalized edema Status: Acute Assessment and Plan: somewhat of a chronic issue related to liver disease/cirrhosis, hypoalbuminemia, and likely inability for aggressive ultrafiltration with outpatient dialysis treatments may benefit from large volume paracentesis attempt to push fluid removal with HD as tolerated (7) Cirrhosis: Code(s): K74.60 - Unspecified cirrhosis of liver Status: Acute Assessment and Plan: known issue/finding appears clinically worse -- ascites, coagulopathy, pancytopenia, worsening ansarca... continue supportive therapy Will continue to follow. Subjective Date/time seen: 12/17/23 10:08 Interval history: Follow-up for end stage renal disease on hemodialysis. Tolerating dialysis treatment at the time of my visit (seen on HD at 10:00AM); appears quite lethargic and confused at this time (mumbling incomprehensibly) with sitter at bedside; persistent issues with hypoglycemia overnight and earlier this morning as well despite dextrose IVFs. Exam Narrative: General: somewhat chronic ill-appearing male laying in bed confused Heart: normal S1 and S2; no rub Lungs: clear anteriorly Abdomen: firm with distension noted; positive bowel sounds Extremities: no cyanosis or clubbing; 2+ edema Skin: dry but with LE wounds noted Objective Data Vital Signs Vital Signs: Vital Signs Temp Pulse Resp BP Pulse Ox O2 Del Method O2 Flow Rate 12/17/23 10:00 92 108/75 12/17/23 09:45 98 127/75 12/17/23 09:36 97 132/76 12/17/23 09:26 97.9 F 93 18 119/77 98 12/17/23 09:26 2 12/17/23 08:00 97.2 F L 67 20 125/84 95 12/17/23 07:50 88 22 H 12/17/23 06:00 91 12/17/23 04:00 96 12/17/23 07:38 99 Room Air 12/17/23 07:37 85 22 H 12/17/23 04:00 95 22 H 99 Nasal Cannula 2 12/17/23 04:00 97.3 F L 95 22 H 125/73 99 12/17/23 02:00 85 12/17/23 00:00 82 12/17/23 00:00 84 16 99 Room Air 12/16/23 20:00 85 12 91 Room Air 12/16/23 22:00 88 12/16/23 20:00 83 12/17/23 00:00 97.9 F 84 16 176/104 H 99 12/16/23 23:25 86 12/16/23 20:00 97.6 F 85 12 127/66 85 L 12/16/23 20:18 91 Room Air 12/16/23 18:30 98 Room Air
[2023-12-17 10:46] LABS: Ammonia 41 umol/L (9-30)
[2023-12-17] MEDS: EPOETIN ALFA-EPBX 10,000 UNITS/ML VIAL 10000 UNITS IV PUSH (12:17)
[2023-12-17 13:35] LABS: Glucose Point of Care 39 mg/dl (65-105)
[2023-12-17] MEDS: metroNIDAZOLE 500 MG/ISO 100ML 500 MG/100 ML BAG 100 MG IVPB ×2 (13:54→21:47)
[2023-12-17] MEDS: VANCOMYCIN 1,500 MG/NS 500 ML 1,500 MG/500 ML BAG 250 MG IVPB (14:00)
[2023-12-17 14:30] LABS: Glucose Point of Care 147 mg/dl (65-105)
[2023-12-17 15:21] LABS: MRSA (PCR) NOT DETECTED (NOT DETECTE)
[2023-12-17] MEDS: DEXTROSE 10% 1,000 ML 100 ML IV CONT (15:46)
[2023-12-17 16:33] LABS: Glucose Point of Care 103 mg/dl (65-105)
[2023-12-17] MEDS: LACTULOSE ENEMA 200 GM/1,000 ML ENEMA RECTAL (16:38)
[2023-12-17] MEDS: CEFEPIME 0.5 GM in SODIUM CHLORIDE 0.9% IV 50 ML IVPB (16:39)
[2023-12-17 16:51] LABS: Glucose Point of Care 86 mg/dl (65-105)
[2023-12-17 16:51] LABS: Glucose Point of Care 99 mg/dl (65-105)
[2023-12-17 16:51] LABS: Glucose Point of Care 50 mg/dl (65-105)
--- NOTE | 2023-12-17 17:31 | ECG_ITS ---
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 Measurements Intervals [place] Rate: 133 P: 0 FL: 0 QRS: -40 QRSD: 85 T: 147 QT: 280 QTc: 416 Interpretive Statements ATRIAL FIBRILLATION WITH RAPID VENTRICULAR RESPONSE LOW QRS VOLTAGE [QRS DEFLECTION < 0.5/1.0 mV IN LIMB/CHEST LEADS] Compared to ECG 12/16/2023 13:34:22 Atrial fibrillation with RVR now present Electronically Signed On 12-18-2023 12:05:22 CDT by Asim Navarro M.D.
--- NOTE | 2023-12-17 17:41 | PDCODEBLUE ---
Code Blue Note Code Blue Note Time Arrived at Code Blue: 12/17/2023 17:17 Initial Rhythm on Arrival: PEA Airway Management: Pt intubated during resuscitation Chest Compressions: Initiated upon arrival Result of Code Blue: Pt transferred to ICU Cardiac Rhythm Post Code: Rapid atrial fibrillation Code Blue Summary: According to the nurse, the patient was being ruled to administer a lactulose enema when he became unresponsive. A pulse was unable to be palpated and ACLS protocol was initiated immediately. Return of spontaneous circulation was achieved after 3 rounds CPR and epinephrine. The patient was intubated during resuscitative efforts. Blood pressures were in the low 100s following ROSC. He was transferred to the ICU and updates were given to the critical care physician via phone.
--- NOTE | 2023-12-17 17:43 | P.PCNBED_ITS ---
Procedures Intubation Intubation Date: 12/17/23 Intubation Time: 17:25 Consent: Implied consent (FULL CODE status) given emergent situation. A pre-procedural Time-Out was completed immediately before starting the procedure and confirmed: Patient Identification, Site, Procedure, Patient Position and the Availability of Requisite Equipment: Yes Sedative: none Laryngoscope: fiber optic video scope Assist device used: fiber optic device ET tube size: 7.5 Tube secured depth (cm): 25 Tube secured location: teeth Tube placement confirmation: visualized tube passing through cords, equal breath sounds bilaterally, no breath sounds over epigastrium and confirmation by capnometry Patient tolerated procedure: no complications Intubation complications: none Additional comments: Patient was intubated with a 7.5 ET tube during CPR easily and atraumatically on 1st attempt using the glide scope. Vent settings obtained per hourly sign language interpreter. Bedside chest x-ray demonstrated that the ET tube was in satisfactory position.
[2023-12-17 17:45] LABS: Hematocrit 21.9 % (42.0-52.0); Immature Platelet Fraction Pct 5.1 % (0.9-11.2); Mean Corpuscular HGB Conc 30.6 g/dl (32-36); Mean Corpuscular Hemoglobin 25.9 pg (26-34); Mean Corpuscular Volume 84.6 fl (80-100); Mean Platelet Volume 11.6 fl (7.4-10.4); Platelet Count Result 43 k/mm3 (150-375); Red Blood Count 2.59 M/mm3 (4.6-6.20); Red Cell Distribution Width 20.4 % (11.5-14.5); White Blood Count 4.1 K/mm3 (4.5-10.0)
[2023-12-17 18:07] LABS: Alanine Aminotransferase 13 U/L (6-50); Albumin Level 2.7 g/dL (3.5-5.1); Alkaline Phosphatase 99 U/L (38-126); Anion Gap 13 mmol/L (4-12); Aspartate Amino Transferase 47 U/L (17-59); Bilirubin,Total 1.8 mg/dL (0.2-1.3); Blood Urea Nitrogen 3 mg/dL (9-20); Carbon Dioxide 20 mmol/L (22-30); Chloride 106 mmol/L (98-107); Estimated CRCL calculation 46 ml/min; Estimated Glomerular Filt Rate > 60; Glucose 123 mg/dL (65-110); Lactic Acid Reflex 9.5 mmol/L (0.7-2.0); Magnesium 2.1 mg/dL (1.6-2.3); Phosphorus 2.3 mg/dL (2.5-4.5); Potassium 3.9 mmol/L (3.4-5.0); Sodium 139 mmol/L (137-145)
[2023-12-17 18:11] LABS: Troponin I 0.045 ng/mL (0.000-0.034)
[2023-12-17 18:17] LABS: Hemoglobin 6.7 g/dL (14.0-18.0)
[2023-12-17 18:24] LABS: Alveolar/Arterial O2 Gradient 611.5 mmHg; Fractional Inspired Oxygen 100 %; HCO3 ABG 26.9 mEq/l (22.0-26.0); Oxygen Content ABG 5.1 %vol (16.0-22.0); PO2 FiO2 Ratio Arterial Blood 0.34 %
[2023-12-17 18:28] LABS: pH ABG 7.221 (7.350-7.450)
--- NOTE | 2023-12-17 18:28 | PC.NURSE ---
This patient, Christiano Lehman, was received from [ [id number]] on 12/17/23 at 1740. Patient/family oriented to unit policies and routines. Report received from GIDEON Cho at bedside post code.
[2023-12-17 18:29] LABS: Oxygen Saturation ABG 53.5 % (95.0-100.0); PO2 ABG 34.5 mmHg (80.0-100.0)
[2023-12-17 18:30] LABS: Device VENTILATOR; Oxyhemoglobin 49.7 % THb (90.0-100.0); Site Drawn LEFT FEMORAL; Total Hemoglobin 7.2 g/dL (12.0-18.0)
[2023-12-17 18:31] LABS: Arterial Blood Gas PEEP 5 cmH2O; Arterial Blood Gas Tidal Volume 420 ml; Arterial Blood Gas Vent Mode CMV; Arterial Blood Gas Ventilator rate 20 /MIN
[2023-12-17 18:31] LABS: Glucose Point of Care 123 mg/dl (65-105)
[2023-12-17 18:39] LABS: Glucose Point of Care 62 mg/dl (65-105)
[2023-12-17] MEDS: levETIRAcetam 1000MG/NACL100ML 1,000 MG/100 ML BAG 400 MG IVPB (18:45)
--- NOTE | 2023-12-17 18:46 | PC.NURSE ---
Pt's blood glucose check is 62. New order from LUCINDA Bourgeois to administer 25gm of D50 now, not the 12.5 gm that's ordered per hypoglycemic protocol.
[2023-12-17] MEDS: AMIODARONE 150 MG/D5W 100 ML 150 MG/100 ML BAG 600 MG IV CONT (18:48)
[2023-12-17] MEDS: AMIODARONE 360 MG/D5W 200 ML 360 MG/200 ML BAG 33.33 MG IV CONT (18:49)
[2023-12-17 18:58] LABS: Band Neutrophils Percent 13 % (0-6); Eosinophils Absolute Manual 0.12 K/mm3 (0.02-0.50); Eosinophils Percent Manual 3 % (0-4); Lymphocytes Absolute Manual 1.72 K/mm3 (1.1-4.5); Metamyelocytes Percent 3 %; Monocytes Absolute Manual 0.41 K/mm3 (0.1-0.90); Monocytes Percent Manual 10 % (3-9); Myelocytes Percent 2 %; Neutrophils Absolute Manual 1.64 K/mm3 (1.3-6.7); Neutrophils Percent Manual 27 % (46-73); Platelet Estimate Decreased (Adequate); Total Cells Counted 100
[2023-12-17 18:59] LABS: Anisocytosis 2+
[2023-12-17 19:00] LABS: Poikilocytosis 1+; Schistocytes None Seen
[2023-12-17 19:01] LABS: Burr Cells 1+; Hypochromasia 1+
[2023-12-17 19:37] LABS: INR 4.5; Prothrombin Time 42.7 Seconds (11.1-14.7)
[2023-12-17 19:38] LABS: Alveolar/Arterial O2 Gradient 630.1 mmHg; Base Excess ABG -2.6 mEq/l (+/-2.0); Carboxyhemoglobin 1.3 % THb (0-2.0); Fractional Inspired Oxygen 100 %; HCO3 ABG 23.7 mEq/l (22.0-26.0); Methemoglobin ABG 0.3 %THb (0-1.5); Oxygen Content ABG 4.5 %vol (16.0-22.0); PCO2 ABG 49.6 mmHg (35.0-45.0); PO2 FiO2 Ratio Arterial Blood 0.33 %; Reduced Hemoglobin 48.1 %THb (0-5.0)
[2023-12-17 19:39] LABS: Partial Thromboplastin Time 103.1 Seconds (22.3-36.8)
[2023-12-17 19:41] LABS: PO2 ABG 33.3 mmHg (80.0-100.0); pH ABG 7.297 (7.350-7.450)
[2023-12-17 19:42] LABS: Oxygen Saturation ABG 57.1 % (95.0-100.0); Oxyhemoglobin 50.3 % THb (90.0-100.0); Site Drawn RIGHT FEMORAL; Total Hemoglobin 6.3 g/dL (12.0-18.0)
[2023-12-17 19:43] LABS: Arterial Blood Gas PEEP 5 cmH2O; Arterial Blood Gas Tidal Volume 430 ml; Arterial Blood Gas Vent Mode CMV; Arterial Blood Gas Ventilator rate 22 /MIN; Device VENTILATOR
[2023-12-17 19:43] LABS: Fibrinogen 121 mg/dl (215-510)
[2023-12-17 19:44] LABS: D Dimer 2.13 ug/mL (<0.48)
[2023-12-17 20:23] LABS: Creatine Kinase 46 U/L (55-170)
[2023-12-17 20:40] LABS: Reflex Lactic Acid Yes or No Add Lactic
[2023-12-17 21:04] LABS: Ammonia 39 umol/L (9-30)
[2023-12-17 21:14] LABS: Glucose Point of Care 94 mg/dl (65-105)
[2023-12-17 21:14] LABS: Glucose Point of Care 161 mg/dl (65-105)
[2023-12-17] MEDS: MIDAZOLAM 100MG/NS 100ML(*CRX) 100 MG/100 ML BAG IV CONT (21:24)
[2023-12-17] MEDS: SODIUM CHLORIDE 0.9% IV 250 ML 30 ML IV CONT (21:39)
[2023-12-17] MEDS: MINERAL OIL/WHITE PETROLATUM OINTMENT 1 APPLIC EACH EYE (21:47)
[2023-12-17 21:48] LABS: Glucose Point of Care 90 mg/dl (65-105)
--- NOTE | 2023-12-17 21:49 | PM.EVENT ---
Event Note Event Note Event Note: S: According to the patient's nurse, the patient became unresponsive any pulse was unable to be palpated when he was rolled over for a lactulose enema. ACLS protocol was initiated immediately and return of spontaneous circulation was achieved after 3 rounds of CPR. The patient was moved to the ICU as per code blue sheet. O: The patient is acutely ill in appearance. He has been unresponsive since ROSC was achieved. Both pupils are dilated, left greater than right and are minimally reactive. Roving eye movements noted. Had fluttering of the lids and rapid horizontal nystagmus with some myoclonic jerks concerning for seizure activity. Currently in rapid atrial fibrillation. Lung sounds are coarse anteriorly and at the flanks. Abdomen is firm and protuberant with shifting dullness. Unstageable left heel ulcer. Diffuse anasarca. Right IJ in place. Labs obtained post code were significant for a hemoglobin of 6.7, platelet 43, PTT 42.7, INR 4.5, PTT 103.1, fibrinogen 121, D-dimer 2.13, BUN 3, creatinine 1.40, lactic acid 9.5, ammonia 39, troponin 0.045, total protein 6.0, albumin 2.7. Head CT was negative. A/P: 1. Cardiorespiratory arrest: Precipitating etiology is not entirely clear. May be primary respiratory given anasarca and pulmonary edema although he had 3500 taken off at dialysis today. Pulmonary embolism is a consideration and chest CTA may be appropriate once he is more stable. He is hemodynamically stable at this time however anticoagulation is currently contraindicated given evidence of DIC as below. Brain CT was without acute findings. No significant electrolyte abnormalities were noted on labs. Troponin was only minimally elevated in the setting of renal failure. Chest x-ray showed airspace opacities in the perihilar region and lung bases which are likely combination of pulmonary edema and atelectasis. EKG showed rapid atrial fibrillation but no acute ST segment deviations. There were no reports of cardiac dysrhythmias just prior to the code. Case discussed with the screen tacker, the patient will be started on targeted temperature management. Echocardiogram ordered. 2. Disseminated intravascular coagulation: Transfuse 1 unit packed red blood cells, platelets, and cryoprecipitate. No overt signs of bleeding at this time though leaking is noted around his IJ and there was some blood in the oropharynx with intubation. 3. Lactic acidosis: Most likely related to cardiac arrest however he probably had has poor clearance from his liver disease as well. Concerns remain for sepsis given hypotension, bandemia, and lactic acidosis. Blood cultures are pending. Continue empiric cefepime, metronidazole, and vancomycin. Norepinephrine ordered if necessary to maintain systolic blood pressure greater than 95 and mean arterial pressure of 70 or greater. 4. Hypoglycemia: Started on D20 to minimize the amount of volume that he is getting. Continue frequent Accu-Cheks. I spoke personally with the patient's brother Gerald who lives in [place]. Gerald and the patient's cousin Robert were named as his surrogate medical decision makers when I admitted the patient to the hospital last June. The 2 conferred and agree that the patient would not want extraordinary measures after today's events and they have changed his code status to a do not resuscitate. Depending on his course they may consider comfort measures only but would like to give him at least 24 hours to see if there is any meaningful improvement. Critical Care Time Critical Care Time: Yes Total Critical Care Time: 45 Attestation: Due to a high probability of clinically significant, life threatening deterioration, the patient required my highest level of preparedness to intervene emergently and I personally spent this critical care time directly and personally managing the patient. This critical care time included obtaining a history; examining the patient; pulse oximetry; ordering and review o
[2023-12-17 22:54] LABS: Alveolar/Arterial O2 Gradient 225.9 mmHg; Carboxyhemoglobin 1.6 % THb (0-2.0); Fractional Inspired Oxygen 100 %; HCO3 ABG 22.2 mEq/l (22.0-26.0); Methemoglobin ABG 0.1 %THb (0-1.5); Oxygen Content ABG 9.9 %vol (16.0-22.0); Oxygen Saturation ABG 99.9 % (95.0-100.0); PCO2 ABG 29.9 mmHg (35.0-45.0); PO2 ABG 457.2 mmHg (80.0-100.0); PO2 FiO2 Ratio Arterial Blood 4.57 %; Reduced Hemoglobin 0.3 %THb (0-5.0); pH ABG 7.489 (7.350-7.450)
[2023-12-17 22:58] LABS: Device VENTILATOR; Site Drawn RIGHT FEMORAL; Total Hemoglobin 6.2 g/dL (12.0-18.0)
[2023-12-17 22:59] LABS: Arterial Blood Gas PEEP 5 cmH2O; Arterial Blood Gas Tidal Volume 430 ml; Arterial Blood Gas Vent Mode CMV; Arterial Blood Gas Ventilator rate 22 /MIN
[2023-12-18] VITALS (51 sets, daily range): BP systolic 91–139; BP diastolic 69–100; PULSE 56–75; RESP 14–28; TEMP 33.6–36.4; O2SAT 96–100
[2023-12-18] MEDS: AMIODARONE 360 MG/D5W 200 ML 360 MG/200 ML BAG 16.67 MG IV CONT (00:46)
[2023-12-18] MEDS: ALBUMIN HUMAN 25% 25 GM/100 ML 100 ML IVPB ×4 (00:46→18:04)
[2023-12-18] MEDS: IPRATROPIUM 0.5 MG/ALBUTEROL SULFATE 2.5 MG AMPUL.NEB 3 ML INHALATION ×4 (02:36→20:22)
[2023-12-18 03:13] LABS: Glucose Point of Care 77 mg/dl (65-105)
[2023-12-18 03:13] LABS: Glucose Point of Care 151 mg/dl (65-105)
[2023-12-18 03:13] LABS: Glucose Point of Care 116 mg/dl (65-105)
[2023-12-18 03:13] LABS: Glucose Point of Care 120 mg/dl (65-105)
[2023-12-18 05:28] LABS: Alveolar/Arterial O2 Gradient 111.6 mmHg; Base Excess ABG -1.9 mEq/l (+/-2.0); Carboxyhemoglobin 1.3 % THb (0-2.0); Fractional Inspired Oxygen 40 %; HCO3 ABG 21.6 mEq/l (22.0-26.0); Methemoglobin ABG 0.3 %THb (0-1.5); Oxygen Content ABG 11.3 %vol (16.0-22.0); Oxygen Saturation ABG 99.1 % (95.0-100.0); Oxyhemoglobin 97.6 % THb (90.0-100.0); PCO2 ABG 31.3 mmHg (35.0-45.0); PO2 FiO2 Ratio Arterial Blood 3.85 %; Reduced Hemoglobin 0.8 %THb (0-5.0); pH ABG 7.456 (7.350-7.450)
[2023-12-18 05:32] LABS: Device VENTILATOR; Modified Allen's Test Pass; Site Drawn RIGHT RADIAL
[2023-12-18 05:33] LABS: Arterial Blood Gas PEEP 5 cmH2O; Arterial Blood Gas Tidal Volume 400 ml; Arterial Blood Gas Vent Mode CMV; Arterial Blood Gas Ventilator rate 18 /MIN
[2023-12-18 06:22] LABS: Hematocrit 22.6 % (42.0-52.0); Hemoglobin 7.2 g/dL (14.0-18.0); Mean Corpuscular HGB Conc 31.9 g/dl (32-36); Mean Corpuscular Hemoglobin 26.6 pg (26-34); Mean Corpuscular Volume 83.4 fl (80-100); Mean Platelet Volume 12.2 fl (7.4-10.4); Platelet Count Result 37 k/mm3 (150-375); Red Blood Count 2.71 M/mm3 (4.6-6.20); Red Cell Distribution Width 19.2 % (11.5-14.5); White Blood Count 3.8 K/mm3 (4.5-10.0)
[2023-12-18] MEDS: CENTRAL LINE FLUSH 10 ML IV PUSH ×3 (06:25→20:18)
[2023-12-18] MEDS: metroNIDAZOLE 500 MG/ISO 100ML 500 MG/100 ML BAG 100 MG IVPB ×3 (06:25→21:22)
[2023-12-18 06:30] LABS: Ammonia 28 umol/L (9-30)
[2023-12-18 06:32] LABS: Albumin Level 2.5 g/dL (3.5-5.1); Alkaline Phosphatase 64 U/L (38-126); Anion Gap 13 mmol/L (4-12); Aspartate Amino Transferase 54 U/L (17-59); Bilirubin,Total 2.4 mg/dL (0.2-1.3); Blood Urea Nitrogen 3 mg/dL (9-20); Calcium 9.6 mg/dL (8.4-10.2); Carbon Dioxide 19 mmol/L (22-30); Chloride 103 mmol/L (98-107); Creatine Kinase 63 U/L (55-170); Estimated CRCL calculation 40 ml/min; Estimated Glomerular Filt Rate 53; Glucose 204 mg/dL (65-110); Magnesium 1.8 mg/dL (1.6-2.3); Phosphorus 1.5 mg/dL (2.5-4.5); Potassium 2.8 mmol/L (3.4-5.0); Sodium 135 mmol/L (137-145)
[2023-12-18 06:37] LABS: Lactic Acid Reflex 7.2 mmol/L (0.7-2.0)
[2023-12-18 06:41] LABS: Alanine Aminotransferase 15 U/L (6-50)
[2023-12-18 06:44] LABS: Glucose Point of Care 209 mg/dl (65-105)
[2023-12-18 06:44] LABS: Glucose Point of Care 201 mg/dl (65-105)
[2023-12-18 06:44] LABS: Glucose Point of Care 187 mg/dl (65-105)
[2023-12-18 07:00] LABS: INR 4.2; Partial Thromboplastin Time 79.1 Seconds (22.3-36.8); Prothrombin Time 40.6 Seconds (11.1-14.7)
[2023-12-18 07:05] LABS: Fibrinogen 130 mg/dl (215-510)
[2023-12-18 07:34] LABS: Glucose Point of Care 207 mg/dl (65-105)
[2023-12-18 08:08] LABS: Anisocytosis 1+; Band Neutrophils Percent 18 % (0-6); Hypochromasia 2+; Lymphocytes Absolute Manual 1.14 K/mm3 (1.1-4.5); Lymphocytes Percent Manual 30 % (18-44); Monocytes Absolute Manual 0.26 K/mm3 (0.1-0.90); Monocytes Percent Manual 7 % (3-9); Neutrophils Absolute Manual 2.35 K/mm3 (1.3-6.7); Neutrophils Percent Manual 44 % (46-73); Platelet Estimate Decreased (Adequate); Promyelocytes Percent 1 %; Smudge Cells PRESENT; Total Cells Counted 100
[2023-12-18 08:09] LABS: Poikilocytosis 1+; Schistocytes None Seen
--- NOTE | 2023-12-18 08:11 | WPDCNINT ---
Assessment and Plan Assessment and plan (1) Cardiac arrest: Code(s): I46.9 - Cardiac arrest, cause unspecified Status: Acute Assessment and Plan: 12/17/2023 evening: Patient was being rolled over to be given a lactulose enema, went unresponsive, went into PEA arrest, ACLS protocol was instituted, patient received 3 rounds of epinephrine, CPR with ROSC. Patient with into AFib RVR with heart rates in the 140s, was started on amiodarone infusion, heart rate dropped into the upper 50s and lower 60s and amiodarone infusion was later stopped. -could be related to vasovagal, bacteremia, hypoxia secondary to pulmonary edema -CT scan of the brain did not reveal any acute intracranial abnormalities -patient was started on targeted temperature management with goal temperature of 36?C, since patient has been thrombocytopenic, anemic and in DIC did not want her lower body temperature given the could be risk of increased bleeding given low body temperature -patient has been maintaining low body temperature by himself and not requiring the use of cooling blankets. -contained target temperature management 24 hours and then will restart warming the patient. -post cardiac arrest patient had seizure-like activities and was started on Keppra, will continue -echocardiogram has been ordered by the hospitalist (2) Acute respiratory failure: Code(s): J96.00 - Acute respiratory failure, unspecified whether with hypoxia or hypercapnia Status: Acute Assessment and Plan: Acute respiratory failure likely related to cardiac arrest, pulmonary edema -patient was dialyzed with 2500 mL in fluid removal of 12/17/2023 -will increase PEEP to 8 -currently on 40% FiO2 with good O2 sat -chest x-ray and ABGs have been reviewed -continue bronchodilators -sedated with Versed, maintain RASS 0 to -2 (3) Severe sepsis: Code(s): A41.9 - Sepsis, unspecified organism; R65.20 - Severe sepsis without septic shock Status: Acute Assessment and Plan: Severe sepsis with lactic acidosis, Gram-negative bacteremia -lactic acidosis most likely related to cardiac arrest -will trend lactic levels -patient is on cefepime, Flagyl and vancomycin (12/16) -12/16: blood cultures growing Gram-negative bacilli 2/2 bottles (4) DIC (disseminated intravascular coagulation): Code(s): D65 - Disseminated intravascular coagulation [defibrination syndrome] Status: Acute Assessment and Plan: Patient in DIC could be related to severe sepsis, Gram-negative bacteremia -12/16: patient received 1 unit of platelets 1 unit of packed RBCs and 1 unit of cryoprecipitate -continue to monitor (5) Anemia: Code(s): D64.9 - Anemia, unspecified Status: Chronic Assessment and Plan: Patient anemic, has a history of chronic anemia from gastritis and esophagitis with EGD and colonoscopies done in July of 2023 -12/16: patient was transfused 1 unit of packed RBCs for hemoglobin of 6.7 -discontinued aspirin -will avoid any anticoagulation at this time -continue Protonix IV q.12 hours (6) Thrombocytopenia: Code(s): D69.6 - Thrombocytopenia, unspecified Status: Acute Assessment and Plan: Has a history of chronic thrombocytopenia -currently platelet count is 37 this morning -no active bleeding noted -could also be related to cirrhosis/liver dysfunction -will give vitamin K and FFP as INR is 4.2 (7) Bacteremia due to Gram-negative bacteria: Code(s): R78.81 - Bacteremia Status: Acute Assessment and Plan: 12/17/2023: Blood cultures growing Gram-negative bacilli 2/2 bottles, sensitivities pending - continue antibiotics as above (8) Hypoglycemia: Code(s): E16.2 - Hypoglycemia, unspecified Status: Acute Assessment and Plan: Patient presented from the alf with hypoglycemia, currently on dextrose 20% at 75 mL, blood sugars have been in the 200s, have asked the bedside RN to drop t
[2023-12-18] MEDS: POTASSIUM/PHOSPHORUS/SODIUM 1.5 GM PACKET 1 PACKET PO (08:19)
[2023-12-18] MEDS: SUCRALFATE 1 GM TABLET PO ×4 (08:19→20:18)
[2023-12-18] MEDS: LIPASE/AMYLASE/PROTEASE 12,000 UNITS CAP 2 CAP PO ×3 (08:19→16:06)
[2023-12-18] MEDS: POTASSIUM CHLORIDE 20 MEQ PACKET (FOR LIQUID) 40 MEQ PO (08:19)
[2023-12-18] MEDS: MINERAL OIL/WHITE PETROLATUM OINTMENT 1 APPLIC EACH EYE ×2 (08:20→20:18)
[2023-12-18] MEDS: PHYTONADIONE ADULT INJ 10 MG in DEXTROSE 5% IN WATER 50 ML 68 MG IVPB (08:20)
[2023-12-18] MEDS: PANTOPRAZOLE SODIUM IV 40 MG VIAL IV PUSH ×2 (08:20→20:18)
[2023-12-18] MEDS: SEVELAMER CARBONATE 800 MG TABLET PO ×3 (08:37→16:06)
[2023-12-18] MEDS: SERTRALINE HCL 25 MG TABLET PO (08:37)
[2023-12-18] MEDS: SODIUM CHLORIDE 0.9% IV 250 ML 30 ML IV CONT ×2 (08:45→18:33)
[2023-12-18 09:01] LABS: Glucose Point of Care 196 mg/dl (65-105)
[2023-12-18 09:19] LABS: Reflex Lactic Acid Yes or No Add Lactic
[2023-12-18 09:56] LABS: Hepatitis B Surface Antigen Negative (Negative)
[2023-12-18 10:02] LABS: HAV RESULT Negative (Negative); Hepatitis B Core IgM Result Negative (Negative)
[2023-12-18 10:14] LABS: Hepatitis C Virus Antibody Negative (Negative)
[2023-12-18 10:25] LABS: Glucose Point of Care 191 mg/dl (65-105)
[2023-12-18 10:36] LABS: Lactic Acid 6.8 mmol/L (0.7-2.0)
--- NOTE | 2023-12-18 10:54 | PM.PNNEP ---
Progress Note: A&P Assessment and Plan (1) End stage renal disease: Code(s): N18.6 - End stage renal disease Status: Chronic Assessment and Plan: HD yesterday continue T/T/S dialysis schedule while hospitalized follow electrolytes, volume status, and clearance (2) Cardiac arrest: Code(s): I46.9 - Cardiac arrest, cause unspecified Status: Acute Assessment and Plan: etiology? possibly vasovagal versus bacteremia versus hypoxia?? CT of brain negative not initiated on TTM given hypothermia present already Echo ordered continue supportive therapy (3) Acute respiratory failure: Code(s): J96.00 - Acute respiratory failure, unspecified whether with hypoxia or hypercapnia Status: Acute Assessment and Plan: due to cardiac arrest and possily pulmonary edema intubated and on mechanical ventilation ventilator weaning per protocol (4) Severe sepsis: Code(s): A41.9 - Sepsis, unspecified organism; R65.20 - Severe sepsis without septic shock Status: Acute Assessment and Plan: noted with lactic acidosis and GNB bacteremia remains hemodynamically stable on antibiotics trend lactic acid follow repeat cultures (5) Anemia: Qualifiers: Anemia type: unspecified type Qualified Code(s): D64.9 - Anemia, unspecified Code(s): D64.9 - Anemia, unspecified Status: Chronic Assessment and Plan: known history partly related to ESRD however, noted gastritis and esophagitis with EGD and colonoscopies done in July of 2023 PRBC transfusion per protocol on PPI Epogen with HD follow trend of H/H (6) Thrombocytopenia: Code(s): D69.6 - Thrombocytopenia, unspecified Status: Chronic Assessment and Plan: chronic issue at baseline now complicated by DIC likely related to liver cirrhosis/dysfunction sepsis could be playing a role as well vitamin K and FFP given due to elevated INR follow platelet count for now (7) Hypokalemia: Code(s): E87.6 - Hypokalemia Status: Acute Assessment and Plan: suspect related to poor oral intake, liver disease, and dialysis replete PRN will adjust dialysis bath to compensate (8) Anasarca: Code(s): R60.1 - Generalized edema Status: Acute Assessment and Plan: somewhat of a chronic issue related to liver disease/cirrhosis, hypoalbuminemia, and likely inability for aggressive ultrafiltration with outpatient dialysis treatments may benefit from large volume paracentesis attempt to push fluid removal with HD as tolerated (9) Cirrhosis: Code(s): K74.60 - Unspecified cirrhosis of liver Status: Acute Assessment and Plan: known issue/finding appears clinically worse -- ascites, coagulopathy, pancytopenia, worsening ansarca... continue supportive therapy (10) Hypoglycemia: Code(s): E16.2 - Hypoglycemia, unspecified Status: Acute Assessment and Plan: etiology?? -- due to liver disease +/- poor nutrition +/- infection/sepsis per report, [facility] improved with treatment in ER but then dropped again an hour later follow blood sugars Will continue to follow. Subjective Date/time seen: 12/18/23 10:54 Interval history: Follow-up for end stage renal disease on hemodialysis. Events noted overnight -- apparently, patient was being rolled over to administer a lacutlose enema when he became unresponsive and was noted to be in PEA arrest; ACLS protocol initiated and patient received 3 rounds of epinephrtine along with CPR with ROSC; he was intubated during the arrest; post ROSC, he developed atrial fibrillation with RVR necessitationg initiation of amiodarone gtt but this was subsequent discontinued when his heart dropped in the 50 - 60s; transferred to ICU post code; developed seizure like activity so started on of IV Kep
--- NOTE | 2023-12-18 10:54 | P.PNNP_ITS ---
Progress Note: A&P Assessment and Plan (1) End stage renal disease: Code(s): N18.6 - End stage renal disease Status: Chronic Assessment and Plan: * HD yesterday * continue T/T/S dialysis schedule while hospitalized * follow electrolytes, volume status, and clearance (2) Cardiac arrest: Code(s): I46.9 - Cardiac arrest, cause unspecified Status: Acute Assessment and Plan: * etiology? * possibly vasovagal versus bacteremia versus hypoxia?? * CT of brain negative * not initiated on TTM given hypothermia present already * Echo ordered * continue supportive therapy (3) Acute respiratory failure: Code(s): J96.00 - Acute respiratory failure, unspecified whether with hypoxia or hypercapnia Status: Acute Assessment and Plan: * due to cardiac arrest and possily pulmonary edema * intubated and on mechanical ventilation * ventilator weaning per protocol (4) Severe sepsis: Code(s): A41.9 - Sepsis, unspecified organism; R65.20 - Severe sepsis without septic piotr ck Status: Acute Assessment and Plan: * noted with lactic acidosis and GNB bacteremia * remains hemodynamically stable * on antibiotics * trend lactic acid * follow repeat cultures (5) Anemia: Qualifiers: Anemia type: unspecified type Qualified Code(s): D64.9 - Anemia, unspecified Code(s): D64.9 - Anemia, unspecified Status: Chronic Assessment and Plan: * known history * partly related to ESRD * however, noted gastritis and esophagitis with EGD and colonoscopies done in July of 2023 * PRBC transfusion per protocol * on PPI * Epogen with HD * follow trend of H/H (6) Thrombocytopenia: Code(s): D69.6 - Thrombocytopenia, unspecified Status: Chronic Assessment and Plan: * chronic issue at baseline * now complicated by DIC * likely related to liver cirrhosis/dysfunction * sepsis could be playing a role as well * vitamin K and FFP given due to elevated INR * follow platelet count for now (7) Hypokalemia: Code(s): E87.6 - Hypokalemia Status: Acute Assessment and Plan: * suspect related to poor oral intake, liver disease, and dialysis * replete PRN * will adjust dialysis bath to compensate (8) Anasarca: Code(s): R60.1 - Generalized edema Status: Acute Assessment and Plan: * somewhat of a chronic issue * related to liver disease/cirrhosis, hypoalbuminemia, and likely inability for aggressive ultrafiltration with outpatient dialysis treatments * may benefit from large volume paracentesis * attempt to push fluid removal with HD as tolerated (9) Cirrhosis: Code(s): K74.60 - Unspecified cirrhosis of liver Status: Acute Assessment and Plan: * known issue/finding * appears clinically worse -- ascites, coagulopathy, pancytopenia, worsening ansarca... * continue supportive therapy (10) Hypoglycemia: Code(s): E16.2 - Hypoglycemia, unspecified Status: Acute Assessment and Plan: * etiology?? -- due to liver disease +/- poor nutrition +/- infection/sepsis * per report, blood sugar less than 30 at [facility]term prior to transfer * improved with treatment in ER but then dropped again an hour later * follow blood sugars Will continue to follow. Subjective Date/time seen: 12/18/23 10:54 Interval history: Follow-up for end stage renal disease on hemodialysis. Events not
[2023-12-18 11:35] LABS: Glucose Point of Care 163 mg/dl (65-105)
--- NOTE | 2023-12-18 12:06 | PM.IMPN ---
Progress Note: A&P Assessment and Plan (1) Hypoglycemia: Code(s): E16.2 - Hypoglycemia, unspecified Status: Acute (2) Altered mental status: Qualifiers: Altered mental status type: unspecified Qualified Code(s): R41.82 - Altered mental status, unspecified Code(s): R41.82 - Altered mental status, unspecified Status: Acute (3) ESRD (end stage renal disease) on dialysis: Code(s): N18.6 - End stage renal disease; Z99.2 - Dependence on renal dialysis Status: Acute (4) Pancytopenia: Code(s): D61.818 - Other pancytopenia Status: Acute (5) Hypoalbuminemia: Code(s): E88.09 - Other disorders of plasma-protein metabolism, not elsewhere classified Status: Acute (6) Anasarca: Code(s): R60.1 - Generalized edema Status: Acute (7) Cirrhosis: Code(s): K74.60 - Unspecified cirrhosis of liver Status: Acute (8) Hypokalemia: Code(s): E87.6 - Hypokalemia Status: Acute Plan 63-year-old male with history of end-stage renal disease on hemodialysis cirrhosis of liver brought in from the senior care facility with low blood sugar. Patient was found to have blood sugar of 30 this morning. He had dialysis yesterday. No nausea vomiting abdominal pain reported. Patient was also reported to be confused. Vitals were stable on arrival to the ED. laboratory workup revealed severe hypokalemia of 2.4 INR 2.3 creatinine of 2.4 blood sugar repeat here was less than 20. Lactic acid was normal at 1.8. Calcium 8.3 AST 36 ALT 9 alkaline phosphatase is 149 albumin is 1.7. WBC of 2.4 hemoglobin of 8.3 with platelets of 54 which are below patient's baseline level. Patient not on any anticoagulation. He received 40 IV potassium. Patient is not on any hypoglycemic agents at home. Chest x-ray revealed stable moderate size pleural effusions airspace opacities in perihilar regions and at lung bases likely a combination of atelectasis and pulmonary edema. Central line was placed in the ER. CT abdomen pelvis without contrast was performed which showed anasarca including moderate-sized pleural effusion and large volume ascites. Cirrhosis of liver with portal venous hypertension. Diffuse wall thickening of the colon which may be interstitial edema or colitis. Findings of chronic pancreatitis noted with calcification in the pancreas. Ferritin level 1490 TIBC low iron low% saturation high vitamin B12 more than 1000 folate normal phosphorus is low. Hypoglycemia etiology evident now likely related to Gram-negative sepsis with bacteremia. Ammonia level mildly elevated on lactulose. Hypoglycemia maintained with dextrose infusion and glucagon p.r.n.. This is now resolved. Was started on broad-spectrum antibiotics with vancomycin cefepime and Flagyl. Patient was treated with D50 with improvement in blood sugar however recurrent hypoglycemia noted and has been placed on D10. this has been switched to d20 now. Persistent hypoglycemia related to underlying sepsis. Panculture and broad-spectrum antibiotics start. Possible colitis in CT will cover with Flagyl for anaerobic along with cefepime Acute respiratory failure mechanical ventilation PEA arrest 12/17/2023 likely due to underlying sepsis Altered mental status likely due to hypoglycemia. End-stage renal disease on hemodialysis nephrology consulted underwent hemodialysis 12/17/2023 Pancytopenia heme Onc consulted. No splenomegaly or hepatomegaly noted on CT. No anticoagulation. Evidence of DIC with low fibrinogen elevated D-dimer no signs of bleeding received 1 packed red blood cell cryoprecipitate and FFP. Also received vitamin K per ICU Hypoalbuminemia likely due to cirrhosis of liver Anasarca started on albumin infusion. Oral meds on hold. Cirrhosis of liver known large volume ascites noted along with pancytopenia and coagulopathy. Hypokalemia replace and monitor DVT prophylaxis SCDs Code status full code Subjectiv
[2023-12-18 12:52] LABS: Glucose Point of Care 174 mg/dl (65-105)
[2023-12-18 13:11] LABS: Lactic Acid Reflex 6.6 mmol/L (0.7-2.0)
[2023-12-18 13:29] LABS: Creatine Kinase 55 U/L (55-170)
[2023-12-18 14:04] LABS: Glucose Point of Care 156 mg/dl (65-105)
[2023-12-18 15:19] LABS: Glucose Point of Care 139 mg/dl (65-105)
[2023-12-18] MEDS: CEFEPIME 0.5 GM in SODIUM CHLORIDE 0.9% IV 50 ML IVPB (16:05)
[2023-12-18 16:20] LABS: Glucose Point of Care 130 mg/dl (65-105)
[2023-12-18 17:20] LABS: Alveolar/Arterial O2 Gradient 52.1 mmHg; Base Excess ABG 0.2 mEq/l (+/-2.0); Fractional Inspired Oxygen 30 %; HCO3 ABG 23.2 mEq/l (22.0-26.0); Oxygen Saturation ABG 98.8 % (95.0-100.0); Oxyhemoglobin 97.4 % THb (90.0-100.0); PCO2 ABG 30.3 mmHg (35.0-45.0); PO2 ABG 126.2 mmHg (80.0-100.0); PO2 FiO2 Ratio Arterial Blood 4.21 %; pH ABG 7.501 (7.350-7.450)
[2023-12-18 17:28] LABS: Site Drawn RIGHT RADIAL; Total Hemoglobin 7.8 g/dL (12.0-18.0)
[2023-12-18 17:29] LABS: Arterial Blood Gas Vent Mode CMV; Arterial Blood Gas Ventilator rate 18 /MIN; Device VENTILATOR; Modified Allen's Test Pass
[2023-12-18 17:30] LABS: Arterial Blood Gas PEEP 8 cmH2O; Arterial Blood Gas Tidal Volume 400 ml
[2023-12-18 17:39] LABS: Glucose Point of Care 84 mg/dl (65-105)
[2023-12-18] MEDS: levETIRAcetam 1000MG/NACL100ML 1,000 MG/100 ML BAG 400 MG IVPB (17:43)
[2023-12-18 17:44] LABS: Hematocrit 21.4 % (42.0-52.0); Immature Platelet Fraction Pct 4.6 % (0.9-11.2); Mean Corpuscular HGB Conc 32.7 g/dl (32-36); Mean Corpuscular Hemoglobin 26.5 pg (26-34); Mean Corpuscular Volume 81.1 fl (80-100); Mean Platelet Volume 10.8 fl (7.4-10.4); Red Blood Count 2.64 M/mm3 (4.6-6.20); Red Cell Distribution Width 19.2 % (11.5-14.5); White Blood Count 4.1 K/mm3 (4.5-10.0)
[2023-12-18 17:53] LABS: Platelet Count Result 22 k/mm3 (150-375)
[2023-12-18 17:58] LABS: Albumin Level 2.7 g/dL (3.5-5.1); Alkaline Phosphatase 61 U/L (38-126); Anion Gap 10 mmol/L (4-12); Aspartate Amino Transferase 45 U/L (17-59); Blood Urea Nitrogen 4 mg/dL (9-20); Calcium 10.1 mg/dL (8.4-10.2); Carbon Dioxide 23 mmol/L (22-30); Chloride 102 mmol/L (98-107); Estimated CRCL calculation 36 ml/min; Estimated Glomerular Filt Rate 47; Glucose 153 mg/dL (65-110); Magnesium 1.7 mg/dL (1.6-2.3); Potassium 2.7 mmol/L (3.4-5.0); Sodium 135 mmol/L (137-145)
[2023-12-18 18:02] LABS: INR 3.7
[2023-12-18 18:03] LABS: Partial Thromboplastin Time 68.9 Seconds (22.3-36.8)
[2023-12-18 18:05] LABS: Alanine Aminotransferase 16 U/L (6-50)
[2023-12-18 18:18] LABS: Glucose Point of Care 172 mg/dl (65-105)
[2023-12-18 18:32] LABS: Creatine Kinase 38 U/L (55-170)
[2023-12-18 18:36] LABS: Lactic Acid Reflex 5.3 mmol/L (0.7-2.0)
[2023-12-18] MEDS: KCL 40 MEQ/WATER 100 ML 100 ML 25 ML IVPB (19:29)
[2023-12-18 20:30] LABS: Glucose Point of Care 159 mg/dl (65-105)
[2023-12-18 21:21] LABS: Reflex Lactic Acid Yes or No Add Lactic
[2023-12-18 21:57] LABS: Glucose Point of Care 168 mg/dl (65-105)
--- NOTE | 2023-12-18 22:00 | PC.NURSE ---
Rewarm therapy started per protocol.
[2023-12-18 23:16] LABS: Glucose Point of Care 163 mg/dl (65-105)
[2023-12-18 23:16] LABS: Glucose Point of Care 247 mg/dl (65-105)
[2023-12-19] VITALS (39 sets, daily range): BP systolic 91–143; BP diastolic 64–98; PULSE 59–90; RESP 18–25; TEMP 34.4–36.7; O2SAT 95–100
--- NOTE | 2023-12-19 | ECHO_ITS ---
Patient Info Name: Christiano Lehman Age: 63 years : 1960 Gender: Male Ht: 67 in Wt: 176 lbs BSA: 1.96 m2 HR: 118 bpm BP: 112 / 76 mmHg Heart Rhythm: Sinus Rhythm Technical Quality: Fair Exam Date: 12/19/2023 10:11 AM Exam Location: Echo Lab Patient Status: Inpatient Admit Date: 12/16/2023 Staff Ordering Physician: Maria E Street PA-C Activities Specialist: Gala Rojas RDCS Attending Provider: Martínez Negron MD Referring Physician: Jad LYNN; Exam Type: CA echo doppler color flow Study Info Indications I46.2 - Cardiac arrest due to underlying cardiac condition I48.1 - Persistent atrial fibrillation Complete two-dimensional, color flow and Doppler transthoracic echocardiogram is performed. Summary 1. Complete two-dimensional, color flow and Doppler transthoracic echocardiogram is performed. 2. Left ventricular hypertrophy with adequate systolic function and grade 1 diastolic noncompliance. 3. Biatrial dilation. 4. Mild mitral regurgitation. 5. Mild to moderate tricuspid regurgitation with evidence of elevated PA pressure. 6. Right ventricular enlargement with reduced systolic function. Left Ventricle Left ventricular chamber dimension is normal. Left ventricular systolic function is Empty, estimated at 50-55%. There is mildly increased left ventricular wall thickness. The left ventricular diastolic function is grade I diastolic dysfunction. Right Ventricle Right ventricular chamber dimension is mildly enlarged. Right ventricular systolic function is reduced. Left Atria Left atrial chamber dimension is mildly enlarged. Right Atria Right atrial chamber dimension is mildly enlarged. Aortic Valve The aortic valve is normal. Pulmonic Valve The pulmonic valve is normal. There is mild pulmonic regurgitation. Mitral Valve The mitral valve has normal leaflets. There is mild to moderate mitral valve regurgitation. The mitral valve annulus is mildly calcified. Tricuspid Valve The tricuspid valve leaflets are normal. There is mild to moderate tricuspid valve regurgitation. Moderate pulmonary hypertension, estimated pulmonary arterial systolic pressure is 55 mmHg. Pericardium/Pleural The pericardium appears normal. Aorta The aortic root size at the sinus of Valsalva is normal. Left Ventricular Outflow Tract Name Value Normal LVOT 2D LVOT Diameter 2.0 cm LVOT Doppler LVOT Peak Gradient 3 mmHg LVOT Mean Gradient 1 mmHg LVOT VTI 14 cm LVOT VTI/AV VTI Ratio 0.6 LVOT Stroke Volume 42 ml LVOT CO 3.5 l/min LVOT CI 1.8 l/min/m2 Pulmonic Valve Name Value Normal RVOT Doppler RVOT Peak Gradient 3 mmHg PV Doppler PV
[2023-12-19 00:34] LABS: Glucose Point of Care 150 mg/dl (65-105)
[2023-12-19] MEDS: IPRATROPIUM 0.5 MG/ALBUTEROL SULFATE 2.5 MG AMPUL.NEB 3 ML INHALATION ×4 (02:41→20:34)
[2023-12-19 02:45] LABS: Glucose Point of Care 144 mg/dl (65-105)
[2023-12-19 02:48] LABS: Glucose Point of Care 120 mg/dl (65-105)
[2023-12-19 04:19] LABS: Glucose Point of Care 118 mg/dl (65-105)
[2023-12-19 05:13] LABS: Basophils Percent Auto 0.2 % (0.2-1.2); Eosinophils Absolute Auto 0.2 K/mm3 (0-0.3); Eosinophils Percent Auto 4.1 % (0-4.4); Hematocrit 21.5 % (42.0-52.0); Immature Granulocyte Absolute 0.02 K/mm3 (0.00-0.031); Immature Granulocyte Percent A 0.4 % (0-0.5); Immature Platelet Fraction Pct 5.2 % (0.9-11.2); Lymphocytes Absolute Auto 0.61 K/mm3 (0.9-3.2); Lymphocytes Percent Auto 13.3 % (18.3-44.2); Mean Corpuscular HGB Conc 32.6 g/dl (32-36); Mean Corpuscular Hemoglobin 26.2 pg (26-34); Mean Corpuscular Volume 80.5 fl (80-100); Monocytes Absolute Auto 0.3 K/mm3 (0.1-0.6); Monocytes Percent Auto 6.5 % (2.6-8.5); Neutrophils Absolute Auto 3.5 K/mm3 (1.3-6.7); Neutrophils Percent Auto 75.5 % (45.5-73.1); Platelet Count Result 32 k/mm3 (150-375); Red Blood Count 2.67 M/mm3 (4.6-6.20); Red Cell Distribution Width 19.4 % (11.5-14.5); White Blood Count 4.6 K/mm3 (4.5-10.0)
[2023-12-19 05:22] LABS: Alanine Aminotransferase 10 U/L (6-50); Albumin Level 2.8 g/dL (3.5-5.1); Alkaline Phosphatase 62 U/L (38-126); Anion Gap 7 mmol/L (4-12); Aspartate Amino Transferase 33 U/L (17-59); Bilirubin,Total 3.3 mg/dL (0.2-1.3); Blood Urea Nitrogen 5 mg/dL (9-20); Calcium 10.3 mg/dL (8.4-10.2); Carbon Dioxide 28 mmol/L (22-30); Chloride 100 mmol/L (98-107); Creatine Kinase 29 U/L (55-170); Creatine Kinase 30 U/L (55-170); Estimated CRCL calculation 35 ml/min; Estimated Glomerular Filt Rate 39; Glucose 122 mg/dL (65-110); Magnesium 1.8 mg/dL (1.6-2.3); Phosphorus 1.3 mg/dL (2.5-4.5); Potassium 3.1 mmol/L (3.4-5.0); Sodium 135 mmol/L (137-145)
[2023-12-19 05:23] LABS: INR 3.6; Lactic Acid Reflex 3.6 mmol/L (0.7-2.0); Prothrombin Time 36.3 Seconds (11.1-14.7)
[2023-12-19 05:24] LABS: Partial Thromboplastin Time 66.5 Seconds (22.3-36.8)
[2023-12-19 05:45] LABS: Platelet Estimate Decreased (Adequate)
[2023-12-19 05:46] LABS: Hypochromasia 2+
[2023-12-19 05:48] LABS: Anisocytosis 1+; Poikilocytosis 2+; Target Cells 1+
[2023-12-19 05:49] LABS: Burr Cells 1+; Ovalocytes 1+
[2023-12-19 05:50] LABS: Schistocytes Rare
[2023-12-19 05:57] LABS: Alveolar/Arterial O2 Gradient 59.6 mmHg; Base Excess ABG 2.9 mEq/l (+/-2.0); Carboxyhemoglobin 1.4 % THb (0-2.0); Fractional Inspired Oxygen 30 %; HCO3 ABG 25.9 mEq/l (22.0-26.0); Methemoglobin ABG 0.3 %THb (0-1.5); Oxygen Content ABG 10.6 %vol (16.0-22.0); Oxygen Saturation ABG 98.6 % (95.0-100.0); Oxyhemoglobin 96.7 % THb (90.0-100.0); PCO2 ABG 32.6 mmHg (35.0-45.0); PO2 FiO2 Ratio Arterial Blood 3.87 %; Reduced Hemoglobin 1.6 %THb (0-5.0)
[2023-12-19 06:01] LABS: Device VENTILATOR; Modified Allen's Test Pass; Site Drawn RIGHT RADIAL; Total Hemoglobin 7.6 g/dL (12.0-18.0); pH ABG 7.518 (7.350-7.450)
[2023-12-19 06:02] LABS: Arterial Blood Gas PEEP 8 cmH2O; Arterial Blood Gas Tidal Volume 400 ml; Arterial Blood Gas Vent Mode CMV; Arterial Blood Gas Ventilator rate 18 /MIN
[2023-12-19] MEDS: metroNIDAZOLE 500 MG/ISO 100ML 500 MG/100 ML BAG 100 MG IVPB ×3 (06:24→21:15)
[2023-12-19] MEDS: CENTRAL LINE FLUSH 10 ML IV PUSH ×3 (06:25→21:14)
[2023-12-19 06:31] LABS: Glucose Point of Care 127 mg/dl (65-105)
[2023-12-19 07:35] LABS: Glucose Point of Care 101 mg/dl (65-105)
--- NOTE | 2023-12-19 07:48 | WPDINTPN ---
Progress Note: A&P Assessment and Plan (1) Cardiac arrest: Code(s): I46.9 - Cardiac arrest, cause unspecified Status: Acute Assessment and Plan: 12/17/2023 evening: Patient was being rolled over to be given a lactulose enema, went unresponsive, went into PEA arrest, ACLS protocol was instituted, patient received 3 rounds of epinephrine, CPR with ROSC. Patient with into AFib RVR with heart rates in the 140s, was started on amiodarone infusion, heart rate dropped into the upper 50s and lower 60s and amiodarone infusion was later stopped. -could be related to vasovagal, bacteremia, hypoxia secondary to pulmonary edema -CT scan of the brain did not reveal any acute intracranial abnormalities -patient was started on targeted temperature management with goal temperature of 36?C, since patient has been thrombocytopenic, anemic and in DIC did not want her lower body temperature given the could be risk of increased bleeding given low body temperature. Patient has completed 24 hours and has now been reformed. Patient in general is hypothermic -post cardiac arrest patient had seizure-like activities and was started on Keppra, will continue -echocardiogram has been ordered by the hospitalist and is pending (2) Acute respiratory failure: Code(s): J96.00 - Acute respiratory failure, unspecified whether with hypoxia or hypercapnia Status: Acute Assessment and Plan: Acute respiratory failure likely related to cardiac arrest, pulmonary edema -patient was dialyzed with 2500 mL in fluid removal of 12/17/2023 -chest x-ray and ABG reviewed -continue PEEP at 8 decrease tidal volume to 350 and rate to 16 -continue bronchodilators -weaning will depend on mental status improvement and will need further dialysis to remove fluid (3) Severe sepsis: Code(s): A41.9 - Sepsis, unspecified organism; R65.20 - Severe sepsis without septic shock Status: Acute Assessment and Plan: Severe sepsis with lactic acidosis, Gram-negative bacteremia -lactic acidosis most likely related to cardiac arrest and infection -patient is on cefepime, Flagyl and vancomycin (12/16) -12/16: blood cultures growing Gram-negative bacilli 2/2 bottles (4) DIC (disseminated intravascular coagulation): Code(s): D65 - Disseminated intravascular coagulation [defibrination syndrome] Status: Acute Assessment and Plan: Patient in DIC could be related to severe sepsis, Gram-negative bacteremia -12/16: patient received 1 unit of platelets 1 unit of packed RBCs and 1 unit of cryoprecipitate. - He also received vitamin K -INR 3.6 this morning. Will check fibrinogen level (5) Anemia: Code(s): D64.9 - Anemia, unspecified Status: Chronic Assessment and Plan: Patient anemic, has a history of chronic anemia from gastritis and esophagitis with EGD and colonoscopies done in July of 2023 -12/16: patient was transfused 1 unit of packed RBCs for hemoglobin of 6.7 -discontinued aspirin -will avoid any anticoagulation at this time -continue Protonix IV q.12 hours (6) Thrombocytopenia: Code(s): D69.6 - Thrombocytopenia, unspecified Status: Chronic Assessment and Plan: Has a history of chronic thrombocytopenia -currently platelet count is 32 this morning -no active bleeding noted -could also be related to cirrhosis/liver dysfunction -patient received platelet transfusion vitamin K and FFP on 12/16 (7) Bacteremia due to Gram-negative bacteria: Code(s): R78.81 - Bacteremia Status: Acute Assessment and Plan: 12/17/2023: Blood cultures growing Gram-negative bacilli 2/2 bottles, sensitivities pending - continue antibiotics as above (8) Hypoglycemia: Code(s): E16.2 - Hypoglycemia, unspecified Status: Acute Assessment and Plan: [facility] with hypoglycemia, currently on dextrose 20% at 35 mL, -start tube feeding. Use D5 water for free water f
[2023-12-19 08:12] LABS: Triglycerides < 30 mg/dL (<150)
[2023-12-19] MEDS: POTASSIUM PHOS,M-BASIC-D-BASIC 20 MMOL in SODIUM CHLORIDE 0.9% IV 250 ML 64.17 MMOL IVPB (08:40)
[2023-12-19] MEDS: PANTOPRAZOLE SODIUM IV 40 MG VIAL IV PUSH ×2 (08:41→21:14)
[2023-12-19] MEDS: POTASSIUM CHLORIDE 20 MEQ PACKET (FOR LIQUID) FEED TUBE (08:41)
[2023-12-19] MEDS: LIPASE/AMYLASE/PROTEASE 12,000 UNITS CAP 2 CAP PO ×3 (08:42→17:27)
[2023-12-19] MEDS: MINERAL OIL/WHITE PETROLATUM OINTMENT 1 APPLIC EACH EYE ×2 (08:43→21:14)
[2023-12-19 08:45] LABS: Fibrinogen 150 mg/dl (215-510)
--- NOTE | 2023-12-19 09:46 | P.PNNP_ITS ---
Progress Note: A&P Assessment and Plan (1) End stage renal disease: Code(s): N18.6 - End stage renal disease Status: Chronic Assessment and Plan: * plan HD tomorrow * continue T/T/S dialysis schedule while hospitalized * follow electrolytes, volume status, and clearance (2) Cardiac arrest: Code(s): I46.9 - Cardiac arrest, cause unspecified Status: Acute Assessment and Plan: * etiology? * possibly vasovagal versus bacteremia versus hypoxia?? * CT of brain negative * not initiated on TTM given hypothermia present after arrest * Echo pending * continue supportive therapy (3) Acute respiratory failure: Code(s): J96.00 - Acute respiratory failure, unspecified whether with hypoxia or hypercapnia Status: Acute Assessment and Plan: * due to cardiac arrest and possily pulmonary edema * intubated and on mechanical ventilation * ventilator weaning per protocol (4) Severe sepsis: Code(s): A41.9 - Sepsis, unspecified organism; R65.20 - Severe sepsis without septic shock Status: Acute Assessment and Plan: * noted with lactic acidosis and Bacillus (not B. anthracis) bacteremia * remains hemodynamically stable * on antibiotics * trend lactic acid * follow repeat cultures (5) Anemia: Qualifiers: Anemia type: unspecified type Qualified Code(s): D64.9 - Anemia, unspecified Code(s): D64.9 - Anemia, unspecified Status: Chronic Assessment and Plan: * known history * partly related to ESRD * however, noted gastritis and esophagitis with EGD and colonoscopies done in July of 2023 * PRBC transfusion per protocol * on PPI * Epogen with HD * follow trend of H/H (6) Thrombocytopenia: Code(s): D69.6 - Thrombocytopenia, unspecified Status: Chronic Assessment and Plan: * chronic issue at baseline * now complicated by DIC * likely related to liver cirrhosis/dysfunction * sepsis could be playing a role as well * vitamin K and FFP given due to elevated INR * follow platelet count for now (7) Hypokalemia: Code(s): E87.6 - Hypokalemia Status: Acute Assessment and Plan: * suspect related to poor oral intake, liver disease, and dialysis * replete PRN * will adjust dialysis bath to compensate (8) Anasarca: Code(s): R60.1 - Generalized edema Status: Acute Assessment and Plan: * somewhat of a chronic issue * related to liver disease/cirrhosis, hypoalbuminemia, and likely inability for aggressive ultrafiltration with outpatient dialysis treatments * may benefit from large volume paracentesis * attempt to push fluid removal with HD as tolerated (9) Cirrhosis: Code(s): K74.60 - Unspecified cirrhosis of liver Status: Acute Assessment and Plan: * known issue/finding * appears clinically worse -- ascites, coagulopathy, pancytopenia, worsening ansarca... * continue supportive therapy (10) Hypoglycemia: Code(s): E16.2 - Hypoglycemia, unspecified Status: Acute Assessment and Plan: * etiology?? -- due to liver disease +/- poor nutrition +/- infection/sepsis * per report, blood sugar less than 30 at [facility] prior to transfer * improved with treatment in ER but then dropped again an hour later * follow blood sugars with use of dextrose IVFs Will continue to follow. Subjective Date/time seen: 12/19/23 09:46 Interval history: Follow-up for end
--- NOTE | 2023-12-19 09:46 | PM.PNNEP ---
Progress Note: A&P Assessment and Plan (1) End stage renal disease: Code(s): N18.6 - End stage renal disease Status: Chronic Assessment and Plan: plan HD tomorrow continue T/T/S dialysis schedule while hospitalized follow electrolytes, volume status, and clearance (2) Cardiac arrest: Code(s): I46.9 - Cardiac arrest, cause unspecified Status: Acute Assessment and Plan: etiology? possibly vasovagal versus bacteremia versus hypoxia?? CT of brain negative not initiated on TTM given hypothermia present after arrest Echo pending continue supportive therapy (3) Acute respiratory failure: Code(s): J96.00 - Acute respiratory failure, unspecified whether with hypoxia or hypercapnia Status: Acute Assessment and Plan: due to cardiac arrest and possily pulmonary edema intubated and on mechanical ventilation ventilator weaning per protocol (4) Severe sepsis: Code(s): A41.9 - Sepsis, unspecified organism; R65.20 - Severe sepsis without septic shock Status: Acute Assessment and Plan: noted with lactic acidosis and Bacillus (not B. anthracis) bacteremia remains hemodynamically stable on antibiotics trend lactic acid follow repeat cultures (5) Anemia: Qualifiers: Anemia type: unspecified type Qualified Code(s): D64.9 - Anemia, unspecified Code(s): D64.9 - Anemia, unspecified Status: Chronic Assessment and Plan: known history partly related to ESRD however, noted gastritis and esophagitis with EGD and colonoscopies done in July of 2023 PRBC transfusion per protocol on PPI Epogen with HD follow trend of H/H (6) Thrombocytopenia: Code(s): D69.6 - Thrombocytopenia, unspecified Status: Chronic Assessment and Plan: chronic issue at baseline now complicated by DIC likely related to liver cirrhosis/dysfunction sepsis could be playing a role as well vitamin K and FFP given due to elevated INR follow platelet count for now (7) Hypokalemia: Code(s): E87.6 - Hypokalemia Status: Acute Assessment and Plan: suspect related to poor oral intake, liver disease, and dialysis replete PRN will adjust dialysis bath to compensate (8) Anasarca: Code(s): R60.1 - Generalized edema Status: Acute Assessment and Plan: somewhat of a chronic issue related to liver disease/cirrhosis, hypoalbuminemia, and likely inability for aggressive ultrafiltration with outpatient dialysis treatments may benefit from large volume paracentesis attempt to push fluid removal with HD as tolerated (9) Cirrhosis: Code(s): K74.60 - Unspecified cirrhosis of liver Status: Acute Assessment and Plan: known issue/finding appears clinically worse -- ascites, coagulopathy, pancytopenia, worsening ansarca... continue supportive therapy (10) Hypoglycemia: Code(s): E16.2 - Hypoglycemia, unspecified Status: Acute Assessment and Plan: etiology?? -- due to liver disease +/- poor nutrition +/- infection/sepsis per report, blood sugar less than 30 at [facility] prior to transfer improved with treatment in ER but then dropped again an hour later follow blood sugars with use of dextrose IVFs Will continue to follow. Subjective Date/time seen: 12/19/23 09:46 Interval history: Follow-up for end stage renal disease on hemodialysis. Remains intubated and on mechanical ventilation but off sedation at this time; otherwise, remains hemodynamically stable; no other apparent issues/events overnight or earlier this morning; still requiring dextrose IVFs to maintain blood sugar. Exam Narrative: General: chronic ill-appearing male laying intubated and on mechanical ventilation Heart: normal S1 and S2; no rub Lungs: coarse breath sounds; decreased at bases Abdomen: firm with distension noted; positive
[2023-12-19 09:51] LABS: Glucose Point of Care 118 mg/dl (65-105)
[2023-12-19 10:07] LABS: Glucose Point of Care 116 mg/dl (65-105)
--- NOTE | 2023-12-19 10:08 | PDONCCN ---
HPI - Date of Consult Date/Time: 12/19/23 17:19 <Jose Torres - 12/19/23 17:25> 12/19/23 10:08 <Wanda Dupree - 12/19/23 10:10> Requesting Physician: Martínez Negron MD <Jose Torres - 12/19/23 17:25> Martínez Negron MD <Wanda Dupree - 12/19/23 10:10> Primary Care Provider: Misha Mckay, <Jose Torres - 12/19/23 17:25> Misha Mckay, <Wanda Dupree - 12/19/23 10:10> - Consult Narrative Reason for consult: TAFRO Syndrome <LeiaWanda - 12/19/23 10:10> Narrative: Christiano Lehman is a 63 year old male <Jose Torres - 12/19/23 17:25> Christiano Lehman is a 63 year old male with a past medical history of ESRD on hemodialysis, liver cirrhosis, who was admitted for low blood sugar. Patient is currently intubated and information has been taken from chart review. He was going to receive an enema which he was found to be pulseless. CRP was initiated w/ epi and achieved ROSC after 3 rounds of CPR. 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 CT scan shows Anasarca including moderate-sized pleural effusions and large volume of ascites, cirrhosis of the liver with portal venous hypertension, diffuse wall thickening of the colon, which may be interstitial edema or colitis. Labs are notable for Hgb 7.0, Hct 21.5, Plt 32,000. <Wanda Dupree - 12/19/23 10:18> Review of Systems - Review of Systems unobtainable due to endotracheal tube, unobtainable due to medical condition <Wanda Dupree - 12/19/23 10:18> [facility] Medical History: Medical History (Last Reviewed 12/16/23 @ 22:31 by Gab Conway APRN) Chronic anemia Chronic pain syndrome Chronic pancreatitis Cirrhosis Encephalopathy End stage renal disease on dialysis Esophagitis with gastritis Onset Date: 07/04/23 Gastritis Hyperlipidemia Hypertension Peptic ulcer disease Peptic ulcer with perforation Peripheral vascular disease <Jose Torres - 12/19/23 17:25> Medical History (Last Reviewed 12/16/23 @ 22:31 by Gab Conway APRN) Chronic anemia Chronic pain syndrome Chronic pancreatitis Cirrhosis Encephalopathy End stage renal disease on dialysis Esophagitis with gastritis Onset Date: 07/04/23 Gastritis Hyperlipidemia Hypertension Peptic ulcer disease Peptic ulcer with perforation Peripheral vascular disease <Wanda Dupree - 12/19/23 10:10> Surgical History: Surgical History (Last Reviewed 12/16/23 @ 22:31 by Gab Conway APRN) History of esophagogastroduodenoscopy (EGD) 07/04/2023: Hiatal hernia, unspecified esophagitis, gastritis History of umbilical hernia repair Presence of surgically created AV shunt for hemodialysis Left upper arm <Jose Torres - 12/19/23 17:25> Surgical History (Last Reviewed 12/16/23 @ 22:31 by Gab Conway APRN) History of esophagogastroduodenoscopy (EGD) 07/04/2023: Hiatal hernia, unspecified esophagitis, gastritis History of umbilical hernia repair Presence of surgically created AV shunt for hemodialysis Left upper arm <Wanda Dupree - 12/19/23 10:10> Family History: Family History (Last Reviewed 12/16/23 @ 22:31 by Gab Conway APRN) Unknown Family history unknown <Jose Torres - 12/19/23 17:25> Family History (Last Reviewed 12/16/23 @ 22:31 by Gab Conway APRN) Unknown Family history unknown <Wanda Dupree - 12/19/23 10:10> - Social History Social History: Social History (Last Reviewed 12/16/23 @ 22:31 by Gab Conway APRN) Alcohol Use: Alcohol intake: never Substance Use: Substance use: never Substance use type: does not use Others: Spiritual care concerns: No Living Arrangements: Living arrangements: [facility] Smoking Status: Smoking status: Never smoker Second hand tobacco smoke exposure: No Social Determinants of H
[2023-12-19 10:28] LABS: CRP 8.8 mg/dL (<1.0)
[2023-12-19 10:40] LABS: Iron 61 ug/dL (49-181)
--- NOTE | 2023-12-19 10:42 | PCFNICU ---
ICU Rounding Note: Pt current nutrition is Nepro @ 20 ml/h. Provides 792 kcal, 36 g protein, 320 ml free water. Flush 30 ml q 4 hours per MD. Nutrition recommendation: Advance to goal of 40 ml/h per MD only. Will need protein modulars, Prosource TF BID when tube feeds advance to goal. Last recorded weight is 88.2 kg. Bowel Motility: +7 BMs 12/18/23 Labs Reviewed: Hgb 7.0, Hct 21.5, Alb 2.8, Na 135, K+ 3.1, BUN 5, Cre 2.1, Glu 122 Meds Noted: Creon, propofol (not running now) Skin: multiple pressure areas: Stage 2 ischium, Unstageable L heel Additional Notes: Pt was intubated post cardiac arrest/CPR. Code changed to DNR. Per MD, start on Nepro @ 20 ml/h for today and likely advance tomorrow. Following daily in ICU rounds. Monitoring intakes, weights, labs, supplement tolerance, wound healing, plan of care Reassess Tuesdays/Fridays.
[2023-12-19 11:01] LABS: Glucose Point of Care 102 mg/dl (65-105)
[2023-12-19 11:05] LABS: Percent Iron Saturation 81 % (20-50)
[2023-12-19 12:03] LABS: Folic Acid 3.6 ng/mL (2.76->20); Vitamin B12 > 1000.0 pg/mL (239-931)
[2023-12-19 12:36] LABS: Glucose Point of Care 102 mg/dl (65-105)
[2023-12-19 14:05] LABS: Glucose Point of Care 103 mg/dl (65-105)
[2023-12-19 15:04] LABS: Glucose Point of Care 91 mg/dl (65-105)
--- NOTE | 2023-12-19 16:44 | PM.IMPN ---
Progress Note: A&P Assessment and Plan (1) Hypoglycemia: Code(s): E16.2 - Hypoglycemia, unspecified Status: Acute (2) Altered mental status: Qualifiers: Altered mental status type: unspecified Qualified Code(s): R41.82 - Altered mental status, unspecified Code(s): R41.82 - Altered mental status, unspecified Status: Acute (3) ESRD (end stage renal disease) on dialysis: Code(s): N18.6 - End stage renal disease; Z99.2 - Dependence on renal dialysis Status: Acute (4) Pancytopenia: Code(s): D61.818 - Other pancytopenia Status: Acute (5) Hypoalbuminemia: Code(s): E88.09 - Other disorders of plasma-protein metabolism, not elsewhere classified Status: Acute (6) Anasarca: Code(s): R60.1 - Generalized edema Status: Acute (7) Cirrhosis: Code(s): K74.60 - Unspecified cirrhosis of liver Status: Acute (8) Hypokalemia: Code(s): E87.6 - Hypokalemia Status: Acute Plan 63-year-old male with history of end-stage renal disease on hemodialysis cirrhosis of liver brought in from the [facility] with low blood sugar. Patient was found to have blood sugar of 30 this morning. He had dialysis yesterday. No nausea vomiting abdominal pain reported. Patient was also reported to be confused. Vitals were stable on arrival to the ED. laboratory workup revealed severe hypokalemia of 2.4 INR 2.3 creatinine of 2.4 blood sugar repeat here was less than 20. Lactic acid was normal at 1.8. Calcium 8.3 AST 36 ALT 9 alkaline phosphatase is 149 albumin is 1.7. WBC of 2.4 hemoglobin of 8.3 with platelets of 54 which are below patient's baseline level. Patient not on any anticoagulation. He received 40 IV potassium. Patient is not on any hypoglycemic agents at home. Chest x-ray revealed stable moderate size pleural effusions airspace opacities in perihilar regions and at lung bases likely a combination of atelectasis and pulmonary edema. Central line was placed in the ER. CT abdomen pelvis without contrast was performed which showed anasarca including moderate-sized pleural effusion and large volume ascites. Cirrhosis of liver with portal venous hypertension. Diffuse wall thickening of the colon which may be interstitial edema or colitis. Findings of chronic pancreatitis noted with calcification in the pancreas. Ferritin level 1490 TIBC low iron low% saturation high vitamin B12 more than 1000 folate normal phosphorus is low. Hypoglycemia etiology evident now likely related to Gram-negative sepsis with bacteremia. Ammonia level mildly elevated on lactulose. Hypoglycemia maintained with dextrose infusion and glucagon p.r.n.. This is now resolved. Was started on broad-spectrum antibiotics with vancomycin cefepime and Flagyl. Patient was treated with D50 with improvement in blood sugar however recurrent hypoglycemia noted and has been placed on D10. this has been switched to d20 now. Persistent hypoglycemia related to underlying sepsis. Panculture and broad-spectrum antibiotics start. Possible colitis in CT will cover with Flagyl for anaerobic along with cefepime. Blood culture identified as bacillus species not anthracis antibiotics switched to meropenem on Flagyl Acute respiratory failure mechanical ventilation PEA arrest 12/17/2023 likely due to underlying sepsis Altered mental status likely due to hypoglycemia. End-stage renal disease on hemodialysis nephrology consulted underwent hemodialysis 12/17/2023 Pancytopenia heme Onc consulted. No splenomegaly or hepatomegaly noted on CT. No anticoagulation. Evidence of DIC with low fibrinogen elevated D-dimer no signs of bleeding received 1 packed red blood cell cryoprecipitate and FFP. Also received vitamin K per ICU Hypoalbuminemia likely due to cirrhosis of liver Anasarca started on albumin infusion. Oral meds on hold. Cirrhosis of liver known large volume ascites noted along with pancytopenia and c
[2023-12-19] MEDS: levETIRAcetam 1000MG/NACL100ML 1,000 MG/100 ML BAG 400 MG IVPB (17:28)
[2023-12-19] MEDS: MEROPENEM 1 GM/NS 100 ML 1 GM/100 ML BAG IVPB (17:37)
[2023-12-19 17:50] LABS: Glucose Point of Care 98 mg/dl (65-105)
[2023-12-19] MEDS: PHYTONADIONE ADULT INJ 5 MG in DEXTROSE 5% IN WATER 50 ML 100 MG IVPB (18:46)
[2023-12-19 19:05] LABS: Glucose Point of Care 108 mg/dl (65-105)
[2023-12-19 20:02] LABS: Glucose Point of Care 108 mg/dl (65-105)
[2023-12-19 21:25] LABS: Glucose Point of Care 109 mg/dl (65-105)
[2023-12-19 22:35] LABS: Glucose Point of Care 107 mg/dl (65-105)
[2023-12-20] VITALS (50 sets, daily range): BP systolic 92–131; BP diastolic 67–91; PULSE 70–88; RESP 11–26; TEMP 36.4–37.2; O2SAT 91–100
[2023-12-20 00:33] LABS: Glucose Point of Care 117 mg/dl (65-105)
[2023-12-20 01:22] LABS: Glucose Point of Care 114 mg/dl (65-105)
[2023-12-20 02:45] LABS: Glucose Point of Care 104 mg/dl (65-105)
[2023-12-20] MEDS: IPRATROPIUM 0.5 MG/ALBUTEROL SULFATE 2.5 MG AMPUL.NEB 3 ML INHALATION ×4 (02:50→20:00)
[2023-12-20 03:40] LABS: Glucose Point of Care 99 mg/dl (65-105)
[2023-12-20] MEDS: metroNIDAZOLE 500 MG/ISO 100ML 500 MG/100 ML BAG 100 MG IVPB (05:26)
[2023-12-20] MEDS: PHYTONADIONE ADULT INJ 5 MG in DEXTROSE 5% IN WATER 50 ML 100 MG IVPB ×3 (05:27→21:07)
[2023-12-20] MEDS: CENTRAL LINE FLUSH 20 ML IV PUSH (05:27)
[2023-12-20] MEDS: CENTRAL LINE FLUSH 10 ML IV PUSH ×3 (05:27→21:06)
[2023-12-20 05:30] LABS: Basophils Percent Auto 0.2 % (0.2-1.2); Eosinophils Absolute Auto 0.2 K/mm3 (0-0.3); Eosinophils Percent Auto 3.4 % (0-4.4); Hematocrit 21.5 % (42.0-52.0); Hemoglobin 7.1 g/dL (14.0-18.0); Immature Granulocyte Absolute 0.03 K/mm3 (0.00-0.031); Immature Granulocyte Percent A 0.6 % (0-0.5); Immature Platelet Fraction Pct 5.6 % (0.9-11.2); Lymphocytes Absolute Auto 0.73 K/mm3 (0.9-3.2); Lymphocytes Percent Auto 15.5 % (18.3-44.2); Mean Corpuscular Hemoglobin 26.5 pg (26-34); Mean Corpuscular Volume 80.2 fl (80-100); Mean Platelet Volume 9.4 fl (7.4-10.4); Monocytes Absolute Auto 0.3 K/mm3 (0.1-0.6); Monocytes Percent Auto 6.6 % (2.6-8.5); Neutrophils Absolute Auto 3.5 K/mm3 (1.3-6.7); Neutrophils Percent Auto 73.7 % (45.5-73.1); Red Blood Count 2.68 M/mm3 (4.6-6.20); Red Cell Distribution Width 19.6 % (11.5-14.5); White Blood Count 4.7 K/mm3 (4.5-10.0)
[2023-12-20 05:36] LABS: Glucose Point of Care 112 mg/dl (65-105)
[2023-12-20 05:40] LABS: INR 3.3; Prothrombin Time 34.3 Seconds (11.1-14.7)
[2023-12-20 05:41] LABS: Alanine Aminotransferase 8 U/L (6-50); Albumin Level 2.4 g/dL (3.5-5.1); Alkaline Phosphatase 69 U/L (38-126); Anion Gap 5 mmol/L (4-12); Aspartate Amino Transferase 19 U/L (17-59); Bilirubin,Total 4.2 mg/dL (0.2-1.3); Blood Urea Nitrogen 7 mg/dL (9-20); Carbon Dioxide 26 mmol/L (22-30); Chloride 101 mmol/L (98-107); Estimated CRCL calculation 31 ml/min; Estimated Glomerular Filt Rate 33; Glucose 105 mg/dL (65-110); Magnesium 1.7 mg/dL (1.6-2.3); Phosphorus 1.9 mg/dL (2.5-4.5); Potassium 3.5 mmol/L (3.4-5.0); Sodium 132 mmol/L (137-145)
[2023-12-20 05:51] LABS: Platelet Count Result 17 k/mm3 (150-375)
[2023-12-20 05:52] LABS: Platelet Estimate Decreased (Adequate)
[2023-12-20 05:53] LABS: Anisocytosis 2+; Burr Cells 2+; Hypochromasia 1+; Ovalocytes 1+
[2023-12-20 05:54] LABS: Microcytosis 1+ (NORMAL); Schistocytes Rare
--- NOTE | 2023-12-20 06:36 | PC.NURSE ---
Per patient's brother Ross, nephmiguel Little can be given information about patient. Jeffrey also requests that Dr Phillip call him so prognosis can be discussed.
[2023-12-20 06:39] LABS: Alveolar/Arterial O2 Gradient 50.8 mmHg; Base Excess ABG 2.7 mEq/l (+/-2.0); Fractional Inspired Oxygen 30 %; HCO3 ABG 26.1 mEq/l (22.0-26.0); Methemoglobin ABG 0.3 %THb (0-1.5); Oxygen Content ABG 13.6 %vol (16.0-22.0); Oxygen Saturation ABG 98.6 % (95.0-100.0); PCO2 ABG 35.8 mmHg (35.0-45.0); PO2 FiO2 Ratio Arterial Blood 4.03 %; Reduced Hemoglobin 1.7 %THb (0-5.0); Total Hemoglobin 9.8 g/dL (12.0-18.0); pH ABG 7.481 (7.350-7.450)
[2023-12-20 06:40] LABS: Device VENTILATOR; Modified Allen's Test Pass; Site Drawn RIGHT RADIAL
[2023-12-20 06:41] LABS: Arterial Blood Gas PEEP 8 cmH2O; Arterial Blood Gas Tidal Volume 350 ml; Arterial Blood Gas Vent Mode CMV; Arterial Blood Gas Ventilator rate 16 /MIN
[2023-12-20 07:08] LABS: Glucose Point of Care 114 mg/dl (65-105)
[2023-12-20] MEDS: SODIUM CHLORIDE 0.9% IV 250 ML 30 ML IV CONT (07:32)
[2023-12-20 08:17] LABS: Glucose Point of Care 84 mg/dl (65-105)
[2023-12-20 08:30] LABS: Glucose Point of Care 31 mg/dl (65-105)
[2023-12-20] MEDS: POTASSIUM/PHOSPHORUS/SODIUM 1.5 GM PACKET 2 PACKET PO (08:30)
[2023-12-20] MEDS: LIPASE/AMYLASE/PROTEASE 12,000 UNITS CAP 2 CAP PO ×3 (08:31→17:15)
[2023-12-20] MEDS: MINERAL OIL/WHITE PETROLATUM OINTMENT 1 APPLIC EACH EYE ×2 (08:32→20:13)
[2023-12-20] MEDS: PANTOPRAZOLE SODIUM IV 40 MG VIAL IV PUSH ×2 (08:32→20:11)
[2023-12-20] MEDS: SODIUM CHLORIDE 0.9% IV 1,000 ML 999 ML IV CONT (08:45)
--- NOTE | 2023-12-20 08:54 | WPDINTPN ---
Progress Note: A&P Assessment and Plan (1) Cardiac arrest: Code(s): I46.9 - Cardiac arrest, cause unspecified Status: Acute Assessment and Plan: 12/17/2023 evening: Patient was being rolled over to be given a lactulose enema, went unresponsive, went into PEA arrest, ACLS protocol was instituted, patient received 3 rounds of epinephrine, CPR with ROSC. Patient with into AFib RVR with heart rates in the 140s, was started on amiodarone infusion, heart rate dropped into the upper 50s and lower 60s and amiodarone infusion was later stopped. -could be related to vasovagal, bacteremia, hypoxia secondary to pulmonary edema -CT scan of the brain did not reveal any acute intracranial abnormalities -patient was started on targeted temperature management with goal temperature of 36?C, since patient has been thrombocytopenic, anemic and in DIC did not want her lower body temperature given the could be risk of increased bleeding given low body temperature. Patient has completed 24 hours and has now been reformed. Patient in general is hypothermic -post cardiac arrest patient had seizure-like activities and was started on Keppra, will continue -echocardiogram Summary 1. Complete two-dimensional, color flow and Doppler transthoracic echocardiogram is performed. 2. Left ventricular hypertrophy with adequate systolic function and grade 1 diastolic noncompliance. 3. Biatrial dilation. 4. Mild mitral regurgitation. 5. Mild to moderate tricuspid regurgitation with evidence of elevated PA pressure. 6. Right ventricular enlargement with reduced systolic function. (2) Acute respiratory failure: Code(s): J96.00 - Acute respiratory failure, unspecified whether with hypoxia or hypercapnia Status: Acute Assessment and Plan: Acute respiratory failure likely related to cardiac arrest, pulmonary edema -patient was dialyzed with 2500 mL in fluid removal of 12/17/2023 -chest x-ray and ABG reviewed -continue PEEP at 8 decrease tidal volume to 350 and rate to 16 -continue bronchodilators -weaning will depend on mental status improvement and will need further dialysis to remove fluid (3) Severe sepsis: Code(s): A41.9 - Sepsis, unspecified organism; R65.20 - Severe sepsis without septic shock Status: Acute Assessment and Plan: Severe sepsis with lactic acidosis, Gram-negative bacteremia -lactic acidosis most likely related to cardiac arrest and infection -patient is on cefepime, Flagyl and vancomycin (12/16).12/18 switched to meropenem -12/16: blood cultures growing bacillus species (4) DIC (disseminated intravascular coagulation): Code(s): D65 - Disseminated intravascular coagulation [defibrination syndrome] Status: Acute Assessment and Plan: Patient in DIC could be related to severe sepsis, Gram-negative bacteremia -12/16: patient received 1 unit of platelets 1 unit of packed RBCs and 1 unit of cryoprecipitate. - He also received vitamin K -12/19 elevated INR and low fibrinogen level. Will transfuse 2 units of FFP (5) Anemia: Code(s): D64.9 - Anemia, unspecified Status: Chronic Assessment and Plan: Patient anemic, has a history of chronic anemia from gastritis and esophagitis with EGD and colonoscopies done in July of 2023 -12/16: patient was transfused 1 unit of packed RBCs for hemoglobin of 6.7 -discontinued aspirin -will avoid any anticoagulation at this time -continue Protonix IV q.12 hours (6) Thrombocytopenia: Code(s): D69.6 - Thrombocytopenia, unspecified Status: Chronic Assessment and Plan: Has a history of chronic thrombocytopenia -no active bleeding noted -likely secondary to cirrhosis/liver dysfunction -patient received platelet transfusion vitamin K and FFP on 12/16 -12/19 platelet count 17. Will transfuse 1 unit of platelets this morning (7) Bacteremia due to Gram-negative bacteria: Code(s): R78.81 - Bacteremia Status: Ac
[2023-12-20] MEDS: SODIUM CHLORIDE 0.9% IV 250 ML 999 ML IV CONT (09:10)
--- NOTE | 2023-12-20 09:10 | P.PNNP_ITS ---
Progress Note: A&P Assessment and Plan (1) End stage renal disease: Code(s): N18.6 - End stage renal disease Status: Chronic Assessment and Plan: * HD today * continue T/T/S dialysis schedule while hospitalized * follow electrolytes, volume status, and clearance (2) Cardiac arrest: Code(s): I46.9 - Cardiac arrest, cause unspecified Status: Acute Assessment and Plan: * etiology? * possibly vasovagal versus bacteremia versus hypoxia?? * CT of brain negative * not initiated on TTM given hypothermia present after arrest * Echo results noted * continue supportive therapy (3) Acute respiratory failure: Code(s): J96.00 - Acute respiratory failure, unspecified whether with hypoxia or hypercapnia Status: Acute Assessment and Plan: * due to cardiac arrest and possily pulmonary edema * intubated and on mechanical ventilation * ventilator weaning per protocol * push fluid removal with HD as tolerated (4) Severe sepsis: Code(s): A41.9 - Sepsis, unspecified organism; R65.20 - Severe sepsis without septic shock Status: Acute Assessment and Plan: * noted with lactic acidosis and Bacillus (not B. anthracis) bacteremia * remains hemodynamically stable * on antibiotics * follow repeat cultures (5) Anemia: Qualifiers: Anemia type: unspecified type Qualified Code(s): D64.9 - Anemia, unspecified Code(s): D64.9 - Anemia, unspecified Status: Chronic Assessment and Plan: * known history * partly related to ESRD * however, noted gastritis and esophagitis with EGD and colonoscopies done in July of 2023 * PRBC transfusion per protocol * on PPI * Epogen with HD * follow trend of H/H (6) Thrombocytopenia: Code(s): D69.6 - Thrombocytopenia, unspecified Status: Chronic Assessment and Plan: * chronic issue at baseline * now complicated by DIC * likely related to liver cirrhosis/dysfunction * sepsis could be playing a role as well * vitamin K and FFP given due to elevated INR * follow platelet count for now (7) Hypokalemia: Code(s): E87.6 - Hypokalemia Status: Acute Assessment and Plan: * suspect related to poor oral intake, liver disease, and dialysis * replete PRN * will adjust dialysis bath to compensate (8) Anasarca: Code(s): R60.1 - Generalized edema Status: Acute Assessment and Plan: * somewhat of a chronic issue * related to liver disease/cirrhosis, hypoalbuminemia, and likely inability for aggressive ultrafiltration with outpatient dialysis treatments * may benefit from large volume paracentesis * attempt to push fluid removal with HD as tolerated (9) Cirrhosis: Code(s): K74.60 - Unspecified cirrhosis of liver Status: Acute Assessment and Plan: * known issue/finding * appears clinically worse -- ascites, coagulopathy, pancytopenia, worsening ansarca... * continue supportive therapy (10) Hypoglycemia: Code(s): E16.2 - Hypoglycemia, unspecified Status: Acute Assessment and Plan: * etiology?? -- due to liver disease +/- poor nutrition +/- infection/sepsis * per report, blood sugar less than 30 at intermediate prior to transfer * improved with treatment in ER but then dropped again an hour later * follow blood sugars with use of dextrose IVFs Will continue to follow. Subjective Date/time seen: 12/20/23 09:10 Interval history:
--- NOTE | 2023-12-20 09:10 | PM.PNNEP ---
Progress Note: A&P Assessment and Plan (1) End stage renal disease: Code(s): N18.6 - End stage renal disease Status: Chronic Assessment and Plan: HD today continue T/T/S dialysis schedule while hospitalized follow electrolytes, volume status, and clearance (2) Cardiac arrest: Code(s): I46.9 - Cardiac arrest, cause unspecified Status: Acute Assessment and Plan: etiology? possibly vasovagal versus bacteremia versus hypoxia?? CT of brain negative not initiated on TTM given hypothermia present after arrest Echo results noted continue supportive therapy (3) Acute respiratory failure: Code(s): J96.00 - Acute respiratory failure, unspecified whether with hypoxia or hypercapnia Status: Acute Assessment and Plan: due to cardiac arrest and possily pulmonary edema intubated and on mechanical ventilation ventilator weaning per protocol push fluid removal with HD as tolerated (4) Severe sepsis: Code(s): A41.9 - Sepsis, unspecified organism; R65.20 - Severe sepsis without septic shock Status: Acute Assessment and Plan: noted with lactic acidosis and Bacillus (not B. anthracis) bacteremia remains hemodynamically stable on antibiotics follow repeat cultures (5) Anemia: Qualifiers: Anemia type: unspecified type Qualified Code(s): D64.9 - Anemia, unspecified Code(s): D64.9 - Anemia, unspecified Status: Chronic Assessment and Plan: known history partly related to ESRD however, noted gastritis and esophagitis with EGD and colonoscopies done in July of 2023 PRBC transfusion per protocol on PPI Epogen with HD follow trend of H/H (6) Thrombocytopenia: Code(s): D69.6 - Thrombocytopenia, unspecified Status: Chronic Assessment and Plan: chronic issue at baseline now complicated by DIC likely related to liver cirrhosis/dysfunction sepsis could be playing a role as well vitamin K and FFP given due to elevated INR follow platelet count for now (7) Hypokalemia: Code(s): E87.6 - Hypokalemia Status: Acute Assessment and Plan: suspect related to poor oral intake, liver disease, and dialysis replete PRN will adjust dialysis bath to compensate (8) Anasarca: Code(s): R60.1 - Generalized edema Status: Acute Assessment and Plan: somewhat of a chronic issue related to liver disease/cirrhosis, hypoalbuminemia, and likely inability for aggressive ultrafiltration with outpatient dialysis treatments may benefit from large volume paracentesis attempt to push fluid removal with HD as tolerated (9) Cirrhosis: Code(s): K74.60 - Unspecified cirrhosis of liver Status: Acute Assessment and Plan: known issue/finding appears clinically worse -- ascites, coagulopathy, pancytopenia, worsening ansarca... continue supportive therapy (10) Hypoglycemia: Code(s): E16.2 - Hypoglycemia, unspecified Status: Acute Assessment and Plan: etiology?? -- due to liver disease +/- poor nutrition +/- infection/sepsis per report, blood sugar less than 30 at intermediate prior to transfer improved with treatment in ER but then dropped again an hour later follow blood sugars with use of dextrose IVFs Will continue to follow. Subjective Date/time seen: 12/20/23 09:10 Interval history: Follow-up for end stage renal disease on hemodialysis. Tolerating dialysis treatment at the time of my visit (seen on HD at 9:00AM); no real significant change -- remains intubated and on mechanical ventilation; off sedation since yesterday but no apparent change in mental status noted; remains on dextrose fluids to maintain blood sugars; platelet transfusion earlier today; remains hemodynamically stable. Exam Narrative: General: chronic ill-appearing male laying intubated and on mechanical ventilat
[2023-12-20] MEDS: ALBUMIN HUMAN 25% 12.5 GM/50ML 50 ML IVPB (09:17)
[2023-12-20 09:59] LABS: Glucose Point of Care 101 mg/dl (65-105)
--- NOTE | 2023-12-20 10:20 | PCNFU ---
Nutrition Follow-Up Complete: Increased protein energy needs related to wound healing as evidenced by wound report Goal: Adequate PO intake at least 75% meals and supplements to support wound healing Pt current nutrition is Nepro at 40mL/hr. Nutrition recommendation: Continue with Nepro at 40mL/hr. TF Rx providing 1584 kcal (meeting 82% of estimated energy needs), 71g protein (meeting 58% of estimated protein needs), 640mL H20. TF just advanced this am. Add Prosource BID. Adjust free water flushes prn to maintain hydration. To more closely meet estimated nutrition needs, consider increasing TF to rate of 50mL/hr. Last recorded weight is 86.8 kg. Bowel Motility: + BM 6/4, abd firm Labs Reviewed: Hgb 7.1, Hct 21.5, Cr 2.4, Na 132 Meds Noted:albumin, Creon Dr, Dulcolax, folic acid, Imodium, Flagyl, Levophed (held), Protonix, Zoloft Skin: left ischium - stage II, left hand ulcer, right leg venous stasis ulcer Additional Notes: Edema: +1-3 in lower abdomen and down. Nursing reports rate of TF increased this morning to 40mL/hr, flushes to remain the same. MAP 87 Monitoring intakes, weights, labs, supplement tolerance, wound healing, plan of care Follow up in 3 days
[2023-12-20 11:08] LABS: Glucose Point of Care 102 mg/dl (65-105)
--- NOTE | 2023-12-20 11:57 | PC.NURSE ---
Nightshift RN updated family on current patient condition. This RN was informed that family would like to talk to ICU provider today to gain a better understanding of patient's prognosis. Patient sibling Zurdo called this AM and call was transferred to provider per their request. Ultimately Brother and Nephew will discuss the option of withdrawing care but have not come to a decision at this time. [facility] transplant notified of potential withdrawal of care and documented appropriately in the worklist
[2023-12-20 12:07] LABS: Glucose Point of Care 95 mg/dl (65-105)
[2023-12-20] MEDS: EPOETIN ALFA-EPBX 10,000 UNITS/ML VIAL 10000 UNITS IV PUSH (12:30)
--- NOTE | 2023-12-20 12:33 | PC.NURSE ---
[facility] Called back to inform this RN that so long as the patient is displaying intact neurological reflexes that family may proceed with withdrawal of care if they come to that decision and to notify [facility] Transplant with Time Of . If neurological reflexes are to become absent while sustained on ventilator, notify [facility] Transplant so that the patient can be evaluated further for potential donor.
[2023-12-20 13:16] LABS: Glucose Point of Care 105 mg/dl (65-105)
[2023-12-20 14:04] LABS: Glucose Point of Care 99 mg/dl (65-105)
[2023-12-20 15:07] LABS: Glucose Point of Care 120 mg/dl (65-105)
[2023-12-20 16:22] LABS: Glucose Point of Care 127 mg/dl (65-105)
[2023-12-20] MEDS: MEROPENEM 1 GM/NS 100 ML 1 GM/100 ML BAG IVPB (17:14)
[2023-12-20] MEDS: levETIRAcetam 1000MG/NACL100ML 1,000 MG/100 ML BAG 400 MG IVPB (17:14)
[2023-12-20 17:42] LABS: Glucose Point of Care 123 mg/dl (65-105)
[2023-12-20 19:16] LABS: Glucose Point of Care 125 mg/dl (65-105)
[2023-12-20 20:21] LABS: Glucose Point of Care 128 mg/dl (65-105)
[2023-12-21] VITALS (45 sets, daily range): BP systolic 74–137; BP diastolic 62–97; PULSE 58–80; RESP 15–27; TEMP 0–36.5; O2SAT 95–100
[2023-12-21] MEDS: IPRATROPIUM 0.5 MG/ALBUTEROL SULFATE 2.5 MG AMPUL.NEB 3 ML INHALATION ×4 (01:10→20:33)
[2023-12-21 05:00] LABS: Glucose Point of Care 125 mg/dl (65-105)
[2023-12-21 05:00] LABS: Glucose Point of Care 131 mg/dl (65-105)
[2023-12-21 05:00] LABS: Glucose Point of Care 129 mg/dl (65-105)
[2023-12-21 05:00] LABS: Glucose Point of Care 126 mg/dl (65-105)
[2023-12-21 05:00] LABS: Glucose Point of Care 141 mg/dl (65-105)
[2023-12-21 05:00] LABS: Glucose Point of Care 130 mg/dl (65-105)
[2023-12-21 05:00] LABS: Glucose Point of Care 127 mg/dl (65-105)
[2023-12-21 05:00] LABS: Glucose Point of Care 139 mg/dl (65-105)
[2023-12-21 05:00] LABS: Glucose Point of Care 141 mg/dl (65-105)
[2023-12-21 05:43] LABS: Alveolar/Arterial O2 Gradient 38.2 mmHg; Base Excess ABG 3.9 mEq/l (+/-2.0); Carboxyhemoglobin 1.6 % THb (0-2.0); Fractional Inspired Oxygen 30 %; HCO3 ABG 27.8 mEq/l (22.0-26.0); Oxygen Content ABG 10.7 %vol (16.0-22.0); Oxygen Saturation ABG 98.8 % (95.0-100.0); PCO2 ABG 38.7 mmHg (35.0-45.0); PO2 ABG 130.2 mmHg (80.0-100.0); PO2 FiO2 Ratio Arterial Blood 4.34 %; Reduced Hemoglobin 1.4 %THb (0-5.0); pH ABG 7.474 (7.350-7.450)
[2023-12-21 05:45] LABS: Arterial Blood Gas Vent Mode CMV; Arterial Blood Gas Ventilator rate 14 /MIN; Device VENTILATOR; Modified Allen's Test Pass; Site Drawn RIGHT RADIAL; Total Hemoglobin 7.6 g/dL (12.0-18.0)
[2023-12-21 05:46] LABS: Arterial Blood Gas PEEP 8 cmH2O; Arterial Blood Gas Tidal Volume 320 ml
--- NOTE | 2023-12-21 05:53 | PC.NURSE ---
12/21/231924: Update give to patient family member, Kal
[2023-12-21] MEDS: CENTRAL LINE FLUSH 10 ML IV PUSH ×3 (05:58→21:22)
[2023-12-21 05:59] LABS: Glucose Point of Care 135 mg/dl (65-105)
[2023-12-21 06:05] LABS: Basophils Percent Auto 0.2 % (0.2-1.2); Eosinophils Absolute Auto 0.1 K/mm3 (0-0.3); Eosinophils Percent Auto 1.5 % (0-4.4); Hematocrit 21.4 % (42.0-52.0); Immature Granulocyte Absolute 0.02 K/mm3 (0.00-0.031); Immature Granulocyte Percent A 0.4 % (0-0.5); Immature Platelet Fraction Pct 5.1 % (0.9-11.2); Lymphocytes Absolute Auto 0.53 K/mm3 (0.9-3.2); Mean Corpuscular HGB Conc 32.7 g/dl (32-36); Mean Corpuscular Hemoglobin 26.8 pg (26-34); Monocytes Absolute Auto 0.4 K/mm3 (0.1-0.6); Neutrophils Absolute Auto 4.2 K/mm3 (1.3-6.7); Neutrophils Percent Auto 79.9 % (45.5-73.1); Red Blood Count 2.61 M/mm3 (4.6-6.20); Red Cell Distribution Width 19.7 % (11.5-14.5); White Blood Count 5.3 K/mm3 (4.5-10.0)
[2023-12-21 06:14] LABS: Alanine Aminotransferase 8 U/L (6-50); Albumin Level 2.5 g/dL (3.5-5.1); Alkaline Phosphatase 79 U/L (38-126); Anion Gap 6 mmol/L (4-12); Aspartate Amino Transferase 18 U/L (17-59); Bilirubin,Total 5.4 mg/dL (0.2-1.3); Blood Urea Nitrogen 5 mg/dL (9-20); Calcium 9.9 mg/dL (8.4-10.2); Carbon Dioxide 28 mmol/L (22-30); Chloride 103 mmol/L (98-107); Estimated CRCL calculation 33 ml/min; Estimated Glomerular Filt Rate 41; Glucose 130 mg/dL (65-110); Magnesium 1.7 mg/dL (1.6-2.3); Potassium 3.4 mmol/L (3.4-5.0); Sodium 137 mmol/L (137-145); Triglycerides < 30 mg/dL (<150)
[2023-12-21 06:17] LABS: INR 2.7; Prothrombin Time 29.3 Seconds (11.1-14.7)
[2023-12-21 06:31] LABS: Platelet Count Result 17 k/mm3 (150-375)
[2023-12-21 06:34] LABS: Anisocytosis 1+; Burr Cells 1+; Hypochromasia 1+; Platelet Estimate Decreased (Adequate); Schistocytes None Seen
[2023-12-21 06:47] LABS: Glucose Point of Care 120 mg/dl (65-105)
[2023-12-21 07:23] LABS: Glucose Point of Care 123 mg/dl (65-105)
[2023-12-21 07:51] LABS: Glucose Point of Care 121 mg/dl (65-105)
--- NOTE | 2023-12-21 08:28 | WPDINTPN ---
Progress Note: A&P Assessment and Plan (1) Cardiac arrest: Code(s): I46.9 - Cardiac arrest, cause unspecified Status: Acute Assessment and Plan: 12/17/2023 evening: Patient was being rolled over to be given a lactulose enema, went unresponsive, went into PEA arrest, ACLS protocol was instituted, patient received 3 rounds of epinephrine, CPR with ROSC. Patient with into AFib RVR with heart rates in the 140s, was started on amiodarone infusion, heart rate dropped into the upper 50s and lower 60s and amiodarone infusion was later stopped. -could be related to vasovagal, bacteremia, hypoxia secondary to pulmonary edema -CT scan of the brain did not reveal any acute intracranial abnormalities -patient was started on targeted temperature management with goal temperature of 36?C, since patient has been thrombocytopenic, anemic and in DIC did not want her lower body temperature given the could be risk of increased bleeding given low body temperature. Patient has completed 24 hours and has now been reformed. Patient in general is hypothermic -post cardiac arrest patient had seizure-like activities and was started on Keppra, will continue -echocardiogram Summary 1. Complete two-dimensional, color flow and Doppler transthoracic echocardiogram is performed. 2. Left ventricular hypertrophy with adequate systolic function and grade 1 diastolic noncompliance. 3. Biatrial dilation. 4. Mild mitral regurgitation. 5. Mild to moderate tricuspid regurgitation with evidence of elevated PA pressure. 6. Right ventricular enlargement with reduced systolic function. (2) Acute respiratory failure: Code(s): J96.00 - Acute respiratory failure, unspecified whether with hypoxia or hypercapnia Status: Acute Assessment and Plan: Acute respiratory failure likely related to cardiac arrest, pulmonary edema -patient was dialyzed with 2500 mL in fluid removal of 12/17/2023 -chest x-ray and ABG reviewed -continue PEEP at 8 decrease tidal volume to 3 and rate to 14 -continue bronchodilators -weaning will depend on mental status improvement and will need further dialysis to remove fluid. He was dialyzed yesterday and will be dialyzed again today (3) Severe sepsis: Code(s): A41.9 - Sepsis, unspecified organism; R65.20 - Severe sepsis without septic shock Status: Acute Assessment and Plan: Severe sepsis with lactic acidosis, Gram-negative bacteremia -lactic acidosis most likely related to cardiac arrest and infection -12/16: blood cultures growing bacillus species -patient is on cefepime, Flagyl and vancomycin (12/16).12/18 switched to meropenem (4) DIC (disseminated intravascular coagulation): Code(s): D65 - Disseminated intravascular coagulation [defibrination syndrome] Status: Acute Assessment and Plan: Patient in DIC could be related to severe sepsis, Gram-negative bacteremia -12/16: patient received 1 unit of platelets 1 unit of packed RBCs and 1 unit of cryoprecipitate. - He also received vitamin K -12/19 elevated INR and low fibrinogen level. Will transfuse 2 units of FFP (5) Anemia: Code(s): D64.9 - Anemia, unspecified Status: Chronic Assessment and Plan: Patient anemic, has a history of chronic anemia from gastritis and esophagitis with EGD and colonoscopies done in July of 2023 -12/16: patient was transfused 1 unit of packed RBCs for hemoglobin of 6.7 -discontinued aspirin -will avoid any anticoagulation at this time -continue Protonix IV q.12 hours (6) Thrombocytopenia: Code(s): D69.6 - Thrombocytopenia, unspecified Status: Chronic Assessment and Plan: Has a history of chronic thrombocytopenia -no active bleeding noted -likely secondary to cirrhosis/liver dysfunction -patient received platelet transfusion vitamin K and FFP on 12/16 -12/19 platelet count 17. Will transfuse 1 unit of platelets this morning - 12/20 platelet count 17K will transfuse
[2023-12-21] MEDS: SODIUM CHLORIDE 0.9% IV 250 ML 30 ML IV CONT (08:41)
[2023-12-21] MEDS: POTASSIUM CHLORIDE 20 MEQ PACKET (FOR LIQUID) 40 MEQ FEED TUBE (08:41)
[2023-12-21] MEDS: LIPASE/AMYLASE/PROTEASE 12,000 UNITS CAP 2 CAP PO ×2 (08:42→13:32)
[2023-12-21] MEDS: FOLIC ACID 1 MG TABLET PO (08:42)
[2023-12-21] MEDS: METOCLOPRAMIDE HCL 10 MG/10 ML SOLN UDC 5 MG FEED TUBE ×3 (08:42→19:54)
[2023-12-21] MEDS: MINERAL OIL/WHITE PETROLATUM OINTMENT 1 APPLIC EACH EYE ×2 (08:42→19:54)
[2023-12-21] MEDS: PANTOPRAZOLE SODIUM IV 40 MG VIAL IV PUSH ×2 (08:42→19:54)
[2023-12-21] MEDS: ATORVASTATIN 20 MG TABLET PO (08:42)
--- NOTE | 2023-12-21 08:54 | PM.IMPN ---
Progress Note: A&P Assessment and Plan (1) Cardiac arrest: Code(s): I46.9 - Cardiac arrest, cause unspecified Status: Acute Assessment and Plan: Patient was admitted on 12/15 for AMS. In the evening of 12/16 while being rolled over to be given a lactulose enema, he went unresponsive due to PEA arrest. ACLS protocol was instituted with CPR and 3 rounds of epinephrine. ROSC achieved. Patient with into AFib RVR with heart rates in the 140s and Amio started. HR dropped to 50-60 range and Amiodarone stopped. Etiology could be related to vasovagal, bacteremia, hypoxia secondary to pulmonary edema CT brain 12/16 - no acute intracranial abnormalities Patient was intubated and started on targeted temperature management with goal temperature of 36?C due to thrombocytopenic, anemic and in DIC given the risk of increased bleeding. Patient has completed 24 hours and has now been reformed. Patient in general is hypothermic Post cardiac arrest patient had seizure-like activities and was started on Keppra Echo - LVH with adequate systolic fxn and Grade I diastolic dysfxn, biatrial dilation, mild-moderate TR and RV enlargement. Continue to treat for bacteremia. Continue seizure precautions and Keppra. (2) Acute respiratory failure: Code(s): J96.00 - Acute respiratory failure, unspecified whether with hypoxia or hypercapnia Status: Acute Assessment and Plan: Acute respiratory failure likely related to cardiac arrest, pulmonary edema HD on 12/16 with 2.5L and again 12/19 with 3.5L fluid removal CXR today showing pulmonary edema. CT A/P showing moderate pleural effusions related to cirrhosis Continue MV Continue bronchodilators Continue HD to control fluid status. Wean vent as toelrated. (3) Severe sepsis: Code(s): A41.9 - Sepsis, unspecified organism; R65.20 - Severe sepsis without septic shock Status: Acute Assessment and Plan: Severe sepsis with lactic acidosis due to bacteremia. Lactic acidosis also likely related to cardiac arrest BCx growing Bacillus species in both bottles Patient was on cefepime, Flagyl and vancomycin (12/16) but narrowed to meropenem 12/18 He is anuric. Source probably GI with CT A/P (12/15) showing diffuse wall thickening of the colon (4) DIC (disseminated intravascular coagulation): Code(s): D65 - Disseminated intravascular coagulation [defibrination syndrome] Status: Acute Assessment and Plan: Patient in DIC felt related to severe sepsis from bacteremia -12/16: patient received 1 unit of platelets, 1 unit of packed RBCs and 1 unit of cryoprecipitate. - He also received vitamin K x 4 doses He has also received FFP on 12/17 and (2 units) 12/19 for elevated INR and low fibrinogen level. Plt count 17K with Hgb 7.0. INR 2.7. Another plt transfusion ordered. (5) Anemia: Code(s): D64.9 - Anemia, unspecified Status: Chronic Assessment and Plan: Patient has chronic anemic, has a history of chronic anemia from gastritis and esophagitis with EGD and colonoscopies done in July of 2023 -12/16: patient was transfused 1 unit of packed RBCs for hemoglobin of 6.7 -discontinued aspirin -will avoid any anticoagulation at this time -continue Protonix IV q.12 hours (6) Thrombocytopenia: Code(s): D69.6 - Thrombocytopenia, unspecified Status: Chronic Assessment and Plan: Has a history of chronic thrombocytopenia -no active bleeding noted -likely secondary to cirrhosis/liver dysfunction worsened by DIC -patient received platelet transfusion, vitamin K and FFP on 12/16-2 with repeat FFP for 12/19 Plt count 17K again so transfusion ordered. Monitor and transfuse as needed (7) Bacteremia due to Gram-negative bacteria: Code(s): R78.81 - Bacteremia Status: Acute Assessment and Plan: BCx (12/16) growing Bacillus As above. (8) Hypoglycemia: Code(s): E16.2 - Hypoglycemia, unspecified Status:
[2023-12-21 09:12] LABS: Glucose Point of Care 121 mg/dl (65-105)
[2023-12-21 10:13] LABS: Glucose Point of Care 120 mg/dl (65-105)
[2023-12-21] MEDS: ALBUMIN HUMAN 25% 12.5 GM/50ML 50 ML IVPB (10:52)
--- NOTE | 2023-12-21 10:53 | PCFNICU ---
ICU Rounding Note: Pt current nutrition is Nepro at 20 ml/hr. Nutrition recommendation:goal rate at 40 ml/hr. Last recorded weight is 81.9 kg, down from 88.2 kg on admit. Bowel Motility: +Bm reported 12/19 Labs Reviewed: Glu 130, Cr 2.0,BUN 5, GFR 41, Alb 2.5 Meds Noted:Reglan,Protonix, Keppra, Meropenem. Skin: Stage II pressure ulcer-left ischium, unstageable-left heel. Additional Notes: Patient remains on mechanical vent. Tube feedings restarted at 20 ml/hr, Reglan given due to limited tolerance of feeding. Goal rate recommended at 40 ml/hr. Protein Modular of Prosource BID for additional 160 kcal and 20 gm protein. Flush 30 ml q 4 hours. Dialysis today. Agree with diet orders. Following daily in ICU rounds. Monitoring intakes, weights, labs, supplement tolerance, wound healing, plan of care every Tuesday and Tuesday.
[2023-12-21 11:09] LABS: Glucose Point of Care 119 mg/dl (65-105)
[2023-12-21 12:08] LABS: Glucose Point of Care 86 mg/dl (65-105)
--- NOTE | 2023-12-21 12:17 | P.PNNP_ITS ---
Progress Note: A&P Assessment and Plan (1) End stage renal disease: Code(s): N18.6 - End stage renal disease Status: Chronic Assessment and Plan: * HD tomorrow * continue T/T/S dialysis schedule while hospitalized * follow electrolytes, volume status, and clearance (2) Cardiac arrest: Code(s): I46.9 - Cardiac arrest, cause unspecified Status: Acute Assessment and Plan: * etiology? * possibly vasovagal versus bacteremia versus hypoxia?? * CT of brain negative * not initiated on TTM given hypothermia present after arrest * Echo results noted * continue supportive therapy (3) Acute respiratory failure: Code(s): J96.00 - Acute respiratory failure, unspecified whether with hypoxia or hypercapnia Status: Acute Assessment and Plan: * due to cardiac arrest and possily pulmonary edema * intubated and on mechanical ventilation * ventilator weaning per protocol * push fluid removal with HD/DUF as tolerated (4) Severe sepsis: Code(s): A41.9 - Sepsis, unspecified organism; R65.20 - Severe sepsis without septic shock Status: Acute Assessment and Plan: * noted with lactic acidosis and Bacillus (not B. anthracis) bacteremia * remains hemodynamically stable * on antibiotics * follow repeat cultures (5) Anemia: Qualifiers: Anemia type: unspecified type Qualified Code(s): D64.9 - Anemia, unspecified Code(s): D64.9 - Anemia, unspecified Status: Chronic Assessment and Plan: * known history * partly related to ESRD * however, noted gastritis and esophagitis with EGD and colonoscopies done in July of 2023 * PRBC transfusion per protocol * on PPI * Epogen with HD * follow trend of H/H (6) Thrombocytopenia: Code(s): D69.6 - Thrombocytopenia, unspecified Status: Chronic Assessment and Plan: * chronic issue at baseline * now complicated by DIC * likely related to liver cirrhosis/dysfunction * sepsis could be playing a role as well * vitamin K and FFP given due to elevated INR * follow platelet count for now (7) Hypokalemia: Code(s): E87.6 - Hypokalemia Status: Acute Assessment and Plan: * suspect related to poor oral intake, liver disease, and dialysis * replete PRN * will adjust dialysis bath to compensate (8) Anasarca: Code(s): R60.1 - Generalized edema Status: Acute Assessment and Plan: * somewhat of a chronic issue * related to liver disease/cirrhosis, hypoalbuminemia, and likely inability for aggressive ultrafiltration with outpatient dialysis treatments * may benefit from large volume paracentesis * attempt to push fluid removal with HD as tolerated (9) Cirrhosis: Code(s): K74.60 - Unspecified cirrhosis of liver Status: Acute Assessment and Plan: * known issue/finding * appears clinically worse -- ascites, coagulopathy, pancytopenia, worsening ansarca... * continue supportive therapy (10) Hypoglycemia: Code(s): E16.2 - Hypoglycemia, unspecified Status: Acute Assessment and Plan: * etiology?? -- due to liver disease +/- poor nutrition +/- infection/sepsis * per report, blood sugar less than 30 at senior living prior to transfer * improved with treatment in ER but then dropped again an hour later * follow blood sugars with use of dextrose IVFs Will continue to follow. Subjective Date/time seen: 12/21/23 12:17 Interval hist
--- NOTE | 2023-12-21 12:17 | PM.PNNEP ---
Progress Note: A&P Assessment and Plan (1) End stage renal disease: Code(s): N18.6 - End stage renal disease Status: Chronic Assessment and Plan: HD tomorrow continue T/T/S dialysis schedule while hospitalized follow electrolytes, volume status, and clearance (2) Cardiac arrest: Code(s): I46.9 - Cardiac arrest, cause unspecified Status: Acute Assessment and Plan: etiology? possibly vasovagal versus bacteremia versus hypoxia?? CT of brain negative not initiated on TTM given hypothermia present after arrest Echo results noted continue supportive therapy (3) Acute respiratory failure: Code(s): J96.00 - Acute respiratory failure, unspecified whether with hypoxia or hypercapnia Status: Acute Assessment and Plan: due to cardiac arrest and possily pulmonary edema intubated and on mechanical ventilation ventilator weaning per protocol push fluid removal with HD/DUF as tolerated (4) Severe sepsis: Code(s): A41.9 - Sepsis, unspecified organism; R65.20 - Severe sepsis without septic shock Status: Acute Assessment and Plan: noted with lactic acidosis and Bacillus (not B. anthracis) bacteremia remains hemodynamically stable on antibiotics follow repeat cultures (5) Anemia: Qualifiers: Anemia type: unspecified type Qualified Code(s): D64.9 - Anemia, unspecified Code(s): D64.9 - Anemia, unspecified Status: Chronic Assessment and Plan: known history partly related to ESRD however, noted gastritis and esophagitis with EGD and colonoscopies done in July of 2023 PRBC transfusion per protocol on PPI Epogen with HD follow trend of H/H (6) Thrombocytopenia: Code(s): D69.6 - Thrombocytopenia, unspecified Status: Chronic Assessment and Plan: chronic issue at baseline now complicated by DIC likely related to liver cirrhosis/dysfunction sepsis could be playing a role as well vitamin K and FFP given due to elevated INR follow platelet count for now (7) Hypokalemia: Code(s): E87.6 - Hypokalemia Status: Acute Assessment and Plan: suspect related to poor oral intake, liver disease, and dialysis replete PRN will adjust dialysis bath to compensate (8) Anasarca: Code(s): R60.1 - Generalized edema Status: Acute Assessment and Plan: somewhat of a chronic issue related to liver disease/cirrhosis, hypoalbuminemia, and likely inability for aggressive ultrafiltration with outpatient dialysis treatments may benefit from large volume paracentesis attempt to push fluid removal with HD as tolerated (9) Cirrhosis: Code(s): K74.60 - Unspecified cirrhosis of liver Status: Acute Assessment and Plan: known issue/finding appears clinically worse -- ascites, coagulopathy, pancytopenia, worsening ansarca... continue supportive therapy (10) Hypoglycemia: Code(s): E16.2 - Hypoglycemia, unspecified Status: Acute Assessment and Plan: etiology?? -- due to liver disease +/- poor nutrition +/- infection/sepsis per report, blood sugar less than 30 at longterm prior to transfer improved with treatment in ER but then dropped again an hour later follow blood sugars with use of dextrose IVFs Will continue to follow. Subjective Date/time seen: 12/21/23 12:17 Interval history: Follow-up for end stage renal disease on hemodialysis. Tolerating dry ultrafiltration treatment at the time of my visit (seen on DUF at 12:07PM); fluid removal has been limited by his drops in blood pressure over the course of treatment despite use of IV albumin; off sedation but still not very responsive currently; stable hemodynamics noted otherwise. Exam Narrative: General: chronic ill-appearing male laying intubated and on mechanical ventilation Heart: normal S1 and S2; no rub Lungs: c
[2023-12-21 13:23] LABS: Glucose Point of Care 124 mg/dl (65-105)
[2023-12-21 15:55] LABS: Glucose Point of Care 136 mg/dl (65-105)
[2023-12-21 15:55] LABS: Glucose Point of Care 125 mg/dl (65-105)
[2023-12-21 18:10] LABS: Glucose Point of Care 121 mg/dl (65-105)
[2023-12-21] MEDS: levETIRAcetam 1000MG/NACL100ML 1,000 MG/100 ML BAG 400 MG IVPB (18:26)
[2023-12-21] MEDS: MEROPENEM 1 GM/NS 100 ML 1 GM/100 ML BAG IVPB (18:26)
[2023-12-21] MEDS: ONDANSETRON INJ 4 MG/2 ML VIAL IV PUSH (20:00)
--- NOTE | 2023-12-21 20:37 | PC.NURSE ---
1914: Update given to Sidney, harpal and spouse at bedside. 1954: Update given to Kal via telephone.
[2023-12-22] VITALS (72 sets, daily range): BP systolic 80–157; BP diastolic 56–105; PULSE 71–126; RESP 18–26; TEMP 34.9–37; O2SAT 97–100
[2023-12-22 01:04] LABS: Glucose Point of Care 100 mg/dl (65-105)
[2023-12-22 01:04] LABS: Glucose Point of Care 118 mg/dl (65-105)
[2023-12-22 01:04] LABS: Glucose Point of Care 100 mg/dl (65-105)
[2023-12-22 01:04] LABS: Glucose Point of Care 113 mg/dl (65-105)
[2023-12-22 01:04] LABS: Glucose Point of Care 114 mg/dl (65-105)
[2023-12-22 01:04] LABS: Glucose Point of Care 122 mg/dl (65-105)
[2023-12-22] MEDS: IPRATROPIUM 0.5 MG/ALBUTEROL SULFATE 2.5 MG AMPUL.NEB 3 ML INHALATION ×4 (02:15→20:07)
[2023-12-22] MEDS: METOCLOPRAMIDE HCL 10 MG/10 ML SOLN UDC 5 MG FEED TUBE (04:35)
[2023-12-22 04:37] LABS: Glucose Point of Care 105 mg/dl (65-105)
[2023-12-22 04:37] LABS: Glucose Point of Care 95 mg/dl (65-105)
[2023-12-22 04:37] LABS: Glucose Point of Care 90 mg/dl (65-105)
[2023-12-22] MEDS: NOREPINEPHRINE 8 MG/D5W 250 ML 8 MG/250 ML BAG 9.38 MG IV CONT (04:45)
[2023-12-22 05:21] LABS: Glucose Point of Care 86 mg/dl (65-105)
[2023-12-22 05:50] LABS: Alveolar/Arterial O2 Gradient 59.3 mmHg; Carboxyhemoglobin 1.9 % THb (0-2.0); Fractional Inspired Oxygen 30 %; HCO3 ABG 28.2 mEq/l (22.0-26.0); Oxygen Content ABG 9.9 %vol (16.0-22.0); Oxygen Saturation ABG 98.5 % (95.0-100.0); Oxyhemoglobin 96.4 % THb (90.0-100.0); PCO2 ABG 35.2 mmHg (35.0-45.0); PO2 ABG 113.2 mmHg (80.0-100.0); PO2 FiO2 Ratio Arterial Blood 3.77 %; Reduced Hemoglobin 1.7 %THb (0-5.0)
[2023-12-22 05:51] LABS: Total Hemoglobin 7.1 g/dL (12.0-18.0); pH ABG 7.522 (7.350-7.450)
[2023-12-22 05:52] LABS: Arterial Blood Gas PEEP 8 cmH2O; Arterial Blood Gas Vent Mode CMV; Arterial Blood Gas Ventilator rate 14 /MIN; Device VENTILATOR; Modified Allen's Test Pass; Site Drawn RIGHT RADIAL
[2023-12-22 05:53] LABS: Arterial Blood Gas Tidal Volume 320 ml
[2023-12-22] MEDS: CENTRAL LINE FLUSH 10 ML IV PUSH ×3 (06:02→21:15)
[2023-12-22 06:13] LABS: Glucose Point of Care 86 mg/dl (65-105)
[2023-12-22 06:38] LABS: Eosinophils Absolute Auto 0.1 K/mm3 (0-0.3); Eosinophils Percent Auto 2.8 % (0-4.4); Immature Granulocyte Absolute 0.12 K/mm3 (0.00-0.031); Immature Granulocyte Percent A 2.8 % (0-0.5); Immature Platelet Fraction Pct 4.5 % (0.9-11.2); Lymphocytes Absolute Auto 0.84 K/mm3 (0.9-3.2); Lymphocytes Percent Auto 19.4 % (18.3-44.2); Mean Corpuscular HGB Conc 32.2 g/dl (32-36); Mean Corpuscular Hemoglobin 26.1 pg (26-34); Mean Corpuscular Volume 81.1 fl (80-100); Monocytes Absolute Auto 0.5 K/mm3 (0.1-0.6); Monocytes Percent Auto 10.6 % (2.6-8.5); Neutrophils Absolute Auto 2.8 K/mm3 (1.3-6.7); Neutrophils Percent Auto 64.4 % (45.5-73.1); Red Blood Count 2.49 M/mm3 (4.6-6.20); Red Cell Distribution Width 19.9 % (11.5-14.5); White Blood Count 4.3 K/mm3 (4.5-10.0)
[2023-12-22 06:42] LABS: Hematocrit 20.2 % (42.0-52.0); Hemoglobin 6.5 g/dL (14.0-18.0); Platelet Count Result 20 k/mm3 (150-375)
[2023-12-22 06:52] LABS: Alanine Aminotransferase 8 U/L (6-50); Albumin Level 2.4 g/dL (3.5-5.1); Alkaline Phosphatase 82 U/L (38-126); Anion Gap 4 mmol/L (4-12); Aspartate Amino Transferase 19 U/L (17-59); Blood Urea Nitrogen 8 mg/dL (9-20); Calcium 10.1 mg/dL (8.4-10.2); Carbon Dioxide 28 mmol/L (22-30); Chloride 104 mmol/L (98-107); Estimated CRCL calculation 27 ml/min; Estimated Glomerular Filt Rate 33; Glucose 81 mg/dL (65-110); Magnesium 1.7 mg/dL (1.6-2.3); Potassium 3.6 mmol/L (3.4-5.0); Sodium 136 mmol/L (137-145)
[2023-12-22 07:30] LABS: Glucose Point of Care 87 mg/dl (65-105)
[2023-12-22] MEDS: LIPASE/AMYLASE/PROTEASE 12,000 UNITS CAP 2 CAP PO (08:20)
[2023-12-22] MEDS: ATORVASTATIN 20 MG TABLET PO (08:20)
[2023-12-22] MEDS: METOCLOPRAMIDE HCL 10 MG/10 ML SOLN UDC FEED TUBE ×3 (08:20→22:09)
[2023-12-22] MEDS: LACTULOSE 20 GM/30 ML UDC PO ×2 (08:20→22:10)
[2023-12-22] MEDS: FOLIC ACID 1 MG TABLET PO (08:20)
[2023-12-22] MEDS: PANTOPRAZOLE SODIUM IV 40 MG VIAL IV PUSH ×2 (08:20→22:09)
[2023-12-22] MEDS: POTASSIUM/PHOSPHORUS/SODIUM 1.5 GM PACKET 1 PACKET FEED TUBE (08:21)
[2023-12-22] MEDS: MINERAL OIL/WHITE PETROLATUM OINTMENT 1 APPLIC EACH EYE ×2 (08:21→21:15)
[2023-12-22 08:25] LABS: Ammonia 64 umol/L (9-30)
[2023-12-22] MEDS: POTASSIUM PHOS,M-BASIC-D-BASIC 20 MMOL in SODIUM CHLORIDE 0.9% IV 250 ML 64.17 MMOL IVPB (08:38)
[2023-12-22] MEDS: SODIUM CHLORIDE 0.9% IV 1,000 ML 999 ML IV CONT (08:41)
[2023-12-22 08:45] LABS: Glucose Point of Care 87 mg/dl (65-105)
[2023-12-22] MEDS: ALBUMIN HUMAN 25% 12.5 GM/50ML 50 ML IVPB (08:45)
--- NOTE | 2023-12-22 09:24 | WPDINTPN ---
Progress Note: A&P Assessment and Plan (1) Cardiac arrest: Code(s): I46.9 - Cardiac arrest, cause unspecified Status: Acute Assessment and Plan: 12/17/2023 evening: Patient was being rolled over to be given a lactulose enema, went unresponsive, went into PEA arrest, ACLS protocol was instituted, patient received 3 rounds of epinephrine, CPR with ROSC. Patient with into AFib RVR with heart rates in the 140s, was started on amiodarone infusion, heart rate dropped into the upper 50s and lower 60s and amiodarone infusion was later stopped. -could be related to vasovagal, bacteremia, hypoxia secondary to pulmonary edema -CT scan of the brain did not reveal any acute intracranial abnormalities -patient was started on targeted temperature management with goal temperature of 36?C, since patient has been thrombocytopenic, anemic and in DIC did not want her lower body temperature given the could be risk of increased bleeding given low body temperature. Patient has completed 24 hours and has now been reformed. Patient in general is hypothermic -post cardiac arrest patient had seizure-like activities and was started on Keppra, will continue -echocardiogram Summary 1. Complete two-dimensional, color flow and Doppler transthoracic echocardiogram is performed. 2. Left ventricular hypertrophy with adequate systolic function and grade 1 diastolic noncompliance. 3. Biatrial dilation. 4. Mild mitral regurgitation. 5. Mild to moderate tricuspid regurgitation with evidence of elevated PA pressure. 6. Right ventricular enlargement with reduced systolic function. (2) Acute respiratory failure: Code(s): J96.00 - Acute respiratory failure, unspecified whether with hypoxia or hypercapnia Status: Acute Assessment and Plan: Acute respiratory failure likely related to cardiac arrest, pulmonary edema -patient was dialyzed with 2500 mL in fluid removal of 12/17/2023 -chest x-ray and ABG reviewed -continue PEEP at 8 decrease tidal volume to 300 and rate to 14 -continue bronchodilators -weaning will depend on mental status improvement and will need further dialysis to remove fluid. He was dialyzed yesterday and will be dialyzed again today (3) Severe sepsis: Code(s): A41.9 - Sepsis, unspecified organism; R65.20 - Severe sepsis without septic shock Status: Acute Assessment and Plan: Severe sepsis with lactic acidosis, Gram-negative bacteremia -lactic acidosis most likely related to cardiac arrest and infection -12/16: blood cultures growing bacillus species -patient is on cefepime, Flagyl and vancomycin (12/16).12/18 switched to meropenem 12/20 repeat set of blood culture sent (4) DIC (disseminated intravascular coagulation): Code(s): D65 - Disseminated intravascular coagulation [defibrination syndrome] Status: Acute Assessment and Plan: Patient in DIC could be related to severe sepsis, Gram-negative bacteremia -12/16: patient received 1 unit of platelets 1 unit of packed RBCs and 1 unit of cryoprecipitate. - He also received vitamin K -12/19 elevated INR and low fibrinogen level. Will transfuse 2 units of FFP (5) Anemia: Code(s): D64.9 - Anemia, unspecified Status: Chronic Assessment and Plan: Patient anemic, has a history of chronic anemia from gastritis and esophagitis with EGD and colonoscopies done in July of 2023 -12/16: patient was transfused 1 unit of packed RBCs for hemoglobin of 6.7 -discontinued aspirin -will avoid any anticoagulation at this time -continue Protonix IV q.12 hours 12/21 hemoglobin 6.5 will transfuse 1 unit of PRBC (6) Thrombocytopenia: Code(s): D69.6 - Thrombocytopenia, unspecified Status: Chronic Assessment and Plan: Has a history of chronic thrombocytopenia -no active bleeding noted -likely secondary to cirrhosis/liver dysfunction -patient received platelet transfusion vitamin K and FFP on 12/16 -12/19 platelet count 17
[2023-12-22 09:35] LABS: Glucose Point of Care 93 mg/dl (65-105)
[2023-12-22 10:42] LABS: Glucose Point of Care 96 mg/dl (65-105)
--- NOTE | 2023-12-22 11:02 | PCFNICU ---
ICU Rounding Note: Pt current nutrition is Nepro at 20 ml/hr. Nutrition recommendation: goal rate 40 ml/hr. Last recorded weight is 84.4 kg, down from 88.2 kg on admit. Bowel Motility: +BM reported 12/21 Labs Reviewed: Cr 2.4,GFR 3, Alb 2.4,NA 136, Hct 20.2,Hgb 6.5,Alb 2.4 Meds Noted: Keppra, Protonix, Reglan, Meropenem Skin: Stage II pressure ulcer-ischium, unstageable ulcer-left heel. Additional Notes: Patient tube feedings have been restarted at 20 ml/hr of Nepro. Held again at night due to vomiting. Protein Modulars given of Prosource BID for additional 160 kcal and 40 gm protein. Reglan increased today. Flush 30 ml q 4hours. Dialysis again today. Agree with diet orders. Following daily in ICU rounds. Monitoring intakes, weights, labs, supplement tolerance, wound healing, plan of care every Tuesday and Tuesday.
[2023-12-22] MEDS: EPOETIN ALFA-EPBX 10,000 UNITS/ML VIAL 10000 UNITS IV PUSH (11:27)
[2023-12-22 11:57] LABS: Glucose Point of Care 70 mg/dl (65-105)
--- NOTE | 2023-12-22 12:01 | PM.PNNEP ---
Progress Note: A&P Assessment and Plan (1) End stage renal disease: Code(s): N18.6 - End stage renal disease Status: Chronic Assessment and Plan: HD today continue T/T/S dialysis schedule while hospitalized follow electrolytes, volume status, and clearance (2) Cardiac arrest: Code(s): I46.9 - Cardiac arrest, cause unspecified Status: Acute Assessment and Plan: etiology? possibly vasovagal versus bacteremia versus hypoxia?? CT of brain negative not initiated on TTM given hypothermia present after arrest Echo results noted continue supportive therapy (3) Acute respiratory failure: Code(s): J96.00 - Acute respiratory failure, unspecified whether with hypoxia or hypercapnia Status: Acute Assessment and Plan: due to cardiac arrest and possily pulmonary edema intubated and on mechanical ventilation ventilator weaning per protocol push fluid removal with HD/DUF as tolerated (4) Severe sepsis: Code(s): A41.9 - Sepsis, unspecified organism; R65.20 - Severe sepsis without septic shock Status: Acute Assessment and Plan: noted with lactic acidosis and Bacillus (not B. anthracis) bacteremia now requiring vasopressor support (levophed) on antibiotics follow repeat cultures (5) Anemia: Qualifiers: Anemia type: unspecified type Qualified Code(s): D64.9 - Anemia, unspecified Code(s): D64.9 - Anemia, unspecified Status: Chronic Assessment and Plan: known history partly related to ESRD however, noted gastritis and esophagitis with EGD and colonoscopies done in July of 2023 PRBC transfusion per protocol on PPI Epogen with HD follow trend of H/H (6) Thrombocytopenia: Code(s): D69.6 - Thrombocytopenia, unspecified Status: Chronic Assessment and Plan: chronic issue at baseline now complicated by DIC likely related to liver cirrhosis/dysfunction sepsis could be playing a role as well vitamin K and FFP given due to elevated INR and long with platelet transfusion PRN follow platelet count for now (7) Hypokalemia: Code(s): E87.6 - Hypokalemia Status: Acute Assessment and Plan: suspect related to poor oral intake, liver disease, and dialysis replete PRN will adjust dialysis bath to compensate (8) Anasarca: Code(s): R60.1 - Generalized edema Status: Acute Assessment and Plan: somewhat of a chronic issue related to liver disease/cirrhosis, hypoalbuminemia, and likely inability for aggressive ultrafiltration with outpatient dialysis treatments may benefit from large volume paracentesis attempt to push fluid removal with HD as tolerated (9) Cirrhosis: Code(s): K74.60 - Unspecified cirrhosis of liver Status: Acute Assessment and Plan: known issue/finding appears clinically worse -- ascites, coagulopathy, pancytopenia, worsening ansarca... continue supportive therapy (10) Hypoglycemia: Code(s): E16.2 - Hypoglycemia, unspecified Status: Acute Assessment and Plan: etiology?? -- due to liver disease +/- poor nutrition +/- infection/sepsis per report, blood sugar less than 30 at care home prior to transfer improved with treatment in ER but then dropped again an hour later follow blood sugars Will continue to follow. Subjective Date/time seen: 12/22/23 12:01 Interval history: Follow-up for end stage renal disease on hemodialysis. Tolerating dialysis treatment at the time of my visit (seen on HD at 11:50AM); fluid removal limited by hypotension despite use of IV albumin and vasopressor support; hypothermic overnight requiring george hugger; worsening hypotension overnight requiring starting levophed gtt; remains intubated and on mechanical ventilation; no real significant improvement in mentation despite being off sedation; ongoing issues with vomiting which is limitin
--- NOTE | 2023-12-22 12:01 | P.PNNP_ITS ---
Progress Note: A&P Assessment and Plan (1) End stage renal disease: Code(s): N18.6 - End stage renal disease Status: Chronic Assessment and Plan: * HD today * continue T/T/S dialysis schedule while hospitalized * follow electrolytes, volume status, and clearance (2) Cardiac arrest: Code(s): I46.9 - Cardiac arrest, cause unspecified Status: Acute Assessment and Plan: * etiology? * possibly vasovagal versus bacteremia versus hypoxia?? * CT of brain negative * not initiated on TTM given hypothermia present after arrest * Echo results noted * continue supportive therapy (3) Acute respiratory failure: Code(s): J96.00 - Acute respiratory failure, unspecified whether with hypoxia or hypercapnia Status: Acute Assessment and Plan: * due to cardiac arrest and possily pulmonary edema * intubated and on mechanical ventilation * ventilator weaning per protocol * push fluid removal with HD/DUF as tolerated (4) Severe sepsis: Code(s): A41.9 - Sepsis, unspecified organism; R65.20 - Severe sepsis without septic shock Status: Acute Assessment and Plan: * noted with lactic acidosis and Bacillus (not B. anthracis) bacteremia * now requiring vasopressor support (levophed) * on antibiotics * follow repeat cultures (5) Anemia: Qualifiers: Anemia type: unspecified type Qualified Code(s): D64.9 - Anemia, unspecified Code(s): D64.9 - Anemia, unspecified Status: Chronic Assessment and Plan: * known history * partly related to ESRD * however, noted gastritis and esophagitis with EGD and colonoscopies done in July of 2023 * PRBC transfusion per protocol * on PPI * Epogen with HD * follow trend of H/H (6) Thrombocytopenia: Code(s): D69.6 - Thrombocytopenia, unspecified Status: Chronic Assessment and Plan: * chronic issue at baseline * now complicated by DIC * likely related to liver cirrhosis/dysfunction * sepsis could be playing a role as well * vitamin K and FFP given due to elevated INR and long with platelet transfusion PRN * follow platelet count for now (7) Hypokalemia: Code(s): E87.6 - Hypokalemia Status: Acute Assessment and Plan: * suspect related to poor oral intake, liver disease, and dialysis * replete PRN * will adjust dialysis bath to compensate (8) Anasarca: Code(s): R60.1 - Generalized edema Status: Acute Assessment and Plan: * somewhat of a chronic issue * related to liver disease/cirrhosis, hypoalbuminemia, and likely inability for aggressive ultrafiltration with outpatient dialysis treatments * may benefit from large volume paracentesis * attempt to push fluid removal with HD as tolerated (9) Cirrhosis: Code(s): K74.60 - Unspecified cirrhosis of liver Status: Acute Assessment and Plan: * known issue/finding * appears clinically worse -- ascites, coagulopathy, pancytopenia, worsening ansarca... * continue supportive therapy (10) Hypoglycemia: Code(s): E16.2 - Hypoglycemia, unspecified Status: Acute Assessment and Plan: * etiology?? -- due to liver disease +/- poor nutrition +/- infection/sepsis * per report, blood sugar less than 30 at [facility] prior to transfer * improved with treatment in ER but then dropped again an hour later * follow blood sugars Will continue to follow. Subjective Date/time seen: 12/22/23
--- NOTE | 2023-12-22 12:37 | PM.IMPN ---
Progress Note: A&P Assessment and Plan (1) Cardiac arrest: Code(s): I46.9 - Cardiac arrest, cause unspecified Status: Acute Assessment and Plan: Patient was admitted on 12/15 for AMS. In the evening of 12/16 while being rolled over to be given a lactulose enema, he went unresponsive due to PEA arrest. ACLS protocol was instituted with CPR and 3 rounds of epinephrine. ROSC achieved. Patient with into AFib RVR with heart rates in the 140s and Amio started. HR dropped to 50-60 range and Amiodarone stopped. Etiology could be related to vasovagal, bacteremia, hypoxia secondary to pulmonary edema CT brain 12/16 - no acute intracranial abnormalities Patient was intubated and started on targeted temperature management with goal temperature of 36?C due to thrombocytopenic, anemic and in DIC given the risk of increased bleeding. Patient has completed 24 hours and has now been reformed. Patient in general is hypothermic Post cardiac arrest patient had seizure-like activities and was started on Keppra Echo - LVH with adequate systolic fxn and Grade I diastolic dysfxn, biatrial dilation, mild-moderate TR and RV enlargement. Continue to treat for bacteremia. Continue seizure precautions and Keppra. (2) Acute respiratory failure: Code(s): J96.00 - Acute respiratory failure, unspecified whether with hypoxia or hypercapnia Status: Acute Assessment and Plan: Acute respiratory failure likely related to cardiac arrest, pulmonary edema HD on 12/16 with 2.5L and again 12/19 with 3.5L fluid removal. HD again today. CXR today showing pulmonary edema. CT A/P showing moderate pleural effusions related to cirrhosis Continue MV Continue bronchodilators Continue HD to control fluid status. Wean vent as tolerated (3) Severe sepsis: Code(s): A41.9 - Sepsis, unspecified organism; R65.20 - Severe sepsis without septic shock Status: Acute Assessment and Plan: Severe sepsis with lactic acidosis due to bacteremia. Lactic acidosis also likely related to cardiac arrest BCx growing Bacillus species in both bottles Patient was on cefepime, Flagyl and vancomycin (12/16) but narrowed to meropenem 12/18 He is anuric. BCx repeated 12/20: NGTD Source probably GI with CT A/P (12/15) showing diffuse wall thickening of the colon Consider paracentesis (4) DIC (disseminated intravascular coagulation): Code(s): D65 - Disseminated intravascular coagulation [defibrination syndrome] Status: Acute Assessment and Plan: Patient in DIC felt related to severe sepsis from bacteremia -12/16: patient received 1 unit of platelets, 1 unit of packed RBCs and 1 unit of cryoprecipitate. - He also received vitamin K x 4 doses He has also received FFP on 12/17 and (2 units) 12/19 for elevated INR and low fibrinogen level. Plt count 17K with Hgb 7.0. INR 2.7. Another plt transfusion given 12/20 Plt 20 with plt transfusion ordered again today. (5) Anemia: Code(s): D64.9 - Anemia, unspecified Status: Chronic Assessment and Plan: Patient has chronic anemic, has a history of chronic anemia from gastritis and esophagitis with EGD and colonoscopies done in 12/16: patient was transfused 1 unit of packed RBCs for hemoglobin of 6.7 ASA discontinued and will avoid any anticoagulation at this time Hgb 6.5 this morning. No evidence of acute blood loss so probably dilution related since due for HD. PRBC x 1 unit ordered. Continue Protonix IV q.12 hours (6) Thrombocytopenia: Code(s): D69.6 - Thrombocytopenia, unspecified Status: Chronic Assessment and Plan: Has a history of chronic thrombocytopenia -no active bleeding noted -likely secondary to cirrhosis/liver dysfunction worsened by DIC -patient received platelet transfusion, vitamin K and FFP on 12/16- with repeat FFP for 12/19 Plt count 20K again so transfusion ordered. Monitor and transfuse as needed (7) Bacteremia due to Gram-n
[2023-12-22] MEDS: POTASSIUM/PHOSPHORUS/SODIUM 1.5 GM PACKET 1 PACKET PO (12:51)
[2023-12-22] MEDS: SODIUM CHLORIDE 0.9% IV 250 ML 30 ML IV CONT ×2 (12:54→15:26)
[2023-12-22 14:10] LABS: Glucose Point of Care 75 mg/dl (65-105)
[2023-12-22 14:10] LABS: Glucose Point of Care 98 mg/dl (65-105)
[2023-12-22 16:39] LABS: Glucose Point of Care 101 mg/dl (65-105)
[2023-12-22] MEDS: levETIRAcetam 1000MG/NACL100ML 1,000 MG/100 ML BAG 400 MG IVPB (18:13)
[2023-12-22] MEDS: MEROPENEM 1 GM/NS 100 ML 1 GM/100 ML BAG IVPB (18:13)
[2023-12-22 18:45] LABS: Glucose Point of Care 94 mg/dl (65-105)
[2023-12-22 18:45] LABS: Glucose Point of Care 91 mg/dl (65-105)
[2023-12-22 22:03] LABS: Platelet Antibody, Direct NEGATIVE (NEGATIVE)
[2023-12-22] MEDS: ONDANSETRON INJ 4 MG/2 ML VIAL IV PUSH (22:09)
[2023-12-23] VITALS (52 sets, daily range): BP systolic 84–142; BP diastolic 62–86; PULSE 68–87; RESP 15–21; TEMP 0–37.1; O2SAT 98–100
[2023-12-23 00:33] LABS: Glucose Point of Care 91 mg/dl (65-105)
[2023-12-23 00:33] LABS: Glucose Point of Care 99 mg/dl (65-105)
[2023-12-23 00:33] LABS: Glucose Point of Care 91 mg/dl (65-105)
[2023-12-23] MEDS: IPRATROPIUM 0.5 MG/ALBUTEROL SULFATE 2.5 MG AMPUL.NEB 3 ML INHALATION ×4 (02:26→20:42)
[2023-12-23] MEDS: METOCLOPRAMIDE HCL 10 MG/10 ML SOLN UDC FEED TUBE ×4 (02:45→20:21)
[2023-12-23] MEDS: CENTRAL LINE FLUSH 10 ML IV PUSH ×3 (05:09→20:21)
[2023-12-23 05:48] LABS: Alveolar/Arterial O2 Gradient 50.7 mmHg; Base Excess ABG 3.3 mEq/l (+/-2.0); Carboxyhemoglobin 1.6 % THb (0-2.0); Fractional Inspired Oxygen 30 %; HCO3 ABG 27.2 mEq/l (22.0-26.0); Methemoglobin ABG 0.3 %THb (0-1.5); Oxygen Content ABG 12.4 %vol (16.0-22.0); Oxygen Saturation ABG 98.5 % (95.0-100.0); Oxyhemoglobin 96.5 % THb (90.0-100.0); PCO2 ABG 38.8 mmHg (35.0-45.0); PO2 ABG 117.6 mmHg (80.0-100.0); PO2 FiO2 Ratio Arterial Blood 3.92 %; Reduced Hemoglobin 1.6 %THb (0-5.0); pH ABG 7.464 (7.350-7.450)
[2023-12-23 05:56] LABS: Glucose Point of Care 98 mg/dl (65-105)
[2023-12-23 05:56] LABS: Glucose Point of Care 108 mg/dl (65-105)
[2023-12-23 05:56] LABS: Glucose Point of Care 93 mg/dl (65-105)
[2023-12-23 05:59] LABS: Modified Allen's Test Pass; Site Drawn RIGHT RADIAL
[2023-12-23 06:00] LABS: Arterial Blood Gas PEEP 8 cmH2O; Arterial Blood Gas Tidal Volume 320 ml; Arterial Blood Gas Vent Mode CMV; Arterial Blood Gas Ventilator rate 14 /MIN; Device VENTILATOR
[2023-12-23 06:15] LABS: Basophils Percent Auto 0.2 % (0.2-1.2); Eosinophils Absolute Auto 0.1 K/mm3 (0-0.3); Eosinophils Percent Auto 2.4 % (0-4.4); Hematocrit 24.6 % (42.0-52.0); Hemoglobin 7.9 g/dL (14.0-18.0); Immature Granulocyte Absolute 0.07 K/mm3 (0.00-0.031); Immature Granulocyte Percent A 1.4 % (0-0.5); Immature Platelet Fraction Pct 4.8 % (0.9-11.2); Lymphocytes Absolute Auto 0.97 K/mm3 (0.9-3.2); Mean Corpuscular HGB Conc 32.1 g/dl (32-36); Mean Corpuscular Hemoglobin 26.5 pg (26-34); Mean Corpuscular Volume 82.6 fl (80-100); Mean Platelet Volume 11.2 fl (7.4-10.4); Monocytes Absolute Auto 0.5 K/mm3 (0.1-0.6); Neutrophils Absolute Auto 3.5 K/mm3 (1.3-6.7); Nucleated Red Blood Cells Perc 0.4 % (0.0-0.2); Platelet Count Result 51 k/mm3 (150-375); Red Blood Count 2.98 M/mm3 (4.6-6.20); Red Cell Distribution Width 19.4 % (11.5-14.5); White Blood Count 5.1 K/mm3 (4.5-10.0)
[2023-12-23 06:21] LABS: Alanine Aminotransferase 9 U/L (6-50); Albumin Level 2.8 g/dL (3.5-5.1); Alkaline Phosphatase 92 U/L (38-126); Anion Gap 7 mmol/L (4-12); Aspartate Amino Transferase 24 U/L (17-59); Bilirubin,Total 7.9 mg/dL (0.2-1.3); Blood Urea Nitrogen 9 mg/dL (9-20); Calcium 9.9 mg/dL (8.4-10.2); Carbon Dioxide 26 mmol/L (22-30); Chloride 105 mmol/L (98-107); Estimated CRCL calculation 36 ml/min; Estimated Glomerular Filt Rate 47; Glucose 111 mg/dL (65-110); Magnesium 1.7 mg/dL (1.6-2.3); Phosphorus 1.2 mg/dL (2.5-4.5); Potassium 3.6 mmol/L (3.4-5.0); Sodium 138 mmol/L (137-145); Triglycerides 41 mg/dL (<150)
[2023-12-23 06:22] LABS: INR 2.4; Prothrombin Time 27.1 Seconds (11.1-14.7)
[2023-12-23 07:02] LABS: Platelet Estimate Decreased (Adequate)
[2023-12-23 07:03] LABS: Anisocytosis 1+; Hypochromasia 1+; Target Cells 1+
[2023-12-23 07:04] LABS: Schistocytes Rare
[2023-12-23 07:30] LABS: Glucose Point of Care 105 mg/dl (65-105)
[2023-12-23] MEDS: PANTOPRAZOLE SODIUM IV 40 MG VIAL IV PUSH ×2 (08:20→20:21)
[2023-12-23] MEDS: POTASSIUM/PHOSPHORUS/SODIUM 1.5 GM PACKET 2 PACKET FEED TUBE (08:20)
[2023-12-23] MEDS: ATORVASTATIN 20 MG TABLET PO (08:20)
[2023-12-23] MEDS: LACTULOSE 20 GM/30 ML UDC PO ×2 (08:20→20:21)
[2023-12-23] MEDS: FOLIC ACID 1 MG TABLET PO (08:20)
[2023-12-23] MEDS: MINERAL OIL/WHITE PETROLATUM OINTMENT 1 APPLIC EACH EYE ×2 (08:22→20:21)
--- NOTE | 2023-12-23 08:29 | PC.NURSE ---
Attempted to obtain consent from brother Zurdo or Robert via phone. Neither answered the phone call. Will continue to try to reach family.
[2023-12-23] MEDS: POTASSIUM PHOS,M-BASIC-D-BASIC 20 MMOL in SODIUM CHLORIDE 0.9% IV 250 ML 64.17 MMOL IVPB (08:37)
--- NOTE | 2023-12-23 08:39 | P.PNINT_ITS ---
Progress Note: A&P Assessment and Plan (1) Cardiac arrest: Code(s): I46.9 - Cardiac arrest, cause unspecified Status: Acute Assessment and Plan: 12/17/2023 evening: Patient was being rolled over to be given a lactulose enema, went unresponsive, went into PEA arrest, ACLS protocol was instituted, patient received 3 rounds of epinephrine, CPR with ROSC. Patient with into AFib RVR with heart rates in the 140s, was started on amiodarone infusion, heart rate dropped into the upper 50s and lower 60s and amiodarone infusion was later stopped. -could be related to vasovagal, bacteremia, hypoxia secondary to pulmonary edema -CT scan of the brain did not reveal any acute intracranial abnormalities -patient was started on targeted temperature management with goal temperature of 36?C, since patient has been thrombocytopenic, anemic and in DIC did not want her lower body temperature given the could be risk of increased bleeding given low body temperature. Patient has completed 24 hours and has now been reformed. Patient in general is hypothermic -post cardiac arrest patient had seizure-like activities and was started on Keppra, will continue -echocardiogram Summary 1. Complete two-dimensional, color flow and Doppler transthoracic echocardiogram is performed. 2. Left ventricular hypertrophy with adequate systolic function and grade 1 diastolic noncompliance. 3. Biatrial dilation. 4. Mild mitral regurgitation. 5. Mild to moderate tricuspid regurgitation with evidence of elevated PA pressure. 6. Right ventricular enlargement with reduced systolic function. (2) Acute respiratory failure: Code(s): J96.00 - Acute respiratory failure, unspecified whether with hypoxia or hypercapnia Status: Acute Assessment and Plan: Acute respiratory failure likely related to cardiac arrest, pulmonary edema -patient was dialyzed with 2500 mL in fluid removal of 12/17/2023 -chest x-ray and ABG reviewed -continue PEEP at 8 decrease tidal volume to 300 and rate to 14 -continue bronchodilators -weaning will depend on mental status improvement and will need further dialysis to remove fluid. He was dialyzed yesterday and will be dialyzed again today (3) Severe sepsis: Code(s): A41.9 - Sepsis, unspecified organism; R65.20 - Severe sepsis without septic shock Status: Acute Assessment and Plan: Severe sepsis with lactic acidosis, Gram-negative bacteremia -lactic acidosis most likely related to cardiac arrest and infection -12/16: blood cultures growing bacillus species -patient is on cefepime, Flagyl and vancomycin (12/16).12/18 switched to meropenem 12/20 repeat set of blood culture sent and negative for now (4) DIC (disseminated intravascular coagulation): Code(s): D65 - Disseminated intravascular coagulation [defibrination syndrome] Status: Acute Assessment and Plan: Patient in DIC could be related to severe sepsis, Gram-negative bacteremia -12/16: patient received 1 unit of platelets 1 unit of packed RBCs and 1 unit of cryoprecipitate. - He also received vitamin K -12/19 elevated INR and low fibrinogen level. Will transfuse 2 units of FFP (5) Anemia: Code(s): D64.9 - Anemia, unspecified Status: Chronic Assessment and Plan: Patient anemic, has a history of chronic anemia from gastritis and esophagitis with EGD and colonoscopies done in July of 2023 -12/16: patient was transfused 1 unit of packed RBCs for hemoglobin of 6.7 -discontinued aspirin -will avoid any anticoagulation at this time -continue Protonix IV q.12 hours 12/21 hemoglobin 6.5 will transfuse 1 unit of PRBC
--- NOTE | 2023-12-23 09:33 | PM.PNNEP ---
Progress Note: A&P Assessment and Plan (1) End stage renal disease: Code(s): N18.6 - End stage renal disease Status: Chronic Assessment and Plan: HD tomorrow continue T/T/S dialysis schedule while hospitalized follow electrolytes, volume status, and clearance (2) Cardiac arrest: Code(s): I46.9 - Cardiac arrest, cause unspecified Status: Acute Assessment and Plan: etiology? possibly vasovagal versus bacteremia versus hypoxia?? CT of brain negative not initiated on TTM given hypothermia present after arrest Echo results noted continue supportive therapy (3) Acute respiratory failure: Code(s): J96.00 - Acute respiratory failure, unspecified whether with hypoxia or hypercapnia Status: Acute Assessment and Plan: due to cardiac arrest and possily pulmonary edema intubated and on mechanical ventilation ventilator weaning per protocol push fluid removal with HD/DUF as tolerated - plan DUF later today (4) Severe sepsis: Code(s): A41.9 - Sepsis, unspecified organism; R65.20 - Severe sepsis without septic shock Status: Acute Assessment and Plan: noted with lactic acidosis and Bacillus (not B. anthracis) bacteremia now requiring vasopressor support (levophed) on antibiotics follow repeat cultures (5) Anemia: Qualifiers: Anemia type: unspecified type Qualified Code(s): D64.9 - Anemia, unspecified Code(s): D64.9 - Anemia, unspecified Status: Chronic Assessment and Plan: known history partly related to ESRD however, noted gastritis and esophagitis with EGD and colonoscopies done in July of 2023 PRBC transfusion per protocol on PPI Epogen with HD follow trend of H/H (6) Thrombocytopenia: Code(s): D69.6 - Thrombocytopenia, unspecified Status: Chronic Assessment and Plan: chronic issue at baseline now complicated by DIC likely related to liver cirrhosis/dysfunction sepsis could be playing a role as well vitamin K and FFP given due to elevated INR and long with platelet transfusion PRN follow platelet count for now (7) Hypokalemia: Code(s): E87.6 - Hypokalemia Status: Acute Assessment and Plan: suspect related to poor oral intake, liver disease, and dialysis replete PRN will adjust dialysis bath to compensate (8) Anasarca: Code(s): R60.1 - Generalized edema Status: Acute Assessment and Plan: somewhat of a chronic issue related to liver disease/cirrhosis, hypoalbuminemia, and likely inability for aggressive ultrafiltration with outpatient dialysis treatments may benefit from large volume paracentesis attempt to push fluid removal with HD/DUF as tolerated (9) Cirrhosis: Code(s): K74.60 - Unspecified cirrhosis of liver Status: Acute Assessment and Plan: known issue/finding appears clinically worse -- ascites, coagulopathy, pancytopenia, worsening ansarca... continue supportive therapy (10) Hypoglycemia: Code(s): E16.2 - Hypoglycemia, unspecified Status: Acute Assessment and Plan: etiology?? -- due to liver disease +/- poor nutrition +/- infection/sepsis per report, blood sugar less than 30 at assisted prior to transfer improved with treatment in ER but then dropped again an hour later follow blood sugars Will continue to follow. Subjective Date/time seen: 12/23/23 09:33 Interval history: Follow-up for end stage renal disease on hemodialysis. Tolerated dialysis treatment yesterday but fluid removal was limited due to hemodynamics/hypotension; remains intubated and on mechanical ventilation; remains off sedation with no any significant improvement in mentation; levophed gtt weaned off with relative stability in hemodynamics; no other acute issues/events overnight or earlier this morning. Exam Narrative: General: chronic ill-appearing Rachel
--- NOTE | 2023-12-23 09:33 | P.PNNP_ITS ---
Progress Note: A&P Assessment and Plan (1) End stage renal disease: Code(s): N18.6 - End stage renal disease Status: Chronic Assessment and Plan: * HD tomorrow * continue T/T/S dialysis schedule while hospitalized * follow electrolytes, volume status, and clearance (2) Cardiac arrest: Code(s): I46.9 - Cardiac arrest, cause unspecified Status: Acute Assessment and Plan: * etiology? * possibly vasovagal versus bacteremia versus hypoxia?? * CT of brain negative * not initiated on TTM given hypothermia present after arrest * Echo results noted * continue supportive therapy (3) Acute respiratory failure: Code(s): J96.00 - Acute respiratory failure, unspecified whether with hypoxia or hypercapnia Status: Acute Assessment and Plan: * due to cardiac arrest and possily pulmonary edema * intubated and on mechanical ventilation * ventilator weaning per protocol * push fluid removal with HD/DUF as tolerated - plan DUF later today (4) Severe sepsis: Code(s): A41.9 - Sepsis, unspecified organism; R65.20 - Severe sepsis without septic shock Status: Acute Assessment and Plan: * noted with lactic acidosis and Bacillus (not B. anthracis) bacteremia * now requiring vasopressor support (levophed) * on antibiotics * follow repeat cultures (5) Anemia: Qualifiers: Anemia type: unspecified type Qualified Code(s): D64.9 - Anemia, unspecified Code(s): D64.9 - Anemia, unspecified Status: Chronic Assessment and Plan: * known history * partly related to ESRD * however, noted gastritis and esophagitis with EGD and colonoscopies done in July of 2023 * PRBC transfusion per protocol * on PPI * Epogen with HD * follow trend of H/H (6) Thrombocytopenia: Code(s): D69.6 - Thrombocytopenia, unspecified Status: Chronic Assessment and Plan: * chronic issue at baseline * now complicated by DIC * likely related to liver cirrhosis/dysfunction * sepsis could be playing a role as well * vitamin K and FFP given due to elevated INR and long with platelet transfusion PRN * follow platelet count for now (7) Hypokalemia: Code(s): E87.6 - Hypokalemia Status: Acute Assessment and Plan: * suspect related to poor oral intake, liver disease, and dialysis * replete PRN * will adjust dialysis bath to compensate (8) Anasarca: Code(s): R60.1 - Generalized edema Status: Acute Assessment and Plan: * somewhat of a chronic issue * related to liver disease/cirrhosis, hypoalbuminemia, and likely inability for aggressive ultrafiltration with outpatient dialysis treatments * may benefit from large volume paracentesis * attempt to push fluid removal with HD/DUF as tolerated (9) Cirrhosis: Code(s): K74.60 - Unspecified cirrhosis of liver Status: Acute Assessment and Plan: * known issue/finding * appears clinically worse -- ascites, coagulopathy, pancytopenia, worsening ansarca... * continue supportive therapy (10) Hypoglycemia: Code(s): E16.2 - Hypoglycemia, unspecified Status: Acute Assessment and Plan: * etiology?? -- due to liver disease +/- poor nutrition +/- infection/sepsis * per report, blood sugar less than 30 at [facility] prior to transfer * improved with treatment in ER but then dropped again an hour later * follow blood sugars Will continue to follow. Subjective Da
--- NOTE | 2023-12-23 09:47 | PM.IMPN ---
Progress Note: A&P Assessment and Plan (1) Cardiac arrest: Code(s): I46.9 - Cardiac arrest, cause unspecified Status: Acute Assessment and Plan: Patient was admitted on 12/15 for AMS. In the evening of 12/16 while being rolled over to be given a lactulose enema, he went unresponsive due to PEA arrest. ACLS protocol was instituted with CPR and 3 rounds of epinephrine. ROSC achieved. Patient with into AFib RVR with heart rates in the 140s and Amio started. HR dropped to 50-60 range and Amiodarone stopped. Etiology could be related to vasovagal, bacteremia, hypoxia secondary to pulmonary edema CT brain 12/16 - no acute intracranial abnormalities Patient was intubated and started on targeted temperature management with goal temperature of 36?C due to thrombocytopenic, anemic and in DIC given the risk of increased bleeding. Patient has completed 24 hours and has now been rewarmed. Post cardiac arrest patient had seizure-like activities and was started on Keppra Echo - LVH with adequate systolic fxn and Grade I diastolic dysfxn, biatrial dilation, mild-moderate TR and RV enlargement. Continue to treat for bacteremia. Continue seizure precautions and Keppra. (2) Acute respiratory failure: Code(s): J96.00 - Acute respiratory failure, unspecified whether with hypoxia or hypercapnia Status: Acute Assessment and Plan: Acute respiratory failure likely related to cardiac arrest, pulmonary edema HD was QOD but now daily CXR reviewed today showing worsening pulmonary edema. CT A/P showing moderate pleural effusions related to cirrhosis Continue MV Continue bronchodilators Continue HD to control fluid status. HD difficult due to HoTN. Wean vent as tolerated (3) Severe sepsis: Code(s): A41.9 - Sepsis, unspecified organism; R65.20 - Severe sepsis without septic shock Status: Acute Assessment and Plan: Severe sepsis with lactic acidosis due to bacteremia. Lactic acidosis also likely related to cardiac arrest BCx growing Bacillus species in both bottles Patient was on cefepime, Flagyl and vancomycin (12/16) but narrowed to meropenem 12/18 He is anuric. BCx repeated 12/20: NGTD Source probably GI with CT A/P (12/15) showing diffuse wall thickening of the colon Consider paracentesis Continue IV abx (4) DIC (disseminated intravascular coagulation): Code(s): D65 - Disseminated intravascular coagulation [defibrination syndrome] Status: Acute Assessment and Plan: Patient in DIC felt related to severe sepsis from bacteremia Patient has received 6 unit of platelets with plt count finally improved to 51K Also has received 2 units of packed RBCs, 3 units of FFP and 1 unit of cryoprecipitate. He also received vitamin K x 4 doses INR elevated but stable at 2.4. Follow (5) Anemia: Code(s): D64.9 - Anemia, unspecified Status: Chronic Assessment and Plan: Patient has chronic anemic, has a history of chronic anemia from gastritis and esophagitis with EGD and colonoscopies done in 12/16: patient was transfused 1 unit of packed RBCs for hemoglobin of 6.7 ASA discontinued and will avoid any anticoagulation at this time Hgb 6.5 yesterday morning and received PRBC x 1 unit Continue Protonix IV q.12 hours Follow HH (6) Thrombocytopenia: Code(s): D69.6 - Thrombocytopenia, unspecified Status: Chronic Assessment and Plan: Has a history of chronic thrombocytopenia No active bleeding noted Likely secondary to cirrhosis/liver dysfunction worsened by DIC Patient received platelet transfusion, vitamin K and FFP Plt count up to 51K Monitor and transfuse as needed (7) Bacteremia due to Gram-negative bacteria: Code(s): R78.81 - Bacteremia Status: Acute Assessment and Plan: BCx (12/16) growing Bacillus As above. (8) Hypoglycemia: Code(s): E16.2 - Hypoglycemia, unspecified Status: Acute Asses
[2023-12-23 09:51] LABS: Glucose Point of Care 115 mg/dl (65-105)
--- NOTE | 2023-12-23 11:16 | PCNFU ---
Nutrition Follow-Up Complete: Increased protein energy needs related to wound healing as evidenced by wound report Goal: Adequate PO intake at least 75% meals and supplements to support wound healing-goal is not being met. New goal: Meet estimated nutritional needs. Pt current nutrition is Nepro at 20ml/hr . Nutrition recommendation: goal rate at 40 ml/hr Last recorded weight is 79.9 kg, down from 88.2 kg on admit. Bowel Motility: +Bm reported 12/22 Labs Reviewed:Glu 111, GFR 47, Cr 1.8 Meds Noted: Keppra, Reglan, Protonix, Meropenem Skin: Stage II-left ischium, unstageable- left heel Additional Notes: Patient remains on mechanical vent. Tube feedings on hold for Dobbhoff placement and paracentesis today. Recommend restarting Nepro at 20 ml/hr with goal rate being at 40 ml/hr. Protein Modulars of Prosource providing an additional 160 kcal/40 gm protein. Total Nutrition at tube feeding goal rate: 1744 kcals/111 gm protein/639 ml water. Meeting 100% kcal needs at 19 kcal/kg and 90% protein needs at 1.4 gm/kg. Flush 30 ml q 4 hours. Discussions with family members this weekend regarding plan of care. Agree with diet orders at this time. Will monitor in ICU rounds, Monitoring intakes, weights, labs, supplement tolerance, wound healing, plan of care every Tuesday and Tuesday.
[2023-12-23 11:44] LABS: Lipase 14 U/L (23-300)
[2023-12-23 11:50] LABS: Glucose Point of Care 113 mg/dl (65-105)
[2023-12-23 13:34] LABS: Glucose Point of Care 118 mg/dl (65-105)
[2023-12-23 14:28] LABS: Methylmalonic Acid 388 nmol/L (87-318)
[2023-12-23 16:11] LABS: Appearance Peritoneal Fluid Clear (Clear); Color Peritoneal Fluid Yellow (Colorless); Source Peritoneal Fluid Peritoneal Fluid
[2023-12-23 16:12] LABS: Glucose Point of Care 105 mg/dl (65-105)
[2023-12-23 16:12] LABS: Nucleated Cells Peritoneal Flu 68 /uL (0-500); RBC Peritoneal Fluid < 2000 /uL (0-10000)
[2023-12-23 16:30] LABS: Lymphocytes Peritoneal Fluid 79 %; Monocytes Peritoneal Fluid 9 %; Neutrophils Peritoneal Fluid 12 % (0-25)
[2023-12-23] MEDS: ALBUMIN HUMAN 25% 12.5 GM/50ML 50 ML IVPB (17:00)
[2023-12-23] MEDS: ALBUMIN HUMAN 25% 25 GM/100 ML 200 ML IVPB (17:27)
[2023-12-23 17:33] LABS: Glucose Point of Care 113 mg/dl (65-105)
[2023-12-23] MEDS: MEROPENEM 1 GM/NS 100 ML 1 GM/100 ML BAG IVPB (20:12)
[2023-12-23] MEDS: levETIRAcetam 1000MG/NACL100ML 1,000 MG/100 ML BAG 400 MG IVPB (20:13)
[2023-12-23 20:33] LABS: Glucose Point of Care 108 mg/dl (65-105)
[2023-12-23 22:25] LABS: Glucose Point of Care 111 mg/dl (65-105)
[2023-12-24] VITALS (49 sets, daily range): BP systolic 77–134; BP diastolic 60–82; PULSE 72–91; RESP 16–30; TEMP 36.2–37.6; O2SAT 94–100
[2023-12-24 00:34] LABS: Glucose Point of Care 92 mg/dl (65-105)
[2023-12-24] MEDS: IPRATROPIUM 0.5 MG/ALBUTEROL SULFATE 2.5 MG AMPUL.NEB 3 ML INHALATION ×4 (02:59→20:15)
[2023-12-24] MEDS: METOCLOPRAMIDE HCL 10 MG/10 ML SOLN UDC FEED TUBE ×4 (03:01→20:04)
[2023-12-24 05:09] LABS: Alveolar/Arterial O2 Gradient 35.7 mmHg; Fractional Inspired Oxygen 30 %; HCO3 ABG 26.6 mEq/l (22.0-26.0); Oxygen Content ABG 11.2 %vol (16.0-22.0); Oxygen Saturation ABG 98.9 % (95.0-100.0); Oxyhemoglobin 96.9 % THb (90.0-100.0); PCO2 ABG 35.9 mmHg (35.0-45.0); PO2 FiO2 Ratio Arterial Blood 4.53 %; pH ABG 7.487 (7.350-7.450)
[2023-12-24 05:11] LABS: Device VENTILATOR; Modified Allen's Test Pass; Site Drawn RIGHT RADIAL
[2023-12-24 05:12] LABS: Arterial Blood Gas PEEP 8 cmH2O; Arterial Blood Gas Tidal Volume 300 ml; Arterial Blood Gas Vent Mode CMV; Arterial Blood Gas Ventilator rate 14 /MIN
[2023-12-24 05:34] LABS: Glucose Point of Care 104 mg/dl (65-105)
[2023-12-24 06:42] LABS: Basophils Percent Auto 0.5 % (0.2-1.2); Eosinophils Absolute Auto 0.2 K/mm3 (0-0.3); Hematocrit 21.5 % (42.0-52.0); Immature Granulocyte Absolute 0.04 K/mm3 (0.00-0.031); Immature Platelet Fraction Pct 7.4 % (0.9-11.2); Lymphocytes Absolute Auto 0.74 K/mm3 (0.9-3.2); Lymphocytes Percent Auto 17.6 % (18.3-44.2); Mean Corpuscular HGB Conc 32.6 g/dl (32-36); Monocytes Absolute Auto 0.4 K/mm3 (0.1-0.6); Monocytes Percent Auto 8.3 % (2.6-8.5); Neutrophils Absolute Auto 2.9 K/mm3 (1.3-6.7); Neutrophils Percent Auto 68.6 % (45.5-73.1); Red Blood Count 2.59 M/mm3 (4.6-6.20); Red Cell Distribution Width 19.7 % (11.5-14.5); White Blood Count 4.2 K/mm3 (4.5-10.0)
[2023-12-24 06:53] LABS: Ammonia 65 umol/L (9-30)
[2023-12-24 06:53] LABS: INR 2.2; Prothrombin Time 25.2 Seconds (11.1-14.7)
[2023-12-24 06:55] LABS: Alanine Aminotransferase 8 U/L (6-50); Albumin Level 2.9 g/dL (3.5-5.1); Alkaline Phosphatase 79 U/L (38-126); Anion Gap 7 mmol/L (4-12); Aspartate Amino Transferase 22 U/L (17-59); Blood Urea Nitrogen 16 mg/dL (9-20); Calcium 10.1 mg/dL (8.4-10.2); Carbon Dioxide 26 mmol/L (22-30); Chloride 105 mmol/L (98-107); Estimated CRCL calculation 30 ml/min; Estimated Glomerular Filt Rate 37; Glucose 96 mg/dL (65-110); Magnesium 1.6 mg/dL (1.6-2.3); Phosphorus 2.1 mg/dL (2.5-4.5); Potassium 3.5 mmol/L (3.4-5.0); Sodium 138 mmol/L (137-145)
[2023-12-24 07:22] LABS: Platelet Count Result 24 k/mm3 (150-375)
[2023-12-24 07:23] LABS: Anisocytosis 1+; Hypochromasia 1+; Platelet Estimate Decreased (Adequate); Poikilocytosis 1+; Schistocytes Rare
[2023-12-24 07:31] LABS: Glucose Point of Care 103 mg/dl (65-105)
[2023-12-24] MEDS: CENTRAL LINE FLUSH 10 ML IV PUSH ×3 (07:48→20:04)
--- NOTE | 2023-12-24 08:26 | WPDINTPN ---
Progress Note: A&P Assessment and Plan (1) Cardiac arrest: Code(s): I46.9 - Cardiac arrest, cause unspecified Status: Acute Assessment and Plan: 12/17/2023 evening: Patient was being rolled over to be given a lactulose enema, went unresponsive, went into PEA arrest, ACLS protocol was instituted, patient received 3 rounds of epinephrine, CPR with ROSC. Patient with into AFib RVR with heart rates in the 140s, was started on amiodarone infusion, heart rate dropped into the upper 50s and lower 60s and amiodarone infusion was later stopped. -could be related to vasovagal, bacteremia, hypoxia secondary to pulmonary edema -CT scan of the brain did not reveal any acute intracranial abnormalities -patient was started on targeted temperature management with goal temperature of 36?C, since patient has been thrombocytopenic, anemic and in DIC did not want her lower body temperature given the could be risk of increased bleeding given low body temperature. Patient has completed 24 hours and has now been reformed. Patient in general is hypothermic -post cardiac arrest patient had seizure-like activities and was started on Keppra, will continue -echocardiogram Summary 1. Complete two-dimensional, color flow and Doppler transthoracic echocardiogram is performed. 2. Left ventricular hypertrophy with adequate systolic function and grade 1 diastolic noncompliance. 3. Biatrial dilation. 4. Mild mitral regurgitation. 5. Mild to moderate tricuspid regurgitation with evidence of elevated PA pressure. 6. Right ventricular enlargement with reduced systolic function. (2) Acute respiratory failure: Code(s): J96.00 - Acute respiratory failure, unspecified whether with hypoxia or hypercapnia Status: Acute Assessment and Plan: Acute respiratory failure likely related to cardiac arrest, pulmonary edema -patient was dialyzed with 2500 mL in fluid removal of 12/17/2023 -chest x-ray and ABG reviewed -continue PEEP at 8 decrease tidal volume to 300 and rate to 14 -continue bronchodilators -weaning will depend on mental status improvement and will need further dialysis to remove fluid. He was dialyzed yesterday and will be dialyzed again today (3) Severe sepsis: Code(s): A41.9 - Sepsis, unspecified organism; R65.20 - Severe sepsis without septic shock Status: Acute Assessment and Plan: Severe sepsis with lactic acidosis, Gram-negative bacteremia. Likely source from colon or wounds -lactic acidosis most likely related to cardiac arrest and infection -12/16: blood cultures growing bacillus species -patient is on cefepime, Flagyl and vancomycin (12/16).12/18 switched to meropenem 12/20 repeat set of blood culture sent and negative for now (4) DIC (disseminated intravascular coagulation): Code(s): D65 - Disseminated intravascular coagulation [defibrination syndrome] Status: Acute Assessment and Plan: Patient in DIC could be related to severe sepsis, Gram-negative bacteremia -12/16: patient received 1 unit of platelets 1 unit of packed RBCs and 1 unit of cryoprecipitate. - He also received vitamin K -12/19 elevated INR and low fibrinogen level. Will transfuse 2 units of FFP (5) Anemia: Code(s): D64.9 - Anemia, unspecified Status: Chronic Assessment and Plan: Patient anemic, has a history of chronic anemia from gastritis and esophagitis with EGD and colonoscopies done in July of 2023 -12/16: patient was transfused 1 unit of packed RBCs for hemoglobin of 6.7 -discontinued aspirin -will avoid any anticoagulation at this time -continue Protonix IV q.12 hours 12/21 hemoglobin 6.5 will transfuse 1 unit of PRBC monitor (6) Thrombocytopenia: Code(s): D69.6 - Thrombocytopenia, unspecified Status: Chronic Assessment and Plan: Has a history of chronic thrombocytopenia -no active bleeding noted -likely secondary to cirrhosis/liver dysfunction -patient received pl
[2023-12-24] MEDS: FOLIC ACID 1 MG TABLET PO (09:07)
[2023-12-24] MEDS: POTASSIUM/PHOSPHORUS/SODIUM 1.5 GM PACKET 2 PACKET PO (09:07)
[2023-12-24] MEDS: LACTULOSE 20 GM/30 ML UDC PO ×2 (09:07→20:04)
[2023-12-24] MEDS: ATORVASTATIN 20 MG TABLET PO (09:07)
[2023-12-24] MEDS: PANTOPRAZOLE SODIUM IV 40 MG VIAL IV PUSH ×2 (09:07→20:04)
[2023-12-24] MEDS: ONDANSETRON INJ 4 MG/2 ML VIAL IV PUSH (09:08)
[2023-12-24] MEDS: MINERAL OIL/WHITE PETROLATUM OINTMENT 1 APPLIC EACH EYE ×2 (09:08→20:04)
[2023-12-24] MEDS: ALBUMIN HUMAN 25% 12.5 GM/50ML 50 ML IVPB ×2 (09:26→11:01)
--- NOTE | 2023-12-24 09:40 | PM.PNNEP ---
Progress Note: A&P Assessment and Plan (1) End stage renal disease: Code(s): N18.6 - End stage renal disease Status: Chronic Assessment and Plan: HD today continue T/T/S dialysis schedule while hospitalized follow electrolytes, volume status, and clearance (2) Cardiac arrest: Code(s): I46.9 - Cardiac arrest, cause unspecified Status: Acute Assessment and Plan: etiology? possibly vasovagal versus bacteremia versus hypoxia?? CT of brain negative not initiated on TTM given hypothermia present after arrest Echo results noted continue supportive therapy (3) Acute respiratory failure: Code(s): J96.00 - Acute respiratory failure, unspecified whether with hypoxia or hypercapnia Status: Acute Assessment and Plan: due to cardiac arrest and possily pulmonary edema intubated and on mechanical ventilation ventilator weaning per protocol push fluid removal with HD/DUF as tolerated - plan DUF later today (4) Severe sepsis: Code(s): A41.9 - Sepsis, unspecified organism; R65.20 - Severe sepsis without septic shock Status: Acute Assessment and Plan: noted with lactic acidosis and Bacillus (not B. anthracis) bacteremia now requiring vasopressor support (levophed) on antibiotics follow repeat cultures (5) Anemia: Qualifiers: Anemia type: unspecified type Qualified Code(s): D64.9 - Anemia, unspecified Code(s): D64.9 - Anemia, unspecified Status: Chronic Assessment and Plan: known history partly related to ESRD however, noted gastritis and esophagitis with EGD and colonoscopies done in July of 2023 PRBC transfusion per protocol on PPI Epogen with HD follow trend of H/H (6) Thrombocytopenia: Code(s): D69.6 - Thrombocytopenia, unspecified Status: Chronic Assessment and Plan: chronic issue at baseline now complicated by DIC likely related to liver cirrhosis/dysfunction sepsis could be playing a role as well vitamin K and FFP given due to elevated INR and long with platelet transfusion PRN follow platelet count for now (7) Hypokalemia: Code(s): E87.6 - Hypokalemia Status: Acute Assessment and Plan: better control at this time suspect related to poor oral intake, liver disease, and dialysis replete PRN will adjust dialysis bath to compensate (8) Anasarca: Code(s): R60.1 - Generalized edema Status: Acute Assessment and Plan: somewhat of a chronic issue related to liver disease/cirrhosis, hypoalbuminemia, and likely inability for aggressive ultrafiltration with outpatient dialysis treatments s/p paracentesis (on 12/22) attempt to push fluid removal with HD/DUF as tolerated (9) Cirrhosis: Code(s): K74.60 - Unspecified cirrhosis of liver Status: Acute Assessment and Plan: known issue/finding appears clinically worse -- ascites, coagulopathy, pancytopenia, worsening ansarca... continue supportive therapy (10) Hypoglycemia: Code(s): E16.2 - Hypoglycemia, unspecified Status: Acute Assessment and Plan: etiology?? -- due to liver disease +/- poor nutrition +/- infection/sepsis per report, blood sugar less than 30 at detention prior to transfer on dextrose IVFs to compensate follow blood sugars Noted ongoing discussions with with family regarding level of care and goals of therapy given minimal improvement in clinical condition despite all interventions to date. Will continue to follow. Subjective Date/time seen: 12/24/23 09:40 Interval history: Follow-up for end stage renal disease on hemodialysis. Had dry ultrafiltration yesterday evening with about 3.1L fluid removal; s/p paracentesis yesterday afternoon with 2L fluid removal as well; IR was unable to place doboff tube; mentation remains the same despite being off sedation for the last several days; still req
--- NOTE | 2023-12-24 09:40 | P.PNNP_ITS ---
Progress Note: A&P Assessment and Plan (1) End stage renal disease: Code(s): N18.6 - End stage renal disease Status: Chronic Assessment and Plan: * HD today * continue T/T/S dialysis schedule while hospitalized * follow electrolytes, volume status, and clearance (2) Cardiac arrest: Code(s): I46.9 - Cardiac arrest, cause unspecified Status: Acute Assessment and Plan: * etiology? * possibly vasovagal versus bacteremia versus hypoxia?? * CT of brain negative * not initiated on TTM given hypothermia present after arrest * Echo results noted * continue supportive therapy (3) Acute respiratory failure: Code(s): J96.00 - Acute respiratory failure, unspecified whether with hypoxia or hypercapnia Status: Acute Assessment and Plan: * due to cardiac arrest and possily pulmonary edema * intubated and on mechanical ventilation * ventilator weaning per protocol * push fluid removal with HD/DUF as tolerated - plan DUF later today (4) Severe sepsis: Code(s): A41.9 - Sepsis, unspecified organism; R65.20 - Severe sepsis without septic shock Status: Acute Assessment and Plan: * noted with lactic acidosis and Bacillus (not B. anthracis) bacteremia * now requiring vasopressor support (levophed) * on antibiotics * follow repeat cultures (5) Anemia: Qualifiers: Anemia type: unspecified type Qualified Code(s): D64.9 - Anemia, unspecified Code(s): D64.9 - Anemia, unspecified Status: Chronic Assessment and Plan: * known history * partly related to ESRD * however, noted gastritis and esophagitis with EGD and colonoscopies done in July of 2023 * PRBC transfusion per protocol * on PPI * Epogen with HD * follow trend of H/H (6) Thrombocytopenia: Code(s): D69.6 - Thrombocytopenia, unspecified Status: Chronic Assessment and Plan: * chronic issue at baseline * now complicated by DIC * likely related to liver cirrhosis/dysfunction * sepsis could be playing a role as well * vitamin K and FFP given due to elevated INR and long with platelet transfusion PRN * follow platelet count for now (7) Hypokalemia: Code(s): E87.6 - Hypokalemia Status: Acute Assessment and Plan: * better control at this time * suspect related to poor oral intake, liver disease, and dialysis * replete PRN * will adjust dialysis bath to compensate (8) Anasarca: Code(s): R60.1 - Generalized edema Status: Acute Assessment and Plan: * somewhat of a chronic issue * related to liver disease/cirrhosis, hypoalbuminemia, and likely inability for aggressive ultrafiltration with outpatient dialysis treatments * s/p paracentesis (on 12/22) * attempt to push fluid removal with HD/DUF as tolerated (9) Cirrhosis: Code(s): K74.60 - Unspecified cirrhosis of liver Status: Acute Assessment and Plan: * known issue/finding * appears clinically worse -- ascites, coagulopathy, pancytopenia, worsening ansarca... * continue supportive therapy (10) Hypoglycemia: Code(s): E16.2 - Hypoglycemia, unspecified Status: Acute Assessment and Plan: * etiology?? -- due to liver disease +/- poor nutrition +/- infection/sepsis * per report, blood sugar less than 30 at halfway prior to transfer * on dextrose IVFs to compensate * follow blood sugars Noted ongoing discussions with with family regarding level of care and goals of
[2023-12-24] MEDS: EPOETIN ALFA-EPBX 10,000 UNITS/ML VIAL 10000 UNITS IV PUSH (10:05)
[2023-12-24 10:22] LABS: Glucose Point of Care 64 mg/dl (65-105)
[2023-12-24 10:22] LABS: Glucose Point of Care 88 mg/dl (65-105)
[2023-12-24 11:06] LABS: Glucose Point of Care 87 mg/dl (65-105)
[2023-12-24 11:28] LABS: Glucose Point of Care 84 mg/dl (65-105)
[2023-12-24 13:41] LABS: Glucose Point of Care 78 mg/dl (65-105)
[2023-12-24 14:36] LABS: Glucose Point of Care 119 mg/dl (65-105)
--- NOTE | 2023-12-24 15:05 | PM.IMPN ---
Progress Note: A&P Assessment and Plan (1) Cardiac arrest: Code(s): I46.9 - Cardiac arrest, cause unspecified Status: Acute Assessment and Plan: Patient was admitted on 12/15 for AMS. In the evening of 12/16 while being rolled over to be given a lactulose enema, he went unresponsive due to PEA arrest. ACLS protocol was instituted with CPR and 3 rounds of epinephrine. ROSC achieved. Patient with into AFib RVR with heart rates in the 140s and Amio started. HR dropped to 50-60 range and Amiodarone stopped. Etiology could be related to vasovagal, bacteremia, hypoxia secondary to pulmonary edema CT brain 12/16 - no acute intracranial abnormalities Patient was intubated and started on targeted temperature management with goal temperature of 36?C due to thrombocytopenic, anemic and in DIC given the risk of increased bleeding. Patient has completed 24 hours and has now been rewarmed. Post cardiac arrest patient had seizure-like activities and was started on Keppra Echo - LVH with adequate systolic fxn and Grade I diastolic dysfxn, biatrial dilation, mild-moderate TR and RV enlargement. Continue to treat for bacteremia. Continue seizure precautions and Keppra. (2) Acute respiratory failure: Code(s): J96.00 - Acute respiratory failure, unspecified whether with hypoxia or hypercapnia Status: Acute Assessment and Plan: Acute respiratory failure likely related to cardiac arrest, pulmonary edema HD was QOD but now daily CXR reviewed today showing congestive changes with improvement. CT A/P showing moderate pleural effusions related to cirrhosis Continue bronchodilators Continue HD to control fluid status. HD difficult due to HoTN. Wean vent as tolerated (3) Severe sepsis: Code(s): A41.9 - Sepsis, unspecified organism; R65.20 - Severe sepsis without septic shock Status: Acute Assessment and Plan: Severe sepsis with lactic acidosis due to bacteremia. Lactic acidosis also likely related to cardiac arrest BCx growing Bacillus species in both bottles Patient was on cefepime, Flagyl and vancomycin (12/16) but narrowed to meropenem 12/18 He is anuric. BCx repeated 12/20: NGTD Source probably GI with CT A/P (12/15) showing diffuse wall thickening of the colon Continue IV abx (4) DIC (disseminated intravascular coagulation): Code(s): D65 - Disseminated intravascular coagulation [defibrination syndrome] Status: Acute Assessment and Plan: Patient in DIC felt related to severe sepsis from bacteremia Patient has received 6 unit of platelets with plt count finally improved to 51K Also has received 2 units of packed RBCs, 3 units of FFP and 1 unit of cryoprecipitate. He also received vitamin K x 4 doses INR elevated but stable at 2.2. Follow (5) Anemia: Code(s): D64.9 - Anemia, unspecified Status: Chronic Assessment and Plan: Patient has chronic anemic, has a history of chronic anemia from gastritis and esophagitis with EGD and colonoscopies done in 12/16: patient was transfused 1 unit of packed RBCs for hemoglobin of 6.7 ASA discontinued and will avoid any anticoagulation at this time Hgb 6.5 (12/21) and received PRBC x 1 unit Continue Protonix IV q.12 hours Follow HH (6) Thrombocytopenia: Code(s): D69.6 - Thrombocytopenia, unspecified Status: Chronic Assessment and Plan: Has a history of chronic thrombocytopenia Likely secondary to cirrhosis/liver dysfunction worsened by DIC Patient received platelet transfusion, vitamin K and FFP Plt count down to 24K. No evidence of bleeding Monitor and transfuse as needed (7) Bacteremia due to Gram-negative bacteria: Code(s): R78.81 - Bacteremia Status: Acute Assessment and Plan: BCx (12/16) growing Bacillus As above. (8) Hypoglycemia: Code(s): E16.2 - Hypoglycemia, unspecified Status: Acute Assessment and Plan: Patient presented f
[2023-12-24 16:24] LABS: Glucose Point of Care 121 mg/dl (65-105)
[2023-12-24] MEDS: levETIRAcetam 1000MG/NACL100ML 1,000 MG/100 ML BAG 400 MG IVPB (17:02)
[2023-12-24] MEDS: MEROPENEM 1 GM/NS 100 ML 1 GM/100 ML BAG IVPB (17:02)
[2023-12-24 18:06] LABS: Glucose Point of Care 108 mg/dl (65-105)
[2023-12-24 21:47] LABS: Glucose Point of Care 121 mg/dl (65-105)
[2023-12-24 21:47] LABS: Glucose Point of Care 87 mg/dl (65-105)
[2023-12-24 23:41] LABS: Glucose Point of Care 121 mg/dl (65-105)
[2023-12-25] VITALS (25 sets, daily range): BP systolic 100–124; BP diastolic 63–80; PULSE 79–94; RESP 14–24; TEMP 36.3–37.9; O2SAT 96–100
[2023-12-25] MEDS: IPRATROPIUM 0.5 MG/ALBUTEROL SULFATE 2.5 MG AMPUL.NEB 3 ML INHALATION ×3 (01:53→14:15)
[2023-12-25] MEDS: ONDANSETRON INJ 4 MG/2 ML VIAL IV PUSH (02:18)
[2023-12-25 03:14] LABS: Glucose Point of Care 118 mg/dl (65-105)
[2023-12-25] MEDS: METOCLOPRAMIDE HCL 10 MG/10 ML SOLN UDC FEED TUBE ×2 (03:35→08:49)
[2023-12-25 04:42] LABS: Hematocrit 22.1 % (42.0-52.0); Hemoglobin 7.1 g/dL (14.0-18.0); Immature Platelet Fraction Pct 9.6 % (0.9-11.2); Mean Corpuscular HGB Conc 32.1 g/dl (32-36); Mean Corpuscular Hemoglobin 27.3 pg (26-34); Red Cell Distribution Width 20.9 % (11.5-14.5); White Blood Count 5.2 K/mm3 (4.5-10.0)
[2023-12-25 04:43] LABS: Glucose Point of Care 141 mg/dl (65-105)
[2023-12-25 04:53] LABS: Alanine Aminotransferase 9 U/L (6-50); Albumin Level 2.9 g/dL (3.5-5.1); Alkaline Phosphatase 92 U/L (38-126); Anion Gap 6 mmol/L (4-12); Aspartate Amino Transferase 27 U/L (17-59); Bilirubin,Total 8.5 mg/dL (0.2-1.3); Blood Urea Nitrogen 15 mg/dL (9-20); Calcium 9.5 mg/dL (8.4-10.2); Carbon Dioxide 28 mmol/L (22-30); Chloride 104 mmol/L (98-107); Estimated CRCL calculation 36 ml/min; Estimated Glomerular Filt Rate 47; Glucose 135 mg/dL (65-110); Magnesium 1.7 mg/dL (1.6-2.3); Phosphorus 1.1 mg/dL (2.5-4.5); Potassium 3.1 mmol/L (3.4-5.0); Sodium 138 mmol/L (137-145); Triglycerides 57 mg/dL (<150)
[2023-12-25 04:57] LABS: Platelet Count Result 21 k/mm3 (150-375)
[2023-12-25 05:00] LABS: INR 2.1; Prothrombin Time 23.8 Seconds (11.1-14.7)
[2023-12-25 05:41] LABS: Base Excess ABG 5.1 mEq/l (+/-2.0); Fractional Inspired Oxygen 30 %; HCO3 ABG 28.2 mEq/l (22.0-26.0); Oxygen Content ABG 11.2 %vol (16.0-22.0); Oxygen Saturation ABG 98.9 % (95.0-100.0); Oxyhemoglobin 96.7 % THb (90.0-100.0); PO2 ABG 129.8 mmHg (80.0-100.0); PO2 FiO2 Ratio Arterial Blood 4.33 %
[2023-12-25 05:42] LABS: Device VENTILATOR; Modified Allen's Test Unable to perform; Site Drawn RIGHT RADIAL; pH ABG 7.524 (7.350-7.450)
[2023-12-25 05:43] LABS: Arterial Blood Gas PEEP 8 cmH2O; Arterial Blood Gas Tidal Volume 300 ml; Arterial Blood Gas Vent Mode CMV; Arterial Blood Gas Ventilator rate 14 /MIN
[2023-12-25] MEDS: CENTRAL LINE FLUSH 10 ML IV PUSH ×3 (06:32→20:47)
[2023-12-25 06:37] LABS: Glucose Point of Care 143 mg/dl (65-105)
--- NOTE | 2023-12-25 08:12 | WPDINTPN ---
Progress Note: A&P Assessment and Plan (1) Cardiac arrest: Code(s): I46.9 - Cardiac arrest, cause unspecified Status: Acute Assessment and Plan: 12/17/2023 evening: Patient was being rolled over to be given a lactulose enema, went unresponsive, went into PEA arrest, ACLS protocol was instituted, patient received 3 rounds of epinephrine, CPR with ROSC. Patient with into AFib RVR with heart rates in the 140s, was started on amiodarone infusion, heart rate dropped into the upper 50s and lower 60s and amiodarone infusion was later stopped. -could be related to vasovagal, bacteremia, hypoxia secondary to pulmonary edema -CT scan of the brain did not reveal any acute intracranial abnormalities -patient was started on targeted temperature management with goal temperature of 36?C, since patient has been thrombocytopenic, anemic and in DIC did not want her lower body temperature given the could be risk of increased bleeding given low body temperature. Patient has completed 24 hours and has now been reformed. Patient in general is hypothermic -post cardiac arrest patient had seizure-like activities and was started on Keppra, will continue -echocardiogram Summary 1. Complete two-dimensional, color flow and Doppler transthoracic echocardiogram is performed. 2. Left ventricular hypertrophy with adequate systolic function and grade 1 diastolic noncompliance. 3. Biatrial dilation. 4. Mild mitral regurgitation. 5. Mild to moderate tricuspid regurgitation with evidence of elevated PA pressure. 6. Right ventricular enlargement with reduced systolic function. (2) Acute respiratory failure: Code(s): J96.00 - Acute respiratory failure, unspecified whether with hypoxia or hypercapnia Status: Acute Assessment and Plan: Acute respiratory failure likely related to cardiac arrest, pulmonary edema -patient was dialyzed with 2500 mL in fluid removal of 12/17/2023 -chest x-ray reviewed and advanced ET tube by 2 cm - ABG reviewed -continue PEEP at 8 decrease tidal volume to 300 and rate to 14 -continue bronchodilators -weaning will depend on mental status improvement and will need further dialysis to remove fluid. He was dialyzed yesterday and will be dialyzed again today. Not a candidate for poor feeding at this time (3) Severe sepsis: Code(s): A41.9 - Sepsis, unspecified organism; R65.20 - Severe sepsis without septic shock Status: Acute Assessment and Plan: Severe sepsis with lactic acidosis, Gram-negative bacteremia. Likely source from colon or wounds -lactic acidosis most likely related to cardiac arrest and infection -12/16: blood cultures growing bacillus species -patient is on cefepime, Flagyl and vancomycin (12/16).12/18 switched to meropenem 12/20 repeat set of blood culture sent and negative for now (4) DIC (disseminated intravascular coagulation): Code(s): D65 - Disseminated intravascular coagulation [defibrination syndrome] Status: Acute Assessment and Plan: Patient in DIC could be related to severe sepsis, Gram-negative bacteremia -12/16: patient received 1 unit of platelets 1 unit of packed RBCs and 1 unit of cryoprecipitate. - He also received vitamin K -12/19 elevated INR and low fibrinogen level. Will transfuse 2 units of FFP (5) Anemia: Code(s): D64.9 - Anemia, unspecified Status: Chronic Assessment and Plan: Patient anemic, has a history of chronic anemia from gastritis and esophagitis with EGD and colonoscopies done in July of 2023 -12/16: patient was transfused 1 unit of packed RBCs for hemoglobin of 6.7 -discontinued aspirin -will avoid any anticoagulation at this time -continue Protonix IV q.12 hours 12/21 hemoglobin 6.5 will transfuse 1 unit of PRBC monitor. Transfuse as needed (6) Thrombocytopenia: Code(s): D69.6 - Thrombocytopenia, unspecified Status: Chronic Assessment and Plan: Has a history of chronic thrombo
[2023-12-25 08:32] LABS: Glucose Point of Care 134 mg/dl (65-105)
[2023-12-25] MEDS: POTASSIUM PHOS/SODIUM PHOS 250 MG TABLET FEED TUBE (08:37)
[2023-12-25 08:46] LABS: Ammonia 36 umol/L (9-30)
[2023-12-25] MEDS: LACTULOSE 20 GM/30 ML UDC PO (08:49)
[2023-12-25] MEDS: FOLIC ACID 1 MG TABLET PO (08:49)
[2023-12-25] MEDS: POTASSIUM PHOS,M-BASIC-D-BASIC 20 MMOL in SODIUM CHLORIDE 0.9% IV 250 ML 64.17 MMOL IVPB (08:49)
[2023-12-25] MEDS: ATORVASTATIN 20 MG TABLET PO (08:49)
[2023-12-25] MEDS: PANTOPRAZOLE SODIUM IV 40 MG VIAL IV PUSH (08:50)
[2023-12-25] MEDS: MINERAL OIL/WHITE PETROLATUM OINTMENT 1 APPLIC EACH EYE (08:50)
[2023-12-25 10:02] LABS: Glucose Point of Care 113 mg/dl (65-105)
--- NOTE | 2023-12-25 11:34 | PM.IMPN ---
Progress Note: A&P Assessment and Plan (1) Cardiac arrest: Code(s): I46.9 - Cardiac arrest, cause unspecified Status: Acute Assessment and Plan: Patient was admitted on 12/15 for AMS. In the evening of 12/16 while being rolled over to be given a lactulose enema, he went unresponsive due to PEA arrest. ACLS protocol was instituted with CPR and 3 rounds of epinephrine. ROSC achieved. Patient with into AFib RVR with heart rates in the 140s and Amio started. HR dropped to 50-60 range and Amiodarone stopped. Etiology could be related to vasovagal, bacteremia, hypoxia secondary to pulmonary edema CT brain 12/16 - no acute intracranial abnormalities Patient was intubated and started on targeted temperature management with goal temperature of 36?C due to thrombocytopenic, anemic and in DIC given the risk of increased bleeding. Patient has completed 24 hours and has now been rewarmed. Post cardiac arrest patient had seizure-like activities and was started on Keppra Echo - LVH with adequate systolic fxn and Grade I diastolic dysfxn, biatrial dilation, mild-moderate TR and RV enlargement. Continue to treat for bacteremia. Continue seizure precautions and Keppra. (2) Acute respiratory failure: Code(s): J96.00 - Acute respiratory failure, unspecified whether with hypoxia or hypercapnia Status: Acute Assessment and Plan: Acute respiratory failure likely related to cardiac arrest, pulmonary edema HD was QOD but now daily CXR reviewed today showing congestive changes with improvement. CT A/P showing moderate pleural effusions related to cirrhosis Continue bronchodilators Continue HD to control fluid status. HD difficult due to HoTN. Wean vent as tolerated (3) Severe sepsis: Code(s): A41.9 - Sepsis, unspecified organism; R65.20 - Severe sepsis without septic shock Status: Acute Assessment and Plan: Severe sepsis with lactic acidosis due to bacteremia. Lactic acidosis also likely related to cardiac arrest BCx growing Bacillus species in both bottles Patient was on cefepime, Flagyl and vancomycin (12/16) but narrowed to meropenem 12/18 He is anuric. BCx repeated 12/20: NGTD Source probably GI with CT A/P (12/15) showing diffuse wall thickening of the colon Continue IV abx (4) DIC (disseminated intravascular coagulation): Code(s): D65 - Disseminated intravascular coagulation [defibrination syndrome] Status: Acute Assessment and Plan: Patient in DIC felt related to severe sepsis from bacteremia Patient has received 6 unit of platelets with plt count finally improved to 51K Also has received 2 units of packed RBCs, 3 units of FFP and 1 unit of cryoprecipitate. He also received vitamin K x 4 doses INR elevated but stable at 2.1. Follow (5) Anemia: Code(s): D64.9 - Anemia, unspecified Status: Chronic Assessment and Plan: Patient has chronic anemic, has a history of chronic anemia from gastritis and esophagitis with EGD and colonoscopies done in 12/16: patient was transfused 1 unit of packed RBCs for hemoglobin of 6.7 ASA discontinued and will avoid any anticoagulation at this time Hgb 6.5 (12/21) and received PRBC x 1 unit Hgb low in the 7 range but stable. Continue Protonix IV q.12 hours Follow HH (6) Thrombocytopenia: Code(s): D69.6 - Thrombocytopenia, unspecified Status: Chronic Assessment and Plan: Has a history of chronic thrombocytopenia Likely secondary to cirrhosis/liver dysfunction worsened by DIC Patient received platelet transfusion, vitamin K and FFP Plt count down to 21K. No evidence of bleeding Monitor and transfuse as needed (7) Bacteremia due to Gram-negative bacteria: Code(s): R78.81 - Bacteremia Status: Acute Assessment and Plan: BCx (12/16) growing Bacillus As above. (8) Hypoglycemia: Code(s): E16.2 - Hypoglycemia, unspecified Status: Acute Asses
--- NOTE | 2023-12-25 12:25 | PM.PNNEP ---
Progress Note: A&P Assessment and Plan (1) End stage renal disease: Code(s): N18.6 - End stage renal disease Status: Chronic Assessment and Plan: HD yesterday continue T/T/S dialysis schedule while hospitalized follow electrolytes, volume status, and clearance (2) Cardiac arrest: Code(s): I46.9 - Cardiac arrest, cause unspecified Status: Acute Assessment and Plan: etiology? possibly vasovagal versus bacteremia versus hypoxia?? CT of brain negative not initiated on TTM given hypothermia present after arrest Echo results noted no improvement in mentation continue supportive therapy (3) Acute respiratory failure: Code(s): J96.00 - Acute respiratory failure, unspecified whether with hypoxia or hypercapnia Status: Acute Assessment and Plan: due to cardiac arrest and possily pulmonary edema intubated and on mechanical ventilation ventilator weaning per protocol push fluid removal with HD/DUF as tolerated (4) Severe sepsis: Code(s): A41.9 - Sepsis, unspecified organism; R65.20 - Severe sepsis without septic shock Status: Acute Assessment and Plan: noted with lactic acidosis and Bacillus (not B. anthracis) bacteremia was requiring vasopressor support (levophed) - weaned off on antibiotics follow repeat cultures (5) Anemia: Qualifiers: Anemia type: unspecified type Qualified Code(s): D64.9 - Anemia, unspecified Code(s): D64.9 - Anemia, unspecified Status: Chronic Assessment and Plan: known history partly related to ESRD however, noted gastritis and esophagitis with EGD and colonoscopies done in July of 2023 PRBC transfusion per protocol on PPI Epogen with HD follow trend of H/H (6) Thrombocytopenia: Code(s): D69.6 - Thrombocytopenia, unspecified Status: Chronic Assessment and Plan: chronic issue at baseline now complicated by DIC likely related to liver cirrhosis/dysfunction sepsis could be playing a role as well vitamin K and FFP given due to elevated INR along with platelet transfusion PRN follow platelet count for now (7) Hypokalemia: Code(s): E87.6 - Hypokalemia Status: Acute Assessment and Plan: better control at this time suspect related to poor oral intake, liver disease, and dialysis replete PRN will adjust dialysis bath to compensate (8) Anasarca: Code(s): R60.1 - Generalized edema Status: Acute Assessment and Plan: somewhat of a chronic issue related to liver disease/cirrhosis, hypoalbuminemia, and likely inability for aggressive ultrafiltration with outpatient dialysis treatments s/p paracentesis (on 12/22) attempt to push fluid removal with HD/DUF as tolerated (9) Cirrhosis: Code(s): K74.60 - Unspecified cirrhosis of liver Status: Acute Assessment and Plan: known issue/finding appears clinically worse -- ascites, coagulopathy, pancytopenia, worsening ansarca... continue supportive therapy (10) Hypoglycemia: Code(s): E16.2 - Hypoglycemia, unspecified Status: Acute Assessment and Plan: etiology?? -- due to liver disease +/- poor nutrition +/- infection/sepsis per report, blood sugar less than 30 at custodial prior to transfer on dextrose IVFs to compensate follow blood sugars Noted ongoing discussions with with family regarding level of care and goals of therapy given minimal improvement in clinical condition despite all interventions to date. Will continue to follow. Subjective Date/time seen: 12/25/23 12:25 Interval history: Follow-up for end stage renal disease on hemodialysis. Tolerated dialysis treatment yesterday although once again, fluid removal is always challenging as noted on previous treatments; otherwise, no other significant changes noted -- remains intubated and on mechanical ventilation as well as dextrose
--- NOTE | 2023-12-25 12:25 | P.PNNP_ITS ---
Progress Note: A&P Assessment and Plan (1) End stage renal disease: Code(s): N18.6 - End stage renal disease Status: Chronic Assessment and Plan: * HD yesterday * continue T/T/S dialysis schedule while hospitalized * follow electrolytes, volume status, and clearance (2) Cardiac arrest: Code(s): I46.9 - Cardiac arrest, cause unspecified Status: Acute Assessment and Plan: * etiology? * possibly vasovagal versus bacteremia versus hypoxia?? * CT of brain negative * not initiated on TTM given hypothermia present after arrest * Echo results noted * no improvement in mentation * continue supportive therapy (3) Acute respiratory failure: Code(s): J96.00 - Acute respiratory failure, unspecified whether with hypoxia or hypercapnia Status: Acute Assessment and Plan: * due to cardiac arrest and possily pulmonary edema * intubated and on mechanical ventilation * ventilator weaning per protocol * push fluid removal with HD/DUF as tolerated (4) Severe sepsis: Code(s): A41.9 - Sepsis, unspecified organism; R65.20 - Severe sepsis without septic shock Status: Acute Assessment and Plan: * noted with lactic acidosis and Bacillus (not B. anthracis) bacteremia * was requiring vasopressor support (levophed) - weaned off * on antibiotics * follow repeat cultures (5) Anemia: Qualifiers: Anemia type: unspecified type Qualified Code(s): D64.9 - Anemia, unspecified Code(s): D64.9 - Anemia, unspecified Status: Chronic Assessment and Plan: * known history * partly related to ESRD * however, noted gastritis and esophagitis with EGD and colonoscopies done in July of 2023 * PRBC transfusion per protocol * on PPI * Epogen with HD * follow trend of H/H (6) Thrombocytopenia: Code(s): D69.6 - Thrombocytopenia, unspecified Status: Chronic Assessment and Plan: * chronic issue at baseline * now complicated by DIC * likely related to liver cirrhosis/dysfunction * sepsis could be playing a role as well * vitamin K and FFP given due to elevated INR along with platelet transfusion PRN * follow platelet count for now (7) Hypokalemia: Code(s): E87.6 - Hypokalemia Status: Acute Assessment and Plan: * better control at this time * suspect related to poor oral intake, liver disease, and dialysis * replete PRN * will adjust dialysis bath to compensate (8) Anasarca: Code(s): R60.1 - Generalized edema Status: Acute Assessment and Plan: * somewhat of a chronic issue * related to liver disease/cirrhosis, hypoalbuminemia, and likely inability for aggressive ultrafiltration with outpatient dialysis treatments * s/p paracentesis (on 12/22) * attempt to push fluid removal with HD/DUF as tolerated (9) Cirrhosis: Code(s): K74.60 - Unspecified cirrhosis of liver Status: Acute Assessment and Plan: * known issue/finding * appears clinically worse -- ascites, coagulopathy, pancytopenia, worsening ansarca... * continue supportive therapy (10) Hypoglycemia: Code(s): E16.2 - Hypoglycemia, unspecified Status: Acute Assessment and Plan: * etiology?? -- due to liver disease +/- poor nutrition +/- infection/sepsis * per report, blood sugar less than 30 at senior care prior to transfer * on dextrose IVFs to compensate * follow blood sugars Noted ongoing discussions with with family regarding l
[2023-12-25 12:31] LABS: Glucose Point of Care 94 mg/dl (65-105)
[2023-12-25 14:21] LABS: Glucose Point of Care 92 mg/dl (65-105)
[2023-12-25 16:57] LABS: Glucose Point of Care 108 mg/dl (65-105)
[2023-12-25] MEDS: MEROPENEM 1 GM/NS 100 ML 1 GM/100 ML BAG IVPB (18:01)
[2023-12-25] MEDS: levETIRAcetam 1000MG/NACL100ML 1,000 MG/100 ML BAG 400 MG IVPB (18:01)
[2023-12-25 18:15] LABS: Glucose Point of Care 95 mg/dl (65-105)
--- NOTE | 2023-12-25 20:15 | PC.NURSE ---
Patient's brother Gerald at bedside. Spoke in length him and other family about patient's condition. All questions answered. Patient's family spoke amongst themselves. Gerald and family made the decision to withdraw care on patient. Dr. Phillip called and made aware of patient's family decision. Orders received.
--- NOTE | 2023-12-25 20:29 | PC.NURSE ---
Due to family decision to withdraw care [facility] notified. [facility] had previously been notified, this RN clarified patient was clear for family to withdraw. MTS asks that they be called with TOD.
[2023-12-25] MEDS: MORPHINE SULFATE INJ (*CRX) 10 MG/ML AMP 5 MG IV PUSH (20:44)
[2023-12-25] MEDS: LORazepam INJ (*CRX) 2 MG/ML VIAL IV PUSH ×2 (20:45→22:01)
[2023-12-25] MEDS: MORPHINE SULFATE (*CRX) 2 MG/ML INJ 4 MG IV PUSH (22:01)
--- NOTE | 2023-12-26 03:18 | PC.NURSE ---
This RN attempted to reach patient's brother, Zurdo concerning patient expiring. Voicemail left for him to call the ICU for an update.
--- NOTE | 2023-12-26 04:15 | PC.NURSE ---
034 Third message left with patients brother Zurdo. Left voicemail that the patient had passed and to please call with the name of Home to be used.
[2023-12-28 14:42] LABS: Soluble Transferrin Receptor 0.57 mg/L (0.76-1.76)
--- NOTE | 2023-12-29 14:44 | PM.DDS ---
Discharge Summary Date and Time Date of : 12/26/23 Time of : 03:18 Probable Cause of Probable Cause of : Cardiac arrest and respiratory failure Summary Hospital Course: Patient was admitted on 12/15 for AMS. In the evening of 12/16 while being rolled, the patient went unresponsive due to PEA arrest. ACLS protocol was instituted with CPR and 3 rounds of epinephrine. ROSC achieved. He was intubated and admitted to the ICU for cooling protocol. He had a complicated course with: -- AFib RVR with heart rates in the 140s and Amiodarone started. HR dropped to 50-60 range and Amiodarone stopped. -- Post cardiac arrest with seizure-like activities and was started on Keppra -- Acute respiratory failure likely related to cardiac arrest, pulmonary edema -- Severe sepsis with lactic acidosis due to bacteremia. Lactic acidosis also likely related to cardiac arrest. BCx growing Bacillus species in both bottles -- DIC felt related to severe sepsis from bacteremia -- Acute on chronic anemic -- Acute on chronic thrombocytopenia with platelet count down to >20K -- Sever hypoglycemia with glucose <20 -- ESRD on dialysis -- Cirrhosis of liver -- Chronic pancreatitis Despite aggressive medical management and with multiple specialists involved in his care, the patient's condition did not improve. Family was made aware of the patient's hospital course and decided to turn to comfort measures. Patient was made comfortable and passed on 12/26/23. 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
[2023-12-30 08:53] LABS: Albumin Peritoneal Fluid 1.1 g/dL; Glucose Peritoneal Fluid 117 mg/dL
== END 2023-12-26 03:18 | disposition expired | DRG 640 ==
LOC: ANHED 13:06 → ANHIMU 13:47 → ANHICU 12-20 11:11 → ANHIMU 12-22 15:05
PROVIDERS: Internal Medicine; Internal Medicine Nephrology; Nurse Practitioner; Nurse Practitioner Family; Physician Assistant; Admitting Provider Internal Medicine; Emergency Provider Family Medicine; PCP Internal Medicine; Visit Provider Internal Medicine
DX: E16.2 Hypoglycemia, unspecified (principal); A41.9 Sepsis, unspecified organism; D65 Disseminated intravascular coagulation [defibrination syndrome]; N18.6 End stage renal disease; J96.00 Acute respiratory failure, unspecified whether with hypoxia or hypercapnia; G92.8 Other toxic encephalopathy; R65.20 Severe sepsis without septic shock; I12.0 Hypertensive chronic kidney disease with stage 5 chronic kidney disease or end stage renal disease; D61.818 Other pancytopenia; G93.49 Other encephalopathy; E87.21 Acute metabolic acidosis; K86.1 Other chronic pancreatitis; R18.8 Other ascites; N17.9 Acute kidney failure, unspecified; K76.6 Portal hypertension; I46.9 Cardiac arrest, cause unspecified; I48.91 Unspecified atrial fibrillation; E78.5 Hyperlipidemia, unspecified; I73.9 Peripheral vascular disease, unspecified; D69.59 Other secondary thrombocytopenia; K74.60 Unspecified cirrhosis of liver; D63.1 Anemia in chronic kidney disease; R56.9 Unspecified convulsions; E87.6 Hypokalemia; E88.09 Other disorders of plasma-protein metabolism, not elsewhere classified; G89.4 Chronic pain syndrome; Z87.11 Personal history of peptic ulcer disease; K72.90 Hepatic failure, unspecified without coma; Z99.2 Dependence on renal dialysis; Z66 Do not resuscitate
CPT/HCPCS: 31500; 36415; 36430; 36600; 43752; 49083; 70450; 71045; 74176; 80053; 80069; 80074; 82042; 82140; 82375; 82550; 82607; 82728; 82746; 82805; 82945; 82948; 83036; 83050; 83540; 83550; 83605; 83690; 83735; 83921; 84100; 84238; 84478; 84484; 85025; 85027; 85055; 85380; 85384; 85610; 85730; 86023; 86038; 86039; 86140; 86706; 86850; 86900; 86901; 86923; 87040; 87070; 87075; 87205; 87340; 87641; 89051; 92950; 93005; 93306; 94002; 94003; 94640; 96374; 99285; A9270; C1751; C9113; G0257; J0171; J0282; J0692; J1610; J1644; J1836; J1953; J2060; J2185; J2250; J2270; J2405; J3370; J3430; J3475; J3480; J7030; J7042; J7050; P9012; P9016; P9017; P9034; P9045; P9047; Q5105